=== PATIENT | male | born 1945 | race Caucasian/White ===

== ENCOUNTER 2017-02-06 07:44 | Outpatient (CLI) | payer MEDICARE | END 2017-02-06 07:45 | disposition home or self-care (01) | LOC: LABBT 07:44 | PROVIDERS: ATTEND Internal Medicine Cardiovascular Disease | DX: Z01.812 Encounter for preprocedural laboratory examination (principal); I35.0 Nonrheumatic aortic (valve) stenosis ==

== ENCOUNTER 2017-02-07 08:15 | Outpatient (CLI) | payer MEDICARE ==
[2017-02-07 10:16] LABS: Hematocrit 49.5 % (42.0-52.0); Mean Platelet Volume 9.1 fL (7.4-10.4); Red Blood Cell (RBC) Count 5.25 mill/uL (4.70-6.10); White Blood Cell (WBC) Count 9.5 thou/uL (4.8-10.8)
[2017-02-07 10:29] LABS: Prothrombin Time 18.7 SEC (12.0-14.7)
[2017-02-07 10:46] LABS: ALT (SGPT) 12 U/L (8-55); AST (SGOT) 19 U/L (5-34); Alkaline Phosphatase 99 U/L (40-150); Anion Gap 16 mmol/L (10-20); BUN (Urea Nitrogen) 18 mg/dL (8.4-25.7); Bilirubin, Total 1.2 mg/dL (0.2-1.2); Calc. Creatinine Clearance 0 mL/min (70-130); Calcium 9.7 mg/dL (7.8-10.44); Carbon Dioxide 22 mmol/L (23-31); Chloride 104 mmol/L (98-107); Estimated GFR-MDRD 54; Globulin 3.6 g/dL (2.4-3.5); Protein, Total 7.3 g/dL (5.8-8.1)
== END 2017-02-07 08:16 | disposition home or self-care (01) ==
LOC: LABBT 08:15
PROVIDERS: ATTEND Internal Medicine Cardiovascular Disease
DX: Z01.812 Encounter for preprocedural laboratory examination (principal); I35.0 Nonrheumatic aortic (valve) stenosis
CPT/HCPCS: 80053; 85027; 85610; 85730

== ENCOUNTER → 2017-02-08 | Day surgery (SDC) | payer MEDICARE ==
[2017-02-06 08:24] VITALS: BMI 28.0
[~2017-02-08] MED LIST: Diazepam 5 MG TAB ONE; Fentanyl 100 MCG/2 ML VIAL ONE; Iopamidol 370 76% 100 ML VIAL ONE; Midazolam HCl 2 mg/2 ml Vial ONE; Nitroglycerin 100MG/250ML BOT 250 ML ONE
[2017-02-08 06:53] LABS: Prothrombin Time 17.3 SEC (12.0-14.7)
--- NOTE | 2017-02-08 17:04 | CON ---
DATE OF CONSULTATION: 02/08/2017 HISTORY OF PRESENT ILLNESS: This is a 71-year-old gentleman with a history of atrial fibrillation c hronically. 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 He had been followed by Dr. Ann for the atrial fibrillation and remote catheterization demonstrated normal coronary arteries. He h ad a dilated left atrium. Recent echocardiogram suggested severe aortic stenosis with an ejection f raction of 40% to 45%, a peak gradient of 67, mean 35 and a valve area of 0.5. Cardiac catheterizat ion today demonstrated a heavily calcified disease proximal LAD, mid LAD with being intramyocardial and the distal LAD being bypassable with normal circumflex and right system. PAST MEDICAL HISTORY: Includes hypertension and diabetes mellitus. SOCIAL HISTORY: He is , nonsmoker. CURRENT MEDICATIONS: Include Coumadin, which has been on hold. He also takes Zebeta 15 mg daily, p rednisone 2 mg daily, warfarin 5 mg as directed, metformin 500 b.i.d., Lasix 20 q. day and vitamins. ALLERGIES: He reports allergies to LEVOFLOXACIN and CIPROFLOXACIN. FAMILY HISTORY: Noncontributory. SOCIAL HISTORY: As noted above. PHYSICAL EXAMINATION: VITAL SIGNS: Heart rate 70 and blood pressure 130/70. NECK: No carotid bruits. CARDIAC: Very distant systolic murmur and irregular rhythm. ABDOMEN: Obese and nontender. EXTREMITIES: He has palpable pedal pulse bilaterally with no peripheral edema today. ASSESSMENT AND PLAN: At this time is for aortic valve replacement and single vessel coronary bypass grafting to the LAD and informed consent has been obtained.
== END ==
LOC: CCL 05:53
PROVIDERS: ATTEND Internal Medicine Cardiovascular Disease
DX: I35.0 Nonrheumatic aortic (valve) stenosis (principal); I10 Essential (primary) hypertension; E11.9 Type 2 diabetes mellitus without complications; I48.91 Unspecified atrial fibrillation; Z79.01 Long term (current) use of anticoagulants; Z79.52 Long term (current) use of systemic steroids; Z79.84 Long term (current) use of oral hypoglycemic drugs; Z88.1 Allergy status to other antibiotic agents
CPT/HCPCS: 76942; 82962; 85610; 86850; 86900; 86901; 86920; 93454; C1769; 36415; 36416; 99152; J1644; J2250; J3010

== ENCOUNTER 2017-02-10 08:58 | Inpatient (IN) | payer MEDICARE ==
[2017-02-13] MEDS ORDERED: Fentanyl 100 MCG/2 ML VIAL ONE (06:29)
[2017-02-13] MEDS ORDERED: Dexmedetomidine 200 MCG/2 ML VIAL ONE (06:30)
[2017-02-13] MEDS ORDERED: Vecuronium 10 MG VIAL ONE ×2 (06:30→07:48)
[2017-02-13] MEDS ORDERED: Midazolam HCl 5 mg/5 ml Vial ONE (06:30)
[2017-02-13] MEDS ORDERED: Heparin 10,000 UNITS/1 ML VIAL 30,000 UNITS in Sodium Chloride 0.9% 1,000 ML FS SCH (06:45)
[2017-02-13] MEDS ORDERED: Vancomycin HCl 1.5 GM, Admixture Fee 1 EACH in Sodium Chloride 0.9% 250 ML 300 ML IVPB SCH (07:30)
[2017-02-13] MEDS ORDERED: Hydrocortisone Sod Succ/PF 100 mg/2 ml Vial ONE ×2 (07:48→09:53)
[2017-02-13] MEDS ORDERED: Lidocaine 2% PF 10 ML AMP (For Epidural Use) ONE (07:48)
[2017-02-13] MEDS ORDERED: PHENYLEPHRINE-NS 100 MCG/ML 10 ML SYRINGE ONE (07:48)
[2017-02-13] MEDS ORDERED: ePHEDrine/0.9% NaCl/PF SYRINGE 50 mg/10 ml ONE (07:48)
[2017-02-13] MEDS ORDERED: Milrinone 10 MG/10 ML VIAL ONE (08:26)
[2017-02-13] MEDS ORDERED: Albumin 5% 500 ML ONE (10:43)
[2017-02-13 12:47] LABS: Mechanical Tidal Volume 550 ml; Modified Allen's Test NOT DONE; Oxyhemoglobin 94.6 % (94.0-97.0); Pressure Support 10 cmH2O; Sodium 144 mmol/L (135-148); Vent YES
[2017-02-13 12:48] LABS: Mode PSIMV
--- NOTE | 2017-02-13 13:02 | RAD ---
SUPINE CHEST: Date: 02/13/17 HISTORY: Post CABG. COMPARISON: 03/31/08 exam. FINDINGS: Heart size is enlarged. Postop sternotomy change and bowel replacement are noted. Endotracheal and N G tubes are in satisfactory position. Right subclavian line is seen with catheter tip overlying the superior vena cava/right atrium junction. Midline left-sided chest tubes in place. Bibasilar atelect atic lung changes are noted. IMPRESSION: 1. Endotracheal tube in satisfactory position. 2. Cardiomegaly with bibasilar atelectasis. 3. Mild pulmonary vascular engorgement is also noted. POS: OFF
[2017-02-13] MEDS ORDERED: Bisacodyl 5 MG TAB PO PRN (14:31)
[2017-02-13] MEDS ORDERED: Morphine Sulfate 2 MG/ML SYRINGE SLOW IVP PRN (14:31)
[2017-02-13] MEDS ORDERED: DOPamine 400 MG/D5W 250 ML 250 ML IVPB PRN (14:31)
[2017-02-13] MEDS ORDERED: Norepinephrine 8 MG/0.9% NS 250 ML IVPB PRN (14:31)
[2017-02-13] MEDS ORDERED: Fentanyl 100 MCG/2 ML VIAL SLOW IVP PRN ×2 (14:31)
[2017-02-13] MEDS ORDERED: Phenylephrine 10 MG/NS 250 ML 250 ML IVPB PRN (14:31)
[2017-02-13] MEDS ORDERED: Mag-Al 1200 mg/1200 mg/30 ML UDCUP PO PRN (14:31)
[2017-02-13] MEDS ORDERED: Nitroglycerin 50 MG/250 ML BOT 250 ML IVPB PRN (14:31)
[2017-02-13] MEDS ORDERED: Guaifenesin DM 100-10/5 ML UDCUP PO PRN (14:31)
[2017-02-13] MEDS ORDERED: Bisacodyl 10 MG SUPP PR PRN (14:31)
[2017-02-13] MEDS ORDERED: Post-Op Insulin Drip Protocol IVPB ONE (14:31)
[2017-02-13] MEDS ORDERED: traMADol HCl 50 MG TAB PO PRN (14:31)
[2017-02-13] MEDS ORDERED: Hetastarch 6% 500 ML 500 ML IVPB PRN (14:31)
[2017-02-13] MEDS ORDERED: Ondansetron HCl/PF 4 MG/2 ML Vial IVP PRN (14:31)
[2017-02-13] MEDS ORDERED: Potassium Chloride 20 MEQ/100 ML PREMIX BAG IVPB PRN (14:31)
[2017-02-13] MEDS ORDERED: Promethazine HCl 25 MG/ML VIAL IM PRN (14:31)
[2017-02-13 14:35] LABS: Oxyhemoglobin 96.9 % (94.0-97.0); Sodium 142 mmol/L (135-148)
[2017-02-13 14:35] LABS: Base Excess -0.4 mEq/L (0 (+/- 2.5)); O2 Content (venous) 12.5 VOL% (12.5-17.5); pH (venous) 7.392 (7.35-7.45)
[2017-02-13 14:35] LABS: Oxyhemoglobin 97.3 % (94.0-97.0); Sodium 142 mmol/L (135-148)
[2017-02-13 14:36] LABS: Sodium 143 mmol/L (135-148)
[2017-02-13 14:36] LABS: Oxyhemoglobin 97.3 % (94.0-97.0); Sodium 141 mmol/L (135-148)
[2017-02-13 14:36] LABS: Oxyhemoglobin 96.2 % (94.0-97.0); Sodium 145 mmol/L (135-148)
[2017-02-13 14:42] LABS: Mode OR ABG; Vent YES
[2017-02-13 14:43] LABS: Mode OR ABG; Vent YES
[2017-02-13 14:43] LABS: Mode OR ABG; Vent YES
[2017-02-13 14:44] LABS: Mean Platelet Volume 8.8 fL (7.4-10.4); Red Blood Cell (RBC) Count 5.11 mill/uL (4.70-6.10); White Blood Cell (WBC) Count 28.6 thou/uL (4.8-10.8)
[2017-02-13 14:44] LABS: Mode OR ABG; Vent YES
[2017-02-13 14:44] LABS: Mode OR ABG; Vent YES
[2017-02-13] MEDS ORDERED: Dextrose 50% Abboject 50 ML SYRINGE SLOW IVP PRN (14:49)
[2017-02-13] MEDS ORDERED: Dextrose 5% in Water 1,000 ML IV PRN (14:49)
[2017-02-13 14:51] LABS: PTT 34.9 SEC (22.9-36.1); Prothrombin Time 19.4 SEC (12.0-14.7)
[2017-02-13 14:52] LABS: Anion Gap 14 mmol/L (10-20); BUN (Urea Nitrogen) 16 mg/dL (8.4-25.7); Calc. Creatinine Clearance 74 mL/min (70-130); Calcium 9.4 mg/dL (7.8-10.44); Carbon Dioxide 23 mmol/L (23-31); Chloride 110 mmol/L (98-107); Estimated GFR-MDRD 61
[2017-02-13] MEDS ORDERED: Insulin Regular 300 UNITS/3 ML VIAL ONE (14:58)
[2017-02-13 15:00] LABS: Band 29 % (5-11); Burr Cells SLIGHT = 2-5 cells (100X) (0-1/hpf); Metamyelocyte 1 % (0-0); Neutrophil 60 % (42-75); Polychromasia SLIGHT = 2-3 cells (100X) (0-2/hpf); Reactive Lymphocytes 2 % (0-10); Toxic Granulation SLIGHT
[2017-02-13] MEDS: Insulin Regular 300 UNITS/3 ML VIAL SC PRN ×3 (15:05→21:43)
[2017-02-13] MEDS: Sodium Chloride 0.9% 1,000 ML IV SCH (15:06)
--- NOTE | 2017-02-13 16:12 | OP ---
PREOPERATIVE DIAGNOSES: Aortic valve stenosis, congestive heart failure, left ventricular dysfuncti on, coronary artery disease, and chronic atrial fibrillation. POSTOPERATIVE DIAGNOSES: Aortic valve stenosis, congestive heart failure, left ventricular dysfunct ion, coronary artery disease, and chronic atrial fibrillation with thrombus left atrial appendage. SURGEON: Bonilla Shannon M.D. DROP WIRE ALINER: Dr. Sy and Dr. Moran. TRANSFUSION: None. DESCRIPTION OF PROCEDURE: After adequate anesthesia had been obtained, the patient was prepped and draped. Median sternotomy was performed following which the left internal mammary artery was harves marcelino entering the left pleura. The patient was heparinized, the mammary divided distally and passed posterior to the thymus gland. Aorta was cannulated just above the pericardial reflection as was th e right atrium. Cardiopulmonary bypass was instituted. Retrograde coronary sinus catheter was plac ed due to moderate aortic insufficiency on the transesophageal echo. This also showed what appeared to be thrombus within the left atrial appendage as well as an ejection fraction of 17%. Following aortic cross clamping, a liter of cardioplegic solution was given through the aortic root and then 3 00 mL retrograde. Following this, the heart was gently rotated to the left and the base of the appe ndage was oversewn with a double layer of horizontal mattress suture. Following this, the CALLES to L AD anastomosis was completed and then the right superior pulmonary vein sump was placed. Aortotomy was then performed and heavily calcified trileaflet valve was excised. Sizers placed. Sutures plac ed with pledgets deep to the annulus circumferentially and then a #25 Magna valve was seated. Cor-K nots were used to tie the sutures and then the aortotomy was closed with a double layer of 5-0 Prole ne suture. After deairing, which was accomplished with the vent sump and the aortotomy site, it isaac uld be noted that CO2 was insufflated into the pericardial well throughout, and the crossclamp was r emoved. At that time with volume in the heart, it was apparent thrombus within the left atrium and for this reason, the cross-clamp was reapplied, 500 mL of cardioplegic solution was given. Atriotom y was performed in the left atrium along the right interatrial groove and smooth thrombus was then r emoved at the base of the left atrial appendage. The appendage itself was completely oversewn and t his appeared to have an extruded perhaps during tying of the left atrial appendage suture line. Lef t atrium was then closed and after deairing, crossclamp was removed again. The patient was then ful ly rewarmed, pacing wires placed on the ventricle and the patient was then weaned from cardiopulmona ry bypass with low dose dopamine and Primacor load. No air was detected in the heart. There was no further thrombus identified. Decannulation was performed. Protamine was given systemically and ao rtic cannulation site was oversewn with 4-0 Prolene suture. Mediastinal and left pleural drain was placed following which the sternum was reapproximated with #7 interrupted wire using vancomycin past e on the sternal edges, platelet-enriched blood, and platelet-poor plasma. Subcutaneous tissue and skin were closed in layers and the patient is to be taken to the ICU in guarded condition.
[2017-02-13 20:10] LABS: Oxyhemoglobin 95.2 % (94.0-97.0); Sodium 143 mmol/L (135-148)
[2017-02-13 20:35] LABS: Pressure Support 10 cmH2O; Vent YES
[2017-02-13 20:36] LABS: Mode CPAP
[2017-02-13] MEDS ORDERED: FLU VACC TS2017-18 (>65YR) 0.5 ML SYRINGE IM ONE (21:00)
[2017-02-13] MEDS ORDERED: Enoxaparin Sodium 30 MG/0.3 ML SYRINGE SC SCH (21:00)
[2017-02-13] MEDS: Famotidine/PF 20 mg/2ml Vial SLOW IVP SCH (21:23)
[2017-02-13] MEDS: Vancomycin HCl 1 GM in Premix Bag 1 BAG IVPB SCH (21:23)
--- NOTE | 2017-02-13 21:36 | PRG ---
DATE OF SERVICE: 02/13/2017 SUBJECTIVE: Mr. Linares is doing well postoperatively. The patient had aortic valve replacement successfully done today. Dr. Shannon noted there is some int raatrial appendage thrombus, which he was able to retrieve. The patient is doing well now, still in tubated. OBJECTIVE: VITAL SIGNS: Blood pressure 120/60, pulse 80. LUNGS: Clear. CARDIAC: Normal S1, S2, he is actually in sinus rhythm. ASSESSMENT: 1. History of chronic atrial fibrillation, now in sinus rhythm. 2. Status post aortic valve replacement. 3. Bypass x1 to the LAD. PLAN: Continue current medical regimen. Plan on weaning dopamine.
[2017-02-14] MEDS: Insulin Regular 300 UNITS/3 ML VIAL SC PRN ×3 (00:11→12:58)
[2017-02-14 05:01] LABS: #Lymphocytes 0.9 thou/uL (1.20-3.40); #Monocytes 1.8 thou/uL (0.11-0.59); #Neutrophils 13.7 thou/uL (1.40-6.50); %Basophils 0.1 % (0.0-1.0); %Eosinophils 0.1 % (0.0-10.0); %Lymphocytes 5.4 % (21.0-51.0); %Monocytes 10.8 % (0.0-10.0); Hematocrit 36.9 % (42.0-52.0); Mean Platelet Volume 8.1 fL (7.4-10.4); Red Blood Cell (RBC) Count 3.95 mill/uL (4.70-6.10); White Blood Cell (WBC) Count 16.4 thou/uL (4.8-10.8)
[2017-02-14 05:32] LABS: Anion Gap 14 mmol/L (10-20); BUN (Urea Nitrogen) 22 mg/dL (8.4-25.7); Calc. Creatinine Clearance 68 mL/min (70-130); Calcium 8.5 mg/dL (7.8-10.44); Carbon Dioxide 18 mmol/L (23-31); Chloride 114 mmol/L (98-107); Estimated GFR-MDRD 54
[2017-02-14] MEDS: Sodium Chloride 0.9% 1,000 ML IV SCH (05:40)
[2017-02-14] MEDS: Famotidine/PF 20 mg/2ml Vial SLOW IVP SCH ×2 (08:09→20:56)
[2017-02-14] MEDS: Enoxaparin Sodium 30 MG/0.3 ML SYRINGE SC SCH ×2 (08:09→20:56)
[2017-02-14] MEDS: Aspirin 325 MG TAB PO SCH (08:10)
[2017-02-14] MEDS: Vancomycin HCl 1 GM in Premix Bag 1 BAG IVPB SCH (08:11)
[2017-02-14] MEDS: predniSONE 1 MG TAB PO SCH (08:11)
[2017-02-14] MEDS: Insulin Detemir 100 UNITS/ML 5 UNITS in Pre-Filled Syringe 1 EACH SC SCH ×2 (08:41→20:56)
--- NOTE | 2017-02-14 08:59 | RAD ---
CHEST ONE VIEW: Comparison: 02-13-17 History: Status post open heart surgery. FINDINGS: Interval removal of endotracheal tube, nasogastric tube, mediastinal drainage catheter. Left sided c hest tube and right sided central venous catheter redemonstrated. Sternotomy wires and prosthetic he art valve redemonstrated. No consolidation or pneumothorax. IMPRESSION: Interval removal of lines and tubes as above. POS: [facility]
--- NOTE | 2017-02-14 09:07 | PRG ---
DATE OF SERVICE: 02/14/2017 HISTORY: Mr. Linares is sitting up in the chair, doing well. He says he feels well, has very littl e discomfort in his chest. PHYSICAL EXAMINATION: VITAL SIGNS: Blood pressure is 120/44, pulse 64, it is regular. It is sinus rhythm. LUNGS: Clear. CARDIAC: Normal S1, normal S2. ABDOMEN: Soft, nontender. EXTREMITIES: There is no edema. ASSESSMENT: 1. Status post aortic valve replacement and coronary bypass grafting. 2. Diabetes. 3. Chronic atrial fibrillation, now surprisingly staying in sinus rhythm. PLAN: 1. He is on low dose enoxaparin. 2. Consider resuming Coumadin if okay with Dr. Shannon. 3. Continue other medicines unchanged presently. Will hold off on beta-blockers now as his heart r ate is relatively low.
[2017-02-14] MEDS: Warfarin Sodium 3 MG TAB PO SCH (17:53)
[2017-02-14] MEDS: Acetaminophen 325 MG TAB PO PRN (20:11)
[2017-02-15 04:26] LABS: Anion Gap 10 mmol/L (10-20); BUN (Urea Nitrogen) 29 mg/dL (8.4-25.7); Calc. Creatinine Clearance 68 mL/min (70-130); Calcium 8.4 mg/dL (7.8-10.44); Carbon Dioxide 23 mmol/L (23-31); Chloride 108 mmol/L (98-107); Estimated GFR-MDRD 54
[2017-02-15 04:46] LABS: #Monocytes 1.5 thou/uL (0.11-0.59); #Neutrophils 10.2 thou/uL (1.40-6.50); %Basophils 0.3 % (0.0-1.0); %Eosinophils 0.2 % (0.0-10.0); %Lymphocytes 7.5 % (21.0-51.0); Hematocrit 36.9 % (42.0-52.0); Mean Platelet Volume 8.7 fL (7.4-10.4); White Blood Cell (WBC) Count 12.7 thou/uL (4.8-10.8)
[2017-02-15] MEDS: Sodium Chloride 0.9% 1,000 ML IV SCH (06:15)
[2017-02-15 06:33] VITALS: BMI 29.6
[2017-02-15] MEDS: Aspirin 325 MG TAB PO SCH (09:18)
[2017-02-15] MEDS: predniSONE 1 MG TAB PO SCH (09:19)
[2017-02-15] MEDS: Enoxaparin Sodium 30 MG/0.3 ML SYRINGE SC SCH ×2 (09:19→20:30)
[2017-02-15] MEDS: Insulin Detemir 100 UNITS/ML 5 UNITS in Pre-Filled Syringe 1 EACH SC SCH ×2 (09:19→20:52)
--- NOTE | 2017-02-15 09:20 | RAD ---
AP CHEST: Indication: Status post open heart surgery. Comparison: 02-14-17 FINDINGS: Valvular prosthesis, sternotomy wires, and right subclavian central venous catheter is similar appea ring. Bibasilar atelectasis. There are tiny bilateral pleural effusions which persist. No pneumothor ax is evident. Osseous structures are unchanged. IMPRESSION: Stable exam. POS: [facility]
--- NOTE | 2017-02-15 09:25 | PRG ---
DATE OF SERVICE: 02/15/2017 SUBJECTIVE: Mr. Linares is sitting up at bedside, doing well. He has no chest pain or pressure. He is feeling well. PHYSICAL EXAMINATION: VITAL SIGNS: Blood pressure 127/56, pulse 80, it is back in atrial fibrillation. LUNGS: Clear. CARDIAC: Irregularly irregular. ABDOMEN: Soft, nontender. EXTREMITIES: No edema. ASSESSMENT: 1. Status post aortic valve replacement. 2. Atrial fibrillation, chronic. INR is back to 1.6. 3. Status post bypass surgery. PLAN: Continue current medical regimen. The patient is doing well, probably go out to the regular area later today or tomorrow.
[2017-02-15] MEDS: Insulin Regular 300 UNITS/3 ML VIAL SC PRN (12:44)
[2017-02-15] MEDS: Warfarin Sodium 3 MG TAB PO SCH (17:46)
[2017-02-15] MEDS ORDERED: Bisacodyl 10 MG SUPP PR PRN (18:36)
[2017-02-15] MEDS ORDERED: Artificial Tears 18 DROP/0.9 ML EA EYE PRN (18:36)
[2017-02-15] MEDS ORDERED: Mag-Al 1200 mg/1200 mg/30 ML UDCUP PO PRN (18:36)
[2017-02-15] MEDS ORDERED: Bisacodyl 5 MG TAB PO PRN (18:36)
[2017-02-15] MEDS ORDERED: Zolpidem Tartrate 5 MG TAB PO PRN (18:36)
[2017-02-15] MEDS ORDERED: Guaifenesin DM 100-10/5 ML UDCUP PO PRN (18:36)
[2017-02-15] MEDS ORDERED: Nitroglycerin 0.4 MG TAB 1 EACH SL PRN (18:36)
[2017-02-15] MEDS ORDERED: diphenhydrAMINE HCl 25 MG CAP PO PRN (18:36)
[2017-02-15] MEDS ORDERED: Mineral Oil ENEMA PR PRN (18:36)
[2017-02-16 05:08] LABS: Prothrombin Time 18.9 SEC (12.0-14.7)
[2017-02-16 05:37] LABS: Anion Gap 8 mmol/L (10-20); BUN (Urea Nitrogen) 20 mg/dL (8.4-25.7); Calc. Creatinine Clearance 101 mL/min (70-130); Calcium 8.4 mg/dL (7.8-10.44); Carbon Dioxide 25 mmol/L (23-31); Chloride 107 mmol/L (98-107); Estimated GFR-MDRD 83
[2017-02-16 05:40] LABS: Band 1 % (5-11); Hematocrit 36.6 % (42.0-52.0); Mean Platelet Volume 8.4 fL (7.4-10.4); Neutrophil 85 % (42-75); Red Blood Cell (RBC) Count 3.89 mill/uL (4.70-6.10); White Blood Cell (WBC) Count 10.9 thou/uL (4.8-10.8)
[2017-02-16] MEDS: Enoxaparin Sodium 30 MG/0.3 ML SYRINGE SC SCH ×2 (08:25→20:56)
[2017-02-16] MEDS: Acetaminophen 325 MG TAB PO PRN (08:26)
[2017-02-16] MEDS: Insulin Detemir 100 UNITS/ML 5 UNITS in Pre-Filled Syringe 1 EACH SC SCH ×2 (08:26→21:00)
[2017-02-16] MEDS: Metoprolol Tartrate 25 MG TAB PO SCH ×2 (08:26→20:55)
[2017-02-16] MEDS: predniSONE 1 MG TAB PO SCH (08:26)
[2017-02-16] MEDS: Furosemide 40 MG TAB PO SCH ×2 (08:26→14:07)
[2017-02-16] MEDS ORDERED: Furosemide 20 MG TAB PO SCH (09:00)
[2017-02-16] MEDS ORDERED: Aspirin 325 mg Enteric Coated Tablet PO SCH (09:00)
--- NOTE | 2017-02-16 10:29 | PRG ---
DATE OF SERVICE: 02/16/2017 Mr. Linares is wanting to go home. He said he had hard night, he could not sleep. He states he wan ts to be released. No chest pain or pressure. PHYSICAL EXAMINATION: VITAL SIGNS: Blood pressure 140/90, pulse in the 80s, atrial fibrillation. LUNGS: Clear. CARDIAC: Irregular, irregular. ABDOMEN: Soft, nontender. EXTREMITIES: There is no edema. ASSESSMENT: 1. Status post aortic valve replacement. The valve is a bioprosthetic valve). 2. Chronic atrial fibrillation. 3. Status post bypass surgery. PLAN: 1. Continue beta tree. 2. Continue Coumadin. 3. Attempting to find out how much Coumadin he is on at home. 4. Potentially the patient to be released home today if he is willing to take the Lovenox and come in to the [facility] tomorrow. It certainly would be simpler to keep him one more day. The renny hanna indicates he may leave anyway he tells me.
[2017-02-16] MEDS: Warfarin Sodium 3 MG TAB PO SCH (17:38)
[2017-02-17 05:35] LABS: #Eosinphils 0.2 thou/uL (0.0-0.7); #Lymphocytes 0.9 thou/uL (1.20-3.40); #Monocytes 1.2 thou/uL (0.11-0.59); %Basophils 0.3 % (0.0-1.0); %Eosinophils 2.4 % (0.0-10.0); %Lymphocytes 9.6 % (21.0-51.0); %Monocytes 13.2 % (0.0-10.0); Hematocrit 37.5 % (42.0-52.0); Mean Platelet Volume 8.2 fL (7.4-10.4); Red Blood Cell (RBC) Count 4.04 mill/uL (4.70-6.10); White Blood Cell (WBC) Count 9.4 thou/uL (4.8-10.8)
[2017-02-17 05:36] LABS: Prothrombin Time 18.6 SEC (12.0-14.7)
[2017-02-17 05:54] LABS: Anion Gap 11 mmol/L (10-20); BUN (Urea Nitrogen) 18 mg/dL (8.4-25.7); Calc. Creatinine Clearance 109 mL/min (70-130); Calcium 8.2 mg/dL (7.8-10.44); Carbon Dioxide 27 mmol/L (23-31); Chloride 104 mmol/L (98-107); Estimated GFR-MDRD 86
[2017-02-17 07:49] VITALS: BP 198/78; TEMP 99.3
[2017-02-17] MEDS: Insulin Detemir 100 UNITS/ML 5 UNITS in Pre-Filled Syringe 1 EACH SC SCH (08:34)
[2017-02-17] MEDS: Enoxaparin Sodium 30 MG/0.3 ML SYRINGE SC SCH (08:35)
[2017-02-17] MEDS: Metoprolol Tartrate 25 MG TAB PO SCH (08:35)
[2017-02-17] MEDS: predniSONE 1 MG TAB PO SCH (08:35)
[2017-02-17] MEDS: Furosemide 40 MG TAB PO SCH (08:35)
[2017-02-17] MEDS ORDERED: Warfarin Sodium 5 MG TAB PO SCH (08:45)
[2017-02-17] MEDS ORDERED: Aspirin 81 mg Enteric Coated Tablet PO SCH (09:00)
[2017-02-17] MEDS ORDERED: Aspirin 325 mg Enteric Coated Tablet PO SCH (09:00)
--- NOTE | 2017-02-17 09:28 | PRG ---
DATE OF SERVICE: 02/17/2017 Mr. Linares is doing well today, feeling well. No chest pain or tightness. PHYSICAL EXAMINATION: VITAL SIGNS: Blood pressure 136/73. There is another 198/78, will need to check on that, see if th at is accurate. Pulse is 80, it is irregular. LUNGS: Clear. CARDIAC: Irregular, irregular. ASSESSMENT: 1. Chronic atrial fibrillation. 2. Status post aortic valve replacement with bypass surgery. PLAN: 1. He is still on metoprolol 25 mg twice daily. 2. Coumadin. Resume home dose. 3. Aspirin 81 mg daily. 4. Lovenox 30 mg subcu q.12 h over the weekend. 5. INR check on Monday. 6. At some point, consider transesophageal echo to see if the left atrial appendage is completely o ccluded. If it is, he can go off of Coumadin. He had oversewing of the left atrial appendage, will probably wait a couple of months on that.
--- NOTE | 2017-02-28 00:54 | DIS ---
HOSPITAL COURSE: The patient was admitted on 02/13/2017 where he underwent aortic valve coronary ar jhon bypass graft x1 to the LAD with left atrial appendage ligation. He also had removal of left at rial thrombus. In the morning following surgery, he stated that he already felt better as far as hi s breathing. He was on low dose dopamine. He continued to make good progress. He was back in his chronic atrial fibrillation at the time of discharge, although he transiently was in sinus rhythm po stoperatively. His Coumadin was restarted on the day after surgery. He was discharged home on Lasi x 20 a day, vitamin B12, metformin 500 b.i.d., prednisone 2 mg daily, warfarin 4 mg daily alternatin g with 3 mg. He was also on NPH insulin 5 units twice a day, aspirin 81 a day, metoprolol 25 b.i.d. , Lovenox 30 q.12 h. and tramadol as needed for pain. Discharge and followup instructions were give n, and he will follow up with me in 2 weeks.
== END 2017-02-17 10:50 | disposition home or self-care (01) | DRG 220 ==
LOC: EDSTATUS 08:58 → SURG A 02-13 05:42 → CCU 02-13 11:25 → 2NO 02-15 17:53
PROVIDERS: ADMIT Thoracic Surgery (Cardiothoracic Vascular Surgery); ATTEND Thoracic Surgery (Cardiothoracic Vascular Surgery)
PROC: 02RF0KZ Replacement of Aortic Valve with Nonautologous Tissue Substitute, Open Approach (ICD-10-PCS; principal; 2017-02-13)
PROC: 02100Z9 Bypass Coronary Artery, One Artery from Left Internal Mammary, Open Approach (ICD-10-PCS; 2017-02-13)
PROC: 02C Heart and Great Vessels, Extirpation (ICD-10-PCS; 2017-02-13)
PROC: 5A1221Z Performance of Cardiac Output, Continuous (ICD-10-PCS; 2017-02-13)
PROC: 02L70ZK Occlusion of Left Atrial Appendage, Open Approach (ICD-10-PCS; 2017-02-13)
DX: I35.2 Nonrheumatic aortic (valve) stenosis with insufficiency (principal); I50.32 Chronic diastolic (congestive) heart failure; I48.2 Chronic atrial fibrillation; I11.0 Hypertensive heart disease with heart failure; I51.3 Intracardiac thrombosis, not elsewhere classified; I25.10 Atherosclerotic heart disease of native coronary artery without angina pectoris; E11.9 Type 2 diabetes mellitus without complications; E78.1 Pure hyperglyceridemia; Z79.01 Long term (current) use of anticoagulants
CPT/HCPCS: 36415; 36416; 71010; 80048; 82805; 85025; 85610; 85730; 86850; 86900; 86901; 88304; 93005; 93010; 93798; 94002; 94150; A4216; J0360; J1265; J1642; J1644; J1650; J1720; J1815; J2001; J2250; J2260; J2270; J2405; J3010; J3370; J7050; P9045; S0028

== ENCOUNTER 2017-08-09 08:30 | Inpatient (IN) | payer MEDICARE ==
[2017-08-09 09:11] LABS: #Basophils 0.1 thou/uL (0.0-0.2); #Eosinphils 0.2 thou/uL (0.0-0.7); #Lymphocytes 1.9 thou/uL (1.20-3.40); #Monocytes 1.2 thou/uL (0.11-0.59); #Neutrophils 12.4 thou/uL (1.40-6.50); %Basophils 0.5 % (0.0-1.0); %Eosinophils 1.4 % (0.0-10.0); %Monocytes 7.5 % (0.0-10.0); %Neutrophils 78.7 % (42.0-75.0); Hemoglobin 8.9 g/dL (14.0-18.0); Mean Corpuscular HGB CONC 31.2 g/dL (32.0-36.0); Mean Corpuscular Hemoglobin 28.6 pg (27.0-31.0); Mean Corpuscular Volume 91.5 fl (80.0-94.0); Mean Platelet Volume 8.1 fL (7.4-10.4); Platelet Count 255 thou/uL (130-400); RBC Distribution Width 13.7 % (11.5-14.5); Red Blood Cell (RBC) Count 3.11 mill/uL (4.70-6.10); White Blood Cell (WBC) Count 15.7 thou/uL (4.8-10.8)
[2017-08-09 09:30] LABS: ALT (SGPT) 14 U/L (8-55); AST (SGOT) 18 U/L (5-34); Albumin 3.7 g/dL (3.4-4.8); Alkaline Phosphatase 53 U/L (40-150); Anion Gap 14 mmol/L (10-20); BUN (Urea Nitrogen) 64 mg/dL (8.4-25.7); Bilirubin, Total 0.6 mg/dL (0.2-1.2); Calc. Creatinine Clearance 0 mL/min (70-130); Calcium 10.6 mg/dL (7.8-10.44); Carbon Dioxide 26 mmol/L (23-31); Chloride 105 mmol/L (98-107); Estimated GFR-MDRD 57; Globulin 2.7 g/dL (2.4-3.5); Glucose 165 mg/dL (80-115); Potassium 3.7 mmol/L (3.5-5.1); Protein, Total 6.4 g/dL (5.8-8.1); Sodium 141 mmol/L (136-145)
[2017-08-09 09:32] LABS: INR-International Normal Ratio 2.6; PTT 32.8 SEC (22.9-36.1); Prothrombin Time 28.7 SEC (12.0-14.7)
[2017-08-09 09:46] LABS: CKMB 1.6 ng/mL (0-6.6)
[2017-08-09] MEDS ORDERED: Pantoprazole 40 MG VIAL ONE (10:22)
--- NOTE | 2017-08-09 10:58 | PDOC.FPRHP ---
- History of Present Illness Chief Complaint: Black stool/weak History of Present Illness: 72 y/o M w/ PMHx of multiple colon resections (x3) for diverticulitis roughly 20 years ago presents for evaluation of 3 day hx large volume black tarry stools. Episodes started on Monday. Pt endorses decreased appetite as well. Endorses occasional epigastric pressure like "gas pain". Resolved w/ burping. Reports feeling dizzy and weak since these episodes started on Monday. Pt reportedly taking coumadin for a-fib. Aortic valve replacement in 02/2017. Denies any hematemesis or hematochezia. Pt does not see a GI physician on a regular basis. Pt does report hx of angiodysplasia w/ prior episodes of BRBPR prior to colectomy. Also w/ a "mass behind his colon" during his final resection which he states was causing his bleeding. INR has been very labile recently from 1.5 up to 7 over the past few weeks. Endorses easy bruising when it was supratherapeutic. CODE STATUS: OK to intubate and chemical code. No chest compressions. code status was discussed with patient and at time of admission who expressed understanding of code status. ED Course: Dr. Maravilla consulted who started pt on IV protonix. Pt was also given one gram of Rocephin. He is s/p 2L NS as well. - Allergies/Adverse Reactions Allergies Allergy/AdvReac Type Severity Reaction Status Date / Time ciprofloxacin [From Cipro] Allergy Hives Verified 02/09/17 09:14 ciprofloxacin HCl Allergy Hives Verified 02/09/17 09:14 [From Cipro] hydrocodone Allergy Verified 02/09/17 09:14 - Home Medications Medication Instructions Recorded Confirmed Type Calcium Citrate/Vitamin D3 1 tab PO BID 08/04/15 08/09/17 History [Calcitrate + Vitamin D Caplet] Insulin NPH Human Isophane 5 unit SC QPM 08/04/15 08/09/17 History [NovoLIN N] Insulin NPH Human Isophane 15 unit SC QAM 08/04/15 08/09/17 History [NovoLIN N] Warfarin Sodium 3 mg PO ASDIR 08/04/15 08/09/17 History diphenhydrAMINE [Benadryl] 2 tab PO HS PRN 08/04/15 08/09/17 History metFORMIN [Glucophage] 500 mg PO BID-WM 08/04/15 08/09/17 History predniSONE 2 mg PO QAM-WM 08/04/15 08/09/17 History Cyanocobalamin (Vitamin B-12) 1,000 mcg PO BID 02/06/17 08/09/17 History [Vitamin B12] Furosemide 20 mg PO QAM 02/06/17 08/09/17 History Aspirin [Adult Low Dose Aspirin EC] 81 mg PO DAILY #30 tablet. 02/17/17 Rx Metoprolol Tartrate [Lopressor] 25 mg PO BID #60 tab 02/17/17 08/09/17 Rx Acetaminophen [Tylenol Regular 325 mg PO HS 08/09/17 08/09/17 History Strength] Pantoprazole [Protonix] 40 mg PO BID #60 tab 08/12/17 Rx Comments: For updated medication list please refer to nurses records - History PMHx: IDDM, A-fib, HTN PSHx: Colon resections x3, right knee replacement, aortic valve replacement ( 2017) FHx: DM - maternal, Heart disease - father Social: Denies any tobacco, alcohol, or drug use - Review of Systems General: reports: weight/appetite/sleep changes (decreased appetite). denies: fever/chills Eyes: denies: eye pain, vision changes ENT: denies: rhinorrhea Respiratory: denies: cough, shortness of breath Cardiovascular: denies: chest pain Gastrointestinal: reports: GI bleeding. denies: vomiting, abdominal pain Genitourinary: denies: dysuria Skin: denies: rashes Musculoskeletal: denies: pain Neurological: denies: seizure Psychological: denies: anxiety, depression - Vital signs BP: 105/49 HR: 86 RR: 22 Tmax: 98.4 degF Pox: 97% on RA Wt: 97.38 - Physical Exam Constitutional: NAD, awake, alert and oriented, well developed HEENT: normocephalic and atraumatic, PERRLA, EOMI Neck: supple, trachea midline Chest: no-tender to palpation Heart: RRR, normal S1/S2, no murmurs/rubs/gallops Lungs: CTAB, no respiratory distress Abdomen: soft, non-tender, bowel sounds present, no masses/distention Neurological: no focal deficit, CN II-XII intact Skin: no rash/lesions, good turgor Heme/Lymphatic: no unusual bruising or bleeding Psychiatric: normal mood and affect, good judgment and insight, intact recent and remote memory FMR H&P: Results - Labs Result Diagrams: 08/12/17 04:30 08/12/17 04:30 Lab results: WBC 15.7 thou/uL (4.8-10.8) H 08/09/17 08:55 Hgb 8.9 g/dL (14.0-18.0) L 08/09/17 08:55 Hct 28.5 % (42.0-52.0) L 08/09/17 08:55 MCV 91.5 fl (80.0-94.0) 08/09/17 08:55 Plt Count 255 thou/uL (130-400) 08/09/17 08:55 Neutrophils % 78.7 % (42.0-75.0) H 08/09/17 08:55 Sodium 141 mmol/L (136-145) 08/09/17 08:55 Potassium 3.7 mmol/L (3.5-5.1) 08/09/17 08:55 Chloride 105 mmol/L (98-107) 08/09/17 08:55 Carbon Dioxide 26 mmol/L (23-31) 08/09/17 08:55 BUN 64 mg/dL (8.4-25.7) H 08/09/17 08:55 Creatinine 1.26 mg/dL (0.6-1.3) 08/09/17 08:55 Glucose 165 mg/dL (80-115) H 08/09/17 08:55 Lactic Acid 3.0 mmol/L (0.5-2.2) H 08/09/17 08:55 Calcium 10.6 mg/dL (7.8-10.44) H 08/09/17 08:55 Total Bilirubin 0.6 mg/dL (0.2-1.2) 08/09/17 08:55 AST 18 U/L (5-34) 08/09/17 08:55 ALT 14 U/L (8-55) 08/09/17 08:55 Alkaline Phosphatase 53 U/L (40-150) 08/09/17 08:55 CK-MB (CK-2) 1.6 ng/mL (0-6.6) 08/09/17 08:55 Serum Total Protein 6.4 g/dL (5.8-8.1) 08/09/17 08:55 Albumin 3.7 g/dL (3.4-4.8) 08/09/17 08:55 - EKG Interpretation EKG: NSR with rate of 93 bpm FMR H&P: A/P - Problem List (1) Symptomatic anemia Status: Acute Code(s): D64.9 - ANEMIA, UNSPECIFIED Assessment and Plan: Pt feeling weak and dizzy w/ hgb below baseline down to 8.9 from 12-13 FOBT positive for GI bleed in pt w/ hx of GI bleeds and on chronic anticoagulation w/ warfarin 2/2 a-fib INR at therapeutic range at check today Will hold warfarin in the setting of acute bleed Plan to transfuse 1U PRBC and repeat H/H in 4-6 hrs to monitor for repsonse Start protonix per GI recs 2/2 likely UGI bleed w/ melanotic stools Plan for endoscopy w/ GI once hemodynamically stable NPO pending GI recs and possible endoscopy (2) GI bleed Status: Acute Code(s): K92.2 - GASTROINTESTINAL HEMORRHAGE, UNSPECIFIED Qualifiers: GI bleed type/associated pathology: unspecified gastrointestinal hemorrhage type Qualified Code(s): K92.2 - Gastrointestinal hemorrhage, unspecified Assessment and Plan: Likely UGIB 2/2 melanotic stools and hx of complete resection of the colon w/o hematochezia Will hold warfarin in the setting of acute bleed Transfuse 1U PRBC w/ follow-up H/H in 4-6 hr to monitor response Transfuse as needed NPO pending GI recs and possible scope Cont. w/ IV protonix (3) Atrial fibrillation Status: Acute Code(s): I48.91 - UNSPECIFIED ATRIAL FIBRILLATION Qualifiers: Atrial fibrillation type: chronic Qualified Code(s): I48.2 - Chronic atrial fibrillation Assessment and Plan: Will monitor cardiac activity on telemetry Pt currently NSR Will hold anticoagulation in setting of acute bleed (4) Warfarin anticoagulation Status: Acute Code(s): Z79.01 - MCFP (CURRENT) USE OF ANTICOAGULANTS Assessment and Plan: INR in therapeutic range Labile ranges over the past few weeks Could possibly have contributed to current episode Will hold in the setting of acute bleed (5) Diabetes 1.5, managed as type 2 Status: Acute Code(s): E13.9 - OTHER SPECIFIED DIABETES MELLITUS WITHOUT COMPLICATIONS Assessment and Plan: Will cont. Pt's home insulin regimen once taking PO meds mild SSI w/ q6 hr accuchecks while NPO (6) Hypertension Status: Acute Code(s): I10 - ESSENTIAL (PRIMARY) HYPERTENSION Qualifiers: Hypertension type: essential hypertension Qualified Code(s): I10 - Essential (primary) hypertension Assessment and Plan: Pt w/ stable BP at this time Will have PRN's available while NPO in preparation for likely EGD/colonscopy by GI Will restart home Bp meds once taking PO FMR H&P: Upper Level - Plan Date/Time: 08/09/17 1054 Attending Addendum - Attending Addendum Date/Time: 08/15/17 0807 I personally evaluated the patient and discussed the management with Dr. Almaguer. I agree with the History, Examination, Assessment and Plan documented above with any addition or exceptions noted below. 72 y.o. WM w/ h/o Diverticulitis s/p colectomy, GI angiodysplasia, A-fib on Coumadin, DM2 on insulin admitted for severe symptomatic anemia. Will transfuse , consult GI for eval, hold anticoagulation for now until clearer picture as to source.
[2017-08-09] MEDS ORDERED: PHENYLEPHRINE-NS 100 MCG/ML 10 ML SYRINGE ONE ×2 (13:21→15:48)
[2017-08-09] MEDS ORDERED: PROPOFOL 200 MG/20 ML VIAL ONE (13:21)
[2017-08-09] MEDS ORDERED: Lidocaine 1% PF 5 ML VIAL ONE (13:21)
[2017-08-09 16:26] LABS: Lactic Acid 2.2 mmol/L (0.5-2.2)
[2017-08-09 16:34] LABS: Troponin I 0.051 ng/mL (< 0.028)
[2017-08-09] MEDS ORDERED: Ondansetron ODT 4 MG TAB SL PRN (16:54)
[2017-08-09] MEDS ORDERED: Ondansetron HCl/PF 4 MG/2 ML Vial IVP PRN (16:54)
[2017-08-09] MEDS ORDERED: Lactated Ringer's 1,000 ML IV SCH (17:00)
[2017-08-09 17:10] VITALS: BMI 25.8
[2017-08-09] MEDS ORDERED: diphenhydrAMINE 25 MG CAP PO PRN (18:29)
[2017-08-09] MEDS: Pantoprazole 80 MG, Admixture Fee 1 EACH in Sodium Chloride 0.9% 100 ML IVP SCH (19:24)
[2017-08-09 19:36] LABS: Troponin I 0.049 ng/mL (< 0.028)
[2017-08-09] MEDS ORDERED: Acetaminophen 325 MG TAB PO PRN (20:01)
[2017-08-09] MEDS ORDERED: Dextrose 5% in Water 1,000 ML IV PRN (20:01)
[2017-08-09] MEDS ORDERED: Ondansetron ODT 4 MG TAB PO PRN (20:01)
[2017-08-09] MEDS ORDERED: HumaLOG 300 UNITS/3 ML VIAL SC PRN (20:01)
[2017-08-09] MEDS ORDERED: Dextrose 50% Abboject 50 ML SYRINGE SLOW IVP PRN (20:01)
[2017-08-09] MEDS ORDERED: NPH, Human Insulin Isophane 300 UNIT/3 ML VIAL SC SCH (21:00)
[2017-08-09] MEDS ORDERED: ADMIXTURE FEE SC SCH (21:00)
[2017-08-09] MEDS ORDERED: INSULIN DETEMIR SC SCH (21:00)
[2017-08-09 22:22] LABS: Platelet Count 180 thou/uL (130-400)
[2017-08-09] MEDS: Sodium Chloride 0.9% 1,000 ML IV SCH (22:34)
[2017-08-10] MEDS: Pantoprazole 80 MG, Admixture Fee 1 EACH in Sodium Chloride 0.9% 100 ML IVP SCH ×2 (03:21→19:25)
[2017-08-10 05:16] LABS: #Eosinphils 0.2 thou/uL (0.0-0.7); #Lymphocytes 1.5 thou/uL (1.20-3.40); #Monocytes 0.9 thou/uL (0.11-0.59); #Neutrophils 7.3 thou/uL (1.40-6.50); %Basophils 0.2 % (0.0-1.0); %Eosinophils 2.2 % (0.0-10.0); %Lymphocytes 14.6 % (21.0-51.0); %Monocytes 9.2 % (0.0-10.0); %Neutrophils 73.7 % (42.0-75.0); Hemoglobin 7.4 g/dL (14.0-18.0); Mean Corpuscular HGB CONC 32.7 g/dL (32.0-36.0); Mean Corpuscular Hemoglobin 29.3 pg (27.0-31.0); Mean Corpuscular Volume 89.5 fl (80.0-94.0); Mean Platelet Volume 7.6 fL (7.4-10.4); Platelet Count 172 thou/uL (130-400); RBC Distribution Width 13.6 % (11.5-14.5); Red Blood Cell (RBC) Count 2.53 mill/uL (4.70-6.10); White Blood Cell (WBC) Count 9.9 thou/uL (4.8-10.8)
[2017-08-10 05:35] LABS: Anion Gap 9 mmol/L (10-20); BUN (Urea Nitrogen) 45 mg/dL (8.4-25.7); Calc. Creatinine Clearance 65 mL/min (70-130); Calcium 8.6 mg/dL (7.8-10.44); Carbon Dioxide 26 mmol/L (23-31); Chloride 110 mmol/L (98-107); Estimated GFR-MDRD 60; Glucose 135 mg/dL (80-115); Sodium 141 mmol/L (136-145)
[2017-08-10] MEDS: Sodium Chloride 0.9% 1,000 ML IV SCH ×4 (06:14→19:00)
--- NOTE | 2017-08-10 06:53 | PDOC.FM ---
- Subjective Subjective: MATTIE overnight, pt states he is feeling a bit better this AM. Denies any pre- syncopal type sxs with getting up and using the restroom. No further episodes of black tarry stools. VSS, no new complaints. - Objective MAR Reviewed: Yes Vital Signs & Weight: Vital Signs (12 hours) Temp Pulse Resp BP Pulse Ox 08/10/17 04:00 97.3 F L 79 18 104/55 L 98 08/10/17 00:00 97.9 F 81 16 101/55 L 95 08/09/17 21:59 94 L 08/09/17 19:45 98.9 F 83 16 119/62 100 I&O: 08/08/17 08/09/17 08/10/17 06:59 06:59 06:59 Intake Total 1190 Output Total 500 Balance 690 Result Diagrams: 08/10/17 05:04 08/10/17 05:04 <Brandon Almaguer - Last Filed: 08/10/17 06:51> - Objective Vital Signs & Weight: Vital Signs (12 hours) Temp Pulse Resp BP Pulse Ox 08/10/17 08:00 98.8 F 85 18 113/79 98 08/10/17 04:00 97.3 F L 79 18 104/55 L 98 08/10/17 00:00 97.9 F 81 16 101/55 L 95 I&O: 08/09/17 08/10/17 08/11/17 06:59 06:59 06:59 Intake Total 1190 0 Output Total 500 Balance 690 0 Result Diagrams: 08/10/17 05:04 08/10/17 05:04 <Deonte Lee - Last Filed: 08/10/17 11:07> Phys Exam - Physical Examination Constitutional: NAD HEENT: PERRLA, moist MMs Respiratory: no wheezing, clear to auscultation bilateral Cardiovascular: no significant murmur irregularly irregular Gastrointestinal: soft, non-tender Musculoskeletal: no edema, pulses present Neurological: moves all 4 limbs Psychiatric: normal affect, A&O x 3 Skin: cap refill <2 seconds <Brandon Almaguer - Last Filed: 08/10/17 06:51> Dx/Plan (1) Symptomatic anemia Code(s): D64.9 - ANEMIA, UNSPECIFIED Status: Acute Plan: Cont. to hold anticoagulants and anti-platelets this AM Hgb down to 7.4 s/p transfusion of 1U PRBC yesterday NPO pending likely scope with GI today Will continue to monitor hgb and transfuse if <7.0 or symptomatic (2) GI bleed Code(s): K92.2 - GASTROINTESTINAL HEMORRHAGE, UNSPECIFIED Status: Acute Plan: Awaiting GI recs Cont. w/ protonix Likely scope today Will repeat set of coags this AM (3) Atrial fibrillation Code(s): I48.91 - UNSPECIFIED ATRIAL FIBRILLATION Status: Acute Plan: Cont. monitoring on telemetry Stable hold warfarin in the setting of acute UGIB (4) Warfarin anticoagulation Code(s): Z79.01 - MCFP (CURRENT) USE OF ANTICOAGULANTS Status: Acute Plan: Repeat set of coags this AM (5) Diabetes 1.5, managed as type 2 Code(s): E13.9 - OTHER SPECIFIED DIABETES MELLITUS WITHOUT COMPLICATIONS Status: Acute Plan: Hold home insulin until taking PO correct w/ SSI PRN (6) Hypertension Code(s): I10 - ESSENTIAL (PRIMARY) HYPERTENSION Status: Acute Plan: Stable restart home meds when taking PO (7) RITIKA (acute kidney injury) Code(s): N17.9 - ACUTE KIDNEY FAILURE, UNSPECIFIED Status: Acute Plan: Pre-renal 2/2 ratio >20 BUN/Cr Cont. w/ IVF Will cont. to monitor for resolution <Brandon Almaguer - Last Filed: 08/10/17 06:51> Attending Addendum - Attending Addendum Date/Time: 08/10/17 1102 I personally evaluated the patient and discussed the management with Dr. Almaguer. I agree with the History, Examination, Assessment and Plan documented above with any addition or exceptions noted below. Pt. did well overnight symptomatically. HgB dropped some more; continue monitoring and transfuse if <7.0 or symptomatic. For EGD this a.m. <Deonte Lee - Last Filed: 08/10/17 11:07>
[2017-08-10] MEDS: metFORMIN 500 MG TAB PO SCH ×2 (07:31→18:35)
[2017-08-10] MEDS ORDERED: predniSONE 1 MG TAB PO SCH (08:00)
--- NOTE | 2017-08-10 08:45 | CON ---
DATE OF CONSULTATION: 08/09/2017 REFERRING DOCTOR: Dr. Clint Jean - Dr. Yassine Christian. REASON FOR CONSULTATION: History of black tarry stool over the last 3 days and anemia and generalize d weakness. HISTORY OF PRESENT ILLNESS: Mr. Ricky Linares is a very pleasant 72-year-old male, who is a patient of Dr. Yassine Christian. The patient has had aortic valve replacement done by Dr. Irwin pinto 02/2017. He has also noted to have atrial fibrillation and he has been placed on Coumadin. The pa jacques developed black tarry stool approximately 3 days ago. He also had 1-2 stools per day and stool s are dark and tarry. He also started feeling dizziness over the last couple of days. He has no abd ominal pain, no nausea, no vomiting. No similar episodes in the past. The patient has had bleeding from diverticular disease, AVMs over the years. The patient had undergone a colectomy in 1992. Appa rently, he has had multiple surgeries. Overall, he has had 3 colon resections and the final surgery was the entire colon was taken out. The patient has no history of peptic ulcer. No dyspepsia. No i ndigestion or heartburn. No dysphagia or odynophagia. The patient had an episode in the past of hem atochezia more than 25 years ago when he was bleeding from diverticular disease. The patient came to the ER this morning because of the dark stools and generalized weakness. He had a CBC done. The CB C showed WBC of 15,700, hemoglobin is 8.9, hematocrit 28.5, MCV 91.5, platelet count 255,000. His PT /INR is at the border line. PT 28.7, INR is 2.6, PTT 32.8. The patient has been given 1 unit of pac ked RBCs. At that time, the patient appeared very comfortable. He denies any chest pain, any palpit ation, dyspnea. He has no other known history. ALLERGIES: CIPRO. 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 He does not smoke or drink alcohol. MEDICAL ILLNESSES: 1. Hypertension. 2. Diabetes mellitus. 3. Atrial fibrillation. 4. Status post aortic valve replacement. 5. Status post right knee replacement. 6. History of a benign tumor Dr. Shrestha. 7. Multiple colon resections for bleeding and the third surgery was the whole colon was removed. FAMILY HISTORY: Mother with diabetes. Father of heart disease. No family history of any cance r. MEDICATIONS: List reviewed. REVIEW OF SYSTEMS: A 10-point system review: Constitutional: No history of fever, no weight loss. Has a good appetite. 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 No TIA, no syn cope, no chronic headache, no seizure disorder. Respiratory System: No history of chronic coughing, hemoptysis, dyspnea. Cardiovascular: No chest pain, no palpitation, no dyspnea, orthopnea, or PND. Gastrointestinal: As in history of present illness. Genitourinary: No dysuria, hematuria, or alberto quency of urination. Musculoskeletal: Unremarkable. Endocrine/Hematological: . PSYCHIATRY: Unremarkable. PHYSICAL EXAMINATION: GENERAL: This is a very pleasant male, appears very comfortable. He is awake, alert, orie nted to time, place, and person. VITAL SIGNS: Actually very stable. He is afebrile. Pulse is 88, blood pressure 110/60. NECK: Supple. No adenitis or thyromegaly noted. CARDIOVASCULAR: First and second heart sounds normal. LUNGS: Clear to auscultation. ABDOMEN: Shows a linear scar from the epigastric area and all the way down to the hypogastric area. Abdomen is nondistended. Abdomen is nontender. There is no organomegaly or masses. Bowel sounds n ormal. EXTREMITIES: Reveal no edema. LABORATORY AND X-RAY FINDINGS: WBC 15,700, hemoglobin 8.9, hematocrit 28.5, platelet count 255,000. Sodium 141, potassium 3.7, chloride 105, bicarbonate 26, BUN is 64 most likely from gastrointestinal bleeding, creatinine 1.26. CLINICAL IMPRESSION: A 72-year-old male with, 1. Black tarry stool over the last 3 days. He is anemic on admission. His BUN elevated mostly like ly from GI bleeding. The patient has had a previous total colectomy. 2. Atrial fibrillation. 3. Hypertension. 4. Diabetes mellitus. OVERALL IMPRESSION: 1. Based on the above history and physical, I believe, mostly bleeding from GI tract. His PT/INR is actually within therapeutic range and not markedly pronounced. Recommended IV PPI. 2. EGD later on today. I will make further recommendations after EGD.
[2017-08-10] MEDS ORDERED: NPH, Human Insulin Isophane 300 UNIT/3 ML VIAL SC SCH (09:00)
[2017-08-10] MEDS ORDERED: ADMIXTURE FEE SC SCH (09:00)
[2017-08-10] MEDS ORDERED: INSULIN DETEMIR SC SCH (09:00)
[2017-08-10] MEDS ORDERED: Fentanyl 100 MCG/2 ML VIAL ONE ×2 (09:57→12:46)
--- NOTE | 2017-08-10 11:17 | OP ---
DATE OF PROCEDURE: 08/09/2017 OPERATIVE PROCEDURE: Esophagogastroduodenoscopy. PREOPERATIVE DIAGNOSES: 1. A 72-year-old male with black tarry stool over the last 3 days. 2. Anemia, acute blood loss. The patient underwent esophagogastroduodenoscopy. POSTOPERATIVE DIAGNOSES: 1. Normal esophageal mucosa. There is isolated large vein over the mid esophagus. 2. Retained food material and also some blood clot over the proximal stomach. 3. Normal gastric antrum and normal duodenum. At the time of endoscopy, no active bleeding was seen . PROCEDURE IN DETAIL: The patient was placed on his left lateral position and was given sedation by A nesthesia Department. Then, Pentax video gastroscope under direct vision passed into the oropharynx, past the GE junction, into the stomach and subsequently into the descending duodenum. The esophagea l mucosa appeared normal. No esophagitis seen. Over the mid esophagus, the patient was found to hav e isolated vein. Upon entering the stomach, the patient was found to have some retained food materia l and coffee-ground material coating the mucosa. There are also some blood clots and some blood over the proximal stomach. Water was used to irrigate and wash out. I could not complete stomach out. However, after the blood clot was removed, the area was suctioned out. I do not see any underlying p athology or any active bleeding seen. In the gastric antrum, no pathology seen. The duodenal bulb, descending duodenum, no pathology seen. The stomach was decompressed and scope withdrawn. OVERALL IMPRESSION: Although, the patient has some blood clot and also some blood-stained fluid in t he proximal stomach, after it was suctioned out, no underlying pathology seen. He has some mucosal h yperemia seen. 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 Because of the retained food material, the exam was incomplete. RECOMMENDATIONS: 1. Discontinue n.p.o. 2. Clear liquid diet for today. 3. Follow up H and H. 4. Repeat EGD tomorrow.
[2017-08-10] MEDS ORDERED: PROPOFOL 200 MG/20 ML VIAL ONE (15:50)
[2017-08-10] MEDS ORDERED: Lidocaine 1% PF 5 ML VIAL ONE (15:50)
[2017-08-10] MEDS ORDERED: Succinylcholine Chloride 20 MG/ML 10 ml SYRINGE FS ONE (15:50)
[2017-08-10] MEDS ORDERED: PHENYLEPHRINE-NS 100 MCG/ML 10 ML SYRINGE ONE (15:50)
[2017-08-11] MEDS: Sodium Chloride 0.9% 1,000 ML IV SCH ×2 (02:12→05:23)
[2017-08-11] MEDS: Pantoprazole 80 MG, Admixture Fee 1 EACH in Sodium Chloride 0.9% 100 ML IVP SCH ×2 (03:21→16:00)
[2017-08-11 05:13] LABS: #Eosinphils 0.2 thou/uL (0.0-0.7); #Monocytes 0.8 thou/uL (0.11-0.59); #Neutrophils 6.4 thou/uL (1.40-6.50); %Basophils 0.3 % (0.0-1.0); %Eosinophils 2.4 % (0.0-10.0); %Neutrophils 76.3 % (42.0-75.0); Hemoglobin 6.6 g/dL (14.0-18.0); Mean Corpuscular HGB CONC 32.1 g/dL (32.0-36.0); Mean Corpuscular Hemoglobin 29.5 pg (27.0-31.0); Mean Corpuscular Volume 91.9 fl (80.0-94.0); Mean Platelet Volume 8.3 fL (7.4-10.4); Platelet Count 153 thou/uL (130-400); RBC Distribution Width 13.7 % (11.5-14.5); Red Blood Cell (RBC) Count 2.23 mill/uL (4.70-6.10); White Blood Cell (WBC) Count 8.4 thou/uL (4.8-10.8)
[2017-08-11 05:31] LABS: Anion Gap 9 mmol/L (10-20); BUN (Urea Nitrogen) 23 mg/dL (8.4-25.7); Calc. Creatinine Clearance 86 mL/min (70-130); Calcium 7.8 mg/dL (7.8-10.44); Carbon Dioxide 22 mmol/L (23-31); Chloride 114 mmol/L (98-107); Estimated GFR-MDRD 83; Glucose 120 mg/dL (80-115); Potassium 3.8 mmol/L (3.5-5.1); Sodium 141 mmol/L (136-145)
[2017-08-11 07:30] LABS: INR-International Normal Ratio 3.3; PTT 43.1 SEC (22.9-36.1); Prothrombin Time 35.3 SEC (12.0-14.7)
[2017-08-11] MEDS: metFORMIN 500 MG TAB PO SCH ×2 (08:38→17:45)
[2017-08-11] MEDS ORDERED: Furosemide 20 MG TAB PO SCH (09:00)
--- NOTE | 2017-08-11 09:12 | PDOC.FM ---
- Subjective Subjective: MATTIE overnight, VSS. A-fib rate controlled per tele. No new complaints this AM. - Objective MAR Reviewed: Yes Vital Signs & Weight: Vital Signs (12 hours) Temp Pulse Pulse Resp BP BP Pulse Ox 08/11/17 07:35 98.7 F 80 18 131/81 96 08/11/17 07:08 98.3 F 87 18 157/70 H 96 08/11/17 04:00 98.6 F 89 20 142/62 H 97 08/11/17 00:00 98.4 F 83 18 96/58 L 94 L Weight Weight 82.327 kg I&O: 08/10/17 08/11/17 08/12/17 06:59 06:59 06:59 Intake Total 1190 2250 0 Output Total 500 950 Balance 690 1300 0 Result Diagrams: 08/11/17 04:47 08/11/17 04:47 <Brandon Almaguer - Last Filed: 08/11/17 09:10> - Objective Vital Signs & Weight: Vital Signs (12 hours) Temp Pulse Pulse Resp BP BP Pulse Ox 08/11/17 07:35 98.7 F 80 18 131/81 96 08/11/17 07:08 98.3 F 87 18 157/70 H 96 08/11/17 04:00 98.6 F 89 20 142/62 H 97 08/11/17 00:00 98.4 F 83 18 96/58 L 94 L Weight Weight 82.327 kg I&O: 08/10/17 08/11/17 08/12/17 06:59 06:59 06:59 Intake Total 1190 2250 0 Output Total 500 950 Balance 690 1300 0 Result Diagrams: 08/11/17 04:47 08/11/17 04:47 <Deonte Lee - Last Filed: 08/11/17 10:46> Phys Exam - Physical Examination Constitutional: NAD HEENT: PERRLA, moist MMs Respiratory: no wheezing, clear to auscultation bilateral irregularly irregular Gastrointestinal: soft, non-tender, no distention, positive bowel sounds Musculoskeletal: pulses present Neurological: moves all 4 limbs Lymphatic: no nodes Psychiatric: normal affect, A&O x 3 <Brandon Almaguer - Last Filed: 08/11/17 09:10> Dx/Plan (1) Symptomatic anemia Code(s): D64.9 - ANEMIA, UNSPECIFIED Status: Acute Plan: Cont. to hold anticoagulants and anti-platelets this AM Hgb down to 6.6 this AM, will transfuse the second unit of PRBC this AM w/ repeat H/H in 6 hrs s/p transfusion Mutliple oozing AVMs seen in the stomach per listening to OP note from EGD yesterday s/p cauterization Advance diet per GI recs (2) GI bleed Code(s): K92.2 - GASTROINTESTINAL HEMORRHAGE, UNSPECIFIED Status: Acute Plan: Awaiting GI recs Cont. w/ protonix EGD showing multiple AVMs that were bleeding s/p cauterization which is likely source Repeat set of coags this AM HAS-BLED - 4 CHADsVASC - 3 1 year stroke risk on warfarin - 1.4% 1 year bleed risk on warfarin - 9.4% 1 year stroke risk on ASA alone - 3.4% 1 year bleed risk on ASA alone - 1.1% 1 year stroke risk on eliquis - 1.1% 1 year bleed risk on eliquis - 6.5% Will need to touch base with CV surg this AM to ensure patient can safely be taken off of warfarin 6 months post-op bioprosthetic valve replacement Discussed risks and benefits associated w/ continued anticoagulation use in the setting of multiple GI bleeds and labile INR and risk of stroke w/ discontinuation Will re-visit pt's decision later today Cont. to hold for now in setting of acute bleed (3) Atrial fibrillation Code(s): I48.91 - UNSPECIFIED ATRIAL FIBRILLATION Status: Acute Plan: Cont. monitoring on telemetry Stable hold warfarin in the setting of acute UGIB See GI bleed for discussion of continuing anticoagulant (4) Warfarin anticoagulation Code(s): Z79.01 - PENITENTIARY (CURRENT) USE OF ANTICOAGULANTS Status: Acute Plan: Repeat set of coags this AM Cont. to hold (5) Diabetes 1.5, managed as type 2 Code(s): E13.9 - OTHER SPECIFIED DIABETES MELLITUS WITHOUT COMPLICATIONS Status: Acute Plan: restart home insulin this AM now taking PO correct w/ SSI PRN (6) Hypertension Code(s): I10 - ESSENTIAL (PRIMARY) HYPERTENSION Status: Acute Plan: Stable restart home meds when taking PO (7) RITIKA (acute kidney injury) Code(s): N17.9 - ACUTE KIDNEY FAILURE, UNSPECIFIED Status: Acute Plan: resolved, cont. to monitor <Brandon Almaguer - Last Filed: 08/11/17 09:10> Attending Addendum - Attending Addendum Date/Time: 08/11/17 1038 I personally evaluated the patient and discussed the management with Dr. Almaguer. I agree with the History, Examination, Assessment and Plan documented above with any addition or exceptions noted below. 72M admitted for suspected UGIB causing symptomatic anemia complicated by chronic anticoagulation therapy s/p aortic valve replacement. Endoscopy reveals multiple AVMs, likely the source of blood loss. He will be transfused another unit of PRBC today since his hemoglobin continues to drop. Extensive discussion was had regarding risks and benefits of anticoagulation in light of his GI bleed. We recommends transition to ASA only, pending approval with Dr. Shannon who performed aortic valve replacement. Recheck of H/H coming back 6 hours post transfusion. Patient's A-fib has been rate controlled since admission. We will await further GI recommendations. <Deonte Lee - Last Filed: 08/11/17 10:46>
--- NOTE | 2017-08-11 11:35 | OP ---
DATE OF PROCEDURE: 08/10/2017 PROCEDURES PERFORMED: 1. Esophagogastroduodenoscopy. 2. A 10 Faroese heater probe therapy of bleeding AVMs over the proximal stomach. PREOPERATIVE DIAGNOSES: Gastrointestinal bleeding, anemia due to blood loss. POSTOPERATIVE DIAGNOSES: 1. Normal esophagus and normal duodenum. 2. Over the proximal stomach, the patient had persistent oozing of blood from AVMs x3. PROCEDURE IN DETAIL: The patient was intubated and was given sedation by Anesthesia Department. The patient was turned on the left lateral position. A Pentax video gastroscope under direct vision was passed down the oropharynx, past the GE junction, into the stomach and subsequently into the descend ing duodenum. The esophageal mucosa appeared normal. In the GE junction, no pathology seen. Upon e ntering the stomach, the patient was found to have some mild blood stained fluid and mild oozing of b lood over the proximal stomach. There were multiple areas of bleeding, oozing blood from the p roximal stomach, most likely gastric AVM. After irrigated and washed out; I could still see the same oozing of blood. The patient is on Coumadin because of atrial fibrillation. His PT/INR is still pr olonged. Because of bleeding, I elected to cauterize the area with 10 Faroese probe. was caute rized. Even after cauterized, there was still mild oozing of blood. Finally, the oozing stopped com pletely. In the gastric body, gastric antrum, and duodenum, no pathology seen. The stomach was deco mpressed and the scope was removed. RECOMMENDATIONS: 1. Protonix. 2. I will keep the patient on clear liquid diet for 1 more day and advance diet to diabetic diet callum orrow morning.
--- NOTE | 2017-08-11 15:31 | PRG ---
DATE OF SERVICE: 08/11/2017 HISTORY OF PRESENT ILLNESS: This is a 72-year-old hospitalized 2 days ago with upper GI bl eeding. He had an endoscopy done 2 days ago, which revealed some bleeding from the proximal stomach. After irrigation, bleeding has resolved. He also has . He had a repeat EGD done yesterday an d was found to have 3 gastric AVMs and bleeding. This was cauterized. He has done well over t he last 24 hours. He is passing mostly flatus and normal stools. He has no abdominal pain, no nause a or vomiting. This morning, his blood count did drop down from 7.4 to 6.6; it is mostly due to hemo dilution. On admission, his chemistry panel showed a BUN of 45 and today it has dropped to 23. OBJECTIVE: GENERAL: Appears very comfortable. VITAL SIGNS: Stable. Pulse is 80, blood pressure 130/81. CARDIOVASCULAR SYSTEM AND LUNGS: Within normal limits. ABDOMEN: Soft to palpate. No organomegaly. No tenderness. No masses. LABORATORY DATA: From this morning, sodium 141, potassium 3.8, chloride 114, bicarbonate 22, BUN is 23, creatinine 0.90. CBC: Hemoglobin 6.6 and hematocrit 20.5. RECOMMENDATION: 1. Transfuse one more unit of blood cells. 2. Continue Protonix. 3. If still has recurrent bleeding, patient needs to anticoagulated.
[2017-08-11] MEDS: hydrALAZINE 20 MG/ML VIAL SLOW IVP PRN (15:56)
[2017-08-11 16:56] LABS: Hemoglobin 8.5 g/dL (14.0-18.0)
[2017-08-11] MEDS ORDERED: NPH, Human Insulin Isophane 300 UNIT/3 ML VIAL SC SCH (21:00)
[2017-08-11] MEDS: Metoprolol Tartrate 25 MG TAB PO SCH (21:34)
[2017-08-12] MEDS: Pantoprazole 80 MG, Admixture Fee 1 EACH in Sodium Chloride 0.9% 100 ML IVP SCH (02:45)
[2017-08-12 05:30] LABS: #Eosinphils 0.2 thou/uL (0.0-0.7); #Lymphocytes 1.1 thou/uL (1.20-3.40); #Monocytes 1.2 thou/uL (0.11-0.59); #Neutrophils 7.9 thou/uL (1.40-6.50); %Basophils 0.2 % (0.0-1.0); %Lymphocytes 10.3 % (21.0-51.0); %Monocytes 11.4 % (0.0-10.0); %Neutrophils 76.2 % (42.0-75.0); Hemoglobin 7.8 g/dL (14.0-18.0); Mean Corpuscular HGB CONC 33.1 g/dL (32.0-36.0); Mean Corpuscular Hemoglobin 29.5 pg (27.0-31.0); Mean Platelet Volume 7.7 fL (7.4-10.4); Platelet Count 175 thou/uL (130-400); RBC Distribution Width 13.8 % (11.5-14.5); Red Blood Cell (RBC) Count 2.64 mill/uL (4.70-6.10); White Blood Cell (WBC) Count 10.4 thou/uL (4.8-10.8)
[2017-08-12 05:33] LABS: INR-International Normal Ratio 2.5; PTT 44.2 SEC (22.9-36.1); Prothrombin Time 28.1 SEC (12.0-14.7)
[2017-08-12 05:40] LABS: Anion Gap 9 mmol/L (10-20); BUN (Urea Nitrogen) 14 mg/dL (8.4-25.7); Calc. Creatinine Clearance 79 mL/min (70-130); Calcium 8.2 mg/dL (7.8-10.44); Carbon Dioxide 25 mmol/L (23-31); Chloride 111 mmol/L (98-107); Estimated GFR-MDRD 73; Glucose 124 mg/dL (80-115); Potassium 3.6 mmol/L (3.5-5.1); Sodium 141 mmol/L (136-145)
--- NOTE | 2017-08-12 07:22 | PDOC.FM ---
- Subjective Subjective: Patient doing well this AM. He denies dizziness or SOB. 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 He is tolerating PO without difficulty. He denies abdominal pain. Patient reports his preference is to restart anticoagulation for a-fib. - Objective MAR Reviewed: Yes Vital Signs & Weight: Vital Signs (12 hours) Temp Pulse Resp BP Pulse Ox 08/12/17 04:00 98.9 F 66 20 134/62 98 08/12/17 00:00 99.4 F 102 H 20 135/92 H 96 Weight Weight 82.327 kg I&O: 08/11/17 08/12/17 08/13/17 06:59 06:59 06:59 Intake Total 2250 1623 Output Total 950 1850 Balance 1300 -227 Result Diagrams: 08/12/17 04:30 08/12/17 04:30 <Tala Bazan - Last Filed: 08/12/17 07:19> - Objective Vital Signs & Weight: Weight Weight 181 lb 8 oz I&O: 08/12/17 08/13/17 08/14/17 06:59 06:59 06:59 Intake Total 1623 Output Total 1850 Balance -227 Result Diagrams: 08/12/17 04:30 08/12/17 04:30 <John Worley - Last Filed: 08/13/17 11:23> Phys Exam - Physical Examination Constitutional: NAD HEENT: moist MMs Respiratory: no wheezing, no rales, no rhonchi, clear to auscultation bilateral irregularly irregular, no murmurs, gallops or rubs Gastrointestinal: soft, non-tender, no distention, positive bowel sounds Musculoskeletal: no edema, pulses present Neurological: non-focal, moves all 4 limbs Psychiatric: normal affect, A&O x 3 Skin: normal turgor, cap refill <2 seconds <Tala Bazan - Last Filed: 08/12/17 07:19> Dx/Plan (1) Symptomatic anemia Code(s): D64.9 - ANEMIA, UNSPECIFIED Status: Acute (2) GI bleed Code(s): K92.2 - GASTROINTESTINAL HEMORRHAGE, UNSPECIFIED Status: Acute QualifierTitle: GI bleed type/associated pathology: unspecified gastrointestinal hemorrhage type Qualified Code(s): K92.2 - Gastrointestinal hemorrhage, unspecified (3) RITIKA (acute kidney injury) Code(s): N17.9 - ACUTE KIDNEY FAILURE, UNSPECIFIED Status: Resolved (4) Atrial fibrillation Code(s): I48.91 - UNSPECIFIED ATRIAL FIBRILLATION Status: Acute QualifierTitle: Atrial fibrillation type: chronic Qualified Code(s): I48.2 - Chronic atrial fibrillation (5) Warfarin anticoagulation Code(s): Z79.01 - RACING CAR 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 to hold anticoagulants and anti-platelets this AM Hgb down to 7.8 this AM, had come up to 8.5 yesterday s/p 1 U PRBC's -GI on board, appreciate recs -Consistent Carb diet -Protonix gtt GI Bleed 2/2 3 oozing AVMs s/p cauterization PT 28.1, INR 2.5 this AM -Cont protonix gtt HAS-BLED - 4 CHADsVASC - 3 1 year stroke risk on warfarin - 1.4% 1 year bleed risk on warfarin - 9.4% 1 year stroke risk on ASA alone - 3.4% 1 year bleed risk on ASA alone - 1.1% 1 year stroke risk on eliquis - 1.1% 1 year bleed risk on eliquis - 6.5% Per CV surg the patient can safely be taken off of warfarin 6 months post-op bioprosthetic valve replacement and continued just on aspirin Discussed risks and benefits associated w/ continued anticoagulation use in the setting of multiple GI bleeds and labile INR and risk of stroke w/ discontinuation Cont. to hold for now in setting of acute bleed Will have further discussion with the patient when his is there later today Atrial Fibrillation -Cont. monitoring on telemetry -hold warfarin in the setting of acute UGIB -See GI bleed for discussion of continuing anticoagulant Warfarin Anticoagulation PT 28.1, INR 2.5 this AM -Cont. to hold Diabetes 1.5, managed as type 2 -Home insulin, metformin -SSI -CC diet -Accuchecks HTN Stable -Home meds RITIKA resolved -cont. to monitor <Tala Bazan - Last Filed: 08/12/17 07:19> Attending Addendum - Attending Addendum Date/Time: 08/13/17 1122 I personally evaluated the patient and discussed the management with Dr. Bazan I agree with the History, Examination, Assessment and Plan documented above with any addition or exceptions noted below. Patient was treated for Upper GI bleed 2/2 AVM's. Patient wishes to be continued on anticoagulation for a-fib. Risks and benefits of this were discussed extensively with the patient. Will continue on Warfarin to be restarted at a lower dose in 2 days and have the patient f/u with PCP to discuss alternative anticoagulation options with the patients insurance. Patient 's hemaglobin is stable. <John Worley - Last Filed: 08/13/17 11:23>
[2017-08-12] MEDS ORDERED: NPH, Human Insulin Isophane 300 UNIT/3 ML VIAL SC SCH (09:00)
[2017-08-12] MEDS: Metoprolol Tartrate 25 MG TAB PO SCH (09:29)
[2017-08-12] MEDS: metFORMIN 500 MG TAB PO SCH (09:30)
[2017-08-12 12:26] VITALS: TEMP 98.3
[2017-08-12] MEDS: hydrALAZINE 20 MG/ML VIAL SLOW IVP PRN (12:34)
[2017-08-12 13:29] VITALS: BP 154/69
--- NOTE | 2017-08-14 16:13 | EKG ---
Test Reason : BLOOD IN STOOLS Blood Pressure : / mmHG Vent. Rate : 093 BPM Atrial Rate : 202 BPM P-R Int : 000 ms QRS Dur : 084 ms QT Int : 382 ms P-R-T Axes : 000 -29 066 degrees QTc Int : 474 ms Undetermined rhythm Inferior infarct , age undetermined Anterior infarct , age undetermined No STEMI Abnormal ECG Confirmed by JOLLY Carter, ANGELIC ([id number]), editor news ANTOLIN FLEMING ([id number]) on 08/14/2017 4:12:56 PM Referred By: Confirmed By:ANGELIC AZEVEDO M.D.
--- NOTE | 2017-08-14 19:56 | DIS-2 ---
DATE OF ADMISSION: 08/09/2017 DATE OF DISCHARGE: 08/12/2017 ADMITTING RESIDENT: Brandon Almaguer M.D. DISCHARGE RESIDENT: Tala Bazan M.D. ADMITTING ATTENDING: Clint Jean M.D. DISCHARGE ATTENDING: John Worley M.D. CONSULTS: Dr. Maravilla with GI. PROCEDURES: An EGD with cauterization through the AVMs in the stomach on 2017. PRIMARY DIAGNOSES: 1. Acute symptomatic blood loss anemia. 2. Bleeding gastric arteriovenous malformations. 3. Elevated troponin likely secondary to demand ischemia. 4. Elevated lactic acid. 5. Supratherapeutic INR. SECONDARY DIAGNOSES: 1. Atrial fibrillation. 2. Hypertension. 3. Insulin-dependent diabetes mellitus. 4. History of aortic valve replacement. DISCHARGE MEDICATIONS: 1. Tylenol 325 mg p.o. at bedtime. 2. Calcium citrate, vitamin D3 one tab p.o. b.i.d. 3. Aspirin 81 mg p.o. daily. 4. Vitamin B12 of 1000 mcg p.o. b.i.d. 5. Furosemide 20 mg p.o. q.a.m. 6. Insulin NPH 15 units subcu q.a.m. 7. Insulin NPH 5 units subcutaneous q.p.m. 8. Warfarin 3 mg p.o. daily. 9. Metoprolol tartrate 25 mg p.o. b.i.d. 10. Benadryl 2 tabs p.o. at bedtime p.r.n. 11. Metformin 500 mg p.o. b.i.d. with meals. 12. Prednisone 2 mg p.o. q.a.m. with meals. 13. Pantoprazole 40 mg p.o. b.i.d. DISCONTINUED MEDICATIONS: None. HISTORY OF PRESENT ILLNESS AND HOSPITAL COURSE: This is a 72-year-old male with a past medical history of multiple colon resections for diverticulitis, who presented with several episodes of melanotic stools concerning for upper GI bleed. The patient was also feeling dizzy and weak at the time and is on Coumadin for atrial fibrillation. The patient was found on admission to have hemoglobin of 8.9. However, due to his symptoms and the concern for continued blood loss, the patient was transfused 1 unit packed red blood cells. The patient's hemoglobin continued to trend down and then on 08/10/2017, the patient 's hemoglobin was 7.4 and he was transfused another unit of packed red blood cells. At this point, the patient was scoped by Dr. Maravilla who was found to have 3 bleeding AVMs in his stomach that were cauterized at that time. The hemoglobin lowest was 6.6 and then trended up to 8.5 and stabilized around 8. The patient also had elevated troponins that were in the indeterminate range, initially 0.050 and then 0.051 and then down to 0.049. This was likely due to demand. The patient had no signs of ongoing acute coronary syndrome. Of note, the patient's initial INR was 2.6, then this was rechecked on 08/11 and it was found to be 3.3. Even though, the Coumadin had been held since admission, but then on 08/12, the INR had down trended to 2.5. The patient on telemetry throughout his admission was in atrial fibrillation with multiple PVCs with a rate in the 60s-80s. Overall, after getting transfused, the AVMs cauterized. The patient remained asymptomatic, was able to walk without any issues. No more dizziness or lightheadedness. The patient reported on his last day of hospitalization that his stool was less dark in color. Several discussions were had with the patient and his family regarding decision of whether or not to anticoagulate for his atrial fibrillation. Dr. Shannon had been notified of this due to his aortic valve replacement and he said that it would be okay for the patient just to be on aspirin and there is no need for warfarin from his standpoint. However, from the atrial fibrillation standpoint, the patient's CHADS-VASc score was 3 and his HAS-BLED score was 4. The patient was notified of the risks of anticoagulation versus the risks of not be on anticoagulation and understood both those risks. It was discussed that there might be a better anticoagulation option if they were to choose anticoagulation than warfarin depending at the patient's insurance would cover it, especially considering the fact that in the recent past, the patient's INR had been very labile, ranging from 1 to 7. The patient after several discussions, decided that he did want to continue with anticoagulation and so we discussed this with Dr. Maravilla and he recommended that the patient restart his Coumadin in 2 days and we recommended for him to restart it just taking the 3 mg dose and not alternating between the 3 and 4 mg and then to follow up with his PCP early next week to discuss options of switching potentially to a different form of anticoagulation. The patient was agreeable to this idea and understood all the risks of this. Of note, the patient had been on a Protonix drip throughout his entire hospitalization and on discharge, he was discharged with Protonix 40 mg b.i.d. DISPOSITION: Stable. DISCHARGE INSTRUCTIONS: 1. Location: Home. 2. Diet: Heart healthy and diabetic. 3. Activity: As tolerated. 4. Follow up with Dr. Christian within [address] Maravilla within 2-3 weeks. CHRISTOPHE
== END 2017-08-12 14:15 | disposition home or self-care (01) | DRG 378 ==
LOC: ERS 08:30 → ERHOLD 10:14 → 2NO 14:55
PROVIDERS: ADMIT Student in an Organized Health Care Education/Training Program; ATTEND Student in an Organized Health Care Education/Training Program
PROC: 30233N1 Transfusion of Nonautologous Red Blood Cells into Peripheral Vein, Percutaneous Approach (ICD-10-PCS; 2017-08-09)
PROC: 0DJ08ZZ Inspection of Upper Intestinal Tract, Via Natural or Artificial Opening Endoscopic (ICD-10-PCS; 2017-08-09)
PROC: 0D568ZZ Destruction of Stomach, Via Natural or Artificial Opening Endoscopic (ICD-10-PCS; principal; 2017-08-10)
PROC: 30233N1 Transfusion of Nonautologous Red Blood Cells into Peripheral Vein, Percutaneous Approach (ICD-10-PCS; 2017-08-11)
DX: K55.21 Angiodysplasia of colon with hemorrhage (principal); D62 Acute posthemorrhagic anemia; N17.9 Acute kidney failure, unspecified; E87.2 Acidosis; I48.91 Unspecified atrial fibrillation; I24.8 Other forms of acute ischemic heart disease; E11.9 Type 2 diabetes mellitus without complications; I10 Essential (primary) hypertension; Z95.2 Presence of prosthetic heart valve; Z79.4 Long term (current) use of insulin; Z79.84 Long term (current) use of oral hypoglycemic drugs; Z79.01 Long term (current) use of anticoagulants; Z90.49 Acquired absence of other specified parts of digestive tract
CPT/HCPCS: 36415; 36416; 36430; 80048; 80053; 82274; 82553; 83605; 84484; 85025; 85610; 85730; 86850; 86900; 86901; 87040; 93005; 96361; 96365; 96366; 96375; 96376; A4216; C9113; J0360; J0696; J1815; J2001; J2704; J3010; J7050; P9016

== ENCOUNTER 2017-11-06 05:45 | Day surgery (SDC) | payer MEDICARE ==
[2017-11-03 08:38] VITALS: BMI 25.8
[2017-11-06 06:42] LABS: #Basophils 0.1 thou/uL (0.0-0.2); #Eosinphils 0.2 thou/uL (0.0-0.7); #Lymphocytes 1.7 thou/uL (1.20-3.40); #Neutrophils 5.7 thou/uL (1.40-6.50); %Basophils 0.9 % (0.0-1.0); %Eosinophils 2.1 % (0.0-10.0); %Lymphocytes 19.5 % (21.0-51.0); %Monocytes 11.4 % (0.0-10.0); %Neutrophils 66.2 % (42.0-75.0); Hemoglobin 12.1 g/dL (14.0-18.0); Mean Corpuscular HGB CONC 30.4 g/dL (32.0-36.0); Mean Corpuscular Hemoglobin 26.2 pg (27.0-31.0); Mean Platelet Volume 8.9 fL (7.4-10.4); Platelet Count 221 thou/uL (130-400); Red Blood Cell (RBC) Count 4.62 mill/uL (4.70-6.10); White Blood Cell (WBC) Count 8.6 thou/uL (4.8-10.8)
[2017-11-06 06:48] LABS: INR-International Normal Ratio 2.4; PTT 43.4 SEC (22.9-36.1)
[2017-11-06 06:53] LABS: Anion Gap 14 mmol/L (10-20); BUN (Urea Nitrogen) 13 mg/dL (8.4-25.7); Calc. Creatinine Clearance 62 mL/min (70-130); Calcium 10.1 mg/dL (7.8-10.44); Carbon Dioxide 28 mmol/L (23-31); Chloride 102 mmol/L (98-107); Estimated GFR-MDRD 57; Glucose 100 mg/dL (80-115); Potassium 3.9 mmol/L (3.5-5.1); Sodium 140 mmol/L (136-145)
[2017-11-06] MEDS ORDERED: PROPOFOL 20 ML ONE (07:51)
[2017-11-06] MEDS ORDERED: PROPOFOL 200 MG/20 ML VIAL ONE (14:54)
--- NOTE | 2017-11-06 16:08 | ECHO ---
TRANSESOPHAGEAL ECHOCARDIOGRAM: DATE OF PROCEDURE: 11/06/17 INDICATION: This is a 72-year-old gentleman with permanent atrial fibrillation and a Lariat device. DESCRIPTION OF PROCEDURE: The patient was taken to the PACU. The patient was sedated by anesthesiology. A transesophageal probe was placed in the distal esophagus and stomach. Echocardiographic images were obtained. The transesophageal probe was removed. FINDINGS: 1. The left ventricle is mildly dilated. 2. Left atrial enlargement. 3. Mild mitral regurgitation. 4. Wall functioning prosthetic aortic valve. 5. The Lariat procedure shows a tiny leak that is not measurable. 6. Spontaneous contrast noted in the left atrium. 8. Atherosclerotic debris in the descending aorta. IMPRESSION: The Lariat device is very well closed with the miniscule leak noted.
== END 2017-11-06 09:14 | disposition home or self-care (01) ==
LOC: CCL 05:45
PROVIDERS: ATTEND Internal Medicine Cardiovascular Disease
DX: I48.2 Chronic atrial fibrillation (principal); I25.10 Atherosclerotic heart disease of native coronary artery without angina pectoris; I11.0 Hypertensive heart disease with heart failure; I50.32 Chronic diastolic (congestive) heart failure; E11.9 Type 2 diabetes mellitus without complications; Z95.2 Presence of prosthetic heart valve; E78.1 Pure hyperglyceridemia; Z88.1 Allergy status to other antibiotic agents; Z79.84 Long term (current) use of oral hypoglycemic drugs; Z79.899 Other long term (current) drug therapy; Z79.82 Long term (current) use of aspirin
CPT/HCPCS: 36415; 80048; 85025; 85610; 85730; 93312; J2704

== ENCOUNTER 2018-12-17 13:53 | Inpatient (IN) | payer MEDICARE ==
[~2018-12-17 13:53] MED LIST changes: -Diazepam 5 MG TAB ONE; -Fentanyl 100 MCG/2 ML VIAL ONE; +Heparin 1,000 UNITS/ML VIAL ONE; -Iopamidol 370 76% 100 ML VIAL ONE; -Midazolam HCl 2 mg/2 ml Vial ONE; -Nitroglycerin 100MG/250ML BOT 250 ML ONE
[2018-12-17 14:35] LABS: #Eosinphils 0.1 thou/uL (0.0-0.7); #Lymphocytes 1.4 thou/uL (1.20-3.40); #Neutrophils 14.8 thou/uL (1.40-6.50); %Basophils 0.1 % (0.0-1.0); %Eosinophils 0.5 % (0.0-10.0); %Lymphocytes 8.3 % (21.0-51.0); %Monocytes 5.9 % (0.0-10.0); %Neutrophils 85.2 % (42.0-75.0); Mean Corpuscular Hemoglobin 28.6 pg (27.0-31.0); Mean Corpuscular Volume 89.6 fL (78.0-98.0); Mean Platelet Volume 8.5 fL (7.4-10.4); Platelet Count 225 thou/uL (130-400); RBC Distribution Width 12.6 % (11.5-14.5); Red Blood Cell (RBC) Count 5.24 mill/uL (4.70-6.10); White Blood Cell (WBC) Count 17.4 thou/uL (4.8-10.8)
[2018-12-17 14:56] LABS: ALT (SGPT) 14 U/L (8-55); AST (SGOT) 14 U/L (5-34); Albumin 4.4 g/dL (3.4-4.8); Alkaline Phosphatase 70 U/L (40-150); Anion Gap 14 mmol/L (10-20); BUN (Urea Nitrogen) 14 mg/dL (8.4-25.7); Bilirubin, Total 0.8 mg/dL (0.2-1.2); Calc. Creatinine Clearance 0 mL/min (70-130); Calcium 10.5 mg/dL (7.8-10.44); Carbon Dioxide 29 mmol/L (23-31); Chloride 101 mmol/L (98-107); Estimated GFR-MDRD 60; Globulin 3.5 g/dL (2.4-3.5); Glucose 110 mg/dL (83-110); Lipase 10 U/L (8-78); Potassium 3.6 mmol/L (3.5-5.1); Protein, Total 7.9 g/dL (5.8-8.1); Sodium 140 mmol/L (136-145)
[2018-12-17] MEDS ORDERED: Ketorolac Tromethamine 30 MG/ML VIAL ONE ×2 (15:03→18:24)
[2018-12-17] MEDS ORDERED: Ondansetron PF 4 MG/2 ML Vial ONE ×2 (15:09→17:03)
[2018-12-17] MEDS ORDERED: ISOVUE-370 76%-LOCM 1 ML ONE (16:28)
[2018-12-17] MEDS ORDERED: Iopamidol 370 76% 50 ML VIAL FS ONE (16:28)
--- NOTE | 2018-12-17 16:41 | CT ---
CT ABDOMEN AND PELVIS WITH ORAL AND IV CONTRAST: HISTORY: Abdominal pain. COMPARISON: None. FINDINGS: The lung bases are clear. There are calcified granulomas in the spleen and cysts in the kidneys. Th e patient is post cholecystectomy. There is an indeterminate 12 mm hypodense lesion in the right lob e of the liver. The pancreas and adrenal glands are unremarkable. No free air, free fluid, or lymph adenopathy is seen in the abdomen or pelvis. A retroaortic left renal vein is present. There are va scular calcifications without evidence of aneurysmal dilatation of the abdominal aorta. There are de generative changes in the spine. The prostate is enlarged. There are postop changes in the bowel. There are dilated loops of bowel in the left hemiabdomen. IMPRESSION: 1. Findings suspicious for small bowel obstruction. 2. Indeterminate liver lesion. This should be evaluated with ultrasound. POS: [facility]
[2018-12-17 17:41] LABS: INR-International Normal Ratio 1.1; PTT 29.3 SEC (22.9-36.1); Prothrombin Time 13.7 SEC (12.0-14.7)
[2018-12-17 18:37] LABS: Bilirubin Negative (Negative); Blood, Urine Negative (Negative); Clarity Clear (Clear); Glucose, Urine (Dipstick) 50 mg/dL (Negative); Leukocyte Negative Leu/uL (Negative); Nitrite Negative (Negative); Protein, Urine (Dipstick) Negative (Neg-Trace); Urobilinogen Normal mg/dL (Less than 2)
[2018-12-17] MEDS: Lactated Ringer's 1,000 ML IV SCH (21:00)
[2018-12-17 22:15] VITALS: BMI 26.4
--- NOTE | 2018-12-17 22:38 | PDOC.FM ---
- Objective Vital Signs & Weight: Vital Signs (12 hours) Temp Pulse Resp BP Pulse Ox 12/17/18 19:59 97.8 F 95 18 173/82 H 93 L Weight Weight 78.744 kg Result Diagrams: 12/17/18 14:23 12/17/18 14:23 Addendum - Attending - Attending Attestation Date/Time: 12/17/18 0005 I personally evaluated the patient and discussed the management with Dr. Valenzuela and Dr. Hanley. Written H&P is pending. I agree with the History, Examination, Assessment and Plan documented as discussed with any addition or exceptions noted below.
--- NOTE | 2018-12-17 22:50 | PDOC.FPRHP ---
- History of Present Illness Chief Complaint: abdominal pain History of Present Illness: Patient is a 73M with PMHx significant for HTN, DMII, afib, gout, and multiple abdominal sx for GI bleed/diverticulitis, and previous SBO 20 years ago presenting today with SBO. Patient reports onset of abdominal pain at 9am this morning, describing it as sharp and colicky. He states that he has vomited multiple times today, emesis was dark in color per patient report. Last BM was 12/16. Has not eaten anything since breakfast this morning. ED Course: Received 2 doses zofran, keorolac, 1L NS, and fentanyl. Consulted Dr. Garvin from general surgery, he is aware of the patient and asked medicine to admit patient and put in consult. - Allergies/Adverse Reactions Allergies Allergy/AdvReac Type Severity Reaction Status Date / Time ciprofloxacin [From Cipro] Allergy Hives Verified 11/03/17 08:38 hydrocodone AdvReac Verified 12/17/18 22:38 - Home Medications Medication Instructions Recorded Confirmed Type Calcium Citrate/Vitamin D3 1 tab PO BID 08/04/15 12/17/18 History [Calcitrate + Vitamin D Caplet] Insulin NPH Human Isophane 5 unit SC QPM 08/04/15 12/17/18 History [NovoLIN N] Insulin NPH Human Isophane 15 unit SC QAM 08/04/15 12/17/18 History [NovoLIN N] Warfarin Sodium 3 mg PO QPM 08/04/15 12/17/18 History diphenhydrAMINE [Benadryl] 2 tab PO HS 08/04/15 12/17/18 History predniSONE 2 mg PO QAM-WM 08/04/15 12/17/18 History Cyanocobalamin (Vitamin B-12) 1,000 mcg PO BID 02/06/17 12/17/18 History [Vitamin B12] Furosemide 20 mg PO Q2D 02/06/17 12/17/18 History Acetaminophen [Tylenol Regular 325 mg PO HS PRN 08/09/17 12/17/18 History Strength] Aspirin [Adult Low Dose Aspirin EC] 81 mg PO QAM 11/03/17 12/17/18 History Ferrous Sulfate [Iron] 65 mg PO QAM 11/03/17 12/17/18 History Lisinopril 10 mg PO QAM 11/03/17 12/17/18 History Metoprolol Tartrate [Lopressor] 12.5 mg PO BID 11/03/17 12/17/18 History Ranitidine HCl 150 mg PO HS 11/03/17 12/17/18 History metFORMIN [Glucophage] 500 mg PO BID-WM 11/03/17 12/17/18 History - History PMHx: see hpi PSHx: colon surgeries in 1992, 1994, 1996 for diverticulitis/GI bleed; colon sx 1994 for SBO; R knee; aortic valve replacement in 2016 FHx: no hx of colon cancer Social: No ETOH, smoking, drugs - Review of Systems General: denies: fever/chills, weight/appetite/sleep changes Eyes: denies: eye pain, vision changes ENT: denies: nasal congestion, rhinorrhea Respiratory: denies: cough, shortness of breath Cardiovascular: denies: chest pain, edema Gastrointestinal: reports: nausea, vomiting (dark in color), abdominal pain, other (hiccups) Genitourinary: denies: incontinence, dysuria Skin: denies: rashes, jaundice Musculoskeletal: denies: pain, tenderness Neurological: denies: numbness, weakness Psychological: denies: anxiety, depression - Vital signs BP: [156/83] HR: [86] RR: [20] Tmax: [98.5] Pox: [99]% on [RA] Wt: [78.7kg] - Physical Exam Constitutional: NAD, other (appears to be having some mild abdominal pain) HEENT: normocephalic and atraumatic, EOMI, other (nostrils packed from earlier cauterization) Neck: supple, trachea midline Chest: no-tender to palpation, no lesions Heart: pulses present, no edema, other (afib) Lungs: CTAB, no respiratory distress Abdomen: bowel sounds present (no high-pitched bowel sounds), other (tender to palpation in mid-epigastric region) Musculoskeletal: normal structure, normal tone Neurological: no focal deficit, normal sensation Skin: capillary refill <2 seconds, no jaundice Heme/Lymphatic: no unusual bruising or bleeding Psychiatric: normal mood and affect, good judgment and insight FMR H&P: Results - Labs Result Diagrams: 12/17/18 14:23 12/17/18 14:23 Lab results: WBC 17.4 thou/uL (4.8-10.8) H 12/17/18 14:23 Hgb 15.0 g/dL (14.0-18.0) 12/17/18 14:23 Hct 46.9 % (42.0-52.0) 12/17/18 14:23 MCV 89.6 fL (78.0-98.0) 12/17/18 14:23 Plt Count 225 thou/uL (130-400) 12/17/18 14:23 Neutrophils % 85.2 % (42.0-75.0) H 12/17/18 14:23 Sodium 140 mmol/L (136-145) 12/17/18 14:23 Potassium 3.6 mmol/L (3.5-5.1) 12/17/18 14:23 Chloride 101 mmol/L (98-107) 12/17/18 14:23 Carbon Dioxide 29 mmol/L (23-31) 12/17/18 14:23 BUN 14 mg/dL (8.4-25.7) 12/17/18 14:23 Creatinine 1.19 mg/dL (0.7-1.3) 12/17/18 14:23 Glucose 110 mg/dL (83-110) 12/17/18 14:23 Calcium 10.5 mg/dL (7.8-10.44) H 12/17/18 14:23 Total Bilirubin 0.8 mg/dL (0.2-1.2) 12/17/18 14:23 AST 14 U/L (5-34) 12/17/18 14:23 ALT 14 U/L (8-55) 12/17/18 14:23 Alkaline Phosphatase 70 U/L (40-150) 12/17/18 14:23 Serum Total Protein 7.9 g/dL (5.8-8.1) 12/17/18 14:23 Albumin 4.4 g/dL (3.4-4.8) 12/17/18 14:23 Lipase 10 U/L (8-78) 12/17/18 14:23 Urine Ketones Trace mg/dL (Negative) A 12/17/18 18:23 Urine Blood Negative (Negative) 12/17/18 18:23 Urine Nitrite Negative (Negative) 12/17/18 18:23 Ur Leukocyte Esterase Negative Mariaelena/uL (Negative) 12/17/18 18:23 - EKG Interpretation EKG: Afib, PVCs throughout, RBBB, left axis deviation - Radiology Interpretation CT scan - abdomen Status: report reviewed by me (dilated loops of bowel in left jayla-abdomen, suspicious for sbo; 12mm hyperdense lesion in right lobe of the liver) FMR H&P: A/P - Problem List (1) SBO (small bowel obstruction) Current Visit: Yes Status: Acute Code(s): K56.609 - UNSP INTESTNL OBST, UNSP TO PARTIAL VERSUS COMPLETE OBST (2) Liver mass, right lobe Current Visit: Yes Status: Acute Code(s): R16.0 - HEPATOMEGALY, NOT ELSEWHERE CLASSIFIED (3) Atrial fibrillation Current Visit: No Status: Chronic Code(s): I48.91 - UNSPECIFIED ATRIAL FIBRILLATION Qualifiers: Atrial fibrillation type: chronic Qualified Code(s): I48.2 - Chronic atrial fibrillation (4) Diabetes 1.5, managed as type 2 Current Visit: No Status: Acute Code(s): E13.9 - OTHER SPECIFIED DIABETES MELLITUS WITHOUT COMPLICATIONS (5) Hypertension Current Visit: No Status: Chronic Code(s): I10 - ESSENTIAL (PRIMARY) HYPERTENSION Qualifiers: Hypertension type: essential hypertension Qualified Code(s): I10 - Essential (primary) hypertension - Plan Patient is 73M with PMHx of HTN , DM2, afib, and multiple colonic surgeries for diverticulitis/GI bleed and SBO admitted for SBO management #SBO -abd CT shows dilated loops of bowel in left jayla-abdomen suspicious for SBO -Dr. Garvin consulted in ER and aware of patient -appreciate recs -no ng tube as patient had recent cauterization of nostrils morning 12/17 -NPO -IVF #liver mass -seen as incidental finding on abd CT -AST/ALT, coags wnl -will have day team encourage patient to seek outpatient evaluation #HTN -149/89 in ED -holding home meds for sx recs -iv labetalol prn for sbp>180 #DMII -NPO for SBO -stop home meds until patient begins eating again -hyperglycemia protocol -SSI -accuchecks #Afib -was told that he does not take warfarin -holding home meds for sx recs DVT proph: lovenox Diet: NPO Dispo: inpatient for SBO management and possible sx, following surgery recs Code Status: Full FMR H&P: Upper Level - Plan Date/Time: 12/17/18 3715 I, Joshua Hanley MD, have evaluated this patient and agree with findings/plan as outlined by internal communications manager resident. Pertinent changes/additions are listed here. Ricky Linares is a 73 year old M with a PMH of HTN, DM2, A fib, Gout who presented to the ED with a 2 day history of abdominal pain, nausea and vomiting. He has a history of several abdominal surgeries in the 90s and hx of SBO about 20 years ago as well. Last BM was on morning of 12/16/18 and patient has had decreased appetite and has not tolerated any po intake for the last 36 hours without vomiting. His vomitus has been dark, denies bright red blood. States abdominal pain has been located in the upper quadrants, described as dull and achy, rated as 5/10 and intermittent. On admission, CT abd showed evidence of SBO, as well as 12 mm lesion on the right lobe of liver. In the ED , he was given toradol and zofran. NG was not placed as patient had not vomited since morning [employer] and day of arrival, he had cauterization of b/l nasal mucosa for epistaxis and packing on the right. Dr. Garvin was consulted from the ED and recommended that patient be admitted by primary medical team, with instructions to consult him. Patient admitted to inpatient surgical unit for SBO. Will continue IVFs and follow gen surg's recommendations. Will order NG tube placement if vomiting resumes/worsens, currently risk of bleeding with placement outweighs aspiration risk of vomiting since patient has not vomiting in > 12 hours. Please see internal communications manager note above for full H&P, of which I have reviewed and agree with. Addendum - Attending - Attending Attestation Date/Time: 12/18/18 5827 I personally evaluated the patient and discussed the management with Dr. Nicolas Hanley. I agree with the History, Examination, Assessment and Plan documented above with any addition or exceptions noted below. AN NG rolan be therapeutic for the SBO, but risk of nasal bleeding with NG tube placement gives us pause. Will treat with IV fluids and bowel rest. We appreciate Dr Garvin's expertise and recommendations.
[2018-12-18] MEDS ORDERED: Labetalol HCl 100 MG/20 ML VIAL SLOW IVP PRN (01:07)
[2018-12-18] MEDS: Ondansetron PF 4 MG/2 ML Vial IVP PRN (01:30)
[2018-12-18] MEDS ORDERED: Dextrose 50% Abboject 50 ML SYRINGE SLOW IVP PRN (02:09)
[2018-12-18] MEDS ORDERED: Dextrose 5% in Water 1,000 ML IV PRN (02:09)
[2018-12-18] MEDS ORDERED: Benzocaine 20% Spray 60 ML CAN FS SCH (03:15)
[2018-12-18] MEDS ORDERED: Lidocaine 2% 11 ML SYR FS SCH (03:30)
[2018-12-18] MEDS: Lactated Ringer's 1,000 ML IV SCH ×3 (04:08→20:41)
--- NOTE | 2018-12-18 06:44 | PDOC.FM ---
- Subjective Subjective: Patient denies abdominal pain, states his hiccups and nausea are improved. Reports he has been off of warfarin for the past year. - Objective Vital Signs & Weight: Vital Signs (12 hours) Temp Pulse Resp BP Pulse Ox 12/18/18 04:36 98.5 F 67 16 107/63 95 12/17/18 23:05 98.7 F 98 18 160/85 H 95 12/17/18 19:59 97.8 F 95 18 173/82 H 93 L 12/17/18 19:13 93 L Weight Weight 78.744 kg Result Diagrams: 12/18/18 06:25 12/18/18 06:25 Phys Exam - Physical Examination Constitutional: NAD Respiratory: no wheezing, clear to auscultation bilateral Cardiovascular: RRR, no significant murmur Gastrointestinal: non-tender, no distention, positive bowel sounds Musculoskeletal: no edema, pulses present Neurological: non-focal, moves all 4 limbs Psychiatric: normal affect Skin: no rash, normal turgor Dx/Plan (1) DM2 (diabetes mellitus, type 2) Status: Chronic (2) Hx of gout Code(s): Z87.39 - PERSONAL HISTORY OF DISEASES OF THE MS SYS AND CONN TISS Status: Chronic (3) Hx of aortic valve replacement Code(s): Z95.2 - PRESENCE OF PROSTHETIC HEART VALVE Status: Chronic (4) Liver mass, right lobe Code(s): R16.0 - HEPATOMEGALY, NOT ELSEWHERE CLASSIFIED Status: Acute (5) SBO (small bowel obstruction) Code(s): K56.609 - UNSP INTESTNL OBST, UNSP TO PARTIAL VERSUS COMPLETE OBST Status: Acute (6) Atrial fibrillation Code(s): I48.91 - UNSPECIFIED ATRIAL FIBRILLATION Status: Chronic Qualifiers: Atrial fibrillation type: chronic Qualified Code(s): I48.2 - Chronic atrial fibrillation (7) Hypertension Code(s): I10 - ESSENTIAL (PRIMARY) HYPERTENSION Status: Chronic Qualifiers: Hypertension type: essential hypertension Qualified Code(s): I10 - Essential (primary) hypertension - Plan Plan: #SBO -abd CT shows dilated loops of bowel in suspicious for SBO -Dr. Garvin consulted, appreciate recs -NPO, NG tube in place -MIVF LR @ 120 #liver mass -12 mm lesion in right lobe -AST/ALT, coags wnl #HTN -149/89 in ED -holding home meds -IV labetalol prn for sbp>180 #DMII -NPO for SBO -hyperglycemia protocol -SSI w/ accuchecks #Afib - not on anticoagulation, rate controlled at home -held home metoprolol succ 12.5 mg BID DVT proph: lovenox Diet: NPO Dispo: LOS >2 midnights Code Status: Full Addendum - Attending - Attending Attestation Date/Time: 12/18/18 1033 I personally evaluated the patient and discussed the management with Dr. Patino. I agree with the History, Examination, Assessment and Plan documented above with any addition or exceptions noted below. The patient has a small bowel obstruction. NG tube in place and is draining. No flatus or bowel movement this morning. Continue current mgmt. Appreciate surgery recs. RUQ u/s to evaluate liver mass.
[2018-12-18] MEDS: HumaLOG 300 UNITS/3 ML VIAL SC PRN ×4 (06:48→21:27)
[2018-12-18 07:22] LABS: #Lymphocytes 0.4 thou/uL (1.20-3.40); #Monocytes 1.3 thou/uL (0.11-0.59); #Neutrophils 7.8 thou/uL (1.40-6.50); %Basophils 0.2 % (0.0-1.0); %Eosinophils 0.2 % (0.0-10.0); %Lymphocytes 3.9 % (21.0-51.0); %Monocytes 13.5 % (0.0-10.0); %Neutrophils 82.1 % (42.0-75.0); Hemoglobin 14.9 g/dL (14.0-18.0); Mean Corpuscular HGB CONC 31.9 g/dL (32.0-36.0); Mean Corpuscular Volume 90.9 fL (78.0-98.0); Platelet Count 219 thou/uL (130-400); RBC Distribution Width 12.6 % (11.5-14.5); Red Blood Cell (RBC) Count 5.12 mill/uL (4.70-6.10); White Blood Cell (WBC) Count 9.5 thou/uL (4.8-10.8)
[2018-12-18 07:41] LABS: Anion Gap 20 mmol/L (10-20); BUN (Urea Nitrogen) 29 mg/dL (8.4-25.7); Calc. Creatinine Clearance 53 mL/min (70-130); Calcium 10.1 mg/dL (7.8-10.44); Carbon Dioxide 26 mmol/L (23-31); Chloride 98 mmol/L (98-107); Estimated GFR-MDRD 49; Glucose 239 mg/dL (83-110); Potassium 4.1 mmol/L (3.5-5.1); Sodium 140 mmol/L (136-145)
[2018-12-18] MEDS: Enoxaparin Sodium 40 MG/0.4 ML SYRINGE SC SCH (08:38)
--- NOTE | 2018-12-18 09:03 | PDOC.EVN ---
Event Note - Event Note Event Note: Full dictated note to follow. SBO feels better with NG. Plan NG to LIWS today. SBFT tomorrow. Will allow gum, hard candy
--- NOTE | 2018-12-18 10:30 | CON ---
DATE OF CONSULTATION: Consult from the Family Practice Service, [facility]. CHIEF COMPLAINT: Small-bowel obstruction. HISTORY OF PRESENT ILLNESS: This is a 73-year-old male who presents with a history of total abdominal colectomy in the past for combination of diverticulitis and mass. This required several operations. He had one small bowel obstruction 27 years ago that required operative lysis of adhesions. Yesterday, on his way to and having an ENT procedure in the office, he developed bloating, crampy abdominal pain that became more nausea, vomiting. Pain was described as 8/10 sharp in the mid abdomen. He had not had a bowel movement yesterday. He frequently has multiple loose stools today given his lack of colon. No history of blood in the vomit. No melena, hematochezia. His pain has mostly improved with NG tube placement and admission to the hospital. PAST MEDICAL HISTORY: Includes diabetes mellitus, atrial fibrillation, hypertension. MEDICATIONS: Medicines taken daily at home includes, 1. Insulin. 2. Aspirin. 3. Prednisone. 4. B12. 5. Furosemide. ALLERGIES TO MEDICINE: Include Cipro and hydrocodone REVIEW OF SYSTEMS: Ten system review of systems otherwise negative unless described above. SOCIAL: He is . No smoking, alcohol, or other drugs. PAST SURGICAL HISTORY: Includes multiple surgeries on his colon and intestinal surgery for small bowel obstruction, right knee, aortic valve replacement. FAMILY HISTORY: Noncontributory to GI malignancy or anesthesia related complication. PHYSICAL EXAMINATION: VITAL SIGNS: His pulse is 91, respirations 18, blood pressure 150/83. GENERAL: Alert, oriented, in no acute distress. HEENT: Sclerae anicteric. Oropharynx clear. NECK: No lymphadenopathy. CHEST: Clear. HEART: Regular rate. ABDOMEN: Soft, minimally tender in the right abdomen without guarding or rebound. Well-healed midline incision without hernia. IMAGING DATA: CT scan shows small bowel obstruction. Small lesion in the right lobe of the liver. LABORATORY DATA: White blood cell count is 9, hemoglobin 14, platelet count is 219. Creatinine is 1.42, glucose is 215. ASSESSMENT: 1. Small bowel obstruction with history of multiple colon surgeries and previous operative repair of small bowel obstruction. 2. Atrial fibrillation. 3. Diabetes mellitus, insulin dependent. PLAN: We discussed nonoperative treatment of this to start. He is stable clinically without significant left shift or tachycardia. His NG output is 1500 thus far. My plan would be NG suction for a good 24 hours, and reassess tomorrow, likely small bowel follow-through tomorrow. I do suspect he will get over this without surgery, but we will follow with you. Job ID: [id number]
--- NOTE | 2018-12-18 13:24 | ULT ---
US Gallbladder RUQ: 12/18/2018 12:07 PM CLINICAL HISTORY: Liver lesion seen on CT. STUDY: Limited right upper quadrant ultrasound of abdomen. COMPARISON: None. FINDINGS: Liver: Size: Normal. Echogenicity: Normal. Contour: Smooth. Mass: No masses identified Bile ducts: No intrahepatic or extrahepatic biliary dilatation. Common bile duct measures 4 mm. Gallbladder: Absent Pancreas: Nonvisualized secondary to bowel gas Right kidney: No pelvicalyceal dilatation. Right kidney measuring 13.8 cm in length. IMPRESSION: Unremarkable exam.
[2018-12-18] MEDS ORDERED: Cepastat Lozenges 1 LOZ PO PRN (18:30)
[2018-12-18] MEDS: Acetaminophen 1,000 MG in Premix Bag 1 BAG IVPB PRN (20:50)
[2018-12-18] MEDS ORDERED: Prevnar 13-Val Conj/PF 0.5 ML SYRINGE IM ONE (21:00)
[2018-12-19] MEDS: Lactated Ringer's 1,000 ML IV SCH ×3 (05:11→13:30)
[2018-12-19] MEDS: Acetaminophen 1,000 MG in Premix Bag 1 BAG IVPB PRN (05:24)
[2018-12-19] MEDS: HumaLOG 300 UNITS/3 ML VIAL SC PRN ×2 (05:52→12:21)
[2018-12-19] MEDS: Enoxaparin Sodium 40 MG/0.4 ML SYRINGE SC SCH (08:47)
--- NOTE | 2018-12-19 08:49 | PDOC.FM ---
- Subjective Subjective: Patient reports he had some nausea overnight. Had occasional small amount of abdominal pain. Reports he had a very small stool yesterday when he tried to use the restroom. Otherwise reports mouth is dry. Nursing reports they have changed his canister from NG suction 5 times overnight. - Objective Vital Signs & Weight: Vital Signs (12 hours) Temp Pulse Resp BP Pulse Ox 12/19/18 07:15 98.4 F 83 12 150/92 H 92 L 12/19/18 03:05 98.3 F 88 16 147/77 H 95 12/19/18 00:00 99.1 F 91 16 145/72 H 93 L Weight Weight 78.744 kg I&O: 12/18/18 12/19/18 12/20/18 06:59 06:59 06:59 Intake Total 1590 2090 Output Total 2250 3750 Balance -660 -1660 Result Diagrams: 12/19/18 08:26 12/19/18 08:26 Phys Exam - Physical Examination Constitutional: NAD Respiratory: no wheezing, clear to auscultation bilateral Cardiovascular: RRR, no significant murmur Gastrointestinal: soft, no distention epigastrium minimally tender to palpation Musculoskeletal: no edema, pulses present Neurological: non-focal, moves all 4 limbs Psychiatric: normal affect Skin: normal turgor, cap refill <2 seconds Dx/Plan (1) DM2 (diabetes mellitus, type 2) Status: Chronic (2) Hx of gout Code(s): Z87.39 - PERSONAL HISTORY OF DISEASES OF THE MS SYS AND CONN TISS Status: Chronic (3) Hx of aortic valve replacement Code(s): Z95.2 - PRESENCE OF PROSTHETIC HEART VALVE Status: Chronic (4) Liver mass, right lobe Code(s): R16.0 - HEPATOMEGALY, NOT ELSEWHERE CLASSIFIED Status: Acute (5) SBO (small bowel obstruction) Code(s): K56.609 - UNSP INTESTNL OBST, UNSP TO PARTIAL VERSUS COMPLETE OBST Status: Acute (6) Atrial fibrillation Code(s): I48.91 - UNSPECIFIED ATRIAL FIBRILLATION Status: Chronic Qualifiers: Atrial fibrillation type: chronic Qualified Code(s): I48.2 - Chronic atrial fibrillation (7) Hypertension Code(s): I10 - ESSENTIAL (PRIMARY) HYPERTENSION Status: Chronic Qualifiers: Hypertension type: essential hypertension Qualified Code(s): I10 - Essential (primary) hypertension (8) RITIKA (acute kidney injury) Code(s): N17.9 - ACUTE KIDNEY FAILURE, UNSPECIFIED Status: Acute - Plan Plan: #SBO -abd CT shows dilated loops of bowel in suspicious for SBO -Dr. Garvin consulted, appreciate recs -NPO, NG tube in place. Patient still having large amount of residuals. Nurse reports she changed the collecting container 5 times overnight -MIVF increased to LR @ 180 ml/hr #RITIKA -Increased IV fluids to LR @ 180 ml/hr. AM BMP pending. #liver mass -12 mm lesion in right lobe -AST/ALT, coags wnl - RUQ ultrasound for characterization- no lesion seen #HTN -149/89 in ED -holding home meds -IV labetalol prn for sbp>180 #DMII -NPO for SBO -hyperglycemia protocol -SSI w/ accuchecks #Afib - not on anticoagulation, rate controlled at home - held home metoprolol succ 12.5 mg BID DVT proph: lovenox Diet: NPO Dispo: LOS >2 midnights Code Status: Full Addendum - Attending - Attending Attestation Date/Time: 12/19/18 103 I personally evaluated the patient and discussed the management with Dr. Patino. I agree with the History, Examination, Assessment and Plan documented above with any addition or exceptions noted below. The patient has not had any flatus or bowel movements. NG tube is still in place. Plan for small bowel follow-thru.
[2018-12-19 09:10] LABS: BUN (Urea Nitrogen) 40 mg/dL (8.4-25.7); Calc. Creatinine Clearance 51 mL/min (70-130); Calcium 10.2 mg/dL (7.8-10.44); Estimated GFR-MDRD 47; Glucose 161 mg/dL (83-110)
[2018-12-19 09:16] LABS: Band 50 % (5-11); Hemoglobin 14.3 g/dL (14.0-18.0); Lymphocytes 17 % (21-51); MDiff Complete? YES; Mean Corpuscular HGB CONC 32.1 g/dL (32.0-36.0); Mean Corpuscular Hemoglobin 29.2 pg (27.0-31.0); Mean Corpuscular Volume 90.9 fL (78.0-98.0); Metamyelocyte 1 % (0-0); Monocytes 9 % (0-10); Neutrophil 20 % (42-75); Platelet Count 185 thou/uL (130-400); Platelet Morphology Comment Appears Adequate; RBC Distribution Width 12.7 % (11.5-14.5); RBC Morphology Normal; Reactive Lymphocytes 3 % (0-10); Reflex for Review?? YES; Vacuoles SLIGHT; White Blood Cell (WBC) Count 8.4 thou/uL (4.8-10.8)
[2018-12-19 09:20] LABS: Anion Gap 19 mmol/L (10-20); Carbon Dioxide 36 mmol/L (23-31); Chloride 94 mmol/L (98-107); Potassium 3.7 mmol/L (3.5-5.1); Sodium 145 mmol/L (136-145)
--- NOTE | 2018-12-19 13:45 | RAD ---
ONE VIEW ABDOMEN: 12/19/18 HISTORY: Small bowel obstruction. FINDINGS: Single view abdomen demonstrates a nasogastric tube in the left upper quadrant. Multiple air filled l oops of small bowel. Small amount of fecal material probably in the right hemicolon. A small bowel ob struction is suspected. There is no pneumoperitoneum on the supine projection. IMPRESSION: Findings compatible with small bowel obstruction. POS: OFF
[2018-12-19] MEDS ORDERED: ceFAZolin Sodium (SDC) 2 GM/100 ML BAG ONE (14:11)
--- NOTE | 2018-12-19 14:22 | PDOC.GSPN ---
Surgery Progress Note: Subj - Subjective Narrative: Had BM this am, no nausea, has hiccups Surgery Progress Note: Obj - Vital signs Vital signs: Vital Signs - Most Recent Temp Pulse Resp BP Pulse Ox 98.2 F 94 16 123/72 93 L 12/19/18 11:20 12/19/18 11:20 12/19/18 11:20 12/19/18 11:20 12/19/18 11:20 - Physical Exam General: no distress Cardiovascular: regular rate and rhythm Respiratory: clear to auscultation Abdomen: soft, distended, guarding (Guarding in the upper abdomen with palpable mass), other Surgery Progress Note: Results - Labs Result Diagrams: 12/19/18 08:26 12/19/18 08:26 Lab results: Laboratory Results - last 24 hr 12/19/18 12/19/18 12/19/18 05:25 08:26 08:26 WBC 8.4 RBC 4.90 Hgb 14.3 Hct 44.5 MCV 90.9 MCH 29.2 MCHC 32.1 RDW 12.7 Plt Count 185 MPV 9.0 Neutrophils % (Manual) 20 L Band Neuts % (Manual) 50 H Lymphocytes % (Manual) 17 L Reactive Lymphs % 3 Monocytes % (Manual) 9 Metamyelocytes % (Man) 1 H WBC Morphology SLIGHT Plt Morphology Comment Appears Adequate RBC Morph Comment Normal Sodium 145 Potassium 3.7 Chloride 94 L Carbon Dioxide 36 H Anion Gap 19 BUN 40 H Creatinine 1.48 H Estimated GFR (MDRD) 47 Glucose 161 H POC Glucose 167 H Calcium 10.2 12/19/18 11:20 WBC RBC Hgb Hct MCV MCH MCHC RDW Plt Count MPV Neutrophils % (Manual) Band Neuts % (Manual) Lymphocytes % (Manual) Reactive Lymphs % Monocytes % (Manual) Metamyelocytes % (Man) WBC Morphology Plt Morphology Comment RBC Morph Comment Sodium Potassium Chloride Carbon Dioxide Anion Gap BUN Creatinine Estimated GFR (MDRD) Glucose POC Glucose 167 H Calcium - Radiology Interpretation CT scan - abdomen Status: report reviewed by me (dilated loops of bowel in left jayla-abdomen, suspicious for sbo; 12mm hyperdense lesion in right lobe of the liver) Surgery Progress Note: A/P - Problem (1) SBO (small bowel obstruction) Current Visit: Yes Code(s): K56.609 - UNSP INTESTNL OBST, UNSP TO PARTIAL VERSUS COMPLETE OBST Status: Acute - Plan Plan: Severe bandemia today -KUB shows persistent large dilated loop in area of guarding -Safest option is surgery
[2018-12-19] MEDS ORDERED: Fentanyl 100 MCG/2 ML VIAL ONE ×2 (14:24→17:09)
[2018-12-19] MEDS ORDERED: Succinylcholine Chloride 20 MG/ML 10 ml SYRINGE FS ONE (14:45)
[2018-12-19] MEDS ORDERED: Ondansetron PF 4 MG/2 ML Vial ONE (14:45)
[2018-12-19] MEDS ORDERED: Rocuronium Bromide 10 MG/ML (10ML VIAL) ONE (14:45)
[2018-12-19] MEDS ORDERED: Esmolol 100 MG/10 ML VIAL ONE (14:45)
[2018-12-19] MEDS ORDERED: Lidocaine 1% PF 5 ML VIAL ONE (14:45)
[2018-12-19] MEDS ORDERED: Metoclopramide HCl 10 MG/2 ML VIAL ONE (14:45)
[2018-12-19] MEDS ORDERED: PROPOFOL 200 MG/20 ML VIAL ONE (14:45)
[2018-12-19] MEDS ORDERED: Ondansetron HCl/PF 4 MG/2 ML Vial IVP PRN ×2 (14:55→17:12)
[2018-12-19] MEDS ORDERED: Norepinephrine 4 MG/4 ML VIAL ONE ×2 (15:04→15:07)
[2018-12-19] MEDS ORDERED: SUGAMMADEX SODIUM 200 MG/2 ML VIAL ONE (15:42)
[2018-12-19] MEDS ORDERED: Promethazine HCl 25 MG/ML VIAL SLOW IVP PRN (17:12)
[2018-12-19] MEDS ORDERED: Promethazine HCl 25 MG/ML VIAL ONE (17:12)
[2018-12-19] MEDS ORDERED: Promethazine HCl 25 MG/ML VIAL IM PRN (17:12)
[2018-12-19] MEDS ORDERED: Meperidine HCl/PF 25 MG/ML VIAL SLOW IVP PRN (17:12)
--- NOTE | 2018-12-19 17:52 | OP ---
DATE OF PROCEDURE: 12/19/2018 PREOPERATIVE DIAGNOSIS: Small bowel obstruction. POSTOPERATIVE DIAGNOSIS: Small bowel obstruction. PROCEDURE PERFORMED: 1. Exploratory laparotomy, extensive lysis of adhesions, small bowel resection and anastomosis. 2. Central line. ANESTHESIA: General. ESTIMATED BLOOD LOSS: 200 mL. COMPLICATIONS: None. FINDINGS: Diffuse significant peritoneal and interloop small bowel adhesions. There was a segment of small bowel that was twisted and adhesed to previous mesh in the upper abdomen. DESCRIPTION OF PROCEDURE: The patient was taken to the operating room and laid supine on the operating room table. After general anesthetic was obtained, the Varner was placed, and the abdomen was shaved, prepped, and draped in a sterile fashion. Midline incision was made. The abdomen was entered very carefully. All posterior abdominal wall adhesions were taken down. The multiple interloop adhesions were taken down for approximately 1 hour. There was an area in the upper abdomen with some ischemic small intestine. This was dissected free from the other small intestine. The small bowel was traced all the way up to the ligament of Treitz all the way down to the anastomosis to the rectosigmoid junction. There was an area of ischemia in the upper abdomen, a small segment of small intestine. QUINTIN 75 was fired across the small intestine in the proximal and distal extent of this area of end ischemia and the mesentery was taken using the Impact LigaSure. A [id number] anastomosis was performed using QUINTIN 75. The common enterotomy was closed using a TA60. A crotch stitch was placed with a 3-0 silk as well as the corners were oversewn. All instrument counts, needle counts, lap counts were correct, and the abdomen was irrigated and closed using PDS from the top and the bottom and tied in the middle. Subcutaneous tissues were irrigated and closed using skin reagan. Sterile dressings were placed. The right neck was prepped and draped in a sterile fashion. Local anesthetic was infiltrated over the right internal jugular vein, and the internal jugular vein was then cannulated using a 22-gauge finder needle followed by a Seldinger needle. Wire was passed into the superior vena cava. Small lex was made at the wire entrance site. The wire was used as a guide to dilate the internal jugular vein. The triple-lumen catheter was threaded at 16 cm sewn to neck using close silk and connector. Once all ports were flushed and cyndee blood without difficulty, each was flushed with a saline solution. Sterile dressings were applied. The patient was sent to Recovery in stable condition. All instrument counts, needle counts, and lap counts were correct. Job ID: [id number]
--- NOTE | 2018-12-19 17:53 | RAD ---
PORTABLE CHEST: 12/19/18 HISTORY: Postop line placement. COMPARISON: A 02/15/17 exam. Heart size is within normal limits. There are postop sternotomy changes. NG tube is below the hemidia phragm. A right jugular line is present. Catheter tip overlies the superior vena cava. No signs of pn eumothorax. Free air is seen under both hemidiaphragms consistent with the history of surgery. IMPRESSION: 1. Right sided jugular line. Catheter tip overlying the superior vena cava without signs of pneu mothorax. 2. Free air under both hemidiaphragms compatible with a history of abdominal surgery. POS: [facility]
[2018-12-19] MEDS ORDERED: Naloxone HCl 0.4 mg/ml Vial IV PRN (17:55)
[2018-12-19] MEDS ORDERED: Acetaminophen 1,000 MG in Premix Bag 1 BAG IVPB PRN (18:40)
[2018-12-19] MEDS: Sodium Chloride 0.9% 1,000 ML IV SCH (20:14)
[2018-12-20 04:29] LABS: Band 35 % (5-11); Eosinophils 6 % (0-10); Hemoglobin 12.7 g/dL (14.0-18.0); Hypochromia SLIGHT = 6-15 cells (100X) (0-5/hpf); Lymphocytes 6 % (21-51); MDiff Complete? YES; Mean Corpuscular HGB CONC 32.1 g/dL (32.0-36.0); Mean Corpuscular Hemoglobin 29.8 pg (27.0-31.0); Mean Corpuscular Volume 92.8 fL (78.0-98.0); Mean Platelet Volume 8.6 fL (7.4-10.4); Monocytes 37 % (0-10); Neutrophil 14 % (42-75); Platelet Count 181 thou/uL (130-400); Platelet Morphology Comment Appears Adequate; RBC Distribution Width 12.7 % (11.5-14.5); Reactive Lymphocytes 2 % (0-10); Red Blood Cell (RBC) Count 4.27 mill/uL (4.70-6.10); Toxic Granulation SLIGHT; White Blood Cell (WBC) Count 9.4 thou/uL (4.8-10.8)
[2018-12-20] MEDS: Sodium Chloride 0.9% 1,000 ML IV SCH (04:31)
[2018-12-20 05:03] LABS: ALT (SGPT) 11 U/L (8-55); AST (SGOT) 20 U/L (5-34); Albumin 3.1 g/dL (3.4-4.8); Alkaline Phosphatase 37 U/L (40-150); Anion Gap 13 mmol/L (10-20); BUN (Urea Nitrogen) 39 mg/dL (8.4-25.7); Bilirubin, Total 1.8 mg/dL (0.2-1.2); Calc. Creatinine Clearance 51 mL/min (70-130); Calcium 8.5 mg/dL (7.8-10.44); Carbon Dioxide 37 mmol/L (23-31); Chloride 97 mmol/L (98-107); Estimated GFR-MDRD 47; Globulin 2.7 g/dL (2.4-3.5); Glucose 179 mg/dL (83-110); Potassium 2.9 mmol/L (3.5-5.1); Protein, Total 5.8 g/dL (5.8-8.1); Sodium 144 mmol/L (136-145)
[2018-12-20] MEDS ORDERED: Potassium Chloride 40 MEQ in Sodium Chloride 0.9% 250 ML 250 ML IVPB SCH ×3 (05:30→16:15)
[2018-12-20] MEDS: HumaLOG 300 UNITS/3 ML VIAL SC PRN ×3 (05:50→21:24)
--- NOTE | 2018-12-20 06:48 | PDOC.GSPN ---
Surgery Progress Note: Subj - Subjective Patient reports: feels better Narrative: Mr. Linares is a 73 year old male with a history of multiple GI surgeries ( including colon resection for diverticulosis and a previous SBO) who presents today post-op day 1 for SBO. Mr. Linares is doing well this morning. He reports decreased abdominal pain, although he is a little sore. He rates his pain a 4/10 that is well controlled with his patient-controlled fentanyl delivery, which he reports only having to use once an hour. The patient has not had any liquids besides ice chips since surgery, no trials of ambulation/walking, and currently has a ann catheter in. Patient denies passing flatus or having a bowel movement yet since surgery. He denies chest pain, shortness of breath, dizziness, nausea, or vomiting. Surgery Progress Note: Obj - Vital signs Vital signs: Vital Signs - Most Recent Temp Pulse Resp BP Pulse Ox 98.2 F 94 16 123/72 98 12/20/18 03:00 12/19/18 11:20 12/19/18 11:20 12/19/18 11:20 12/19/18 19:42 - Physical Exam General: no distress ENT: normal mucosa, other (NGT with bilious gastric output.) Neck: no lymphadectomy, no masses, trachea midline Cardiovascular: irregular rate (Rate is slightly irregular and rapid (100-103) at bedside.), no murmur Respiratory: clear to auscultation, normal expansion (No hiccups during exam.) Abdomen: soft, nondistended (No signs of guarding.), positive bowel sounds, appropriately tender, other (Patient denies passing flatus or having a bowel movement since surgery.) Integumentary: no rash Psychiatric: oriented to time, oriented to person, oriented to place Wound: dressing clean,dry,intact (Dressing has some mild bleeding near inferior end of central incision. No signs of erythema in overlying skin or major purulent drainage.) Surgery Progress Note: Results - Labs Result Diagrams: 12/20/18 03:54 12/20/18 03:30 Lab results: Laboratory Results - last 24 hr 12/19/18 12/20/18 12/20/18 20:57 03:30 03:30 WBC RBC Hgb Hct MCV MCH MCHC RDW Plt Count MPV Neutrophils % (Manual) Band Neuts % (Manual) Lymphocytes % (Manual) Reactive Lymphs % Monocytes % (Manual) Eosinophils % (Manual) Hypochromia Toxic Granulation Plt Morphology Comment Sodium 144 Potassium 2.9 L* Chloride 97 L Carbon Dioxide 37 H Anion Gap 13 BUN 39 H Creatinine 1.47 H Estimated GFR (MDRD) 47 Glucose 179 H POC Glucose 146 H Calcium 8.5 Magnesium 1.7 Total Bilirubin 1.8 H AST 20 ALT 11 Alkaline Phosphatase 37 L Serum Total Protein 5.8 Albumin 3.1 L Globulin 2.7 Albumin/Globulin Ratio 1.1 L 12/20/18 03:54 WBC 9.4 RBC 4.27 L Hgb 12.7 L Hct 39.6 L MCV 92.8 MCH 29.8 MCHC 32.1 RDW 12.7 Plt Count 181 MPV 8.6 Neutrophils % (Manual) 14 L Band Neuts % (Manual) 35 H Lymphocytes % (Manual) 6 L Reactive Lymphs % 2 Monocytes % (Manual) 37 H Eosinophils % (Manual) 6 Hypochromia SLIGHT = 6-15 cells Toxic Granulation SLIGHT Plt Morphology Comment Appears Adequate Sodium Potassium Chloride Carbon Dioxide Anion Gap BUN Creatinine Estimated GFR (MDRD) Glucose POC Glucose Calcium Magnesium Total Bilirubin AST ALT Alkaline Phosphatase Serum Total Protein Albumin Globulin Albumin/Globulin Ratio - Radiology Interpretation CT scan - abdomen Status: report reviewed by me (dilated loops of bowel in left jayla-abdomen, suspicious for sbo; 12mm hyperdense lesion in right lobe of the liver) Surgery Progress Note: A/P - Plan Plan: Mr. Linares is a 73 year old male with a history of multiple GI surgeries ( including colon resection for diverticulosis and a previous SBO) who presents today post-op day 1 for SBO. SBO post-op day 1 -- Patient is doing well and pain is controlled, Bandemia has improved. -May need to switch diet from NPO to liquids -Promote use of spirometer -Allow time to rest, and begin ambulating with bathroom privileges. Will monitor from there. -Wound care Hypokalemia --Potassium was 2.9 last night. -Currently being given IV Potassium supplement with normal saline. HTN -- Controlled with Labetalol currently T2DM -- Controlled with sliding scale insulin currently Addendum - Physician - Physician Attestation Date/Time: 12/20/18 0930 I personally performed or re-performed the physical examination and medical decision making. I have verified all student documentation or findings, including history, physical exam and/or medical decision making. Doing well. Tachy but asymptomatic. No chest pain. Abd pain well controlled. ICU one more day. I expect ileus for 4 to 5 days
[2018-12-20] MEDS: Enoxaparin Sodium 40 MG/0.4 ML SYRINGE SC SCH (08:28)
--- NOTE | 2018-12-20 08:37 | PDOC.FM ---
- Subjective Subjective: Patient states he feels well this morning, pain is about a 4/10. No BM since operation. He is ready to start walking. - Objective Vital Signs & Weight: Vital Signs (12 hours) Temp 12/20/18 03:00 98.2 F 12/20/18 00:00 98.5 F Weight Weight 78.744 kg Most Recent Monitor Data Heart Rate from ECG 104 NIBP 117/64 NIBP BP-Mean 81 Respiration from ECG 29 SpO2 96 I&O: 12/19/18 12/20/18 12/21/18 06:59 06:59 06:59 Intake Total 2090 1566 Output Total 3750 2083 Balance -1660 -517 Result Diagrams: 12/20/18 03:54 12/20/18 03:30 Phys Exam - Physical Examination Constitutional: NAD Alert and interactive HEENT: moist MMs Neck: supple central line in place in right IJ Respiratory: no wheezing, clear to auscultation bilateral Cardiovascular: RRR, no significant murmur Gastrointestinal: soft, positive bowel sounds Midline abdominal incision, bleeding at inferior portion of bandage marked Musculoskeletal: no edema, pulses present Neurological: non-focal, moves all 4 limbs Psychiatric: normal affect Skin: normal turgor, cap refill <2 seconds Dx/Plan (1) DM2 (diabetes mellitus, type 2) Status: Chronic (2) Hx of gout Code(s): Z87.39 - PERSONAL HISTORY OF DISEASES OF THE MS SYS AND CONN TISS Status: Chronic (3) Hx of aortic valve replacement Code(s): Z95.2 - PRESENCE OF PROSTHETIC HEART VALVE Status: Chronic (4) Liver mass, right lobe Code(s): R16.0 - HEPATOMEGALY, NOT ELSEWHERE CLASSIFIED Status: Acute (5) SBO (small bowel obstruction) Code(s): K56.609 - UNSP INTESTNL OBST, UNSP TO PARTIAL VERSUS COMPLETE OBST Status: Acute (6) Atrial fibrillation Code(s): I48.91 - UNSPECIFIED ATRIAL FIBRILLATION Status: Chronic Qualifiers: Atrial fibrillation type: chronic Qualified Code(s): I48.2 - Chronic atrial fibrillation (7) Hypertension Code(s): I10 - ESSENTIAL (PRIMARY) HYPERTENSION Status: Chronic Qualifiers: Hypertension type: essential hypertension Qualified Code(s): I10 - Essential (primary) hypertension (8) RITIKA (acute kidney injury) Code(s): N17.9 - ACUTE KIDNEY FAILURE, UNSPECIFIED Status: Acute (9) Hypokalemia Code(s): E87.6 - HYPOKALEMIA Status: Acute - Plan Plan: #SBO s/p resection and anastomosis POD#1 -abd CT shows dilated loops of bowel in suspicious for SBO -Dr. Garvin consulted, appreciate recs -X-lap with small bowel resection and anastomosis 12/19/18 -transferred to ICU post-op -Bandemia improving post-op to 35% from 50% -NPO advance diet per GI recs, NG tube in place -MIVF NS @ 120 #RITIKA -Stable, GFR 47 again today. Continue to monitor for improvement -NS @ 120 #liver mass -12 mm lesion in right lobe -AST/ALT, coags wnl - RUQ ultrasound for characterization- no lesion seen #HTN -149/89 in ED -holding home meds for NPO -IV labetalol prn for sbp>180 #DMII -hyperglycemia protocol -SSI w/ accuchecks #Afib - not on anticoagulation, rate controlled at home - held home metoprolol succ 12.5 mg BID - HR has been low 100s, continue to monitor DVT proph: lovenox Diet: NPO Dispo: LOS >2 midnights Code Status: Full Addendum - Attending - Attending Attestation Date/Time: 12/20/18 1043 I personally evaluated the patient and discussed the management with Dr. Patino. I agree with the History, Examination, Assessment and Plan documented above with any addition or exceptions noted below. The patient is pod 1 s/p small bowel resection. He notes his pain is stable. Pt is hypokalemic, will replace potassium.
[2018-12-20] MEDS ORDERED: Magnesium Sulfate 2 GM in Sodium Chloride 0.9% 100 ML IVPB SCH (09:30)
[2018-12-20] MEDS ORDERED: Lactated Ringer's 1,000 ML IV SCH (09:45)
[2018-12-20] MEDS ORDERED: Magnesium 2 GM/50 ML 2 GM in Premix Bag 1 BAG IVPB SCH (09:45)
[2018-12-20 14:28] LABS: BUN (Urea Nitrogen) 37 mg/dL (8.4-25.7); Calc. Creatinine Clearance 57 mL/min (70-130); Calcium 8.8 mg/dL (7.8-10.44); Estimated GFR-MDRD 53; Glucose 145 mg/dL (83-110)
[2018-12-20 14:37] LABS: Anion Gap 18 mmol/L (10-20); Carbon Dioxide 36 mmol/L (23-31); Chloride 101 mmol/L (98-107); Potassium 3.1 mmol/L (3.5-5.1); Sodium 152 mmol/L (136-145)
--- NOTE | 2018-12-20 15:14 | PDOC.EVN ---
Event Note - Event Note Event Note: Patient's hypokalemia improved to 3.1. Will give 40 meq K. Patient developed hypernatremia. Free water deficit of 3.4 L. Switched IVF to D5 1/2 NS @ 125 ml/hr. Repeat BMP at 2200 hrs.
[2018-12-20] MEDS ORDERED: Dextrose 5 %-0.45 % NaCl 1,000 ML IV SCH (15:15)
[2018-12-20] MEDS: Metoprolol Tartrate 5 MG/5 ML VIAL IVP SCH ×2 (17:54→23:59)
[2018-12-20 20:07] LABS: Anion Gap 16 mmol/L (10-20); Carbon Dioxide 37 mmol/L (23-31); Chloride 100 mmol/L (98-107); Potassium 3.3 mmol/L (3.5-5.1); Sodium 150 mmol/L (136-145)
[2018-12-20 20:16] LABS: BUN (Urea Nitrogen) 37 mg/dL (8.4-25.7); Calc. Creatinine Clearance 57 mL/min (70-130); Calcium 8.5 mg/dL (7.8-10.44); Estimated GFR-MDRD 53; Glucose 205 mg/dL (83-110)
[2018-12-20] MEDS ORDERED: Dextrose 5% in Water 1,000 ML IV SCH (20:30)
--- NOTE | 2018-12-20 22:11 | CON ---
DATE OF CONSULTATION: 12/20/2018 HISTORY OF PRESENT ILLNESS: Mr. Linares is a pleasant gentleman, who has undergone an exploratory laparotomy with extensive lysis of adhesions, small bowel resection and anastomosis yesterday. He was placed in the ICU for critical care observation. He says he is feeling 100% better than he felt yesterday. He is in no distress, lying flat in bed. PAST MEDICAL HISTORY: Remarkable for; 1. Resection of the majority of his colon many years ago with reanastomosis with his rectum. 2. History of diabetes. 3. History of atrial fibrillation. 4. History of diverticulitis. 5. History of hypertension. 6. History of right knee surgery. 7. History of an aortic valve replacement in [address] Shannon with a bovine aortic valve. SOCIAL HISTORY: He is a nonsmoker and nondrinker. FAMILY HISTORY: Negative for lung disease in early age. MEDICATIONS: Prior to admission, he was on: 1. Aspirin. 2. Iron. 3. Lisinopril. 4. Metoprolol. 5. Ranitidine. 6. Metformin. REVIEW OF SYSTEMS: 10-point review of systems completed otherwise negative. PHYSICAL EXAMINATION: GENERAL: He was placed in the ICU for critical care observation. VITAL SIGNS: Heart rate is 115. He is off his beta tree, so I have restarted him on Lopressor IV. Blood pressure 123/61, respiratory rate 17, and oximetry is 96% on room air. HEENT: Pupils are equal. Sclerae are anicteric. NECK: Supple. LUNGS: Clear. HEART: Regular rhythm. S1, S2 are normal. ABDOMEN: Soft. Diffuse mild tenderness is noted as expected after his operation. EXTREMITIES: Without clubbing, cyanosis, or edema. LABORATORY DATA: White count is 9.4, hemoglobin 12.7, and platelets 181. Sodium 152, potassium 3.1, chloride 101, bicarb 36, BUN 37, and creatinine 1.32 down from 1.47 yesterday. IMPRESSION: 1. Status post lysis of adhesions via laparotomy, clinically stable. 2. Acute on chronic kidney disease. 3. Diabetes. 4. History of having the majority of his colon resected in the past for diverticulitis. Overall, he appears to be clinically stable at this time. We will follow the other physicians who are caring for him while he is in the critical care unit. This is a 70 minute consult, with greater than 50% of time spent on unit coordinating care. Job ID: [id number] [email or web address]
[2018-12-20 23:11] LABS: BUN (Urea Nitrogen) 36 mg/dL (8.4-25.7); Calc. Creatinine Clearance 58 mL/min (70-130); Calcium 8.5 mg/dL (7.8-10.44); Estimated GFR-MDRD 55; Glucose 161 mg/dL (83-110)
[2018-12-20 23:19] LABS: Anion Gap 17 mmol/L (10-20); Carbon Dioxide 37 mmol/L (23-31); Chloride 100 mmol/L (98-107); Sodium 151 mmol/L (136-145)
[2018-12-21 04:59] LABS: ALT (SGPT) 11 U/L (8-55); AST (SGOT) 18 U/L (5-34); Albumin 3.1 g/dL (3.4-4.8); Alkaline Phosphatase 48 U/L (40-150); BUN (Urea Nitrogen) 38 mg/dL (8.4-25.7); Bilirubin, Total 1.4 mg/dL (0.2-1.2); Calc. Creatinine Clearance 57 mL/min (70-130); Calcium 8.8 mg/dL (7.8-10.44); Estimated GFR-MDRD 53; Globulin 2.9 g/dL (2.4-3.5); Glucose 204 mg/dL (83-110)
[2018-12-21 05:06] LABS: Band 36 % (5-11); Hemoglobin 12.4 g/dL (14.0-18.0); Lymphocytes 11 % (21-51); MDiff Complete? YES; Mean Corpuscular HGB CONC 31.9 g/dL (32.0-36.0); Mean Corpuscular Hemoglobin 29.9 pg (27.0-31.0); Mean Corpuscular Volume 93.9 fL (78.0-98.0); Mean Platelet Volume 8.8 fL (7.4-10.4); Monocytes 12 % (0-10); Neutrophil 40 % (42-75); Platelet Count 195 thou/uL (130-400); RBC Distribution Width 12.5 % (11.5-14.5); Reactive Lymphocytes 1 % (0-10); Red Blood Cell (RBC) Count 4.14 mill/uL (4.70-6.10); Toxic Granulation SLIGHT; White Blood Cell (WBC) Count 10.9 thou/uL (4.8-10.8)
[2018-12-21 05:07] LABS: Chloride 98 mmol/L (98-107); Potassium 3.4 mmol/L (3.5-5.1); Sodium 149 mmol/L (136-145)
[2018-12-21 05:09] LABS: Carbon Dioxide 39 mmol/L (23-31)
[2018-12-21 05:10] LABS: Anion Gap 15 mmol/L (10-20)
[2018-12-21] MEDS: Metoprolol Tartrate 5 MG/5 ML VIAL IVP SCH ×4 (05:52→20:38)
[2018-12-21] MEDS: HumaLOG 300 UNITS/3 ML VIAL SC PRN ×3 (05:52→18:07)
[2018-12-21] MEDS: Dextrose 5% in Water 1,000 ML IV SCH ×3 (06:36→21:39)
--- NOTE | 2018-12-21 06:49 | PDOC.FM ---
- Subjective Subjective: Patient had some episodes of confusion overnight per the patient and nursing staff. Otherwise, he states he is feeling well this morning, and his pain is well controlled. Denies SOB or chest pain. Nursing staff also reports he has been having frequent PVCs. - Objective Vital Signs & Weight: Vital Signs (12 hours) Temp Pulse Ox 12/21/18 03:00 97.7 F 12/21/18 00:00 97.7 F 12/20/18 20:00 98 12/20/18 19:00 98.5 F Weight Weight 78.744 kg Most Recent Monitor Data Heart Rate from ECG 97 NIBP 106/72 NIBP BP-Mean 83 Respiration from ECG 20 SpO2 98 I&O: 12/19/18 12/20/18 12/21/18 06:59 06:59 06:59 Intake Total 2090 1567 6251 Output Total 6898 2421 [id number] [facility] -[phone] Result Diagrams: 12/21/18 04:13 12/21/18 08:07 Phys Exam - Physical Examination Constitutional: NAD Respiratory: no wheezing, clear to auscultation bilateral Cardiovascular: no significant murmur Irregularly irregular rhythm Gastrointestinal: soft midline incision, diffuse but appropriate tenderness to palpation Musculoskeletal: no edema, pulses present Neurological: non-focal, moves all 4 limbs Psychiatric: normal affect Skin: normal turgor, cap refill <2 seconds Dx/Plan (1) DM2 (diabetes mellitus, type 2) Status: Chronic (2) Hx of gout Code(s): Z87.39 - PERSONAL HISTORY OF DISEASES OF THE MS SYS AND CONN TISS Status: Chronic (3) Hx of aortic valve replacement Code(s): Z95.2 - PRESENCE OF PROSTHETIC HEART VALVE Status: Chronic (4) Liver mass, right lobe Code(s): R16.0 - HEPATOMEGALY, NOT ELSEWHERE CLASSIFIED Status: Acute (5) SBO (small bowel obstruction) Code(s): K56.609 - UNSP INTESTNL OBST, UNSP TO PARTIAL VERSUS COMPLETE OBST Status: Acute (6) Atrial fibrillation Code(s): I48.91 - UNSPECIFIED ATRIAL FIBRILLATION Status: Chronic Qualifiers: Atrial fibrillation type: chronic Qualified Code(s): I48.2 - Chronic atrial fibrillation (7) Hypertension Code(s): I10 - ESSENTIAL (PRIMARY) HYPERTENSION Status: Chronic Qualifiers: Hypertension type: essential hypertension Qualified Code(s): I10 - Essential (primary) hypertension (8) RITIKA (acute kidney injury) Code(s): N17.9 - ACUTE KIDNEY FAILURE, UNSPECIFIED Status: Acute (9) Hypokalemia Code(s): E87.6 - HYPOKALEMIA Status: Acute (10) Hypernatremia Code(s): E87.0 - HYPEROSMOLALITY AND HYPERNATREMIA Status: Acute - Plan Plan: #SBO s/p resection and anastomosis POD#2 -Dr. Garvin consulted, appreciate recs -X-lap with small bowel resection and anastomosis 12/19/18 -transferred to ICU post-op -Transfer to the floor today -NPO advance diet per GI recs, NG tube with suction in place -WBC increased today to 10.9, continue to monitor #Acute delirium -Possibly ing, resolved this AM -Continue reorienting PRN #Hypernatremia -Na increased to 152 -D5 1/2 NS changed to D5 this AM. -Na slowly improving, now 149 this AM. Continue to monitor closely until WNL #Hypokalemia -Monitor and replace as needed #Acute hypoxic resp failure -Placed on 2L BNC for O2 90% -RR wnl, Suspect 2/2 atelectasis -Lungs clear on auscultation -ISS ordered -Wean O2 as tolerated #RITIKA on CKD3A, improved -GFR of 53 today -D5 @ 120 #liver mass - 12 mm lesion in right lobe - AST/ALT, coags wnl - RUQ ultrasound for characterization- no lesion seen #HTN -holding home meds for NPO -IV labetalol prn for sbp>180 #DMII -hyperglycemia protocol -SSI w/ accuchecks #Afib - not on anticoagulation, rate controlled at home on metoprolol which is held while NPO - lopressor started #Frequent PVCs -Continue on lopressor -Consider cards consult #Elevated bicarb -CO2 elevated on BMP -ABG pending DVT proph: lovenox Diet: NPO Dispo: LOS >2 midnights Code Status: Full Addendum - Attending - Attending Attestation Date/Time: 12/21/18 1045 I personally evaluated the patient and discussed the management with Dr. Patino. I agree with the History, Examination, Assessment and Plan documented above with any addition or exceptions noted below. The patient had some delirium overnight. He is currently sitting up in a chair. Still has post-op ileus. Continue NG tube and mgmt per gen surg. Pt has hypernatremia and we are treating with D5W. Trend sodium.
--- NOTE | 2018-12-21 07:58 | PDOC.GSPN ---
Surgery Progress Note: Subj - Subjective Patient reports: no new complaints (Confusion overnight has resolved) Surgery Progress Note: Obj - Vital signs Vital signs: Vital Signs - Most Recent Temp Pulse Resp BP Pulse Ox 97.7 F 94 16 123/72 99 12/21/18 03:00 12/19/18 11:20 12/19/18 11:20 12/19/18 11:20 12/21/18 07:41 - Physical Exam General: no distress Respiratory: clear to auscultation Abdomen: soft, decreased bowel sounds, appropriately tender, distended Wound: dressing clean,dry,intact (dressing replaced) Surgery Progress Note: Results - Labs Result Diagrams: 12/21/18 04:13 12/21/18 04:13 Lab results: Laboratory Results - last 24 hr 12/20/18 12/20/18 12/21/18 19:24 22:40 04:13 WBC 10.9 H RBC 4.14 L Hgb 12.4 L Hct 38.8 L MCV 93.9 MCH 29.9 MCHC 31.9 L RDW 12.5 Plt Count 195 MPV 8.8 Neutrophils % (Manual) 40 L Band Neuts % (Manual) 36 H Lymphocytes % (Manual) 11 L Reactive Lymphs % 1 Monocytes % (Manual) 12 H Toxic Granulation SLIGHT Sodium 150 H 151 H Potassium 3.3 L 3.0 L Chloride 100 100 Carbon Dioxide 37 H 37 H Anion Gap 16 17 BUN 37 H 36 H Creatinine 1.32 H 1.29 Estimated GFR (MDRD) 53 55 Glucose 205 H 161 H Calcium 8.5 8.5 Total Bilirubin AST ALT Alkaline Phosphatase Serum Total Protein Albumin Globulin Albumin/Globulin Ratio 12/21/18 04:13 WBC RBC Hgb Hct MCV MCH MCHC RDW Plt Count MPV Neutrophils % (Manual) Band Neuts % (Manual) Lymphocytes % (Manual) Reactive Lymphs % Monocytes % (Manual) Toxic Granulation Sodium 149 H Potassium 3.4 L Chloride 98 Carbon Dioxide 39 H Anion Gap 15 BUN 38 H Creatinine 1.32 H Estimated GFR (MDRD) 53 Glucose 204 H Calcium 8.8 Total Bilirubin 1.4 H AST 18 ALT 11 Alkaline Phosphatase 48 Serum Total Protein 6.0 Albumin 3.1 L Globulin 2.9 Albumin/Globulin Ratio 1.1 L - Radiology Interpretation CT scan - abdomen Status: report reviewed by me (dilated loops of bowel in left jayla-abdomen, suspicious for sbo; 12mm hyperdense lesion in right lobe of the liver) Surgery Progress Note: A/P - Problem (1) SBO (small bowel obstruction) Current Visit: Yes Code(s): K56.609 - UNSP INTESTNL OBST, UNSP TO PARTIAL VERSUS COMPLETE OBST Status: Acute - Plan Plan: POD 2 ex lap, small bowel resection -transfer to floor today -walking program -continue NG until decrease output and bowel sounds present
[2018-12-21] MEDS ORDERED: Potassium Chloride 40 MEQ in Premix Bag 1 BAG IVPB SCH ×4 (08:15→21:15)
[2018-12-21 08:33] LABS: BUN (Urea Nitrogen) 38 mg/dL (8.4-25.7); Calc. Creatinine Clearance 60 mL/min (70-130); Estimated GFR-MDRD 57; Glucose 182 mg/dL (83-110)
[2018-12-21 08:42] LABS: Anion Gap 14 mmol/L (10-20); Carbon Dioxide 40 mmol/L (23-31); Chloride 97 mmol/L (98-107); Potassium 3.2 mmol/L (3.5-5.1); Sodium 148 mmol/L (136-145)
[2018-12-21] MEDS: Enoxaparin Sodium 40 MG/0.4 ML SYRINGE SC SCH (08:46)
--- NOTE | 2018-12-21 09:52 | PRG ---
DATE OF SERVICE: 12/21/2018 SUBJECTIVE: Mr. Linares has no complaints. He is not passing gas yet. OBJECTIVE: VITAL SIGNS: His blood pressure is 125/70, heart rate is 101, respiratory rates in the 20s. His gastric output was 30 to 50 for the last 24 hours. LUNGS: Clear. HEART: Regular rhythm. ABDOMEN: Soft, minimally tender as expected. EXTREMITIES: Without asymmetry or edema. LABORATORY DATA: White count 10.9, hemoglobin 12.4, platelets 195. potassium 3.2, chloride 97, bicarb 40, BUN 38, and creatinine 1.25, down from 1.32 yesterday. IMPRESSION: 1. Status post laparotomy, lysis of adhesion, partial small bowel resection. 2. History of almost a pancolectomy in the distant past secondary to diverticular disease. 3. Postoperative ileus. 4. Deconditioning. PLAN: It is anticipated he will begin walking and transferred out to the floor today, and we will continue an NG tube per General Surgery. Job ID: [id number] MTDD
[2018-12-21 15:22] LABS: BUN (Urea Nitrogen) 39 mg/dL (8.4-25.7); Calc. Creatinine Clearance 59 mL/min (70-130); Calcium 8.6 mg/dL (7.8-10.44); Estimated GFR-MDRD 55; Glucose 163 mg/dL (83-110)
[2018-12-21 15:31] LABS: Anion Gap 15 mmol/L (10-20); Chloride 95 mmol/L (98-107); Potassium 3.2 mmol/L (3.5-5.1); Sodium 149 mmol/L (136-145)
[2018-12-21 15:40] LABS: Carbon Dioxide 42 mmol/L (23-31)
[2018-12-21] MEDS ORDERED: Dextrose 5% in Water 1,000 ML IV SCH (16:14)
[2018-12-21 16:39] LABS: Actual Bicarbonate (HCO3a) 38.5 mEq/L (22-28); Base Excess (BEa) 14.6 mEq/L (-2.0 to +3.0); CO2 Tension 44.3 mmHg (35.0-45.0); Calcium, Ionized 1.03 mmol/L (1.12-1.30); Carboxyhemoglobin (COHb) 2.3 gm% (0.0-3.0); Hemoglobin (Hb) 12.8 g/dL (14.0-18.0); O2 Tension (PaO2) 62.6 mmHg (> 70.0); Potassium - ABG Lab 3.02 mmol/L (3.70-5.30)
[2018-12-21] MEDS ORDERED: acetaZOLAMIDE Sodium 500 mg Vial IVP SCH (16:45)
[2018-12-21 16:52] LABS: ALV-art Gradient 31.755 (0-20); pH, Arterial 7.56 (7.35-7.45)
[2018-12-21 16:54] LABS: Puncture Site RRA
[2018-12-21] MEDS ORDERED: Potassium Chloride 40 MEQ in Sodium Chloride 0.9% 500 ML IVPB SCH (17:00)
[2018-12-21] MEDS: fentaNYL Citrate/PF 2,000 MCG in Sodium Chloride 0.9% 60 ML IV PRN (17:53)
[2018-12-21] MEDS: Potassium Chloride 40 MEQ in Sodium Chloride 0.9% 500 ML IVPB SCH ×2 (18:03→21:55)
[2018-12-21 20:23] LABS: BUN (Urea Nitrogen) 38 mg/dL (8.4-25.7); Calc. Creatinine Clearance 59 mL/min (70-130); Calcium 8.6 mg/dL (7.8-10.44); Estimated GFR-MDRD 55; Glucose 128 mg/dL (83-110)
[2018-12-21 20:32] LABS: Anion Gap 14 mmol/L (10-20); Chloride 96 mmol/L (98-107); Potassium 3.2 mmol/L (3.5-5.1); Sodium 149 mmol/L (136-145)
[2018-12-21] MEDS: Pantoprazole 40 MG VIAL IVP SCH (20:39)
[2018-12-21 20:42] LABS: Carbon Dioxide 42 mmol/L (23-31)
[2018-12-22] MEDS: Metoprolol Tartrate 5 MG/5 ML VIAL IVP SCH ×4 (02:59→21:51)
[2018-12-22] MEDS: Dextrose 5% in Water 1,000 ML IV SCH ×5 (03:05→20:31)
[2018-12-22 04:40] LABS: ALT (SGPT) Less than 7 U/L (8-55); AST (SGOT) 14 U/L (5-34); Alkaline Phosphatase 48 U/L (40-150); Anion Gap 13 mmol/L (10-20); BUN (Urea Nitrogen) 37 mg/dL (8.4-25.7); Bilirubin, Total 1.2 mg/dL (0.2-1.2); Calc. Creatinine Clearance 62 mL/min (70-130); Calcium 8.4 mg/dL (7.8-10.44); Carbon Dioxide 33 mmol/L (23-31); Chloride 105 mmol/L (98-107); Estimated GFR-MDRD 59; Globulin 2.9 g/dL (2.4-3.5); Glucose 158 mg/dL (83-110); Protein, Total 5.9 g/dL (5.8-8.1); Sodium 147 mmol/L (136-145)
[2018-12-22 05:27] LABS: Band 17 % (5-11); Eosinophils 1 % (0-10); Hemoglobin 11.4 g/dL (14.0-18.0); Lymphocytes 11 % (21-51); MDiff Complete? YES; Mean Corpuscular HGB CONC 31.6 g/dL (32.0-36.0); Mean Corpuscular Hemoglobin 29.8 pg (27.0-31.0); Mean Corpuscular Volume 94.3 fL (78.0-98.0); Mean Platelet Volume 9.2 fL (7.4-10.4); Monocytes 8 % (0-10); Neutrophil 63 % (42-75); Platelet Count 173 thou/uL (130-400); Platelet Morphology Comment Appears Adequate; RBC Distribution Width 12.6 % (11.5-14.5); Red Blood Cell (RBC) Count 3.82 mill/uL (4.70-6.10); Toxic Granulation SLIGHT; White Blood Cell (WBC) Count 13.2 thou/uL (4.8-10.8)
--- NOTE | 2018-12-22 06:26 | PDOC.FM ---
- Subjective Subjective: Pt is doing well today. He states he is recovering well, he had a bowel resection 20-25 years ago. He had multiple BM's through the morning. Denies SOB at this time. Remains with NG tube. - Objective Vital Signs & Weight: Vital Signs (12 hours) Temp Pulse Resp BP Pulse Ox 12/22/18 03:29 97.8 F 89 16 119/58 L 100 12/22/18 00:05 98.2 F 75 16 121/63 100 12/21/18 21:00 97.8 F 54 L 16 142/70 H 100 12/21/18 20:05 100 Weight Admit Weight 78.744 kg Weight 78.744 kg Most Recent Monitor Data Heart Rate from ECG 104 NIBP 119/48 NIBP BP-Mean 71 Respiration from ECG 19 SpO2 92 I&O: 12/20/18 12/21/18 12/22/18 06:59 06:59 06:59 Intake Total 1566 2521 1485 Output Total 0022 4068 2510 Balance -517 -2064 -973 Result Diagrams: 12/22/18 03:48 12/22/18 03:48 Phys Exam - Physical Examination Constitutional: NAD HEENT: PERRLA, moist MMs Respiratory: no wheezing, no rales, no rhonchi, clear to auscultation bilateral Cardiovascular: no significant murmur irregulary, regular rhythm, rate controlled Gastrointestinal: soft, no distention, positive bowel sounds non-tender to light palpation Musculoskeletal: no edema, pulses present Psychiatric: normal affect, A&O x 3 Dx/Plan (1) RITIKA (acute kidney injury) Code(s): N17.9 - ACUTE KIDNEY FAILURE, UNSPECIFIED Status: Acute (2) Hypernatremia Code(s): E87.0 - HYPEROSMOLALITY AND HYPERNATREMIA Status: Acute (3) Hypokalemia Code(s): E87.6 - HYPOKALEMIA Status: Acute (4) Liver mass, right lobe Code(s): R16.0 - HEPATOMEGALY, NOT ELSEWHERE CLASSIFIED Status: Acute (5) SBO (small bowel obstruction) Code(s): K56.609 - UNSP INTESTNL OBST, UNSP TO PARTIAL VERSUS COMPLETE OBST Status: Acute (6) DM2 (diabetes mellitus, type 2) Status: Chronic - Plan Plan: #SBO s/p resection and anastomosis POD#3 -Dr. Garvin consulted, appreciate recs -X-lap with small bowel resection and anastomosis 12/19/18 -transferred to surgical floor -NPO advance diet per GI recs, NG tube with suction in place, Multiple BM's this am so suspect NG tube removal and diet advancement -WBC increased today to 13.2 but decreased in bands, continue to monitor #Acute delirium - resolved -Possibly sund -Continue reorienting PRN #Hypernatremia -Na decreased to 147; goal is 145, Na slowly improving, Continue to monitor closely - Repeat BMP at 1000 -D5 1/2 NS changed to D5W 12/21/18 am, Increased rate to 175mls/hr #Hypokalemia -Monitor and replace as needed; repletion of K will help with metabolic alkalosis #Elevated bicarb - metabolic alkalosis -CO2 elevated on BMP, Bicarb elevated on ABG 12/21/18 subsequently pt started on protonix, K replete, and acetazolamide initiated - improvement of CO2 on 12/22 with initiation of above therapy; continue protonix , K replete, d/c acetazolamide at this time with improvement #Acute hypoxic resp failure -D/C oxygen and pt tolerated well, sats remained at 100% during conversation -RR wnl, Suspect 2/2 atelectasis -Lungs clear on auscultation -ISS ordered #RITIKA on CKD3A, improved -GFR of 59 today -D5W @ 175 #liver mass - 12 mm lesion in right lobe - AST/ALT, coags wnl - RUQ ultrasound for characterization- no lesion seen #HTN -holding home meds for NPO, BP WNL -IV labetalol prn for sbp>180 #DMII -hyperglycemia protocol -SSI w/ accuchecks #Afib - not on anticoagulation, rate controlled at home on metoprolol which is held while NPO - lopressor started #Frequent PVCs -Continue on lopressor -Consider cards consult DVT proph: lovenox Diet: NPO Dispo: LOS >2 midnights Code Status: Full Addendum - Attending - Attending Attestation Date/Time: 12/22/18 8092 I personally evaluated the patient and discussed the management with Dr. Florian. I agree with the History, Examination, Assessment and Plan documented above with any addition or exceptions noted below. Patient reports feeling well this morning. Reports less abdominal distention and has had multiple small BMs overnight. Anticipate this is resolution of his post-op ileus. Await recs on NG tube from [facility]. His bicarb level is improved after Diamox therapy overnight, we suspect this is elevated due to NG tube placement and removal of stomach acid. Renal function stable. Sodium level improved and expect that will continue once he can tolerate PO. Continue PT.
[2018-12-22] MEDS: HumaLOG 300 UNITS/3 ML VIAL SC PRN ×2 (06:44→18:12)
[2018-12-22] MEDS: Pantoprazole 40 MG VIAL IVP SCH ×2 (09:07→21:51)
[2018-12-22] MEDS: Enoxaparin Sodium 40 MG/0.4 ML SYRINGE SC SCH (09:07)
--- NOTE | 2018-12-22 10:58 | PRG ---
DATE OF SERVICE: 12/22/2018 SUBJECTIVE: Mr. Linares feels better today. He has had multiple liquid bowel movements. His bilirubin is less distended. He still has hiccups. Denies nausea. He has been out of bed a few times. OBJECTIVE: VITAL SIGNS: Blood pressure is 122/68, pulse 104. He is afebrile. NG output down to 400 overnight with 3 liquid bowel movements. Urine output is adequate. ABDOMEN: Soft. His wound is healing well. He has active bowel sounds, appropriately tender. LABORATORY DATA: White blood cell count is 13, hemoglobin 11, platelet count is 173. Creatinine is 1.22, potassium is 4.0. ASSESSMENT: Postop day 3 exploratory laparotomy, lysis of obstruction, small bowel resection. PLAN: Discontinue NG. Discontinue Varner. Allow for a little bit of coffee only, otherwise just ice chips. We will start a regular clear liquid diet tomorrow if tolerates. Job ID: [id number]
--- NOTE | 2018-12-22 13:16 | EKG ---
Test Reason : Blood Pressure : / mmHG Vent. Rate : 083 BPM Atrial Rate : 083 BPM P-R Int : 000 ms QRS Dur : 140 ms QT Int : 434 ms P-R-T Axes : 000 -62 009 degrees QTc Int : 509 ms Atrial fibrillation with frequent Premature ventricular complexes Left axis deviation Right bundle branch block Inferior infarct , age undetermined Anterolateral infarct , age undetermined Abnormal ECG Confirmed by CAROL QUESADA, NATHALIA ([id number]), graphics editor ANTOLIN FLEMING ([id number]) on 12/22/2018 1:16:03 PM Referred By: Confirmed By:NATHALIA MEDINA MD
[2018-12-22] MEDS ORDERED: Melatonin 3 MG TAB PO PRN (17:17)
[2018-12-22] MEDS ORDERED: chlorproMAZINE HCl 50 MG/2 ML AMP IM SCH (17:45)
--- NOTE | 2018-12-22 18:05 | PRG ---
DATE OF SERVICE: 12/22/2018 SERVICE: Pulmonary Medicine. INTERVAL HISTORY: The patient's biggest complaint right now is that he has hiccups. They have been intractable for the last 5 days. He denies any current shortness of breath, chest discomfort, nausea, or vomiting. He is passing gas. He has a huge appetite, but he has not been able to eat yet. PHYSICAL EXAMINATION: VITAL SIGNS: Afebrile, pulse 78, blood pressure 112/60, respirations 16, and saturation 98% on room air. GENERAL: The patient is awake and alert, in no apparent distress. LUNGS: Very good air entry. I do not hear any wheezing, rhonchi, or crackles. There is no prolonged expiratory phase. HEART: Normal rate and regular. ABDOMEN: Soft. It is tender to palpation, but appropriate. No rebound or guarding. Bowel sounds are present. MUSCULOSKELETAL: No cyanosis or clubbing. No pitting in the bilateral lower extremities. NEUROLOGIC: Grossly nonfocal. LABORATORY DATA: WBC 13.2, hemoglobin 11.4, platelets 173,000 and stable. INR 1.1. Creatinine 1.22 and stable. Sodium is uptrending gently to 147. Basic metabolic profile and liver function studies are otherwise unremarkable. Urinalysis is negative. ASSESSMENT: 1. Small-bowel obstruction, status post laparotomy with lysis of adhesions, postop day #3. 2. Postop ileus, resolving. 3. Hiccups. DISCUSSION AND PLAN: We will try some Thorazine to see if this helps with the patient's hiccups. I will discontinue the liver function studies, and continue getting a CBC, basic metabolic panel, Mag, and phos on a daily basis. At this point, he has no further requirements for Inpatient Pulmonary or Critical Care opinion, and I will sign off. Please call with additional questions or concerns through time. Job ID: [id number]
[2018-12-23] MEDS: Metoprolol Tartrate 5 MG/5 ML VIAL IVP SCH ×4 (01:51→21:00)
[2018-12-23] MEDS: Dextrose 5% in Water 1,000 ML IV SCH (01:52)
[2018-12-23] MEDS: fentaNYL Citrate/PF 2,000 MCG in Sodium Chloride 0.9% 60 ML IV PRN (02:08)
[2018-12-23] MEDS: Ondansetron PF 4 MG/2 ML Vial IVP PRN (02:54)
[2018-12-23 04:46] LABS: Anion Gap 13 mmol/L (10-20); BUN (Urea Nitrogen) 24 mg/dL (8.4-25.7); Calc. Creatinine Clearance 76 mL/min (70-130); Calcium 7.9 mg/dL (7.8-10.44); Carbon Dioxide 24 mmol/L (23-31); Chloride 102 mmol/L (98-107); Estimated GFR-MDRD 75; Glucose 196 mg/dL (83-110); Magnesium 1.8 mg/dL (1.6-2.6); Sodium 136 mmol/L (136-145)
[2018-12-23 04:50] LABS: Phosphorus 1.2 mg/dL (2.3-4.7); Potassium 2.9 mmol/L (3.5-5.1)
[2018-12-23] MEDS ORDERED: PHOS-NAK 1 PKT PACK PO SCH (05:15)
[2018-12-23] MEDS ORDERED: Potassium Chloride 20 MEQ TAB PO SCH (05:15)
[2018-12-23] MEDS ORDERED: Magnesium Oxide 400 MG TAB PO SCH (05:15)
[2018-12-23 05:17] LABS: Band 14 % (5-11); Eosinophils 4 % (0-10); Hemoglobin 10.5 g/dL (14.0-18.0); Lymphocytes 11 % (21-51); MDiff Complete? YES; Mean Corpuscular Hemoglobin 30.3 pg (27.0-31.0); Mean Corpuscular Volume 91.9 fL (78.0-98.0); Mean Platelet Volume 8.7 fL (7.4-10.4); Monocytes 8 % (0-10); Neutrophil 63 % (42-75); Platelet Count 164 thou/uL (130-400); Platelet Morphology Comment Appears Adequate; RBC Distribution Width 12.3 % (11.5-14.5); Red Blood Cell (RBC) Count 3.44 mill/uL (4.70-6.10); Toxic Granulation SLIGHT; White Blood Cell (WBC) Count 9.1 thou/uL (4.8-10.8)
[2018-12-23] MEDS ORDERED: Potassium Chloride 10 MEQ in Premix Bag 1 BAG IVPB SCH (05:30)
--- NOTE | 2018-12-23 05:51 | PDOC.FM ---
- Subjective Subjective: Pt is doing well this morning. He is looking foward to advancing diet. He had a sharp pain at his incision site briefly and is now longer present. - Objective Vital Signs & Weight: Vital Signs (12 hours) Temp Pulse Resp BP Pulse Ox 12/23/18 04:00 98.6 F 83 20 108/68 99 12/23/18 00:00 98.4 F 90 18 112/51 L 95 12/22/18 20:00 98.9 F 102 H 18 123/51 L 95 Weight Admit Weight 78.744 kg Weight 78.744 kg Most Recent Monitor Data Heart Rate from ECG 104 NIBP 119/48 NIBP BP-Mean 71 Respiration from ECG 19 SpO2 92 I&O: 12/21/18 12/22/18 12/23/18 06:59 06:59 06:59 Intake Total 2521 1585 1220 Output Total 4585 4008 265 Balance -5052 -1980 953 Result Diagrams: 12/23/18 03:29 12/23/18 03:29 Phys Exam - Physical Examination Constitutional: NAD HEENT: PERRLA, moist MMs Respiratory: no wheezing, no rales, clear to auscultation bilateral Cardiovascular: no significant murmur irregular rate and rhythm Gastrointestinal: soft, no distention, positive bowel sounds tender, properly bandaged and dry Musculoskeletal: no edema, pulses present Psychiatric: normal affect, A&O x 3 Dx/Plan (1) RITIKA (acute kidney injury) Code(s): N17.9 - ACUTE KIDNEY FAILURE, UNSPECIFIED Status: Acute (2) Hypernatremia Code(s): E87.0 - HYPEROSMOLALITY AND HYPERNATREMIA Status: Acute (3) Hypokalemia Code(s): E87.6 - HYPOKALEMIA Status: Acute (4) Liver mass, right lobe Code(s): R16.0 - HEPATOMEGALY, NOT ELSEWHERE CLASSIFIED Status: Acute (5) SBO (small bowel obstruction) Code(s): K56.609 - UNSP INTESTNL OBST, UNSP TO PARTIAL VERSUS COMPLETE OBST Status: Acute (6) DM2 (diabetes mellitus, type 2) Status: Chronic - Plan Plan: #SBO s/p resection and anastomosis POD#4 -Dr. Garvin consulted, appreciate recs -X-lap with small bowel resection and anastomosis 12/19/18 -transferred to surgical floor -NPO, advancing diet today per surg, NG tube removed 12/22/18 -WBC decreased today to 9.1 with decrease in bands, continue to monitor #Acute delirium - resolved -Possibly -Continue reorienting PRN #Hypernatremia - resolved - corrected with d/c of NG tube 149 --> 136 #Hypokalemia -Monitor and replace as needed; 2.9 12/23, continue to replete through morning/ afternoon; repeat bmp at 1200 #Elevated bicarb - metabolic alkalosis resolved - 12/23 resolved with d/c NG tube - improvement of CO2 on 12/22 with initiation of above therapy; continue protonix , K replete, d/c acetazolamide at this time with improvement #Acute hypoxic resp failure - resolved -D/C oxygen and pt tolerated well, sats remained at 100% during conversation -RR wnl, Suspect 2/2 atelectasis -Lungs clear on auscultation -ISS ordered #RITIKA on CKD3A, improved -GFR of 59 today -D5W @ 175 stopped #liver mass Follow up outpt - 12 mm lesion in right lobe - AST/ALT, coags wnl - RUQ ultrasound for characterization- no lesion seen #HTN -holding home meds for NPO, BP WNL -IV labetalol prn for sbp>180 #DMII -hyperglycemia protocol -SSI w/ accuchecks #Afib - not on anticoagulation at home but DVT proph initiated inpt, rate controlled at home on metoprolol which is held while NPO - lopressor started #Frequent PVCs -Continue on lopressor -Consider cards consult DVT proph: lovenox Diet: NPO Dispo: LOS >2 midnights Code Status: Full Addendum - Attending - Attending Attestation Date/Time: 12/23/18 3708 I personally evaluated the patient and discussed the management with Dr. Florian. I agree with the History, Examination, Assessment and Plan documented above with any addition or exceptions noted below. Patient doing well this morning. No issues after NGT removal yesterday and tolerated coffee well. Anticipate advancing diet today per GenSurg. He continues to have BMs. Will need potassium repletion. Vitals stable. Hypernatremia resolved.
[2018-12-23] MEDS: HumaLOG 300 UNITS/3 ML VIAL SC PRN ×2 (06:42→11:31)
[2018-12-23] MEDS ORDERED: Potassium Chloride 40 MEQ in Sodium Chloride 0.9% 250 ML 250 ML IVPB SCH (08:00)
[2018-12-23] MEDS ORDERED: Potassium Phosphate 30 MMOL in Sodium Chloride 0.9% 500 ML IVPB SCH (08:00)
[2018-12-23] MEDS ORDERED: Potassium Phosphate 15 MMOL in Sodium Chloride 0.9% 250 ML 250 ML IVPB SCH (08:00)
[2018-12-23] MEDS: Sodium Chloride 0.45% 1,000 ML IV SCH (08:37)
[2018-12-23] MEDS: Pantoprazole 40 MG VIAL IVP SCH ×2 (08:37→21:02)
[2018-12-23] MEDS: Enoxaparin Sodium 40 MG/0.4 ML SYRINGE SC SCH (08:38)
--- NOTE | 2018-12-23 09:12 | PRG ---
DATE OF SERVICE: 12/23/2018 SUBJECTIVE: Mr. Linares has more distention today, more nausea. He has NG tube removed yesterday, not much p.o. He is only doing ice chips and had half a cup of coffee. says that he was more confused overnight. OBJECTIVE: VITAL SIGNS: He is afebrile. Blood pressure 110/56, pulse 60, respirations 18. ABDOMEN: More distended with decreased bowel sounds. The wounds are healing well. No evidence of infection. The dressings are replaced. GENITOURINARY: He is urinating without difficulty. He still has had a couple of bowel movements, they are liquid. LABORATORY DATA: White cell count is 9, hemoglobin 10. Sodium 136, potassium 2.9, glucose is 196. ASSESSMENT: Persistent postoperative ileus, status post exploratory laparotomy, lysis of adhesions, and small bowel resections. PLAN: Replete potassium, that has already been ordered. Continue only sips for now given his increased distention today. Encouraged ambulation. Job ID: [id number]
[2018-12-23] MEDS ORDERED: Dextrose 5% in Water 1,000 ML IV SCH (09:45)
[2018-12-23 12:15] LABS: Anion Gap 12 mmol/L (10-20); BUN (Urea Nitrogen) 22 mg/dL (8.4-25.7); Calc. Creatinine Clearance 67 mL/min (70-130); Carbon Dioxide 25 mmol/L (23-31); Chloride 104 mmol/L (98-107); Estimated GFR-MDRD 65; Glucose 161 mg/dL (83-110); Potassium 3.4 mmol/L (3.5-5.1); Sodium 138 mmol/L (136-145)
[2018-12-23 19:45] LABS: Anion Gap 15 mmol/L (10-20); BUN (Urea Nitrogen) 22 mg/dL (8.4-25.7); Calc. Creatinine Clearance 67 mL/min (70-130); Calcium 7.9 mg/dL (7.8-10.44); Carbon Dioxide 22 mmol/L (23-31); Chloride 106 mmol/L (98-107); Estimated GFR-MDRD 64; Glucose 151 mg/dL (83-110); Potassium 3.6 mmol/L (3.5-5.1); Sodium 139 mmol/L (136-145)
[2018-12-24] MEDS: Sodium Chloride 0.45% 1,000 ML IV SCH ×3 (02:45→21:18)
[2018-12-24] MEDS: Metoprolol Tartrate 5 MG/5 ML VIAL IVP SCH ×4 (02:46→23:41)
[2018-12-24] MEDS: fentaNYL Citrate/PF 2,000 MCG in Sodium Chloride 0.9% 60 ML IV PRN (05:09)
[2018-12-24 05:38] LABS: #Eosinphils 0.3 thou/uL (0.0-0.7); #Lymphocytes 0.7 thou/uL (1.20-3.40); #Monocytes 1.1 thou/uL (0.11-0.59); #Neutrophils 9.6 thou/uL (1.40-6.50); %Basophils 0.1 % (0.0-1.0); %Eosinophils 2.5 % (0.0-10.0); %Lymphocytes 6.3 % (21.0-51.0); %Monocytes 9.4 % (0.0-10.0); %Neutrophils 81.7 % (42.0-75.0); Hemoglobin 10.9 g/dL (14.0-18.0); Mean Corpuscular HGB CONC 32.9 g/dL (32.0-36.0); Mean Corpuscular Volume 91.2 fL (78.0-98.0); Mean Platelet Volume 7.8 fL (7.4-10.4); Platelet Count 184 thou/uL (130-400); RBC Distribution Width 12.4 % (11.5-14.5); Red Blood Cell (RBC) Count 3.64 mill/uL (4.70-6.10); White Blood Cell (WBC) Count 11.7 thou/uL (4.8-10.8)
[2018-12-24 05:57] LABS: Anion Gap 13 mmol/L (10-20); BUN (Urea Nitrogen) 23 mg/dL (8.4-25.7); Calc. Creatinine Clearance 66 mL/min (70-130); Calcium 7.9 mg/dL (7.8-10.44); Carbon Dioxide 23 mmol/L (23-31); Chloride 106 mmol/L (98-107); Estimated GFR-MDRD 63; Glucose 157 mg/dL (83-110); Potassium 3.9 mmol/L (3.5-5.1); Sodium 138 mmol/L (136-145)
--- NOTE | 2018-12-24 08:35 | PDOC.FM ---
- Subjective Subjective: Patient feeling well this AM, states he has had dark bowel movements over the past day. Reports passing flatus. Tolerating ice chips PO. States he thinks he might be hungry; hard candy resolves his craving. Reports he has been confused especially overnight. Reports the fentanyl makes him confused, so he is trying to take it only as necessary. Requests tylenol. He has been ambulating. - Objective Vital Signs & Weight: Vital Signs (12 hours) Temp Pulse Resp BP Pulse Ox 12/24/18 07:48 99.4 F 105 H 20 137/71 92 L 12/24/18 04:01 98 F 70 16 105/55 L 96 12/24/18 02:52 140/58 L 12/24/18 02:50 145/58 H 12/24/18 02:47 132/58 L 12/23/18 23:42 97.7 F 99 16 132/57 L 97 Weight Admit Weight 78.744 kg Weight 78.744 kg Most Recent Monitor Data Heart Rate from ECG 104 NIBP 119/48 NIBP BP-Mean 71 Respiration from ECG 19 SpO2 92 I&O: 12/23/18 12/24/18 12/25/18 06:59 06:59 06:59 Intake Total 2740 1750 Output Total 265 Balance 2475 1750 Result Diagrams: 12/24/18 05:21 12/24/18 05:21 Phys Exam - Physical Examination Constitutional: NAD HEENT: moist MMs Respiratory: no wheezing, clear to auscultation bilateral irregularly irregular rhythm Gastrointestinal: soft, positive bowel sounds midline abdominal incision covered by clean bandage Musculoskeletal: no edema, pulses present Neurological: non-focal, moves all 4 limbs Psychiatric: normal affect, A&O x 3 Skin: no rash, normal turgor Dx/Plan (1) DM2 (diabetes mellitus, type 2) Status: Chronic (2) Hx of gout Code(s): Z87.39 - PERSONAL HISTORY OF DISEASES OF THE MS SYS AND CONN TISS Status: Chronic (3) Hx of aortic valve replacement Code(s): Z95.2 - PRESENCE OF PROSTHETIC HEART VALVE Status: Chronic (4) Liver mass, right lobe Code(s): R16.0 - HEPATOMEGALY, NOT ELSEWHERE CLASSIFIED Status: Acute (5) SBO (small bowel obstruction) Code(s): K56.609 - UNSP INTESTNL OBST, UNSP TO PARTIAL VERSUS COMPLETE OBST Status: Acute (6) Atrial fibrillation Code(s): I48.91 - UNSPECIFIED ATRIAL FIBRILLATION Status: Chronic Qualifiers: Atrial fibrillation type: chronic Qualified Code(s): I48.2 - Chronic atrial fibrillation (7) Hypertension Code(s): I10 - ESSENTIAL (PRIMARY) HYPERTENSION Status: Chronic Qualifiers: Hypertension type: essential hypertension Qualified Code(s): I10 - Essential (primary) hypertension (8) RITIKA (acute kidney injury) Code(s): N17.9 - ACUTE KIDNEY FAILURE, UNSPECIFIED Status: Acute (9) Hypokalemia Code(s): E87.6 - HYPOKALEMIA Status: Acute (10) Hypernatremia Code(s): E87.0 - HYPEROSMOLALITY AND HYPERNATREMIA Status: Acute - Plan Plan: #SBO s/p resection and anastomosis POD#7 -Dr. Garvin consulted, appreciate recs -X-lap with small bowel resection and anastomosis 12/19/18 -transferred to surgical floor -Advancing diet today per surgery recs, NG tube removed 12/22/18 -WBC 11.7, continue to monitor -Pain: fentanyl, IV tylenol for pain #Intermittent Acute delirium -Gets confused at night time, -Continue reorienting PRN #Hypernatremia - resolved - corrected with d/c of NG tube #Hypokalemia, resolved -Monitor and replace as needed #Elevated bicarb - metabolic alkalosis resolved - 12/23 resolved with d/c NG tube #Acute hypoxic resp failure - resolved -RR wnl, Suspect 2/2 atelectasis -ISS ordered #RITIKA on CKD2, improved -GFR of 63 today -NS @ 75 ml/hr #Liver mass Follow up outpt - 12 mm lesion in right lobe - AST/ALT, coags wnl - RUQ ultrasound for characterization- no lesion seen #HTN -holding home meds for NPO, BP WNL -IV labetalol prn for sbp>180 -IV metoprolol in place #DMII -hyperglycemia protocol -SSI w/ accuchecks #Afib - not on anticoagulation at home but DVT proph initiated inpt, rate controlled at home on metoprolol which is held while NPO - lopressor started #Frequent PVCs -Continue on lopressor Dispo: LOS >2 midnights Code Status: Full Addendum - Attending - Attending Attestation Date/Time: 12/24/18 1242 I personally evaluated the patient and discussed the management with Dr. Patino I agree with the History, Examination, Assessment and Plan documented above with any addition or exceptions noted below. Patient progressing well advance per Surgery he is ambulating passing gas relates small BM and tolerating liquid diet thus far.
[2018-12-24] MEDS ORDERED: Acetaminophen 1,000 MG in Premix Bag 1 BAG IVPB PRN (08:38)
--- NOTE | 2018-12-24 08:42 | PDOC.GSPN ---
Surgery Progress Note: Subj - Subjective Patient reports: had a bowel movement, feels better, pain well controlled, voiding w/o difficulty Surgery Progress Note: Obj - Vital signs Vital signs: Vital Signs - Most Recent Temp Pulse Resp BP Pulse Ox 99.4 F 105 H 20 137/71 92 L 12/24/18 07:48 12/24/18 07:48 12/24/18 07:48 12/24/18 07:48 12/24/18 07:48 - Physical Exam General: no distress Abdomen: soft, non tender, nondistended, positive bowel sounds Wound: dressing clean,dry,intact Surgery Progress Note: Results - Labs Result Diagrams: 12/24/18 05:21 12/24/18 05:21 Lab results: Laboratory Results - last 24 hr 12/23/18 12/24/18 12/24/18 20:33 05:21 05:21 WBC 11.7 H RBC 3.64 L Hgb 10.9 L Hct 33.2 L MCV 91.2 MCH 30.0 MCHC 32.9 RDW 12.4 Plt Count 184 MPV 7.8 Neutrophils % 81.7 H Lymphocytes % 6.3 L Monocytes % 9.4 Eosinophils % 2.5 Basophils % 0.1 Neutrophils # 9.6 H Lymphocytes # 0.7 L Monocytes # 1.1 H Eosinophils # 0.3 Basophils # 0.0 Sodium 138 Potassium 3.9 Chloride 106 Carbon Dioxide 23 Anion Gap 13 BUN 23 Creatinine 1.14 Estimated GFR (MDRD) 63 Glucose 157 H POC Glucose 123 H Calcium 7.9 12/24/18 05:26 WBC RBC Hgb Hct MCV MCH MCHC RDW Plt Count MPV Neutrophils % Lymphocytes % Monocytes % Eosinophils % Basophils % Neutrophils # Lymphocytes # Monocytes # Eosinophils # Basophils # Sodium Potassium Chloride Carbon Dioxide Anion Gap BUN Creatinine Estimated GFR (MDRD) Glucose POC Glucose 144 H Calcium - Radiology Interpretation CT scan - abdomen Status: report reviewed by me (dilated loops of bowel in left jayla-abdomen, suspicious for sbo; 12mm hyperdense lesion in right lobe of the liver) Surgery Progress Note: A/P - Plan Plan: SBO, post op day 3 1. Advance to liquid diet 2. d/c [employer] 3. Encourage ambulation Addendum - Physician - Physician Attestation Date/Time: 12/24/1858 I personally performed or re-performed the physical examination and medical decision making. I have verified all student documentation or findings, including history, physical exam and/or medical decision making.
[2018-12-24] MEDS: Enoxaparin Sodium 40 MG/0.4 ML SYRINGE SC SCH (09:07)
[2018-12-24] MEDS: Pantoprazole 40 MG VIAL IVP SCH ×2 (09:07→20:35)
[2018-12-24] MEDS: HumaLOG 300 UNITS/3 ML VIAL SC PRN ×2 (12:37→22:16)
[2018-12-24] MEDS: Ondansetron PF 4 MG/2 ML Vial IVP PRN (15:44)
[2018-12-24] MEDS ORDERED: chlorproMAZINE HCl 50 MG/2 ML AMP IM SCH (18:15)
[2018-12-24] MEDS ORDERED: Lidocaine 2% 11 ML SYR FS SCH (21:00)
[2018-12-24] MEDS ORDERED: Benzocaine 20% Spray 60 ML CAN FS SCH (21:00)
[2018-12-25 05:23] LABS: Anion Gap 18 mmol/L (10-20); BUN (Urea Nitrogen) 21 mg/dL (8.4-25.7); Calc. Creatinine Clearance 71 mL/min (70-130); Calcium 7.9 mg/dL (7.8-10.44); Carbon Dioxide 18 mmol/L (23-31); Chloride 105 mmol/L (98-107); Estimated GFR-MDRD 69; Glucose 133 mg/dL (83-110); Potassium 3.5 mmol/L (3.5-5.1); Sodium 137 mmol/L (136-145)
[2018-12-25 05:35] LABS: Band 12 % (5-11); Eosinophils 2 % (0-10); Hemoglobin 10.8 g/dL (14.0-18.0); Lymphocytes 4 % (21-51); MDiff Complete? YES; Mean Corpuscular HGB CONC 33.5 g/dL (32.0-36.0); Mean Corpuscular Hemoglobin 30.2 pg (27.0-31.0); Mean Corpuscular Volume 90.1 fL (78.0-98.0); Mean Platelet Volume 7.9 fL (7.4-10.4); Monocytes 6 % (0-10); Myelocyte 2 % (0-0); Neutrophil 74 % (42-75); Platelet Count 188 thou/uL (130-400); RBC Distribution Width 12.2 % (11.5-14.5); Red Blood Cell (RBC) Count 3.56 mill/uL (4.70-6.10); Toxic Granulation SLIGHT; White Blood Cell (WBC) Count 18.5 thou/uL (4.8-10.8)
[2018-12-25] MEDS: Metoprolol Tartrate 5 MG/5 ML VIAL IVP SCH ×4 (05:36→23:07)
--- NOTE | 2018-12-25 08:43 | PDOC.FM ---
- Subjective Subjective: Patient had nausea and vomiting last night, NG was replaced. About 1L suctioned out. Patient reports nausea has resolved this AM. Had a small bowel movement last night. Denies abdominal pain. - Objective Vital Signs & Weight: Vital Signs (12 hours) Temp Pulse Resp BP Pulse Ox 12/25/18 07:37 97.7 F 91 18 121/64 98 12/25/18 05:43 90 136/73 12/25/18 05:39 86 138/71 12/25/18 05:35 80 139/64 12/25/18 03:56 97.7 F 84 16 119/54 L 99 12/24/18 23:54 98.0 F 81 16 110/55 L 92 L 12/24/18 23:49 87 110/55 L 12/24/18 23:45 86 108/49 L 12/24/18 23:40 105 H 114/59 L Weight Admit Weight 78.744 kg Weight 78.744 kg Most Recent Monitor Data Heart Rate from ECG 104 NIBP 119/48 NIBP BP-Mean 71 Respiration from ECG 19 SpO2 92 I&O: 12/24/18 12/25/18 12/26/18 06:59 06:59 06:59 Intake Total 1750 2750 Output Total 1700 Balance 1750 1050 Result Diagrams: 12/26/18 06:45 12/26/18 06:45 Phys Exam - Physical Examination Constitutional: NAD Respiratory: no wheezing, no rhonchi mild crackles at bases Cardiovascular: no significant murmur irregularly irregular rhythm Gastrointestinal: soft, positive bowel sounds mildly tender to palpation Musculoskeletal: no edema, pulses present Neurological: moves all 4 limbs Psychiatric: normal affect, A&O x 3 Skin: normal turgor, cap refill <2 seconds Dx/Plan (1) DM2 (diabetes mellitus, type 2) Status: Chronic (2) Hx of gout Code(s): Z87.39 - PERSONAL HISTORY OF DISEASES OF THE MS SYS AND CONN TISS Status: Chronic (3) Hx of aortic valve replacement Code(s): Z95.2 - PRESENCE OF PROSTHETIC HEART VALVE Status: Chronic (4) Liver mass, right lobe Code(s): R16.0 - HEPATOMEGALY, NOT ELSEWHERE CLASSIFIED Status: Acute (5) SBO (small bowel obstruction) Code(s): K56.609 - UNSP INTESTNL OBST, UNSP TO PARTIAL VERSUS COMPLETE OBST Status: Acute (6) Atrial fibrillation Code(s): I48.91 - UNSPECIFIED ATRIAL FIBRILLATION Status: Chronic Qualifiers: Atrial fibrillation type: chronic Qualified Code(s): I48.2 - Chronic atrial fibrillation (7) Hypertension Code(s): I10 - ESSENTIAL (PRIMARY) HYPERTENSION Status: Chronic Qualifiers: Hypertension type: essential hypertension Qualified Code(s): I10 - Essential (primary) hypertension (8) RITIKA (acute kidney injury) Code(s): N17.9 - ACUTE KIDNEY FAILURE, UNSPECIFIED Status: Acute (9) Hypokalemia Code(s): E87.6 - HYPOKALEMIA Status: Acute (10) Hypernatremia Code(s): E87.0 - HYPEROSMOLALITY AND HYPERNATREMIA Status: Acute - Plan Plan: #SBO s/p resection and anastomosis POD#8 -Surgery Dr. Garvin consulted, appreciate recs -S/P small bowel resection and anastomosis 12/19/18 - NG tube replaced 12/24 - WBC increased to 18.5, bands improving, however left shift present - Pain controlled at this time #Intermittent Acute delirium -Confused at night time, -Continue reorienting PRN #Hypernatremia, resolved -continue to monitor, as NG tube replaced #Hypokalemia, resolved -Monitor and replace as needed #Elevated bicarb - metabolic alkalosis resolved - 12/23 resolved #Acute hypoxic resp failure - resolved -RR wnl, Suspect 2/2 atelectasis -ISS at bedside #RITIKA on CKD2, resolved -GFR 63 today #Liver mass Follow up outpt - 12 mm lesion in right lobe - AST/ALT, coags wnl - RUQ ultrasound for characterization- no lesion seen #HTN -holding home meds for NPO, BP WNL -IV labetalol prn for sbp>180 -IV metoprolol in place #DMII -hyperglycemia protocol -SSI w/ accuchecks #Afib - not on anticoagulation at home but DVT proph initiated inpt, rate controlled at home on metoprolol which is held while NPO - lopressor started #Frequent PVCs -Continue on lopressor Dispo: LOS >2 midnights Code Status: Full Addendum - Attending - Attending Attestation Date/Time: 12/26/18 1322 I personally evaluated the patient and discussed the management with Dr. Patino on 12/25/18/ I agree with the History, Examination, Assessment and Plan documented above with any addition or exceptions noted below. Pt. had episode of N/V last night so resumed NPO and NGTube with 1L evacuated. Due to get PICC and TPN support until gut awakens. Afeb. VSS. Will monitor glycemic changes with TPN and adjust accordingly.
[2018-12-25] MEDS: Enoxaparin Sodium 40 MG/0.4 ML SYRINGE SC SCH (09:43)
[2018-12-25] MEDS: Pantoprazole 40 MG VIAL IVP SCH ×2 (09:43→20:24)
--- NOTE | 2018-12-25 12:51 | PDOC.GSPN ---
Surgery Progress Note: Subj - Subjective Patient reports: feels better, positive flatus Surgery Progress Note: Obj - Vital signs Vital signs: Vital Signs - Most Recent Temp Pulse Resp BP Pulse Ox 97.4 F L 91 18 136/62 98 12/25/18 11:12 12/25/18 11:12 12/25/18 11:12 12/25/18 11:12 12/25/18 11:12 - Physical Exam General: no distress Abdomen: soft, nondistended, appropriately tender Wound: healing well Surgery Progress Note: Results - Labs Result Diagrams: 12/25/18 04:11 12/25/18 04:11 Lab results: Laboratory Results - last 24 hr 12/25/18 12/25/18 12/25/18 04:11 04:11 05:55 WBC 18.5 H RBC 3.56 L Hgb 10.8 L Hct 32.1 L MCV 90.1 MCH 30.2 MCHC 33.5 RDW 12.2 Plt Count 188 MPV 7.9 Neutrophils % (Manual) 74 Band Neuts % (Manual) 12 H Lymphocytes % (Manual) 4 L Monocytes % (Manual) 6 Eosinophils % (Manual) 2 Myelocytes % 2 H Toxic Granulation SLIGHT Sodium 137 Potassium 3.5 Chloride 105 Carbon Dioxide 18 L Anion Gap 18 BUN 21 Creatinine 1.06 Estimated GFR (MDRD) 69 Glucose 133 H POC Glucose 120 H Calcium 7.9 12/25/18 11:23 WBC RBC Hgb Hct MCV MCH MCHC RDW Plt Count MPV Neutrophils % (Manual) Band Neuts % (Manual) Lymphocytes % (Manual) Monocytes % (Manual) Eosinophils % (Manual) Myelocytes % Toxic Granulation Sodium Potassium Chloride Carbon Dioxide Anion Gap BUN Creatinine Estimated GFR (MDRD) Glucose POC Glucose 108 Calcium - Radiology Interpretation CT scan - abdomen Status: report reviewed by me (dilated loops of bowel in left jalya-abdomen, suspicious for sbo; 12mm hyperdense lesion in right lobe of the liver) Surgery Progress Note: A/P - Problem (1) SBO (small bowel obstruction) Current Visit: Yes Code(s): K56.609 - UNSP INTESTNL OBST, UNSP TO PARTIAL VERSUS COMPLETE OBST Status: Acute - Plan Plan: Slow resolution of ileus -tpn to start today -cont NG -I suspect he needs another day or two for the ileus to resolve
--- NOTE | 2018-12-25 14:32 | SPC ---
PICC LINE PLACEMENT ULTRASOUND AND FLUOROSCOPIC GUIDED: HISTORY: Need for long-term IV access. COMPARISON: None. FINDINGS: The patient is brought to the specials suite. All questions were answered. Informed consent was obt ained. Timeout was performed. The patient's left arm was prepped and draped in a normal sterile fashion. Using ultrasound guidance , the left basilic vein was accessed. Over a wire and through a peelaway sheath using fluoroscopic g uidance, the dual-lumen PICC was placed at the tip of the inferior SVC. The patient tolerated the p rocedure well without complication. IMPRESSION: Technically successful ultrasound and fluoroscopic-guided PICC line placement. FLUOROSCOPY TIME: 0.4 minutes. POS: [facility]
[2018-12-25] MEDS: Sodium Chloride 0.45% 1,000 ML IV SCH (18:03)
[2018-12-25] MEDS: SODIUM ACETATE IV SCH (22:24)
[2018-12-25] MEDS: [UNRECOGNIZED DRUG - OTHER] IV SCH (22:24)
[2018-12-25] MEDS: POTASSIUM CHLORIDE IV SCH (22:24)
[2018-12-25] MEDS: Acetaminophen 1,000 MG in Premix Bag 1 BAG IVPB PRN (23:06)
[2018-12-26] MEDS: Sodium Chloride 0.45% 1,000 ML IV SCH ×2 (02:16→15:36)
[2018-12-26] MEDS: HumaLOG 300 UNITS/3 ML VIAL SC PRN ×3 (05:51→18:15)
[2018-12-26] MEDS: Metoprolol Tartrate 5 MG/5 ML VIAL IVP SCH ×3 (05:53→18:16)
[2018-12-26 07:00] LABS: #Eosinphils 0.4 thou/uL (0.0-0.7); %Basophils 0.3 % (0.0-1.0); %Eosinophils 3.2 % (0.0-10.0); %Lymphocytes 7.8 % (21.0-51.0); %Monocytes 8.1 % (0.0-10.0); %Neutrophils 80.6 % (42.0-75.0); Hemoglobin 9.8 g/dL (14.0-18.0); Mean Corpuscular HGB CONC 33.4 g/dL (32.0-36.0); Mean Corpuscular Hemoglobin 29.8 pg (27.0-31.0); Mean Corpuscular Volume 89.4 fL (78.0-98.0); Mean Platelet Volume 7.7 fL (7.4-10.4); Platelet Count 179 thou/uL (130-400); RBC Distribution Width 12.6 % (11.5-14.5); Red Blood Cell (RBC) Count 3.27 mill/uL (4.70-6.10); White Blood Cell (WBC) Count 12.4 thou/uL (4.8-10.8)
[2018-12-26 07:28] LABS: Anion Gap 13 mmol/L (10-20); BUN (Urea Nitrogen) 17 mg/dL (8.4-25.7); Calc. Creatinine Clearance 87 mL/min (70-130); Calcium 8.2 mg/dL (7.8-10.44); Carbon Dioxide 22 mmol/L (23-31); Chloride 108 mmol/L (98-107); Estimated GFR-MDRD 87; Glucose 169 mg/dL (83-110); Magnesium 2.1 mg/dL (1.6-2.6); Phosphorus 1.8 mg/dL (2.3-4.7); Sodium 140 mmol/L (136-145)
[2018-12-26 07:31] LABS: Potassium 2.9 mmol/L (3.5-5.1)
[2018-12-26] MEDS ORDERED: Potassium Phosphate 40 MMOL in Sodium Chloride 0.9% 500 ML IVPB SCH (08:00)
[2018-12-26] MEDS: Pantoprazole 40 MG VIAL IVP SCH ×2 (08:44→21:51)
[2018-12-26] MEDS: Enoxaparin Sodium 40 MG/0.4 ML SYRINGE SC SCH (08:45)
--- NOTE | 2018-12-26 08:48 | PDOC.FM ---
- Subjective Subjective: Patient feels well, states he has had fullness in his stomach and "gas", however on further asking he has had only small amount of flatus yesterday morning with his small BM. On TPN. No acute events overnight. No pain this AM. - Objective Vital Signs & Weight: Vital Signs (12 hours) Temp Pulse Resp BP Pulse Ox 12/26/18 07:32 98.0 F 89 18 150/66 H 96 12/26/18 04:27 98.1 F 87 16 146/70 H 96 12/26/18 00:00 98.3 F 97 16 145/59 H 96 Weight Admit Weight 78.744 kg Weight 78.744 kg Most Recent Monitor Data Heart Rate from ECG 104 NIBP 119/48 NIBP BP-Mean 71 Respiration from ECG 19 SpO2 92 I&O: 12/25/18 12/26/18 12/27/18 06:59 06:59 06:59 Intake Total 2750 1200 Output Total 1700 1350 Balance 1050 -150 Result Diagrams: 12/26/18 06:45 12/26/18 06:45 Phys Exam - Physical Examination Constitutional: NAD Respiratory: no wheezing, clear to auscultation bilateral Cardiovascular: irregular 2/6 systolic murmur Gastrointestinal: soft, no distention, positive bowel sounds Musculoskeletal: no edema, pulses present Neurological: non-focal, moves all 4 limbs Psychiatric: normal affect Skin: normal turgor, cap refill <2 seconds Dx/Plan (1) DM2 (diabetes mellitus, type 2) Status: Chronic (2) Hx of gout Code(s): Z87.39 - PERSONAL HISTORY OF DISEASES OF THE MS SYS AND CONN TISS Status: Chronic (3) Hx of aortic valve replacement Code(s): Z95.2 - PRESENCE OF PROSTHETIC HEART VALVE Status: Chronic (4) Liver mass, right lobe Code(s): R16.0 - HEPATOMEGALY, NOT ELSEWHERE CLASSIFIED Status: Acute (5) SBO (small bowel obstruction) Code(s): K56.609 - UNSP INTESTNL OBST, UNSP TO PARTIAL VERSUS COMPLETE OBST Status: Acute (6) Atrial fibrillation Code(s): I48.91 - UNSPECIFIED ATRIAL FIBRILLATION Status: Chronic Qualifiers: Atrial fibrillation type: chronic Qualified Code(s): I48.2 - Chronic atrial fibrillation (7) Hypertension Code(s): I10 - ESSENTIAL (PRIMARY) HYPERTENSION Status: Chronic Qualifiers: Hypertension type: essential hypertension Qualified Code(s): I10 - Essential (primary) hypertension (8) RITIKA (acute kidney injury) Code(s): N17.9 - ACUTE KIDNEY FAILURE, UNSPECIFIED Status: Acute (9) Hypokalemia Code(s): E87.6 - HYPOKALEMIA Status: Acute (10) Hypernatremia Code(s): E87.0 - HYPEROSMOLALITY AND HYPERNATREMIA Status: Acute - Plan Plan: #SBO s/p resection and anastomosis POD#9, with ileus -Ileus, bowels slow to start moving. TPN started 12/25 -Surgery Dr. Garvin consulted, appreciate recs - WBC improving, 12 this AM - Pain controlled at this time #Hypokalemia, recurrent -Replace potassium this AM -Monitor and replace as needed #Hypophosphatemia -Replace this AM -Monitor and replaced as needed #Intermittent Acute delirium -Confused at night time, -Continue reorienting PRN #Hypernatremia, resolved -continue to monitor, as NG tube replaced #Elevated bicarb - metabolic alkalosis resolved - 12/23 resolved #Acute hypoxic resp failure - resolved -RR wnl, Suspect 2/2 atelectasis -ISS at bedside #RITIKA on CKD2, resolved -GFR 63 today #Liver mass Follow up outpt - 12 mm lesion in right lobe - AST/ALT, coags wnl - RUQ ultrasound for characterization- no lesion seen #HTN -holding home meds for NPO, BP WNL -IV labetalol prn for sbp>180 -IV metoprolol in place #DMII -hyperglycemia protocol -SSI w/ accuchecks #Afib - DVT ppx, rate controlled at home - lopressor in hospital Dispo: LOS >2 midnights Code Status: Full Addendum - Attending - Attending Attestation Date/Time: 12/26/18 1010 I personally evaluated the patient and discussed the management with Dr. Patino. I agree with the History, Examination, Assessment and Plan documented above with any addition or exceptions noted below. BS remain quiet. Continue TPN/PICC/NGT Tube. DM controlled currently with SS insulin.
--- NOTE | 2018-12-26 11:10 | PDOC.GSPN ---
Surgery Progress Note: Subj - Subjective Patient reports: no new complaints (He has no nausea. Not passing much flatus but continues to have small bm's) Surgery Progress Note: Obj - Vital signs Vital signs: Vital Signs - Most Recent Temp Pulse Resp BP Pulse Ox 98.0 F 89 18 150/66 H 96 12/26/18 07:32 12/26/18 07:32 12/26/18 07:32 12/26/18 07:32 12/26/18 07:45 - Physical Exam General: no distress Abdomen: soft, non tender, distended Wound: healing well Surgery Progress Note: Results - Labs Result Diagrams: 12/26/18 06:45 12/26/18 06:45 Lab results: Laboratory Results - last 24 hr 12/26/18 12/26/18 12/26/18 00:20 05:28 06:45 WBC 12.4 H RBC 3.27 L Hgb 9.8 L Hct 29.3 L MCV 89.4 MCH 29.8 MCHC 33.4 RDW 12.6 Plt Count 179 MPV 7.7 Neutrophils % 80.6 H Lymphocytes % 7.8 L Monocytes % 8.1 Eosinophils % 3.2 Basophils % 0.3 Neutrophils # 10.0 H Lymphocytes # 1.0 L Monocytes # 1.0 H Eosinophils # 0.4 Basophils # 0.0 Sodium Potassium Chloride Carbon Dioxide Anion Gap BUN Creatinine Estimated GFR (MDRD) Glucose POC Glucose 152 H 215 H Calcium Phosphorus Magnesium 12/26/18 12/26/18 06:45 06:45 WBC RBC Hgb Hct MCV MCH MCHC RDW Plt Count MPV Neutrophils % Lymphocytes % Monocytes % Eosinophils % Basophils % Neutrophils # Lymphocytes # Monocytes # Eosinophils # Basophils # Sodium 140 Potassium 2.9 L* Chloride 108 H Carbon Dioxide 22 L Anion Gap 13 BUN 17 Creatinine 0.87 Estimated GFR (MDRD) 87 Glucose 169 H POC Glucose Calcium 8.2 Phosphorus 1.8 L Magnesium 2.1 - Radiology Interpretation CT scan - abdomen Status: report reviewed by me (dilated loops of bowel in left jayla-abdomen, suspicious for sbo; 12mm hyperdense lesion in right lobe of the liver) Surgery Progress Note: A/P - Problem (1) SBO (small bowel obstruction) Current Visit: Yes Code(s): K56.609 - UNSP INTESTNL OBST, UNSP TO PARTIAL VERSUS COMPLETE OBST Status: Acute - Plan Plan: Ileus resolving slowly -He already failed NG removal once. -My plan would be continue NG suction until he has good bowel sounds on exam. -cont TPN -replete sourav Vera
[2018-12-26] MEDS: Potassium Chloride 40 MEQ in Premix Bag 1 BAG IVPB SCH (14:18)
[2018-12-26 17:24] LABS: Chloride 123 mmol/L (98-107); Sodium 131 mmol/L (136-145)
[2018-12-26 17:25] LABS: Calcium 7.6 mg/dL (7.8-10.44); Glucose 202 mg/dL (83-110)
[2018-12-26 17:27] LABS: Carbon Dioxide 21 mmol/L (23-31)
[2018-12-26 17:29] LABS: BUN (Urea Nitrogen) 17 mg/dL (8.4-25.7); Calc. Creatinine Clearance 98 mL/min (70-130); Estimated GFR-MDRD Greater than 90
[2018-12-26 17:33] LABS: Phosphorus 5.3 mg/dL (2.3-4.7); Potassium Greater than 9.5 mmol/L (3.5-5.1)
[2018-12-26 19:23] LABS: Potassium 3.4 mmol/L (3.5-5.1)
[2018-12-26] MEDS: Acetaminophen 1,000 MG in Premix Bag 1 BAG IVPB PRN (21:50)
[2018-12-26] MEDS: [UNRECOGNIZED DRUG - OTHER] IV SCH (22:27)
[2018-12-26] MEDS: POTASSIUM CHLORIDE IV SCH (22:27)
[2018-12-26] MEDS: SODIUM ACETATE IV SCH (22:27)
[2018-12-27] MEDS: HumaLOG 300 UNITS/3 ML VIAL SC PRN ×5 (00:10→22:18)
[2018-12-27] MEDS: Metoprolol Tartrate 5 MG/5 ML VIAL IVP SCH ×4 (00:11→18:34)
[2018-12-27] MEDS: Potassium Chloride 40 MEQ in Premix Bag 1 BAG IVPB SCH (04:22)
[2018-12-27 06:09] LABS: #Eosinphils 0.3 thou/uL (0.0-0.7); #Lymphocytes 1.1 thou/uL (1.20-3.40); #Monocytes 0.9 thou/uL (0.11-0.59); #Neutrophils 8.6 thou/uL (1.40-6.50); %Basophils 0.4 % (0.0-1.0); %Eosinophils 2.8 % (0.0-10.0); %Lymphocytes 9.7 % (21.0-51.0); %Monocytes 8.5 % (0.0-10.0); %Neutrophils 78.6 % (42.0-75.0); Hemoglobin 10.3 g/dL (14.0-18.0); Mean Corpuscular HGB CONC 32.2 g/dL (32.0-36.0); Mean Corpuscular Hemoglobin 28.9 pg (27.0-31.0); Mean Corpuscular Volume 89.7 fL (78.0-98.0); Mean Platelet Volume 7.6 fL (7.4-10.4); Platelet Count 241 thou/uL (130-400); RBC Distribution Width 12.7 % (11.5-14.5); Red Blood Cell (RBC) Count 3.58 mill/uL (4.70-6.10); White Blood Cell (WBC) Count 10.9 thou/uL (4.8-10.8)
[2018-12-27 06:29] LABS: Anion Gap 12 mmol/L (10-20); BUN (Urea Nitrogen) 19 mg/dL (8.4-25.7); Calc. Creatinine Clearance 89 mL/min (70-130); Calcium 8.4 mg/dL (7.8-10.44); Carbon Dioxide 23 mmol/L (23-31); Chloride 108 mmol/L (98-107); Estimated GFR-MDRD 89; Glucose 224 mg/dL (83-110); Potassium 3.6 mmol/L (3.5-5.1); Sodium 139 mmol/L (136-145)
[2018-12-27 06:31] LABS: Phosphorus 2.9 mg/dL (2.3-4.7)
--- NOTE | 2018-12-27 07:19 | PDOC.FM ---
- Subjective Subjective: Patient feels well this AM, pain well controlled. Had a large bowel movement last night. Patient reports he feels hungry this AM. - Objective Vital Signs & Weight: Vital Signs (12 hours) Temp Pulse Resp BP Pulse Ox 12/27/18 04:00 97.8 F 80 16 132/63 97 12/27/18 00:25 80 135/64 12/27/18 00:21 80 138/71 12/27/18 00:00 97.9 F 80 16 143/63 H 97 12/26/18 19:24 98.0 F 90 16 137/61 96 Weight Admit Weight 78.744 kg Weight 78.744 kg Most Recent Monitor Data Heart Rate from ECG 104 NIBP 119/48 NIBP BP-Mean 71 Respiration from ECG 19 SpO2 92 I&O: 12/26/18 12/27/18 12/28/18 06:59 06:59 06:59 Intake Total 1200 1590 Output Total 1350 850 Balance -150 740 Result Diagrams: 12/27/18 05:57 12/27/18 05:57 Phys Exam - Physical Examination Constitutional: NAD HEENT: PERRLA, oral pharynx no lesions Respiratory: no wheezing, clear to auscultation bilateral Cardiovascular: irregular Gastrointestinal: soft, non-tender, no distention, positive bowel sounds Musculoskeletal: no edema, pulses present Neurological: non-focal, moves all 4 limbs Psychiatric: normal affect, A&O x 3 Skin: normal turgor, cap refill <2 seconds Dx/Plan (1) DM2 (diabetes mellitus, type 2) Status: Chronic (2) Hx of gout Code(s): Z87.39 - PERSONAL HISTORY OF DISEASES OF THE MS SYS AND CONN TISS Status: Chronic (3) Hx of aortic valve replacement Code(s): Z95.2 - PRESENCE OF PROSTHETIC HEART VALVE Status: Chronic (4) Liver mass, right lobe Code(s): R16.0 - HEPATOMEGALY, NOT ELSEWHERE CLASSIFIED Status: Acute (5) SBO (small bowel obstruction) Code(s): K56.609 - UNSP INTESTNL OBST, UNSP TO PARTIAL VERSUS COMPLETE OBST Status: Acute (6) Atrial fibrillation Code(s): I48.91 - UNSPECIFIED ATRIAL FIBRILLATION Status: Chronic Qualifiers: Atrial fibrillation type: chronic Qualified Code(s): I48.2 - Chronic atrial fibrillation (7) Hypertension Code(s): I10 - ESSENTIAL (PRIMARY) HYPERTENSION Status: Chronic Qualifiers: Hypertension type: essential hypertension Qualified Code(s): I10 - Essential (primary) hypertension (8) RITIKA (acute kidney injury) Code(s): N17.9 - ACUTE KIDNEY FAILURE, UNSPECIFIED Status: Acute (9) Hypokalemia Code(s): E87.6 - HYPOKALEMIA Status: Acute (10) Hypernatremia Code(s): E87.0 - HYPEROSMOLALITY AND HYPERNATREMIA Status: Acute - Plan Plan: #SBO s/p resection and anastomosis, with ileus now resolving -Likely advance diet today -Surgery Dr. Garvin consulted, appreciate recs - WBC improved - Pain controlled at this time - 12/25 TPN for nutrition, machinery cleaner consulted. Likely TPN will be discontinued after pt tolerating diet #DMII -hyperglycemia protocol -increased to moderate SSI w/ accuchecks #Hypokalemia, resolved -Monitor and replace as needed #Hypophosphatemia -Monitor and replaced as needed #Intermittent Acute delirium -Confused at night time, -Continue reorienting PRN #Hypernatremia, resolved -continue to monitor, NG tube in place #Elevated bicarb - metabolic alkalosis resolved - 12/23 resolved #Acute hypoxic resp failure - resolved -RR wnl, Suspect 2/2 atelectasis -ISS at bedside #RITIKA on CKD2, resolved -GFR 63 today #Liver mass Follow up outpt - 12 mm lesion in right lobe - AST/ALT, coags wnl - RUQ ultrasound for characterization- no lesion seen #HTN -holding home meds for NPO, BP WNL -IV labetalol prn for sbp>180 -IV metoprolol in place #Afib - DVT ppx, rate controlled at home - lopressor in hospital Dispo: LOS >2 midnights Code Status: Full Addendum - Attending - Attending Attestation Date/Time: 12/27/18 1048 I personally evaluated the patient and discussed the management with Dr. Patino. I agree with the History, Examination, Assessment and Plan documented above with any addition or exceptions noted below. +BM. Hungry. Glycemic controlled better. Anticipate advance diet when ok with GS.
[2018-12-27] MEDS: Sodium Chloride 0.45% 1,000 ML IV SCH ×2 (07:28→18:39)
[2018-12-27] MEDS: Enoxaparin Sodium 40 MG/0.4 ML SYRINGE SC SCH (08:32)
[2018-12-27] MEDS: Pantoprazole 40 MG VIAL IVP SCH ×2 (08:33→20:17)
--- NOTE | 2018-12-27 11:44 | PDOC.GSPN ---
Surgery Progress Note: Subj - Subjective Patient reports: no new complaints, had a bowel movement (Reports having a large semi-formed BM last night/early this am. States he has been passing gas since the BM. Was able to pass urine at same time as BM. No pain currently.), feels better, positive flatus, pain well controlled Surgery Progress Note: Obj - Vital signs Vital signs: Vital Signs - Most Recent Temp Pulse Resp BP Pulse Ox 97.8 F 80 16 138/56 L 97 12/27/18 07:21 12/27/18 07:21 12/27/18 07:21 12/27/18 07:21 12/27/18 07:21 - Physical Exam General: no distress, well developed, well nourished, no pain Cardiovascular: other (+ murmur. Rhythm irregular.) Respiratory: clear to auscultation, normal expansion, breath sounds present Abdomen: soft, nondistended, positive bowel sounds, appropriately tender Wound: healing well (Small amount serosanguinous drainage noted to inferior aspect of dressing. Yellowish ecchymosis noted to skin surrounding inferior aspect of incision. Incision well-approximated & healing well.) Surgery Progress Note: Results - Labs Result Diagrams: 12/27/18 05:57 12/27/18 05:57 Lab results: Laboratory Results - last 24 hr 12/26/18 12/27/18 12/27/18 23:59 05:37 05:57 WBC 10.9 H RBC 3.58 L Hgb 10.3 L Hct 32.1 L MCV 89.7 MCH 28.9 MCHC 32.2 RDW 12.7 Plt Count 241 MPV 7.6 Neutrophils % 78.6 H Lymphocytes % 9.7 L Monocytes % 8.5 Eosinophils % 2.8 Basophils % 0.4 Neutrophils # 8.6 H Lymphocytes # 1.1 L Monocytes # 0.9 H Eosinophils # 0.3 Basophils # 0.0 Sodium Potassium Chloride Carbon Dioxide Anion Gap BUN Creatinine Estimated GFR (MDRD) Glucose POC Glucose 251 H 220 H Calcium Phosphorus 12/27/18 12/27/18 05:57 05:57 WBC RBC Hgb Hct MCV MCH MCHC RDW Plt Count MPV Neutrophils % Lymphocytes % Monocytes % Eosinophils % Basophils % Neutrophils # Lymphocytes # Monocytes # Eosinophils # Basophils # Sodium 139 Potassium 3.6 Chloride 108 H Carbon Dioxide 23 Anion Gap 12 BUN 19 Creatinine 0.85 Estimated GFR (MDRD) 89 Glucose 224 H POC Glucose Calcium 8.4 Phosphorus 2.9 - Radiology Interpretation CT scan - abdomen Status: report reviewed by me (dilated loops of bowel in left jayla-abdomen, suspicious for sbo; 12mm hyperdense lesion in right lobe of the liver) Surgery Progress Note: A/P - Problem (1) SBO (small bowel obstruction) Current Visit: Yes Code(s): K56.609 - UNSP INTESTNL OBST, UNSP TO PARTIAL VERSUS COMPLETE OBST Status: Acute - Plan Plan: SBO s/p lysis of adhesions. Doing well, feeling better, with report of large BM this am & passing flatus. Consider removing NG tube & if doing well, PO trial.
--- NOTE | 2018-12-27 14:04 | PDOC.GSPN ---
Surgery Progress Note: Subj - Subjective Patient reports: no new complaints Surgery Progress Note: Obj - Vital signs Vital signs: Vital Signs - Most Recent Temp Pulse Resp BP Pulse Ox 98.2 F 78 16 140/68 94 L 12/27/18 12:23 12/27/18 12:23 12/27/18 12:23 12/27/18 12:23 12/27/18 12:23 Surgery Progress Note: Results - Labs Result Diagrams: 12/27/18 05:57 12/27/18 05:57 Lab results: Laboratory Results - last 24 hr 12/27/18 12/27/18 12/27/18 05:37 05:57 05:57 WBC 10.9 H RBC 3.58 L Hgb 10.3 L Hct 32.1 L MCV 89.7 MCH 28.9 MCHC 32.2 RDW 12.7 Plt Count 241 MPV 7.6 Neutrophils % 78.6 H Lymphocytes % 9.7 L Monocytes % 8.5 Eosinophils % 2.8 Basophils % 0.4 Neutrophils # 8.6 H Lymphocytes # 1.1 L Monocytes # 0.9 H Eosinophils # 0.3 Basophils # 0.0 Sodium 139 Potassium 3.6 Chloride 108 H Carbon Dioxide 23 Anion Gap 12 BUN 19 Creatinine 0.85 Estimated GFR (MDRD) 89 Glucose 224 H POC Glucose 220 H Calcium 8.4 Phosphorus 12/27/18 12/27/18 05:57 11:53 WBC RBC Hgb Hct MCV MCH MCHC RDW Plt Count MPV Neutrophils % Lymphocytes % Monocytes % Eosinophils % Basophils % Neutrophils # Lymphocytes # Monocytes # Eosinophils # Basophils # Sodium Potassium Chloride Carbon Dioxide Anion Gap BUN Creatinine Estimated GFR (MDRD) Glucose POC Glucose 238 H Calcium Phosphorus 2.9 - Radiology Interpretation CT scan - abdomen Status: report reviewed by me (dilated loops of bowel in left jayla-abdomen, suspicious for sbo; 12mm hyperdense lesion in right lobe of the liver) Surgery Progress Note: A/P - Problem (1) SBO (small bowel obstruction) Current Visit: Yes Code(s): K56.609 - UNSP INTESTNL OBST, UNSP TO PARTIAL VERSUS COMPLETE OBST Status: Acute - Plan Plan: s/p Ex Lap -doing well. Tolerated NG clamped -DC NG, clears
[2018-12-27] MEDS: Ondansetron PF 4 MG/2 ML Vial IVP PRN (20:11)
[2018-12-27] MEDS: Promethazine HCl 25 MG/ML VIAL IM PRN (22:10)
[2018-12-27] MEDS: [UNRECOGNIZED DRUG - OTHER] IV SCH (22:18)
[2018-12-27] MEDS: SODIUM ACETATE IV SCH (22:18)
[2018-12-27] MEDS: POTASSIUM CHLORIDE IV SCH (22:18)
[2018-12-28] MEDS: Metoprolol Tartrate 5 MG/5 ML VIAL IVP SCH ×5 (01:01→17:33)
[2018-12-28] MEDS: Promethazine HCl 25 MG/ML VIAL IM PRN (02:10)
[2018-12-28 04:31] LABS: Anion Gap 12 mmol/L (10-20); BUN (Urea Nitrogen) 22 mg/dL (8.4-25.7); Calc. Creatinine Clearance 84 mL/min (70-130); Calcium 8.8 mg/dL (7.8-10.44); Carbon Dioxide 22 mmol/L (23-31); Chloride 109 mmol/L (98-107); Estimated GFR-MDRD 83; Glucose 316 mg/dL (83-110); Potassium 4.1 mmol/L (3.5-5.1); Sodium 139 mmol/L (136-145)
[2018-12-28] MEDS: HumaLOG 300 UNITS/3 ML VIAL SC PRN ×3 (06:37→18:09)
[2018-12-28 06:48] LABS: Band 37 % (5-11); Hemoglobin 10.8 g/dL (14.0-18.0); Lymphocytes 1 % (21-51); MDiff Complete? YES; Mean Corpuscular HGB CONC 32.2 g/dL (32.0-36.0); Mean Corpuscular Hemoglobin 29.1 pg (27.0-31.0); Mean Corpuscular Volume 90.4 fL (78.0-98.0); Mean Platelet Volume 7.9 fL (7.4-10.4); Metamyelocyte 1 % (0-0); Monocytes 2 % (0-10); Neutrophil 59 % (42-75); Platelet Count 266 thou/uL (130-400); Platelet Morphology Comment Appears Adequate; RBC Distribution Width 13.1 % (11.5-14.5); Red Blood Cell (RBC) Count 3.72 mill/uL (4.70-6.10); White Blood Cell (WBC) Count 32.7 thou/uL (4.8-10.8)
--- NOTE | 2018-12-28 07:52 | RAD ---
SINGLE VIEW CHEST: HISTORY: Increased white blood cell count. COMPARISON: 12/19/2018 FINDINGS: A single view of the chest shows a normal sized cardiomediastinal silhouette. The patient is status post sternotomy. A left-sided PICC line is seen with its tip in the superior vena cava. An NG tube is seen in the stomach. The previously seen free air beneath the diaphragms has resolved. IMPRESSION: No evidence of acute cardiopulmonary disease. POS: [facility]
--- NOTE | 2018-12-28 07:54 | RAD ---
SINGLE VIEW OF THE ABDOMEN: COMPARISON: 12/19/2018. HISTORY: NG tube placement. FINDINGS: A single view of the abdomen shows a nonspecific, nonobstructed bowel gas pattern. An NG tube is see n in the stomach. The patient is status post sternotomy. Degenerative changes are seen in the spine . Vascular calcifications are seen. IMPRESSION: Nasogastric tube located in the stomach. POS: [facility]
[2018-12-28] MEDS: Sodium Chloride 0.45% 1,000 ML IV SCH (08:52)
[2018-12-28] MEDS: Enoxaparin Sodium 40 MG/0.4 ML SYRINGE SC SCH (08:53)
[2018-12-28] MEDS: Pantoprazole 40 MG VIAL IVP SCH ×2 (08:53→21:54)
--- NOTE | 2018-12-28 08:57 | PDOC.FM ---
- Subjective Subjective: Pt regressed again overnight, NG tube had to be replaced. Patient was vomiting. Was transitioned to clears yesterday, however tolerated only 25% of dinner last night. Denies abdominal pain this morning. Gen Surgery saw and repeated Ct abdomen and CXR. - Objective Vital Signs & Weight: Vital Signs (12 hours) Temp Pulse Resp BP Pulse Ox 12/28/18 07:30 98.1 F 58 L 18 145/55 H 99 12/28/18 05:28 51 L 137/58 L 12/28/18 03:14 99.5 F 98 18 142/66 H 96 12/27/18 23:07 98.2 F 59 L 18 151/61 H 96 Weight Admit Weight 78.744 kg Weight 78.744 kg Most Recent Monitor Data Heart Rate from ECG 104 NIBP 119/48 NIBP BP-Mean 71 Respiration from ECG 19 SpO2 92 I&O: 12/27/18 12/28/18 12/29/18 06:59 06:59 06:59 Intake Total 1590 2959.4 Output Total 850 1840 Balance 740 1119.4 Result Diagrams: 12/28/18 06:17 12/28/18 04:01 Phys Exam - Physical Examination Constitutional: NAD flat affect HEENT: PERRLA, moist MMs Respiratory: no wheezing, clear to auscultation bilateral Cardiovascular: irregular 2/6 systolic murmur Gastrointestinal: soft, positive bowel sounds non distended. Some mild tenderness RUQ. No rebound tenderness. reagan in place, incision granulation tissue forming. Mild erythema edges Neurological: non-focal, moves all 4 limbs Psychiatric: A&O x 3 Deviation from normal: flat affect, appears distressed over lack of improvement in his condition Skin: normal turgor, cap refill <2 seconds Dx/Plan (1) DM2 (diabetes mellitus, type 2) Status: Chronic (2) Hx of gout Code(s): Z87.39 - PERSONAL HISTORY OF DISEASES OF THE MS SYS AND CONN TISS Status: Chronic (3) Hx of aortic valve replacement Code(s): Z95.2 - PRESENCE OF PROSTHETIC HEART VALVE Status: Chronic (4) Liver mass, right lobe Code(s): R16.0 - HEPATOMEGALY, NOT ELSEWHERE CLASSIFIED Status: Acute (5) SBO (small bowel obstruction) Code(s): K56.609 - UNSP INTESTNL OBST, UNSP TO PARTIAL VERSUS COMPLETE OBST Status: Acute (6) Atrial fibrillation Code(s): I48.91 - UNSPECIFIED ATRIAL FIBRILLATION Status: Chronic Qualifiers: Atrial fibrillation type: chronic Qualified Code(s): I48.2 - Chronic atrial fibrillation (7) Hypertension Code(s): I10 - ESSENTIAL (PRIMARY) HYPERTENSION Status: Chronic Qualifiers: Hypertension type: essential hypertension Qualified Code(s): I10 - Essential (primary) hypertension (8) RITIKA (acute kidney injury) Code(s): N17.9 - ACUTE KIDNEY FAILURE, UNSPECIFIED Status: Acute (9) Hypokalemia Code(s): E87.6 - HYPOKALEMIA Status: Acute (10) Hypernatremia Code(s): E87.0 - HYPEROSMOLALITY AND HYPERNATREMIA Status: Acute - Plan Plan: #SBO s/p resection and anastomosis, with ileus now resolving -Surgery Dr. Garvin consulted, appreciate recs - NG tube replaced - WBC worsened to 32, zosyn started this AM - CXR and CT abdomen pending - Pain controlled at this time - zofran for nausea - TPN for nutrition continued #DMII -hyperglycemia protocol -increased to aggressive SSI w/ accuchecks #Hypokalemia, resolved -Monitor and replace as needed #Hypophosphatemia -Monitor and replaced as needed #Intermittent Acute delirium -Confused at night time, -Continue reorienting PRN #Hypernatremia, resolved -continue to monitor, NG tube in place #Elevated bicarb - metabolic alkalosis resolved - 12/23 resolved #Acute hypoxic resp failure - resolved -RR wnl, Suspect 2/2 atelectasis -ISS at bedside #RITIKA on CKD2, resolved -GFR 83 today #Liver mass Follow up outpt - 12 mm lesion in right lobe - AST/ALT, coags wnl - RUQ ultrasound for characterization- no lesion seen #HTN -holding home meds for NPO, BP WNL -IV labetalol prn for sbp>180 -IV metoprolol in place #Afib - DVT ppx, rate controlled at home - lopressor in hospital Dispo: LOS >2 midnights Code Status: Full Addendum - Attending - Attending Attestation Date/Time: 12/28/18 1039 I personally evaluated the patient and discussed the management with Dr. Patino. I agree with the History, Examination, Assessment and Plan documented above with any addition or exceptions noted below. Failed P.o. trial. CT drainage of fluid collection planned for today. Will schedule thorazine for hiccups.
--- NOTE | 2018-12-28 09:07 | CT ---
CT OF THE ABDOMEN AND PELVIS WITH IV CONTRAST INDICATION: Status post small bowel resection 5 days ago with persistent abdominal pain and elevated white count COMPARISON: CT the abdomen and pelvis dated December 17, 2018 FINDINGS: ABDOMEN: Lung bases: New left basilar subsegmental atelectasis Liver: Stable indeterminate hypodense lesion within segment 5 Gallbladder: Surgically absent Pancreas: Normal. Adrenal glands: Normal. Spleen: Stable calcified granuloma Kidneys: Bilateral cystic abnormalities are stable. There is a septated lesion in the superior left r enal pole measuring 3.5 cm. No hydronephrosis is evident. There is bilateral nephrolithiasis. There is a retroaortic left renal vein. Retroperitoneum of the upper abdomen: No lymphadenopathy or free fluid is identified. Pelvis: Small and large bowel: There is postsurgical change of a near total colectomy and an enteric colonic anastomosis lower mid abdomen. There are 3 separate small bowel anastomosis sites within the upper mid abdomen. There are mildly dilated loops of small bowel without a definite transition zone. There is scattered areas of free air within the upper abdomen. There is a tiny fluid and gas accumulation is seen in the intra-abdominal cavity, subjacent to the abdominal wall incision site, measuring 1.6 c m on image 36 of series 2. There is an additional fluid collection seen within the anterior abdomen measuring 4.6 x 8.6 cm in size Bladder: Normal. Rectal and perirectal soft tissues:Normal. Reproductive structures: Prostate enlargement measuring 5.7 cm Free fluid in pelvis: Mild Lymphadenopathy pelvis: No lymphadenopathy is evident. Osseous structures: There is stable remote L3 and T12 compression abnormality. There is diffuse osteo penia. There is scattered degenerative and osteoarthritic changes. IMPRESSION: 1. Residual scattered free air and fluid within the anterior abdomen is likely postoperative in natur e. There are 2 separate focal fluid collection seen within the anterior abdomen suspicious for a postoperative fluid collections. Continued clinical and imaging follow-up is recommended. 2. Mild suspected postoperative small bowel ileus 3. New left basilar subsegmental atelectasis 4. Stable hepatic and renal hypodensities. CT follow-up of the right hepatic lobe and left renal hypo density is recommended. 5. Stable compression abnormality of L3 and T12
[2018-12-28] MEDS ORDERED: Fentanyl 100 MCG/2 ML VIAL ONE ×2 (09:51→11:05)
[2018-12-28] MEDS ORDERED: Midazolam HCl 2 mg/2 ml Vial ONE ×2 (09:51→11:05)
[2018-12-28] MEDS ORDERED: Sodium Bicarbonate 2.5 MEQ/5 ML VIAL ONE (09:51)
[2018-12-28] MEDS ORDERED: ISOVUE-370 76%-LOCM 1 ML ONE (10:55)
[2018-12-28] MEDS: Piperacillin/Tazobactam 3.375 GM in Sodium Chloride 0.9% 100 ML IVPB SCH ×2 (11:28→17:33)
[2018-12-28 13:21] LABS: RBC Count-Automated (BF) 28042 /cumm; WBC/Nucleated-Auto (BF) 5457 /cumm
[2018-12-28 13:43] LABS: BF Color Red; Clarity Cloudy/Turbid (Clear); Tube # EDTA
[2018-12-28 13:51] LABS: BF Segmented Neutrophils 92 %; Cell Count Non Hematic 7 %; Lymphocytes 1 %
--- NOTE | 2018-12-28 13:52 | CT ---
CT-guided anterior abdominal cavity fluid collection aspiration INDICATION: Postoperative abdomen with the anterior abdominal cavity fluid collection TECHNIQUE: Informed consent was obtained. Preprocedure CT images were performed for guidance purposes only. The site overlying the largest port ion of the collection, overlying the right abdomen, was marked. Site was prepped and draped in usual sterile fashion. Site was anesthetized utilizing buffered 1% lidocaine. A 7 cm [address] Jerry's [employer] ca theter was guided down into the collection by CT. There was aspiration 22 cc of serous sanguinous fluid from this collection. There was subtotal collapse of the collection. 2 additional attempts for aspiration was performed in this large collection. Following this additional attempt was made at a small residual fluid collection within the lower right aspect of the abdomen that yielded aspiration of only 2 cc of serosanguineous fluid. The patient tolerated the aspiration without difficulty. IMPRESSION: Successful CT-guided anterior abdominal cavity fluid collection aspiration with removal o f 24 cc of serosanguineous fluid. Findings were discussed with Dr. Garvin at 12:00 PM on December 28, 2018.
[2018-12-28] MEDS: chlorproMAZINE HCl 25 MG in Sodium Chloride 0.9% 50 ML IVPB SCH ×2 (14:17→14:25)
--- NOTE | 2018-12-28 15:43 | PDOC.GSPN ---
Surgery Progress Note: Subj - Subjective Narrative: Again did not tolerate removing NG and clears. He was up all night vomitting. NG replaced this am. He has no complaint of pain. Nausea improved with NG placement but now he has the hiccups. Surgery Progress Note: Obj - Vital signs Vital signs: Vital Signs - Most Recent Temp Pulse Resp BP Pulse Ox 98.2 F 48 L 16 143/68 H 97 12/28/18 14:45 12/28/18 14:45 12/28/18 14:45 12/28/18 14:45 12/28/18 14:45 - Physical Exam General: no distress Cardiovascular: regular rate and rhythm Respiratory: clear to auscultation Abdomen: soft, non tender, nondistended Wound: healing well (There was a small amount of purulent drainage from the bottom of the wound which was open and explored revealing no significant purulent material.) Surgery Progress Note: Results - Labs Result Diagrams: 12/28/18 06:17 12/28/18 04:01 Lab results: Laboratory Results - last 24 hr 12/28/18 12/28/18 12/28/18 04:01 06:06 06:17 WBC 32.7 H RBC 3.72 L Hgb 10.8 L Hct 33.6 L MCV 90.4 MCH 29.1 MCHC 32.2 RDW 13.1 Plt Count 266 MPV 7.9 Neutrophils % (Manual) 59 Band Neuts % (Manual) 37 H Lymphocytes % (Manual) 1 L Monocytes % (Manual) 2 Metamyelocytes % (Man) 1 H Plt Morphology Comment Appears Adequate Sodium 139 Potassium 4.1 Chloride 109 H Carbon Dioxide 22 L Anion Gap 12 BUN 22 Creatinine 0.90 Estimated GFR (MDRD) 83 Glucose 316 H POC Glucose 339 H Calcium 8.8 Fluid Source Fluid Tube Number Fluid Color Fluid Clarity Fluid WBC Fluid RBC Fluid Seg Neutrophil % Fluid Lymphocytes % Non-Hematological % Fluid Comment 12/28/18 12/28/18 12:00 13:08 WBC RBC Hgb Hct MCV MCH MCHC RDW Plt Count MPV Neutrophils % (Manual) Band Neuts % (Manual) Lymphocytes % (Manual) Monocytes % (Manual) Metamyelocytes % (Man) Plt Morphology Comment Sodium Potassium Chloride Carbon Dioxide Anion Gap BUN Creatinine Estimated GFR (MDRD) Glucose POC Glucose 289 H Calcium Fluid Source Fluid Tube Number EDTA Fluid Color Red Fluid Clarity Cloudy/Turbid H Fluid WBC 5457 Fluid RBC 98891 Fluid Seg Neutrophil % 92 Fluid Lymphocytes % 1 Non-Hematological % 7 Fluid Comment Note: - Radiology Interpretation CT scan - abdomen Status: report reviewed by me (dilated loops of bowel in left jayla-abdomen, suspicious for sbo; 12mm hyperdense lesion in right lobe of the liver) Additional comments: Showed fluid collection without air in the mid abdomen. There is air in dilated sigmoid colon below. No small bowel dilation Surgery Progress Note: A/P - Problem (1) SBO (small bowel obstruction) Current Visit: Yes Code(s): K56.609 - UNSP INTESTNL OBST, UNSP TO PARTIAL VERSUS COMPLETE OBST Status: Acute - Plan Plan: Post op 1 week Ex Lap with extensive lysis of adhesions -Small bowel resection due to ischemic segment at time of surgery -WBC up today. Persistent ileus -CT drainge today fluid only serosanguenous but sent to culture. -Plan is TPN, NG, NPO for this prolonged ileus which is not unexpected given the extent of lysis of adhesions -Dr. Sevilla covering this weekend
[2018-12-28 16:33] LABS: Bacteria/HPF None Seen HPF (None Seen); Bilirubin Negative (Negative); Blood, Urine Trace (Negative); Clarity Clear (Clear); Glucose, Urine (Dipstick) Greater than 1000 mg/dL (Negative); Leukocyte Negative Leu/uL (Negative); Nitrite Negative (Negative); Protein, Urine (Dipstick) 10 mg/dL (Neg-Trace); RBC/HPF 0-3 HPF (0-3); Squamous Epithelial None Seen HPF (0-3); Urobilinogen Normal mg/dL (Less than 2); WBC/HPF 0-3 HPF (0-3)
[2018-12-28 16:35] LABS: Urine Culture Reflex No No
[2018-12-28] MEDS: [UNRECOGNIZED DRUG - OTHER] IV SCH (22:04)
[2018-12-28] MEDS: POTASSIUM ACETATE IV SCH (22:04)
[2018-12-28] MEDS: SODIUM ACETATE IV SCH (22:04)
[2018-12-29] MEDS: Piperacillin/Tazobactam 3.375 GM in Sodium Chloride 0.9% 100 ML IVPB SCH ×4 (00:35→18:11)
[2018-12-29] MEDS: HumaLOG 300 UNITS/3 ML VIAL SC PRN ×3 (00:35→19:08)
[2018-12-29] MEDS: Metoprolol Tartrate 5 MG/5 ML VIAL IVP SCH ×4 (00:40→18:10)
[2018-12-29 04:26] LABS: #Eosinphils 0.3 thou/uL (0.0-0.7); #Lymphocytes 1.4 thou/uL (1.20-3.40); #Monocytes 1.2 thou/uL (0.11-0.59); #Neutrophils 11.4 thou/uL (1.40-6.50); %Basophils 0.2 % (0.0-1.0); %Eosinophils 1.9 % (0.0-10.0); %Lymphocytes 9.5 % (21.0-51.0); %Monocytes 8.1 % (0.0-10.0); %Neutrophils 80.3 % (42.0-75.0); Hemoglobin 10.5 g/dL (14.0-18.0); Mean Corpuscular HGB CONC 32.8 g/dL (32.0-36.0); Mean Corpuscular Hemoglobin 30.2 pg (27.0-31.0); Mean Corpuscular Volume 92.2 fL (78.0-98.0); Mean Platelet Volume 8.1 fL (7.4-10.4); Platelet Count 238 thou/uL (130-400); RBC Distribution Width 13.2 % (11.5-14.5); Red Blood Cell (RBC) Count 3.49 mill/uL (4.70-6.10); White Blood Cell (WBC) Count 14.2 thou/uL (4.8-10.8)
[2018-12-29 04:36] LABS: Anion Gap 14 mmol/L (10-20); BUN (Urea Nitrogen) 27 mg/dL (8.4-25.7); Calc. Creatinine Clearance 79 mL/min (70-130); Calcium 8.6 mg/dL (7.8-10.44); Carbon Dioxide 24 mmol/L (23-31); Chloride 110 mmol/L (98-107); Estimated GFR-MDRD 78; Glucose 186 mg/dL (83-110); Potassium 4.1 mmol/L (3.5-5.1); Sodium 144 mmol/L (136-145)
--- NOTE | 2018-12-29 06:36 | PDOC.FM ---
- Subjective Subjective: Patient feels well this morning. He had a BM today and yesterday. Denies abdominal pain. Nurse reports NG only put out about 150 overnight; during dayshift yesterday he put out about 1L from NG. - Objective Vital Signs & Weight: Vital Signs (12 hours) Temp Pulse Resp BP BP Pulse Ox 12/29/18 04:00 98 F 77 16 117/72 97 12/29/18 00:45 51 L 120/66 12/29/18 00:40 67 133/68 12/29/18 00:00 98.1 F 72 16 155/93 H 96 12/28/18 19:20 97.7 F 61 16 135/80 100 Weight Admit Weight 78.744 kg Weight 78.744 kg Most Recent Monitor Data Heart Rate from ECG 104 NIBP 119/48 NIBP BP-Mean 71 Respiration from ECG 19 SpO2 92 I&O: 12/27/18 12/28/18 12/29/18 06:59 06:59 06:59 Intake Total 1590 2959.4 3258.4 Output Total 850 1840 2000 Balance 740 1119.4 1258.4 Result Diagrams: 12/29/18 03:50 12/29/18 03:50 Phys Exam - Physical Examination Constitutional: NAD sitting at bedside Respiratory: no wheezing, clear to auscultation bilateral Cardiovascular: irregular 1/6 systolic murmur Gastrointestinal: soft, non-tender, no distention, positive bowel sounds diminished bowel sounds. Incision intact, reagan in place. Musculoskeletal: no edema, pulses present Neurological: non-focal, moves all 4 limbs Psychiatric: normal affect Skin: normal turgor, cap refill <2 seconds Dx/Plan (1) DM2 (diabetes mellitus, type 2) Status: Chronic (2) Hx of gout Code(s): Z87.39 - PERSONAL HISTORY OF DISEASES OF THE MS SYS AND CONN TISS Status: Chronic (3) Hx of aortic valve replacement Code(s): Z95.2 - PRESENCE OF PROSTHETIC HEART VALVE Status: Chronic (4) Liver mass, right lobe Code(s): R16.0 - HEPATOMEGALY, NOT ELSEWHERE CLASSIFIED Status: Acute (5) SBO (small bowel obstruction) Code(s): K56.609 - UNSP INTESTNL OBST, UNSP TO PARTIAL VERSUS COMPLETE OBST Status: Acute (6) Atrial fibrillation Code(s): I48.91 - UNSPECIFIED ATRIAL FIBRILLATION Status: Chronic Qualifiers: Atrial fibrillation type: chronic Qualified Code(s): I48.2 - Chronic atrial fibrillation (7) Hypertension Code(s): I10 - ESSENTIAL (PRIMARY) HYPERTENSION Status: Chronic Qualifiers: Hypertension type: essential hypertension Qualified Code(s): I10 - Essential (primary) hypertension (8) RITIKA (acute kidney injury) Code(s): N17.9 - ACUTE KIDNEY FAILURE, UNSPECIFIED Status: Acute (9) Hypokalemia Code(s): E87.6 - HYPOKALEMIA Status: Acute (10) Hypernatremia Code(s): E87.0 - HYPEROSMOLALITY AND HYPERNATREMIA Status: Acute - Plan Plan: #SBO s/p resection and anastomosis, with post-operative ileus -Surgery Dr. Garvin consulted, appreciate recs - WBC down trended this AM; continued on zosyn - Pain controlled at this time - zofran for nausea - TPN for nutrition continued - NG in place, out put 150 ml overnight per nursing. BM today and yesterday #Anterior Abdominal Cyst - CT guided aspiration removed 24 cc serosanguinous fluid 12/28, sent for culture #DMII - aggressive SSI w/ accucheck - start lantus 10 units daily, accuchecks q6h - hyperglycemia protocol #Hypokalemia, resolved -Monitor and replace as needed #Hypophosphatemia -Monitor and replaced as needed #Intermittent Acute delirium -Confused at night time, -Continue reorienting PRN #Hypernatremia, resolved -continue to monitor, NG tube in place #Elevated bicarb - metabolic alkalosis resolved - 12/23 resolved #Acute hypoxic resp failure - resolved -RR wnl, Suspect 2/2 atelectasis -ISS at bedside #RITIKA on CKD2, resolved #Liver mass Follow up outpt - 12 mm lesion in right lobe - AST/ALT, coags wnl - RUQ ultrasound for characterization- no lesion seen #Cystic Kidney lesion -Left renal hypodensity, septated lesion 3.5 cm -Recommend outpatient follow up with repeat imaging #HTN -holding home meds for NPO, BP well controlled -IV labetalol prn for sbp>180 -IV metoprolol in place #Afib - DVT ppx, rate controlled at home - lopressor in hospital l Addendum - Attending - Attending Attestation Date/Time: 12/29/18 8074 I personally evaluated the patient and discussed the management with Dr. Patino. I agree with the History, Examination, Assessment and Plan documented above with any addition or exceptions noted below.
[2018-12-29] MEDS: Sodium Chloride 0.45% 1,000 ML IV SCH ×2 (07:17→11:05)
[2018-12-29] MEDS: Pantoprazole 40 MG VIAL IVP SCH ×2 (08:59→20:21)
[2018-12-29] MEDS: Enoxaparin Sodium 40 MG/0.4 ML SYRINGE SC SCH (08:59)
[2018-12-29] MEDS ORDERED: Insulin Glargine 15 UNITS in Pre-Filled Syringe 1 EACH SC SCH (09:00)
[2018-12-29] MEDS ORDERED: Insulin Glargine 10 UNITS in Pre-Filled Syringe 1 EACH SC SCH (09:00)
--- NOTE | 2018-12-29 17:15 | PDOC.GSPN ---
Surgery Progress Note: Subj - Subjective Narrative: Patient is feeling somewhat better. He is not feeling as bloated or uncomfortable. He has passed gas. NG output is still bilious but shell plater in color. NG output is still quite high but he is taking ice chips. Abdomen is soft and minimally distended. Dressings are in place. Assessment/plan: Patient with prolonged ileus status post lysis of adhesions and small bowel resection. He required replacement of his NG tube and drainage of an intra-abdominal fluid collection. He is starting to feel better but is hesitant to clamp or remove his NG tube. He'd prefer to keep this for today since he doesn't want to have to have it replaced. Per his request I decided to leave the NG tube today, but if he continues to pass gas I think we should try clamping the NG tube to see if it can be removed. Surgery Progress Note: Obj - Vital signs Vital signs: Vital Signs - Most Recent Temp Pulse Resp BP Pulse Ox 98.0 F 75 18 158/80 H 98 12/29/18 15:04 12/29/18 15:04 12/29/18 15:04 12/29/18 15:04 12/29/18 15:04 Surgery Progress Note: Results - Labs Result Diagrams: 12/29/18 03:50 12/29/18 03:50 Lab results: Laboratory Results - last 24 hr 12/28/18 12/29/18 12/29/18 12:00 05:48 11:50 POC Glucose 223 H 213 H Fluid Source Fluid Tube Number EDTA Fluid Color Red Fluid Clarity Cloudy/Turbid H Fluid WBC 5457 Fluid RBC 10979 Fluid Seg Neutrophil % 92 Fluid Lymphocytes % 1 Non-Hematological % 7 Fluid Comment Note: - Radiology Interpretation CT scan - abdomen Status: report reviewed by me (dilated loops of bowel in left jayla-abdomen, suspicious for sbo; 12mm hyperdense lesion in right lobe of the liver)
[2018-12-29] MEDS: chlorproMAZINE HCl 25 MG in Sodium Chloride 0.9% 50 ML IVPB PRN (18:12)
[2018-12-29] MEDS ORDERED: Dextrose 5% in Water 1,000 ML IV PRN (18:49)
[2018-12-29] MEDS ORDERED: Dextrose 50% Abboject 50 ML SYRINGE IVP PRN (18:49)
[2018-12-29] MEDS: SODIUM ACETATE IV SCH (22:07)
[2018-12-29] MEDS: POTASSIUM ACETATE IV SCH (22:07)
[2018-12-29] MEDS: [UNRECOGNIZED DRUG - OTHER] IV SCH (22:07)
[2018-12-30] MEDS: HumaLOG 300 UNITS/3 ML VIAL SC PRN ×4 (00:43→23:53)
[2018-12-30] MEDS: Metoprolol Tartrate 5 MG/5 ML VIAL IVP SCH ×5 (00:44→23:07)
[2018-12-30] MEDS: Piperacillin/Tazobactam 3.375 GM in Sodium Chloride 0.9% 100 ML IVPB SCH ×5 (00:45→23:08)
[2018-12-30] MEDS: Sodium Chloride 0.45% 1,000 ML IV SCH ×2 (00:56→16:02)
[2018-12-30 06:13] LABS: #Eosinphils 0.3 thou/uL (0.0-0.7); #Lymphocytes 1.1 thou/uL (1.20-3.40); #Monocytes 1.1 thou/uL (0.11-0.59); #Neutrophils 8.4 thou/uL (1.40-6.50); %Basophils 0.3 % (0.0-1.0); %Eosinophils 2.8 % (0.0-10.0); %Lymphocytes 9.8 % (21.0-51.0); %Monocytes 9.7 % (0.0-10.0); %Neutrophils 77.4 % (42.0-75.0); Hemoglobin 9.1 g/dL (14.0-18.0); Mean Corpuscular HGB CONC 32.5 g/dL (32.0-36.0); Mean Corpuscular Hemoglobin 29.7 pg (27.0-31.0); Mean Corpuscular Volume 91.5 fL (78.0-98.0); Mean Platelet Volume 8.3 fL (7.4-10.4); Platelet Count 239 thou/uL (130-400); Red Blood Cell (RBC) Count 3.06 mill/uL (4.70-6.10); White Blood Cell (WBC) Count 10.9 thou/uL (4.8-10.8)
--- NOTE | 2018-12-30 06:14 | PDOC.FM ---
- Subjective Subjective: Patient did well overnight, has no complaints this morning. Is anxious about clamping the NG tube/discontinuing the NG tube. Denies nausea/vomiting. Is passing more gas and small bowel movements. - Objective MAR Reviewed: Yes Vital Signs & Weight: Vital Signs (12 hours) Temp Pulse Resp BP Pulse Ox 12/30/18 04:00 97.9 F 81 18 147/66 H 100 12/30/18 00:00 97.9 F 71 18 150/87 H 97 12/29/18 20:00 98.7 F 76 18 136/71 96 Weight Admit Weight 78.744 kg Weight 78.744 kg Most Recent Monitor Data Heart Rate from ECG 104 NIBP 119/48 NIBP BP-Mean 71 Respiration from ECG 19 SpO2 92 I&O: 12/28/18 12/29/18 12/30/18 06:59 06:59 06:59 Intake Total 2959.4 3258.4 1154 Output Total 1840 2000 200 Balance 1119.4 1258.4 954 Result Diagrams: 12/30/18 05:50 12/30/18 05:50 Phys Exam - Physical Examination Constitutional: NAD HEENT: moist MMs, sclera anicteric Neck: no nodes, supple, full ROM Respiratory: no wheezing, no rales, no rhonchi, clear to auscultation bilateral Cardiovascular: RRR, no significant murmur, no rub Gastrointestinal: soft, non-tender, no distention, positive bowel sounds Midline incision, clean dry and intact with reagan. Musculoskeletal: no edema, pulses present Neurological: non-focal, moves all 4 limbs Psychiatric: normal affect, A&O x 3 Skin: no rash, normal turgor, cap refill <2 seconds Dx/Plan - Plan Plan: 73 yoM s/p KEEGAN and small bowel resection and central line placement (12/19), complicated by intra-abdominal fluid collection that was drained on (12/28). SBO s/p resection and anastomosis, with post-operative ileus - Surgery Dr. Garvin consulted, general surgery following along, appreciate recs - WBC down trended this AM; continue zosyn (12/28) - zofran and phenergan for nausea - TPN continued - NG in place, out put 1350 ml yesterday. - Will attempt clamping NG today and see how patient tolerates, per Gen Surg recs. Anterior Abdominal Cyst - CT guided aspiration removed 24 cc serosanguinous fluid 12/28 - E. Coli cultured. Sensitive to Cefepime, Rocephin, Cipro, Gent, Levo. - Will consider deescalating antibiotic therapy today. DMII - mild SSI w/ accucheck q6hr - was started on lantus 10 units daily - sugars have been consistently elevated above 200, at times even above 300. - Will resume home NPH regimen and discontinue lantus. HTN -holding home meds for NPO, BP well controlled -IV labetalol prn for sbp>180 -IV metoprolol 2.5 q6hr Intermittent Acute delirium -Confused at night time, -Continue reorienting PRN Liver mass Follow up outpt - 12 mm lesion in right lobe - AST/ALT, coags wnl - RUQ ultrasound for characterization- no lesion seen Cystic Kidney lesion -Left renal hypodensity, septated lesion 3.5 cm -Recommend outpatient follow up with repeat imaging Afib - DVT ppx, rate controlled at home - lopressor in hospital Elevated bicarb - metabolic alkalosis resolved - 12/23 resolved RITIKA on CKD2, resolved Hypokalemia, Hypophosphatemia, Hypernatremia resolved -Monitor and replace as needed -On TPN w/ electrolyte replacement. Acute hypoxic resp failure - resolved -RR wnl, Suspect 2/2 atelectasis -ISS at bedside Dispo: Stable, inpatient VTE: Lovenox Code: Full Diet: NPO Addendum - Attending - Attending Attestation Date/Time: 12/30/18 1028 I personally evaluated the patient and discussed the management with Dr. Howard. I agree with the History, Examination, Assessment and Plan documented above with any addition or exceptions noted below.
[2018-12-30 06:35] LABS: Anion Gap 13 mmol/L (10-20); BUN (Urea Nitrogen) 25 mg/dL (8.4-25.7); Calc. Creatinine Clearance 88 mL/min (70-130); Calcium 8.3 mg/dL (7.8-10.44); Carbon Dioxide 23 mmol/L (23-31); Chloride 111 mmol/L (98-107); Estimated GFR-MDRD 88; Glucose 230 mg/dL (83-110); Potassium 4.4 mmol/L (3.5-5.1); Sodium 143 mmol/L (136-145)
[2018-12-30] MEDS: Enoxaparin Sodium 40 MG/0.4 ML SYRINGE SC SCH (08:15)
[2018-12-30] MEDS: Pantoprazole 40 MG VIAL IVP SCH ×2 (08:16→20:50)
[2018-12-30] MEDS: NPH, Human Insulin Isophane 300 UNIT/3 ML VIAL SC SCH ×2 (08:16→21:06)
--- NOTE | 2018-12-30 19:08 | PDOC.GSPN ---
Surgery Progress Note: Subj - Subjective Narrative: Patient is feeling better. He is passing lots of gas and has had some liquid bowel movements. NG has been clamped for several hours without nausea or pain. Vitals look good. NG output today has been minimal. Abdomen is soft and nondistended although bowel sounds are still hypoactive. Assessment/plan: Prolonged ileus status post lysis of adhesions and small bowel resection. He did have a fluid collection on recent CT which was aspirated and is growing Escherichia coli on culture which is pansensitive. No evidence of ongoing infection clinically. His ileus appears to be resolving, but the patient is very hesitant about removing his NG. I'm going to have the nurses clamp it and check the residual every 4 hours. I expect that his NG will be removed tomorrow and his diet will be advanced. Surgery Progress Note: Obj - Vital signs Vital signs: Vital Signs - Most Recent Temp Pulse Resp BP Pulse Ox 98.2 F 85 16 158/67 H 97 12/30/18 15:16 12/30/18 15:16 12/30/18 15:16 12/30/18 15:16 12/30/18 15:16 Surgery Progress Note: Results - Labs Result Diagrams: 12/30/18 05:50 12/30/18 05:50 Lab results: Laboratory Results - last 24 hr 12/30/18 12/30/18 11:29 15:15 POC Glucose 210 H 221 H - Radiology Interpretation CT scan - abdomen Status: report reviewed by me (dilated loops of bowel in left jayla-abdomen, suspicious for sbo; 12mm hyperdense lesion in right lobe of the liver)
[2018-12-30] MEDS: chlorproMAZINE HCl 25 MG in Sodium Chloride 0.9% 50 ML IVPB PRN (21:04)
[2018-12-30] MEDS: [UNRECOGNIZED DRUG - OTHER] IV SCH (22:10)
[2018-12-30] MEDS: POTASSIUM ACETATE IV SCH (22:10)
[2018-12-30] MEDS: SODIUM ACETATE IV SCH (22:10)
[2018-12-31] MEDS: Sodium Chloride 0.45% 1,000 ML IV SCH ×2 (00:56→15:59)
[2018-12-31 04:22] LABS: #Eosinphils 0.3 thou/uL (0.0-0.7); #Lymphocytes 1.1 thou/uL (1.20-3.40); #Neutrophils 7.8 thou/uL (1.40-6.50); %Basophils 0.4 % (0.0-1.0); %Eosinophils 2.8 % (0.0-10.0); %Lymphocytes 10.7 % (21.0-51.0); %Monocytes 9.6 % (0.0-10.0); %Neutrophils 76.5 % (42.0-75.0); Hemoglobin 9.6 g/dL (14.0-18.0); Mean Corpuscular HGB CONC 32.6 g/dL (32.0-36.0); Mean Corpuscular Hemoglobin 29.9 pg (27.0-31.0); Mean Corpuscular Volume 91.6 fL (78.0-98.0); Mean Platelet Volume 8.2 fL (7.4-10.4); Platelet Count 258 thou/uL (130-400); RBC Distribution Width 12.9 % (11.5-14.5); Red Blood Cell (RBC) Count 3.21 mill/uL (4.70-6.10); White Blood Cell (WBC) Count 10.3 thou/uL (4.8-10.8)
[2018-12-31 04:42] LABS: Anion Gap 12 mmol/L (10-20); BUN (Urea Nitrogen) 23 mg/dL (8.4-25.7); Calc. Creatinine Clearance 90 mL/min (70-130); Calcium 8.3 mg/dL (7.8-10.44); Carbon Dioxide 23 mmol/L (23-31); Chloride 109 mmol/L (98-107); Estimated GFR-MDRD 90; Glucose 198 mg/dL (83-110); Potassium 4.3 mmol/L (3.5-5.1); Sodium 140 mmol/L (136-145)
[2018-12-31] MEDS: Piperacillin/Tazobactam 3.375 GM in Sodium Chloride 0.9% 100 ML IVPB SCH ×4 (05:52→23:53)
[2018-12-31] MEDS: Metoprolol Tartrate 5 MG/5 ML VIAL IVP SCH ×4 (05:56→23:52)
--- NOTE | 2018-12-31 05:56 | PDOC.FM ---
- Subjective Subjective: Mr. Linares did well overnight. Reports no nausea or vomiting. Has passed gas and had a few loose, small bowel movements yesterday. - Objective MAR Reviewed: Yes Vital Signs & Weight: Vital Signs (12 hours) Temp Pulse Resp BP BP Pulse Ox 12/31/18 03:53 98.2 F 88 16 137/83 97 12/30/18 23:40 97.7 F 79 18 156/73 H 99 12/30/18 19:15 98.5 F 85 16 134/70 97 Weight Admit Weight 78.744 kg Weight 78.744 kg Most Recent Monitor Data Heart Rate from ECG 104 NIBP 119/48 NIBP BP-Mean 71 Respiration from ECG 19 SpO2 92 I&O: 12/29/18 12/30/18 12/31/18 06:59 06:59 06:59 Intake Total 3258.4 1154 Output Total 2000 200 300 Balance 1258.4 954 -300 Result Diagrams: 12/31/18 03:58 12/31/18 03:58 Phys Exam - Physical Examination Constitutional: NAD HEENT: PERRLA, moist MMs, sclera anicteric Neck: no nodes, supple, full ROM Respiratory: no wheezing, no rales, no rhonchi, clear to auscultation bilateral Cardiovascular: RRR, no significant murmur, no rub Gastrointestinal: soft, non-tender, no distention, positive bowel sounds Musculoskeletal: no edema, pulses present Neurological: non-focal, moves all 4 limbs Psychiatric: normal affect, A&O x 3 Skin: no rash, normal turgor Dx/Plan - Plan Plan: 73 yoM s/p KEEGAN and small bowel resection and central line placement (12/19) after SBO on (12/17) complicated by intra-abdominal fluid collection that was drained on (12/28). SBO s/p resection and anastomosis, with post-operative ileus - Surgery Dr. Garvin consulted, general surgery following along, appreciate recs - WBC down trended this AM; continue zosyn (12/28) - zofran and phenergan for nausea - TPN continued - NG in place, was clamped yesterday and tolerated well. - Likely d/c NG today per General Surgery recommendations, will wait for Virgie to decide. Anterior Abdominal Cyst - CT guided aspiration removed 24 cc serosanguinous fluid 12/28 - E. Coli cultured. Pansensitive. - Currently on Zosyn. WBC improving. - Will consider deescalating antibiotic therapy once timeline for antibiotic therapy is established. DMII - mild SSI w/ accucheck q6hr - home NPH regimen has somewhat improved sugars. - will titrate HTN -holding home meds for NPO, BP well controlled -IV labetalol prn for sbp>180 -IV metoprolol 2.5 q6hr Intermittent Acute delirium -Confused at night time, -Continue reorienting PRN Liver mass Follow up outpt - 12 mm lesion in right lobe - AST/ALT, coags wnl - RUQ ultrasound for characterization- no lesion seen Cystic Kidney lesion -Left renal hypodensity, septated lesion 3.5 cm -Recommend outpatient follow up with repeat imaging Afib - DVT ppx, rate controlled at home - metoprolol in hospital Elevated bicarb - metabolic alkalosis resolved - 12/23 resolved RITIKA on CKD2, resolved Hypokalemia, Hypophosphatemia, Hypernatremia resolved -Monitor and replace as needed -On TPN w/ electrolyte replacement. Acute hypoxic resp failure - resolved -RR wnl, Suspect 2/2 atelectasis -ISS at bedside Dispo: Stable, inpatient VTE: Lovenox Code: Full Diet: NPO
--- NOTE | 2018-12-31 07:38 | PDOC.GSPN ---
Surgery Progress Note: Subj - Subjective Patient reports: positive flatus, pain well controlled, having loose stools Narrative: Mr. Linares is a 73 year old male status post lysis of adhesions and small bowel resection with recent aspiration and culture of a fluid collection, growing E. coli. He is doing well this AM. His NG tube was clamped and he has been tolerating it well. He describes positive flatus and passing of very small , loose stools. He denies nausea, vomiting, abdominal pain, fever, chills. Surgery Progress Note: Obj - Vital signs Vital signs: Vital Signs - Most Recent Temp Pulse Resp BP Pulse Ox 98.2 F 88 16 137/83 97 12/31/18 03:53 12/31/18 03:53 12/31/18 03:53 12/31/18 03:53 12/31/18 03:53 - Physical Exam General: no distress Cardiovascular: regular rate and rhythm Respiratory: clear to auscultation Abdomen: soft, non tender, nondistended, positive bowel sounds Wound: other (midline wound opened with purulence found, packed) Surgery Progress Note: Results - Labs Result Diagrams: 12/31/18 03:58 12/31/18 03:58 Lab results: Laboratory Results - last 24 hr 12/30/18 12/30/18 12/31/18 21:08 23:41 03:58 WBC 10.3 RBC 3.21 L Hgb 9.6 L Hct 29.4 L MCV 91.6 MCH 29.9 MCHC 32.6 RDW 12.9 Plt Count 258 MPV 8.2 Neutrophils % 76.5 H Lymphocytes % 10.7 L Monocytes % 9.6 Eosinophils % 2.8 Basophils % 0.4 Neutrophils # 7.8 H Lymphocytes # 1.1 L Monocytes # 1.0 H Eosinophils # 0.3 Basophils # 0.0 Sodium Potassium Chloride Carbon Dioxide Anion Gap BUN Creatinine Estimated GFR (MDRD) Glucose POC Glucose 167 H 218 H Calcium 12/31/18 12/31/18 03:58 05:36 WBC RBC Hgb Hct MCV MCH MCHC RDW Plt Count MPV Neutrophils % Lymphocytes % Monocytes % Eosinophils % Basophils % Neutrophils # Lymphocytes # Monocytes # Eosinophils # Basophils # Sodium 140 Potassium 4.3 Chloride 109 H Carbon Dioxide 23 Anion Gap 12 BUN 23 Creatinine 0.84 Estimated GFR (MDRD) 90 Glucose 198 H POC Glucose 184 H Calcium 8.3 - Radiology Interpretation CT scan - abdomen Status: report reviewed by me (dilated loops of bowel in left jayla-abdomen, suspicious for sbo; 12mm hyperdense lesion in right lobe of the liver) Surgery Progress Note: A/P - Problem (1) SBO (small bowel obstruction) Current Visit: Yes Code(s): K56.609 - UNSP INTESTNL OBST, UNSP TO PARTIAL VERSUS COMPLETE OBST Status: Acute - Plan Plan: Mr. Linares is a 73 year old male with prolonged ileus status post lysis of adhesions and small bowel resection. 1. NG tube was clamped yesterday. Patient tolerated well-Consider removing NG tube today 2. Advance diet as tolerated 3. Encourage ambulation Addendum - Physician - Physician Attestation Date/Time: 12/31/18 6513 I personally performed or re-performed the physical examination and medical decision making. I have verified all student documentation or findings, including history, physical exam and/or medical decision making. Midline wound slightly erythematous, opened to reveal purulence. packed. DC NG and try sips of clears
[2018-12-31] MEDS: Enoxaparin Sodium 40 MG/0.4 ML SYRINGE SC SCH (08:16)
[2018-12-31] MEDS: Pantoprazole 40 MG VIAL IVP SCH ×2 (08:16→20:41)
[2018-12-31] MEDS: NPH, Human Insulin Isophane 300 UNIT/3 ML VIAL SC SCH ×2 (08:16→20:40)
--- NOTE | 2018-12-31 09:19 | PQF ---
PRIYA HICKEY BENTON *Erin [id number] SURG A- 3301 [id number] CLINICAL DOCUMENTATION IMPROVEMENT CLARIFICATION FORM: ICD-10 Updated PLEASE DO AN ADDENDUM TO THE PROGRESS NOTE WITH ANY DOCUMENTATION UPDATES OR ADDITIONS AND CARRY THROUGH TO DC SUMMARY. THANK YOU. DATE: 12/31 ATTN: DR. BENTON TOMAS / DR. JYOTHI FIORE Please exercise your independent, professional judgment in responding to the clarification form. Clinical indicators are provided on the bottom of this form for your review. Please check appropriate box(es): [ x ] Sepsis due to: ABDOMINAL ABSCESS [ ] SIRS due to non-infectious process (please specify etiology) [ ] with organ dysfunction [ ] without organ dysfunction [ ] Severe sepsis with acute organ dysfunction of RITIKA & ACUTE HYPOXIC RESPIRATORY FAILURE [ ] Localized infection without sepsis [ ] Other diagnosis [ ] Unable to determine In addition, please specify: Present on Admission (POA): [ ] Yes [ x ] No [ ] Unable to determine For continuity of documentation, please document condition throughout progress notes and discharge summary. Thank You. CLINICAL INDICATORS - SIGNS / SYMPTOMS / LABS WBC: 17.4 (ADMIT, 12/17) 10.9 - 32.7 (12/21 - 12/29) T: 100.8 (12/20) BANDS : 50% - 37% (12/19 - 12/28) RISKS: SBO (12/17, H&P & PN 12/17 - PRESENT) ISCHEMIC SMALL INTESTINE (12/19, OP REPORT) RITIKA (PN 12/19 - PRESENT) ACUTE HYPOXIC RESPIRATORY FAILURE (12/21 - PRESENT) TREATMENT: EXPLORATORY LAPAROTOMY W/ EXTENSIVE LYSIS OF ADHESIONS; SMALL BOWEL RESECTION (, OP REPORT) IV ANTIBIOTICS (ZOSYN 12/28 - PRESENT, MAR) IV FLUIDS (12/17 - PRESENT; MAR) THANK YOU! Dionne (This form is maintained as a part of the permanent medical record) 2014 [employer]. All Rights Reserved Dionne Diaz RN, [email or web address] [email or web address] Office: [phone] [facility]
--- NOTE | 2018-12-31 12:06 | PRG ---
DATE OF SERVICE: 12/31/2018 Mr. Linares is a pleasant 73-year-old man, who is status post exploratory laparotomy with lysis of adhesions for small bowel obstruction. He is looking and feeling much better although he still has an NG tube in place. He had an abscess drained percutaneously several days ago and is doing well from this standpoint. We will continue to follow with Surgery. Job ID: [id number]
[2018-12-31] MEDS: HumaLOG 300 UNITS/3 ML VIAL SC PRN (12:30)
[2018-12-31] MEDS: SODIUM ACETATE IV SCH (22:38)
[2018-12-31] MEDS: chlorproMAZINE HCl 25 MG in Sodium Chloride 0.9% 50 ML IVPB PRN (22:38)
[2018-12-31] MEDS: [UNRECOGNIZED DRUG - OTHER] IV SCH (22:38)
[2018-12-31] MEDS: POTASSIUM ACETATE IV SCH (22:38)
[2019-01-01] MEDS: HumaLOG 300 UNITS/3 ML VIAL SC PRN ×4 (00:35→23:40)
--- NOTE | 2019-01-01 05:40 | PDOC.FM ---
- Subjective Subjective: Patient did well overnight. States that he is passing gas and tolerating clear liquids. Had one tiny, semi-solid BM. Denies abdominal pain. - Objective MAR Reviewed: Yes Vital Signs & Weight: Vital Signs (12 hours) Temp Pulse Resp BP Pulse Ox 01/01/19 03:06 98.5 F 68 16 137/70 98 12/31/18 23:08 98.9 F 81 16 131/76 96 12/31/18 20:40 97 12/31/18 19:11 98.4 F 60 16 154/75 H 97 Weight Admit Weight 78.744 kg Weight 78.744 kg Most Recent Monitor Data Heart Rate from ECG 104 NIBP 119/48 NIBP BP-Mean 71 Respiration from ECG 19 SpO2 92 I&O: 12/30/18 12/31/18 01/01/19 06:59 06:59 06:59 Intake Total 1154 2314.4 Output Total 200 300 Balance 954 -300 2314.4 Result Diagrams: 01/01/19 04:20 01/01/19 04:20 Phys Exam - Physical Examination Constitutional: NAD HEENT: PERRLA, moist MMs, sclera anicteric Neck: no nodes, supple, full ROM Respiratory: no wheezing, no rales, no rhonchi, clear to auscultation bilateral Cardiovascular: RRR, no significant murmur, no rub Gastrointestinal: soft, non-tender, no distention, positive bowel sounds Midline incision clean, dry and intact with reagan. Small area draining at the inferior end. Was opened and packed yesterday. Musculoskeletal: no edema, pulses present Neurological: non-focal, normal sensation, moves all 4 limbs Psychiatric: normal affect, A&O x 3 Skin: no rash, normal turgor, cap refill <2 seconds Dx/Plan - Plan Plan: 73 yoM s/p KEEGAN and small bowel resection and central line placement (12/19) after SBO on (12/17) complicated by intra-abdominal fluid collection that was drained on (12/28). SBO s/p resection and anastomosis, with post-operative ileus - Surgery Dr. Garvin consulted, general surgery following along, appreciate recs - S/p drainage of fluid collection. Midline incisional purulence, inferiorly. Continue zosyn (12/28) - zofran and phenergan for nausea - TPN continued - NG removed (12/31) - Advance diet as tolerated. Clear liquids today. Anterior Abdominal Cyst - CT guided aspiration removed 24 cc serosanguinous fluid 12/28 - E. Coli cultured. Pansensitive. - Currently on Zosyn. WBC improving. - Until patient is tolerating PO, we will continue zosyn. DMII - mild SSI w/ accucheck q6hr - home NPH regimen has somewhat improved sugars. - will titrate HTN -holding home meds for NPO, BP well controlled -IV labetalol prn for sbp>180 -IV metoprolol 2.5 q6hr Liver mass Follow up outpt - 12 mm lesion in right lobe - AST/ALT, coags wnl - RUQ ultrasound for characterization- no lesion seen Cystic Kidney lesion -Left renal hypodensity, septated lesion 3.5 cm -Recommend outpatient follow up with repeat imaging Afib - DVT ppx, rate controlled at home on metoprolol - metoprolol IV in hospital Elevated bicarb - metabolic alkalosis resolved - 12/23 resolved Hypokalemia, Hypophosphatemia, Hypernatremia resolved -Monitor and replace as needed -On TPN w/ electrolyte replacement. Acute hypoxic resp failure - resolved Intermittent Acute delirium, resolved RITIKA on CKD2, resolved Dispo: Stable, inpatient VTE: Lovenox Code: Full Diet: NPO
[2019-01-01 05:52] LABS: #Basophils 0.1 thou/uL (0.0-0.2); #Eosinphils 0.3 thou/uL (0.0-0.7); #Lymphocytes 1.2 thou/uL (1.20-3.40); #Monocytes 1.2 thou/uL (0.11-0.59); #Neutrophils 6.9 thou/uL (1.40-6.50); %Basophils 0.7 % (0.0-1.0); %Eosinophils 2.8 % (0.0-10.0); %Lymphocytes 12.7 % (21.0-51.0); %Monocytes 12.3 % (0.0-10.0); %Neutrophils 71.5 % (42.0-75.0); Hemoglobin 9.4 g/dL (14.0-18.0); Mean Corpuscular HGB CONC 31.9 g/dL (32.0-36.0); Mean Corpuscular Hemoglobin 29.4 pg (27.0-31.0); Mean Corpuscular Volume 92.4 fL (78.0-98.0); Mean Platelet Volume 8.4 fL (7.4-10.4); Platelet Count 307 thou/uL (130-400); Red Blood Cell (RBC) Count 3.19 mill/uL (4.70-6.10); White Blood Cell (WBC) Count 9.7 thou/uL (4.8-10.8)
[2019-01-01 06:17] LABS: Anion Gap 12 mmol/L (10-20); BUN (Urea Nitrogen) 25 mg/dL (8.4-25.7); Calc. Creatinine Clearance 83 mL/min (70-130); Calcium 8.3 mg/dL (7.8-10.44); Carbon Dioxide 20 mmol/L (23-31); Chloride 108 mmol/L (98-107); Estimated GFR-MDRD 82; Glucose 162 mg/dL (83-110); Potassium 4.4 mmol/L (3.5-5.1); Sodium 136 mmol/L (136-145)
[2019-01-01] MEDS: Metoprolol Tartrate 5 MG/5 ML VIAL IVP SCH ×4 (06:22→23:41)
[2019-01-01] MEDS: Piperacillin/Tazobactam 3.375 GM in Sodium Chloride 0.9% 100 ML IVPB SCH ×4 (06:22→23:40)
[2019-01-01] MEDS: Sodium Chloride 0.45% 1,000 ML IV SCH (06:23)
--- NOTE | 2019-01-01 07:47 | PDOC.GSPN ---
Surgery Progress Note: Subj - Subjective Narrative: Mr. Linares is a 73 year old male status post lysis of adhesions and small bowel resection with recent aspiration and culture of a fluid collection, growing E. coli. He is doing well this morning. His NG tube was removed and he has been tolerating it well. He had a bowel movement today and has been ambulating. He denies nausea, vomiting, abdominal pain. Surgery Progress Note: Obj - Vital signs Vital signs: Vital Signs - Most Recent Temp Pulse Resp BP Pulse Ox 98.0 F 64 18 127/80 97 01/01/19 07:23 01/01/19 07:23 01/01/19 07:23 01/01/19 07:23 01/01/19 07:23 - Physical Exam General: no distress Cardiovascular: regular rate and rhythm Respiratory: clear to auscultation Abdomen: soft, non tender, nondistended, positive bowel sounds Wound: dressing clean,dry,intact Surgery Progress Note: Results - Labs Result Diagrams: 01/01/19 04:20 01/01/19 04:20 Lab results: Laboratory Results - last 24 hr 12/31/18 12/31/18 01/01/19 17:43 20:42 00:34 WBC RBC Hgb Hct MCV MCH MCHC RDW Plt Count MPV Neutrophils % Lymphocytes % Monocytes % Eosinophils % Basophils % Neutrophils # Lymphocytes # Monocytes # Eosinophils # Basophils # Sodium Potassium Chloride Carbon Dioxide Anion Gap BUN Creatinine Estimated GFR (MDRD) Glucose POC Glucose 150 H 200 H 192 H Calcium 01/01/19 01/01/19 01/01/19 04:20 04:20 05:56 WBC 9.7 RBC 3.19 L Hgb 9.4 L Hct 29.5 L MCV 92.4 MCH 29.4 MCHC 31.9 L RDW 13.0 Plt Count 307 MPV 8.4 Neutrophils % 71.5 Lymphocytes % 12.7 L Monocytes % 12.3 H Eosinophils % 2.8 Basophils % 0.7 Neutrophils # 6.9 H Lymphocytes # 1.2 Monocytes # 1.2 H Eosinophils # 0.3 Basophils # 0.1 Sodium 136 Potassium 4.4 Chloride 108 H Carbon Dioxide 20 L Anion Gap 12 BUN 25 Creatinine 0.91 Estimated GFR (MDRD) 82 Glucose 162 H POC Glucose 216 H Calcium 8.3 - Radiology Interpretation CT scan - abdomen Status: report reviewed by me (dilated loops of bowel in left jayla-abdomen, suspicious for sbo; 12mm hyperdense lesion in right lobe of the liver) Surgery Progress Note: A/P - Problem (1) SBO (small bowel obstruction) Current Visit: Yes Code(s): K56.609 - UNSP INTESTNL OBST, UNSP TO PARTIAL VERSUS COMPLETE OBST Status: Acute - Plan Plan: Mr. Linares is a 73 year old male status post lysis of adhesions and small bowel resection. 1. Advance diet as tolerated 2. Encourage ambulation Addendum - Physician - Physician Attestation Date/Time: 01/01/19 7474 I personally performed or re-performed the physical examination and medical decision making. I have verified all student documentation or findings, including history, physical exam and/or medical decision making. Tolerated sips. Still belching at times Will attempt clear liquid diet. If he tolerates that then wean tpn. Change to oral Bactrim once tolerating po. continue wound care
[2019-01-01] MEDS: Enoxaparin Sodium 40 MG/0.4 ML SYRINGE SC SCH (07:58)
[2019-01-01] MEDS: NPH, Human Insulin Isophane 300 UNIT/3 ML VIAL SC SCH ×2 (07:58→20:27)
[2019-01-01] MEDS: Pantoprazole 40 MG VIAL IVP SCH ×2 (07:59→20:26)
--- NOTE | 2019-01-01 08:56 | PDOC.FM ---
- Objective Vital Signs & Weight: Vital Signs (12 hours) Temp Pulse Resp BP Pulse Ox 01/01/19 07:23 98.0 F 64 18 127/80 97 01/01/19 03:06 98.5 F 68 16 137/70 98 12/31/18 23:08 98.9 F 81 16 131/76 96 Weight Admit Weight 78.744 kg Weight 78.744 kg Most Recent Monitor Data Heart Rate from ECG 104 NIBP 119/48 NIBP BP-Mean 71 Respiration from ECG 19 SpO2 92 I&O: 12/31/18 01/01/19 01/02/19 06:59 06:59 06:59 Intake Total 3850.4 Output Total 300 Balance -300 3850.4 Result Diagrams: 01/01/19 04:20 01/01/19 04:20
--- NOTE | 2019-01-01 12:08 | PRG ---
DATE OF SERVICE: 01/01/2019 Mr. Linares is sitting quietly in a chair, in no distress. He is tolerating his clear liquid diet and is asking that it would be advanced. He is having minimal abdominal pain. Had a normal rather large bowel movement earlier, overall much improved, very tearful, and we will advance diet as per recommendations of the surgeon. Job ID: [id number]
[2019-01-01] MEDS: [UNRECOGNIZED DRUG - OTHER] IV SCH (22:27)
[2019-01-01] MEDS: SODIUM ACETATE IV SCH (22:27)
[2019-01-01] MEDS: POTASSIUM ACETATE IV SCH (22:27)
[2019-01-01] MEDS: chlorproMAZINE HCl 25 MG in Sodium Chloride 0.9% 50 ML IVPB PRN (22:54)
--- NOTE | 2019-01-02 05:28 | PDOC.FM ---
- Subjective Subjective: Patient did well overnight. Completely tolerated PO clear liquids. Will likely progress to full liquids today. Reports several small bowel movements and flatulence. Walking laps often. - Objective MAR Reviewed: Yes Vital Signs & Weight: Vital Signs (12 hours) Temp Pulse Resp BP Pulse Ox 01/02/19 03:00 97.7 F 68 16 120/65 95 01/01/19 23:28 97.4 F L 77 16 125/61 98 01/01/19 20:05 100 01/01/19 19:11 98.2 F 85 16 169/62 H 100 Weight Admit Weight 78.744 kg Weight 78.744 kg Most Recent Monitor Data Heart Rate from ECG 104 NIBP 119/48 NIBP BP-Mean 71 Respiration from ECG 19 SpO2 92 I&O: 12/31/18 01/01/19 01/02/19 06:59 06:59 06:59 Intake Total 3850.4 Output Total 300 Balance -300 3850.4 Result Diagrams: 01/01/19 04:20 01/01/19 04:20 Additional Labs: Laboratory Tests 01/01/19 01/01/19 01/01/19 05:56 11:47 17:46 POC Glucose 216 H 184 H 156 H 01/01/19 01/02/19 23:35 05:15 POC Glucose 235 H 185 H Phys Exam - Physical Examination Constitutional: NAD HEENT: moist MMs, sclera anicteric Neck: supple, full ROM Respiratory: no wheezing, no rales, no rhonchi, clear to auscultation bilateral Cardiovascular: RRR, no significant murmur, no rub Gastrointestinal: soft, non-tender, no distention, positive bowel sounds midline incision clean, dry and intact with reagan. Dressed with gauze. Musculoskeletal: no edema, pulses present Neurological: non-focal, moves all 4 limbs Psychiatric: normal affect, A&O x 3 Skin: no rash, normal turgor Dx/Plan - Plan Plan: 73 yoM s/p KEEGAN and small bowel resection and central line placement (12/19) after SBO on (12/17) complicated by intra-abdominal fluid collection that was drained on (12/28). SBO s/p resection and anastomosis, with post-operative ileus - Surgery Dr. Garvin consulted, general surgery following along, appreciate recs - S/p drainage of fluid collection. Midline incisional purulence, inferiorly. Continue zosyn (12/28) - TPN continued - NG removed (12/31) - Advance diet as tolerated. Clear liquids tolerated well. Begin weaning TPN per GenSurg. Anterior Abdominal Cyst - CT guided aspiration removed 24 cc serosanguinous fluid 12/28 - E. Coli cultured. Pansensitive. - Currently on Zosyn. WBC improving. - Until patient is tolerating PO, we will continue zosyn. DMII - mild SSI w/ accucheck q6hr - home NPH regimen has somewhat improved sugars, while the patient is on TPN his sugar will not likely be well controlled. - will titrate if needed once TPN is discontinued. HTN -holding home meds until diet is tolerated BP well controlled -IV labetalol prn for sbp>180 -IV metoprolol 2.5 q6hr Liver mass Follow up outpt - 12 mm lesion in right lobe - RUQ ultrasound for characterization- no lesion seen Cystic Kidney lesion -Left renal hypodensity, septated lesion 3.5 cm -Recommend outpatient follow up with repeat imaging Afib - DVT ppx, rate controlled at home on metoprolol - metoprolol IV in hospital Elevated bicarb - metabolic alkalosis resolved - 12/23 resolved Hypokalemia, Hypophosphatemia, Hypernatremia resolved -Monitor and replace as needed -On TPN w/ electrolyte replacement. Acute hypoxic resp failure - resolved Intermittent Acute delirium, resolved RITIKA on CKD2, resolved Dispo: Stable, inpatient VTE: Lovenox Code: Full Diet: Clear liquids, advance as tolerated.
[2019-01-02] MEDS: Piperacillin/Tazobactam 3.375 GM in Sodium Chloride 0.9% 100 ML IVPB SCH ×4 (06:32→23:10)
[2019-01-02] MEDS: Metoprolol Tartrate 5 MG/5 ML VIAL IVP SCH ×4 (06:32→23:07)
[2019-01-02] MEDS: HumaLOG 300 UNITS/3 ML VIAL SC PRN ×3 (06:33→18:32)
--- NOTE | 2019-01-02 07:06 | PDOC.GSPN ---
Surgery Progress Note: Subj - Subjective Patient reports: no new complaints, had a bowel movement, feels better Narrative: Mr. Linares is a 73 year old male, 2 weeks post-op with prolonged ileus (Surgery : 12/19/18 - Lysis of adhesions and small bowel resection due to SBO). Patient feels well today with 0/10 pain and has already ambulated by walking a few laps on the floor this morning. He reports having a couple of well-formed bowel movements this AM and passing gas consistently. He reports eating/sipping his clear liquids slowly, but nonetheless tolerating chicken broth and juice very well and without nausea or reflux. He denies nausea, vomiting, fever, chills, abdominal pain, and changes in urination. Surgery Progress Note: Obj - Vital signs Vital signs: Vital Signs - Most Recent Temp Pulse Resp BP Pulse Ox 97.7 F 68 16 120/65 95 01/02/19 03:00 01/02/19 03:00 01/02/19 03:00 01/02/19 03:00 01/02/19 03:00 - Physical Exam General: no distress, no pain ENT: normal mucosa, normal nares Neck: no lymphadectomy, no masses Cardiovascular: regular rate and rhythm, no murmur Respiratory: clear to auscultation, normal expansion, normal respiratory effort Abdomen: soft, positive bowel sounds Wound: healing well, packing in place Surgery Progress Note: Results - Labs Result Diagrams: 01/02/19 10:09 01/01/19 04:20 Lab results: Laboratory Results - last 24 hr 01/01/19 01/02/19 23:35 05:15 POC Glucose 235 H 185 H - Radiology Interpretation CT scan - abdomen Status: report reviewed by me (dilated loops of bowel in left jayla-abdomen, suspicious for sbo; 12mm hyperdense lesion in right lobe of the liver) Surgery Progress Note: A/P - Plan Plan: Mr. Linares is 2 weeks post-op with prolonged ileus (Surgery: 12/19/18 - Lysis of adhesions and small bowel resection due to SBO). Prolonged Post-Op Ileus from SBO surgery -Tolerating clear liquids (broth and juice) very well. Eating in small sips. Plan to wean TPN. -Continue ambulation and walk as tolerated. Abdominal Fluid collection (+) E. coli -Still on IV Zosyn. Plan to change to PO medication as tolerance for PO improves. Hypokalemia -Resolved via TPN replacement. Last lab K+ was 4.4 Addendum - Physician - Physician Attestation Date/Time: 01/02/19 3985 I personally performed or re-performed the physical examination and medical decision making. I have verified all student documentation or findings, including history, physical exam and/or medical decision making. Full liquids, stop tpn. Home later tomorrow or monday
[2019-01-02] MEDS: NPH, Human Insulin Isophane 300 UNIT/3 ML VIAL SC SCH ×2 (09:55→20:46)
[2019-01-02] MEDS: Enoxaparin Sodium 40 MG/0.4 ML SYRINGE SC SCH (09:56)
[2019-01-02] MEDS: Pantoprazole 40 MG VIAL IVP SCH ×2 (09:56→20:46)
[2019-01-02 10:23] LABS: #Basophils 0.1 thou/uL (0.0-0.2); #Eosinphils 0.6 thou/uL (0.0-0.7); #Lymphocytes 1.1 thou/uL (1.20-3.40); #Monocytes 1.3 thou/uL (0.11-0.59); #Neutrophils 7.1 thou/uL (1.40-6.50); %Basophils 0.7 % (0.0-1.0); %Eosinophils 5.4 % (0.0-10.0); %Lymphocytes 10.8 % (21.0-51.0); %Monocytes 13.2 % (0.0-10.0); %Neutrophils 69.8 % (42.0-75.0); Hemoglobin 9.6 g/dL (14.0-18.0); Mean Corpuscular HGB CONC 32.7 g/dL (32.0-36.0); Mean Corpuscular Hemoglobin 29.5 pg (27.0-31.0); Mean Corpuscular Volume 90.2 fL (78.0-98.0); Mean Platelet Volume 8.2 fL (7.4-10.4); Platelet Count 357 thou/uL (130-400); RBC Distribution Width 12.9 % (11.5-14.5); Red Blood Cell (RBC) Count 3.26 mill/uL (4.70-6.10); White Blood Cell (WBC) Count 10.2 thou/uL (4.8-10.8)
--- NOTE | 2019-01-02 12:08 | PRG ---
DATE OF SERVICE: 01/02/2019 Mr. Linares is tolerating his full liquid diet. We are advancing this as per recommendations of Surgery. He is having no abdominal pain. He appears quite cheerful, awake, and alert. Job ID: [id number]
[2019-01-02] MEDS: POTASSIUM ACETATE IV SCH (22:48)
[2019-01-02] MEDS: [UNRECOGNIZED DRUG - OTHER] IV SCH (22:48)
[2019-01-02] MEDS: SODIUM ACETATE IV SCH (22:48)
[2019-01-02] MEDS: chlorproMAZINE HCl 25 MG in Sodium Chloride 0.9% 50 ML IVPB PRN (23:10)
[2019-01-03] MEDS: HumaLOG 300 UNITS/3 ML VIAL SC PRN (00:25)
[2019-01-03] MEDS: Piperacillin/Tazobactam 3.375 GM in Sodium Chloride 0.9% 100 ML IVPB SCH (05:04)
[2019-01-03] MEDS: Metoprolol Tartrate 5 MG/5 ML VIAL IVP SCH ×2 (05:06→12:04)
[2019-01-03 05:09] LABS: #Basophils 0.1 thou/uL (0.0-0.2); #Eosinphils 0.5 thou/uL (0.0-0.7); #Lymphocytes 1.4 thou/uL (1.20-3.40); #Monocytes 1.4 thou/uL (0.11-0.59); #Neutrophils 6.2 thou/uL (1.40-6.50); %Eosinophils 5.3 % (0.0-10.0); %Lymphocytes 14.1 % (21.0-51.0); %Monocytes 14.7 % (0.0-10.0); %Neutrophils 64.9 % (42.0-75.0); Hemoglobin 8.3 g/dL (14.0-18.0); Mean Corpuscular HGB CONC 31.6 g/dL (32.0-36.0); Mean Corpuscular Hemoglobin 28.9 pg (27.0-31.0); Mean Corpuscular Volume 91.3 fL (78.0-98.0); Mean Platelet Volume 8.3 fL (7.4-10.4); Platelet Count 350 thou/uL (130-400); RBC Distribution Width 13.3 % (11.5-14.5); Red Blood Cell (RBC) Count 2.86 mill/uL (4.70-6.10); White Blood Cell (WBC) Count 9.6 thou/uL (4.8-10.8)
--- NOTE | 2019-01-03 05:59 | PDOC.FM ---
- Subjective Subjective: Patient is tolerating full liquids this morning well. States that he continues to feel better. - Objective MAR Reviewed: Yes Vital Signs & Weight: Vital Signs (12 hours) Temp Pulse Resp BP Pulse Ox 01/03/19 03:07 98.1 F 83 16 122/64 99 01/02/19 23:12 98.5 F 78 16 138/61 98 01/02/19 19:17 98.4 F 77 16 135/65 99 Weight Admit Weight 78.744 kg Weight 78.744 kg Most Recent Monitor Data Heart Rate from ECG 104 NIBP 119/48 NIBP BP-Mean 71 Respiration from ECG 19 SpO2 92 I&O: 01/01/19 01/02/19 01/03/19 06:59 06:59 06:59 Intake Total 3850.4 2230 Balance 3850.4 2230 Result Diagrams: 01/03/19 04:07 01/01/19 04:20 Phys Exam - Physical Examination Constitutional: NAD HEENT: PERRLA, moist MMs Neck: supple, full ROM Respiratory: no wheezing, no rales, no rhonchi, clear to auscultation bilateral Cardiovascular: RRR, no significant murmur, no rub Gastrointestinal: soft, non-tender, no distention, positive bowel sounds incision clean dry and intact Musculoskeletal: no edema, pulses present Neurological: non-focal, moves all 4 limbs Psychiatric: normal affect, A&O x 3 Skin: no rash, normal turgor Dx/Plan - Plan Plan: 73 yoM s/p KEEGAN and small bowel resection and central line placement (12/19) after SBO on (12/17) complicated by intra-abdominal fluid collection that was drained on (12/28). SBO s/p resection and anastomosis, with post-operative ileus - Surgery Dr. Garvin consulted, general surgery following along, appreciate recs - S/p drainage of fluid collection. Midline incisional purulence, inferiorly. Continue zosyn (12/28) - TPN discontinued (01/02) - Advance diet as tolerated. Anterior Abdominal Cyst - CT guided aspiration removed 24 cc serosanguinous fluid 12/28 - E. Coli cultured. Pansensitive. - Until patient is tolerating PO, we will continue zosyn. Per gensurg note, may deescalate to Bactrim today or tomorrow. DMII - mild SSI w/ accucheck ACHS - will titrate depending accuchecks once TPN is off. HTN -holding home meds until diet is tolerated BP well controlled -IV labetalol prn for sbp>180 -IV metoprolol 2.5 q6hr -Once tolerating po foods will restart home oral medications. Liver mass Follow up outpt - 12 mm lesion in right lobe - RUQ ultrasound for characterization- no lesion seen Cystic Kidney lesion -Left renal hypodensity, septated lesion 3.5 cm -Recommend outpatient follow up with repeat imaging Afib - DVT ppx, rate controlled at home on metoprolol - metoprolol IV in hospital Elevated bicarb - metabolic alkalosis resolved - 12/23 resolved Hypokalemia, Hypophosphatemia, Hypernatremia resolved -Monitor and replace as needed -On TPN w/ electrolyte replacement. Acute hypoxic resp failure - resolved Intermittent Acute delirium, resolved RITIKA on CKD2, resolved Dispo: Stable, inpatient VTE: Lovenox Code: Full Diet: Clear liquids, advance as tolerated.
--- NOTE | 2019-01-03 07:00 | PDOC.GSPN ---
Surgery Progress Note: Subj - Subjective Patient reports: no new complaints, feels better Narrative: Mr. Linares is a 73 year old male with prolonged course of post-op ileus after SBO surgery and bowel resection (12/19/18). Patient is doing very well this morning and is in good spirits. He even reports feeling a bit of "hunger". He is still having bowel movements, passing flatus, and ambulating/walking easily around the room. Full liquid diet has been tolerated very well, with which he finished a full bowl of potato soup and some ice cream without issues or nausea. Patient denies nausea, vomiting, dizziness, fever, chills, or changes in urination. Surgery Progress Note: Obj - Vital signs Vital signs: Vital Signs - Most Recent Temp Pulse Resp BP Pulse Ox 98.1 F 83 16 122/64 99 01/03/19 03:07 01/03/19 03:07 01/03/19 03:07 01/03/19 03:07 01/03/19 03:07 - Physical Exam General: no distress ENT: normal mucosa Neck: no lymphadectomy, no masses Cardiovascular: regular rate and rhythm, no murmur Respiratory: clear to auscultation, normal expansion, normal respiratory effort Abdomen: soft, non tender, nondistended, positive bowel sounds Psychiatric: oriented to time, oriented to person, oriented to place, speech is normal Wound: healing well (Wound care showed the patient and his how to change dressings for incision yesterday. This went well and they feel prepared to do at home.) Surgery Progress Note: Results - Labs Result Diagrams: 01/03/19 04:07 01/01/19 04:20 Lab results: Laboratory Results - last 24 hr 01/02/19 01/03/19 01/03/19 20:48 00:18 04:07 WBC 9.6 RBC 2.86 L Hgb 8.3 L Hct 26.1 L MCV 91.3 MCH 28.9 MCHC 31.6 L RDW 13.3 Plt Count 350 MPV 8.3 Neutrophils % 64.9 Lymphocytes % 14.1 L Monocytes % 14.7 H Eosinophils % 5.3 Basophils % 1.0 Neutrophils # 6.2 Lymphocytes # 1.4 Monocytes # 1.4 H Eosinophils # 0.5 Basophils # 0.1 POC Glucose 156 H 183 H 01/03/19 05:09 WBC RBC Hgb Hct MCV MCH MCHC RDW Plt Count MPV Neutrophils % Lymphocytes % Monocytes % Eosinophils % Basophils % Neutrophils # Lymphocytes # Monocytes # Eosinophils # Basophils # POC Glucose 143 H - Radiology Interpretation CT scan - abdomen Status: report reviewed by me (dilated loops of bowel in left jayla-abdomen, suspicious for sbo; 12mm hyperdense lesion in right lobe of the liver) Surgery Progress Note: A/P - Plan Plan: Mr. Linares is a 73 year old male with prolonged course of post-op ileus after SBO surgery and bowel resection (12/19/18). Surgery for SBO, bowel resection, and lysis of adhesions -> Prolonged ileus -Plan to discharge later today or early tomorrow as long as he remains on his current improving course. -TPN has been stopped. On Full liquid diet and tolerating well. May consider advancing to soft foods later today. -Ambulating well. Continue walking and being active. Fluid collection with (+) E. Coli -Has been seen my wound care and is prepared to change wound dressings at home with . -Was given IV Zosyn. Plan to transition to PO Bactrim since his PO tolerance has improved. Addendum - Physician - Physician Attestation Date/Time: 01/03/19 0901 Doing well. -DC home later today or in am tomorrow -Bactrim DS after DC -F/u me 1 week for wound check I personally performed or re-performed the physical examination and medical decision making. I have verified all student documentation or findings, including history, physical exam and/or medical decision making.
[2019-01-03] MEDS: Enoxaparin Sodium 40 MG/0.4 ML SYRINGE SC SCH (09:37)
[2019-01-03] MEDS: Sulfameth/Trimethoprim DS 800-160mg TAB PO SCH ×2 (09:37→20:23)
[2019-01-03] MEDS: NPH, Human Insulin Isophane 300 UNIT/3 ML VIAL SC SCH ×2 (09:37→20:23)
[2019-01-03] MEDS: Pantoprazole 40 MG VIAL IVP SCH (09:37)
--- NOTE | 2019-01-03 11:44 | PRG ---
DATE OF SERVICE: 01/03/2019 Mr. Linares is tolerating his diet well without any nausea or abdominal pain. He is cheerful, alert, and will likely be discharged later today. Job ID: [id number]
[2019-01-03] MEDS ORDERED: Metoprolol Tartrate 5 MG/5 ML VIAL IVP SCH (17:45)
[2019-01-03] MEDS: metFORMIN 500 MG TAB PO SCH (17:55)
[2019-01-03] MEDS: Metoprolol Tartrate 25 MG TAB PO SCH (20:24)
[2019-01-04 03:03] VITALS: TEMP 98.4
--- NOTE | 2019-01-04 06:05 | PDOC.FM ---
- Subjective Subjective: Mr. Linares is feeling much better this morning. He had an episode yesterday evening of tachycardia and lightheadedness as he was ambulating to the bathroom. He states that it lasted about 30 seconds and resolved on its own. He states that this happens at home on occasion if he waits too long to eat, which he suspects is what happened yesterday. [Repeat EKG was similar to EKG on 12/19. His pulse settled down back into the 70-80 range when he got back in bed.] - Objective MAR Reviewed: Yes Vital Signs & Weight: Vital Signs (12 hours) Temp Pulse Resp BP Pulse Ox 01/04/19 03:00 98.4 F 98 16 134/54 L 99 01/03/19 23:12 98.5 F 93 16 116/51 L 100 01/03/19 19:12 98.5 F 89 16 115/62 99 Weight Admit Weight 78.744 kg Weight 78.744 kg Most Recent Monitor Data Heart Rate from ECG 104 NIBP 119/48 NIBP BP-Mean 71 Respiration from ECG 19 SpO2 92 I&O: 01/02/19 01/03/19 01/04/19 06:59 06:59 06:59 Intake Total 2230 1440 Balance 2230 1440 Result Diagrams: 01/03/19 04:07 01/01/19 04:20 Phys Exam - Physical Examination Constitutional: NAD HEENT: moist MMs, sclera anicteric Neck: supple, full ROM Respiratory: no wheezing, no rales, no rhonchi, clear to auscultation bilateral Cardiovascular: RRR, no significant murmur, no rub Gastrointestinal: soft, non-tender, no distention, positive bowel sounds Musculoskeletal: no edema, pulses present Neurological: non-focal, moves all 4 limbs Psychiatric: normal affect, A&O x 3 Skin: no rash, cap refill <2 seconds Dx/Plan - Plan Plan: 73 yoM s/p KEEGAN and small bowel resection and central line placement (12/19) after SBO on (12/17) complicated by intra-abdominal fluid collection that was drained on (12/28). SBO s/p resection and anastomosis, with post-operative ileus - Surgery Dr. Garvin consulted, general surgery following along, appreciate recs - S/p drainage of fluid collection. Midline incisional purulence, inferiorly. Continue zosyn (12/28) - TPN discontinued (01/02) - Advance diet as tolerated. Tolerating soft foods and po medications well. Likely D/C home today, w/ follow up with [facility] next week. Anterior Abdominal Cyst - CT guided aspiration removed 24 cc serosanguinous fluid 12/28 - E. Coli cultured. Pansensitive. - Treated with zosyn (12/28 - 01/03) - Bactrim (01/03) on d/c per [facility] recommendations. DMII - mild SSI w/ accucheck ACHS - will titrate depending accuchecks once TPN is off. HTN -restarted oral home medications yesterday. Liver mass Follow up outpt - 12 mm lesion in right lobe - RUQ ultrasound for characterization- no lesion seen Cystic Kidney lesion -Left renal hypodensity, septated lesion 3.5 cm -Recommend outpatient follow up with repeat imaging Afib - DVT ppx, rate controlled at home on metoprolol Elevated bicarb - metabolic alkalosis resolved - 12/23 resolved Hypokalemia, Hypophosphatemia, Hypernatremia resolved Acute hypoxic resp failure - resolved Intermittent Acute delirium, resolved RITIKA on CKD2, resolved Dispo: Stable, inpatient VTE: Lovenox Code: Full Diet: Soft foods, fiber restricted.
--- NOTE | 2019-01-04 07:39 | PDOC.GSPN ---
Surgery Progress Note: Subj - Subjective Patient reports: no new complaints Narrative: Mr. Linares is a 73 year old male with a prolonged course of post-op ileus after SBO surgery, including lysis of adhesions and bowel resection (12/19/18). Patient is doing very well today with no new complaints. He has tolerated soft foods without nausea, which included chicken salad, crackers, and Ensure. He did not have any issues taking his PO bactrim either. He is still passing gas, having bowel movements multiple times per day, and ambulating independently. He denies changes in urination, nausea, vomiting, reflux, and dizziness. Surgery Progress Note: Obj - Vital signs Vital signs: Vital Signs - Most Recent Temp Pulse Resp BP Pulse Ox 98.4 F 98 16 134/54 L 99 01/04/19 03:00 01/04/19 03:00 01/04/19 03:00 01/04/19 03:00 01/04/19 03:00 - Physical Exam General: no distress, no pain ENT: normal mucosa Neck: no lymphadectomy, no masses Cardiovascular: regular rate and rhythm Respiratory: clear to auscultation, normal expansion Abdomen: soft, nondistended, positive bowel sounds, appropriately tender Psychiatric: oriented to time, oriented to person, oriented to place Wound: dressing clean,dry,intact, healing well (Patient and prepared to dress wounds at home.) Surgery Progress Note: Results - Labs Result Diagrams: 01/03/19 04:07 01/01/19 04:20 Lab results: Laboratory Results - last 24 hr 01/03/19 01/04/19 01/04/19 20:23 00:46 05:04 POC Glucose 167 H 145 H 163 H - Radiology Interpretation CT scan - abdomen Status: report reviewed by me (dilated loops of bowel in left jayla-abdomen, suspicious for sbo; 12mm hyperdense lesion in right lobe of the liver) Surgery Progress Note: A/P - Plan Plan: Mr. Linares is a 73 year old male with a prolonged course of post-op ileus after SBO surgery, including lysis of adhesions and bowel resection (12/19/18). SBO Surgery with prolonged Ileus -Plan to discharge today. -May advance diet slowly from soft foods as tolerated. Stay hydrated. -Continue good ambulation and advance physical activity as tolerated. Fluid Collection with (+) E. Coli -Continue current course of PO Bactrim as prescribed. -Dress and change wound at home with . Addendum - Physician - Physician Attestation Date/Time: 01/04/19821 I personally performed or re-performed the physical examination and medical decision making. I have verified all student documentation or findings, including history, physical exam and/or medical decision making.
--- NOTE | 2019-01-04 08:22 | PDOC.GSPN ---
Surgery Progress Note: Subj - Subjective Narrative: No complaints Surgery Progress Note: Obj - Vital signs Vital signs: Vital Signs - Most Recent Temp Pulse Resp BP Pulse Ox 98.4 F 98 16 134/54 L 99 01/04/19 03:00 01/04/19 03:00 01/04/19 03:00 01/04/19 03:00 01/04/19 03:00 - Physical Exam General: no distress Cardiovascular: regular rate and rhythm Respiratory: clear to auscultation Abdomen: soft, non tender Wound: dressing clean,dry,intact Surgery Progress Note: Results - Labs Result Diagrams: 01/03/19 04:07 01/01/19 04:20 Lab results: Laboratory Results - last 24 hr 01/03/19 01/04/19 01/04/19 20:23 00:46 05:04 POC Glucose 167 H 145 H 163 H - Radiology Interpretation CT scan - abdomen Status: report reviewed by me (dilated loops of bowel in left jayla-abdomen, suspicious for sbo; 12mm hyperdense lesion in right lobe of the liver) Additional comments: Showed fluid collection without air in the mid abdomen. There is air in dilated sigmoid colon below. No small bowel dilation Surgery Progress Note: A/P - Problem (1) SBO (small bowel obstruction) Current Visit: Yes Code(s): K56.609 - UNSP INTESTNL OBST, UNSP TO PARTIAL VERSUS COMPLETE OBST Status: Acute - Plan Plan: Home today. -Bactrim for 7 days - to do dressing changes -f/u me 1 week
[2019-01-04] MEDS ORDERED: Lisinopril 10 MG TAB PO SCH (09:00)
[2019-01-04] MEDS ORDERED: Aspirin 81 mg Enteric Coated Tablet PO SCH (09:00)
[2019-01-04] MEDS: Sulfameth/Trimethoprim DS 800-160mg TAB PO SCH (09:39)
[2019-01-04] MEDS: metFORMIN 500 MG TAB PO SCH (09:39)
[2019-01-04] MEDS: NPH, Human Insulin Isophane 300 UNIT/3 ML VIAL SC SCH (09:40)
[2019-01-04] MEDS: Enoxaparin Sodium 40 MG/0.4 ML SYRINGE SC SCH (09:40)
[2019-01-04] MEDS: Metoprolol Tartrate 25 MG TAB PO SCH (09:40)
[2019-01-04 09:50] VITALS: BP 132/64
--- NOTE | 2019-01-04 10:16 | PRG ---
DATE OF SERVICE: 01/04/2019 Mr. Linares is tolerating a normal diet. He is awake, alert, cheerful, and will be discharged today. Job ID: [id number]
== END 2019-01-04 12:44 | disposition home or self-care (01) | DRG 329 ==
LOC: ERS 13:53 → SURG B 20:03 → CCU 12-19 18:42 → SURG A 12-21 16:06
PROVIDERS: ADMIT Internal Medicine; ATTEND Internal Medicine
PROC: 0DB80ZZ Excision of Small Intestine, Open Approach (ICD-10-PCS; principal; 2018-12-19)
PROC: 0DN80ZZ Release Small Intestine, Open Approach (ICD-10-PCS; 2018-12-19)
PROC: 02HV33Z Insertion of Infusion Device into Superior Vena Cava, Percutaneous Approach (ICD-10-PCS; 2018-12-25)
PROC: B548ZZA Ultrasonography of Superior Vena Cava, Guidance (ICD-10-PCS; 2018-12-25)
PROC: B518YZA Fluoroscopy of Superior Vena Cava using Other Contrast, Guidance (ICD-10-PCS; 2018-12-25)
PROC: 0W9G3ZZ Drainage of Peritoneal Cavity, Percutaneous Approach (ICD-10-PCS; 2018-12-28)
DX: K56.50 Intestinal adhesions [bands], unspecified as to partial versus complete obstruction (principal); K55.011 Focal (segmental) acute (reversible) ischemia of small intestine; J96.01 Acute respiratory failure with hypoxia; R65.20 Severe sepsis without septic shock; A41.9 Sepsis, unspecified organism; N17.9 Acute kidney failure, unspecified; E87.0 Hyperosmolality and hypernatremia; F05 Delirium due to known physiological condition; T81.41XA Infection following a procedure, superficial incisional surgical site, initial encounter; L02.211 Cutaneous abscess of abdominal wall; E87.3 Alkalosis; K56.7 Ileus, unspecified; M10.9 Gout, unspecified; I48.2 Chronic atrial fibrillation; R16.0 Hepatomegaly, not elsewhere classified; I12.9 Hypertensive chronic kidney disease with stage 1 through stage 4 chronic kidney disease, or unspecified chronic kidney disease; E11.22 Type 2 diabetes mellitus with diabetic chronic kidney disease; N18.3 Chronic kidney disease, stage 3 (moderate); N28.1 Cyst of kidney, acquired; E83.39 Other disorders of phosphorus metabolism; E87.6 Hypokalemia; I49.3 Ventricular premature depolarization; B96.20 Unspecified Escherichia coli [E. coli] as the cause of diseases classified elsewhere; Y83.8 Other surgical procedures as the cause of abnormal reaction of the patient, or of later complication, without mention of misadventure at the time of the procedure; Z95.4 Presence of other heart-valve replacement; Z79.4 Long term (current) use of insulin; Z79.52 Long term (current) use of systemic steroids; Z79.82 Long term (current) use of aspirin; Z79.899 Other long term (current) drug therapy
CPT/HCPCS: 36415; 36416; 36569; 71045; 74018; 74177; 76705; 77002; 77012; 80048; 80053; 81001; 81003; 82271; 82533; 82805; 83690; 83735; 84100; 85025; 85060; 85610; 85730; 87070; 87077; 87186; 87205; 88307; 89051; 90471; 90670; 93005; 93010; 96361; 96374; 96375; 96376; C1751; C9113; G0009; J0131; J0690; J1120; J1642; J1644; J1650; J1815; J1885; J2001; J2250; J2405; J2543; J2550; J2704; J2765; J3010; J3230; J3475; J3480; J3490; J7050; Q9966; Q9967

== ENCOUNTER 2019-01-09 11:57 | Observation (INO) | payer MEDICARE ==
--- NOTE | 2019-01-09 12:29 | RAD ---
EXAM: Single view of the chest HISTORY: Shortness of breath COMPARISON: 12/28/2018 FINDINGS: Single view of the chest shows a normal sized cardiomediastinal silhouette. The patient is status post sternotomy. There is no evidence of consolidation, mass, or pleural effusion. The bones are unremarkable. IMPRESSION: No evidence of acute cardiopulmonary disease
[2019-01-09 12:30] LABS: #Basophils 0.1 thou/uL (0.0-0.2); #Eosinphils 0.1 thou/uL (0.0-0.7); #Lymphocytes 1.4 thou/uL (1.20-3.40); #Monocytes 0.7 thou/uL (0.11-0.59); #Neutrophils 5.9 thou/uL (1.40-6.50); %Basophils 0.8 % (0.0-1.0); %Eosinophils 1.1 % (0.0-10.0); %Lymphocytes 17.5 % (21.0-51.0); %Monocytes 8.6 % (0.0-10.0); %Neutrophils 72.1 % (42.0-75.0); Hemoglobin 7.8 g/dL (14.0-18.0); Mean Corpuscular HGB CONC 33.6 g/dL (32.0-36.0); Mean Corpuscular Hemoglobin 30.8 pg (27.0-31.0); Mean Corpuscular Volume 91.6 fL (78.0-98.0); Mean Platelet Volume 8.2 fL (7.4-10.4); Platelet Count 167 thou/uL (130-400); RBC Distribution Width 14.6 % (11.5-14.5); Red Blood Cell (RBC) Count 2.52 mill/uL (4.70-6.10); White Blood Cell (WBC) Count 8.3 thou/uL (4.8-10.8)
[2019-01-09 12:51] LABS: ALT (SGPT) 35 U/L (8-55); AST (SGOT) 34 U/L (5-34); Alkaline Phosphatase 133 U/L (40-150); Anion Gap 17 mmol/L (10-20); BUN (Urea Nitrogen) 24 mg/dL (8.4-25.7); Bilirubin, Total 0.4 mg/dL (0.2-1.2); CK (CPK) 51 U/L (30-200); Calc. Creatinine Clearance 0 mL/min (70-130); Calcium 11.2 mg/dL (7.8-10.44); Carbon Dioxide 19 mmol/L (23-31); Chloride 103 mmol/L (98-107); Estimated GFR-MDRD 28; Globulin 3.9 g/dL (2.4-3.5); Glucose 110 mg/dL (83-110); Potassium 5.7 mmol/L (3.5-5.1); Protein, Total 7.9 g/dL (5.8-8.1); Sodium 133 mmol/L (136-145)
--- NOTE | 2019-01-09 13:48 | PDOC.FPRHP ---
- History of Present Illness Chief Complaint: SOB History of Present Illness: Mr. Linares presents with his after being sent from Dr. Garvin's office today for being ill appearing/SOB He reports that he occasionally has episodes when he gets up to walk and becomes short of breath. this does not happen every time and has been going on for a while, worsening recently. He denies chest pain, palpitation, focal weakness, dizziness, or syncope during these episodes. He was recently discharged from our service after a long hospital stay involving SBO and subsequent resection, he was discharged home tolerating po well, but has since not felt like eating much, reports drinking his normal amount of water. ED Course: CBC, CMP, CXR, BNP 1L NS - Allergies/Adverse Reactions Allergies Allergy/AdvReac Type Severity Reaction Status Date / Time ciprofloxacin [From Cipro] Allergy Hives Verified 11/03/17 08:38 hydrocodone AdvReac Verified 12/17/18 22:38 - Home Medications Medication Instructions Recorded Confirmed Type Calcium Citrate/Vitamin D3 1 tab PO BID 08/04/15 12/17/18 History [Calcitrate + Vitamin D Caplet] Insulin NPH Human Isophane 5 unit SC QPM 08/04/15 12/17/18 History [NovoLIN N] Insulin NPH Human Isophane 15 unit SC QAM 08/04/15 12/17/18 History [NovoLIN N] diphenhydrAMINE [Benadryl] 2 tab PO HS 08/04/15 12/17/18 History predniSONE 2 mg PO QAM-WM 08/04/15 12/17/18 History Cyanocobalamin (Vitamin B-12) 1,000 mcg PO BID 02/06/17 12/17/18 History [Vitamin B12] Furosemide 20 mg PO Q2D 02/06/17 12/17/18 History Acetaminophen [Tylenol Regular 325 mg PO HS PRN 08/09/17 12/17/18 History Strength] Aspirin [Adult Low Dose Aspirin EC] 81 mg PO QAM 11/03/17 12/17/18 History Ferrous Sulfate [Iron] 65 mg PO QAM 11/03/17 12/17/18 History Lisinopril 10 mg PO QAM 11/03/17 12/17/18 History Metoprolol Tartrate [Lopressor] 12.5 mg PO BID 11/03/17 12/17/18 History Ranitidine HCl 150 mg PO HS 11/03/17 12/17/18 History metFORMIN [Glucophage] 500 mg PO BID-WM 11/03/17 12/17/18 History Melatonin 3 mg PO HS PRN tab 01/04/19 Rx Sulfamethoxazole/Trimethoprim 1 tab PO BID #14 tab 01/04/19 Rx [Bactrim DS] - History PMHx: HTN, DMII, afib, gout, CHF PSHx: hx of SBO with sg intervention, Aortic valve replacement FHx:NC Social: no TAD - Review of Systems General: denies: fever/chills Eyes: denies: vision changes ENT: denies: nasal congestion Respiratory: reports: shortness of breath. denies: cough Cardiovascular: denies: chest pain, palpitation, edema, orthopnea Gastrointestinal: denies: vomiting, diarrhea, abdominal pain, GI bleeding Genitourinary: denies: incontinence, dysuria Skin: denies: rashes, lesions Musculoskeletal: denies: pain Neurological: denies: numbness, syncope, weakness - Vital signs 108/49, Pulse: 64, Resp: 20, Temp: 98.3 (Oral), Pain: 0, O2 sat: 98% on Room Air - Physical Exam Constitutional: NAD HEENT: normocephalic and atraumatic, grossly normal vision, grossly normal hearing -HEENT: dry mm Neck: supple, trachea midline, no JVD Chest: no-tender to palpation, no lesions Heart: normal S1/S2, no murmurs/rubs/gallops, pulses present, no edema, other ( irregularly irregular rhythm) Lungs: CTAB, no respiratory distress, good air movement, no rales/rhonchi, no wheezing Abdomen: soft, non-tender, bowel sounds present, no masses/distention Musculoskeletal: normal structure, normal tone Neurological: no focal deficit, CN II-XII intact Skin: no rash/lesions, good turgor Heme/Lymphatic: no unusual bruising or bleeding Psychiatric: normal mood and affect FMR H&P: Results - Labs Result Diagrams: 01/09/19 12:22 01/09/19 12:22 Lab results: WBC 8.3 thou/uL (4.8-10.8) 01/09/19 12:22 Hgb 7.8 g/dL (14.0-18.0) L 01/09/19 12:22 Hct 23.1 % (42.0-52.0) L 01/09/19 12:22 MCV 91.6 fL (78.0-98.0) 01/09/19 12:22 Plt Count 167 thou/uL (130-400) 01/09/19 12:22 Neutrophils % 72.1 % (42.0-75.0) 01/09/19 12:22 Sodium 133 mmol/L (136-145) L 01/09/19 12:22 Potassium 5.7 mmol/L (3.5-5.1) H 01/09/19 12:22 Chloride 103 mmol/L (98-107) 01/09/19 12:22 Carbon Dioxide 19 mmol/L (23-31) L 01/09/19 12:22 BUN 24 mg/dL (8.4-25.7) 01/09/19 12:22 Creatinine 2.29 mg/dL (0.7-1.3) H 01/09/19 12:22 Glucose 110 mg/dL (83-110) 01/09/19 12:22 Calcium 11.2 mg/dL (7.8-10.44) H 01/09/19 12:22 Total Bilirubin 0.4 mg/dL (0.2-1.2) 01/09/19 12:22 AST 34 U/L (5-34) 01/09/19 12:22 ALT 35 U/L (8-55) 01/09/19 12:22 Alkaline Phosphatase 133 U/L (40-150) 01/09/19 12:22 Creatine Kinase 51 U/L (30-200) 01/09/19 12:22 B-Natriuretic Peptide 175.5 pg/mL (0-100) H 01/09/19 12:22 Serum Total Protein 7.9 g/dL (5.8-8.1) 01/09/19 12:22 Albumin 4.0 g/dL (3.4-4.8) 01/09/19 12:22 FMR H&P: A/P - Problem List (1) Hyperkalemia Current Visit: Yes Status: Acute Code(s): E87.5 - HYPERKALEMIA (2) RITIKA (acute kidney injury) Current Visit: No Status: Acute Code(s): N17.9 - ACUTE KIDNEY FAILURE, UNSPECIFIED (3) Symptomatic anemia Current Visit: No Status: Acute Code(s): D64.9 - ANEMIA, UNSPECIFIED (4) Atrial fibrillation Current Visit: No Status: Chronic Code(s): I48.91 - UNSPECIFIED ATRIAL FIBRILLATION Qualifiers: Atrial fibrillation type: chronic Qualified Code(s): I48.2 - Chronic atrial fibrillation (5) DM2 (diabetes mellitus, type 2) Current Visit: No Status: Chronic (6) Hx of aortic valve replacement Current Visit: No Status: Chronic Code(s): Z95.2 - PRESENCE OF PROSTHETIC HEART VALVE - Plan RITIKA - cr elevated above baseline on admission, poor PO intake recently - s/p 1L NS in ED, continue @ 150 for 2 bags LR - monitor CMP hyperkalemia - unsure of etiology, will eval further for infectious/ischemic cause - EKG reveals afib and peaked T waves - repeat BMP @ 2000 elevated BNP - likely 2/2 impaired kidney fxn, cxr wnl, PE not consistent with exac - hx of CHF - consider echo normocytic anemia - likely 2/2 blood loss w/ recent sg, near DC level - repeat at 2000 hx of SBO - no s/s at this point, continue to monitor HTN - hypotense on admission - hold home meds GERD - w/ hx of PUD, continue home meds Afib - rate controlled, not reported to be on AC, clarify PCP: nahun code: full ppx: lovenox dispo: admit to tele for further monitoring/eval FMR H&P: Upper Level - Plan Date/Time: 01/09/19 1348 I, [], have evaluated this patient and agree with findings/plan as outlined by photo intern resident. Pertinent changes/additions are listed here. Addendum - Attending - Attending Attestation Date/Time: 01/09/19 [id number] I personally evaluated the patient and discussed the management with Dr. Urena I agree with the History, Examination, Assessment and Plan documented above with any addition or exceptions noted below - 73 yo male with h/o HTN, DMII, afib, gout and recent prolonged hospitalization for SBO with bowel resection presents with weakness, feeling poorly. States that he has had a poor appetite at home since discharge. Denies any fever/chills. Denies any cough, URI symptoms , abdominal pain. States that the only thing that sounds good to eat has been yogurt and ensure. PMH/PSH/Meds/SH reviewed and agree with resident's documentation. Afebrile BP 114/52 P80 R23 97%RA Exam repeated by me and agree with resident's findings. Labs: WBC=8.3, H/H= 7.8/23.1, Api=884, Iu=210, K =5.7, Sb=778, CO2=19, BUN/Cr= 24/2.29, Wwjd=881, Ca=11.2, KEC=988, procal=0.06, TSH=1.4637, CXR- negative. A/P: 1) RITIKA most likely secondary to dehydration - Place in obs and continue IVF. Repeat labs in basmet in AM. 2) Mild hyperkalemia - continue IVF. Repeat in AM. 3) Deconditioning - PT/OT eval.
[2019-01-09] MEDS ORDERED: Dextrose 50% Abboject 50 ML SYRINGE SLOW IVP PRN (14:56)
[2019-01-09] MEDS ORDERED: Acetaminophen 325 MG TAB PO PRN ×2 (14:56)
[2019-01-09] MEDS ORDERED: Melatonin 3 MG TAB PO PRN (14:56)
[2019-01-09] MEDS ORDERED: Ondansetron PF 4 MG/2 ML Vial IVP PRN (14:56)
[2019-01-09] MEDS ORDERED: HumaLOG 300 UNITS/3 ML VIAL SC PRN ×2 (14:56)
[2019-01-09] MEDS ORDERED: Ondansetron ODT 4 MG TAB PO PRN (14:56)
[2019-01-09] MEDS ORDERED: Dextrose 5% in Water 1,000 ML IV PRN (14:56)
[2019-01-09 15:02] LABS: Lactic Acid 1.9 mmol/L (0.5-2.2)
[2019-01-09] MEDS: Lactated Ringer's 1,000 ML IV SCH (20:21)
[2019-01-09] MEDS: metFORMIN 500 MG TAB PO SCH (20:22)
[2019-01-09] MEDS: Calcium Carbonate + Vit D 1 TAB PO SCH (20:22)
[2019-01-09] MEDS: Cyanocobalamin (Vitamin B-12) 1,000 MCG TAB PO SCH (20:22)
[2019-01-09] MEDS ORDERED: NPH, Human Insulin Isophane 300 UNIT/3 ML VIAL SC SCH (21:00)
[2019-01-09] MEDS ORDERED: diphenhydrAMINE 25 MG CAP PO SCH (21:00)
[2019-01-10 00:32] LABS: Hemoglobin 7.6 g/dL (14.0-18.0)
[2019-01-10 00:52] LABS: Anion Gap 15 mmol/L (10-20); BUN (Urea Nitrogen) 23 mg/dL (8.4-25.7); Calc. Creatinine Clearance 36 mL/min (70-130); Calcium 10.4 mg/dL (7.8-10.44); Carbon Dioxide 21 mmol/L (23-31); Chloride 107 mmol/L (98-107); Estimated GFR-MDRD 34; Glucose 97 mg/dL (83-110); Potassium 4.8 mmol/L (3.5-5.1); Sodium 138 mmol/L (136-145)
[2019-01-10] MEDS: Lactated Ringer's 1,000 ML IV SCH (02:18)
--- NOTE | 2019-01-10 05:40 | PDOC.FM ---
- Subjective Subjective: Mr. Linares was resting comfortably this morning. Markedly more fatigued appearing than when he was discharged last week. He states that Dr. Garvin sent him over to do some labs and evaluate him, he has been feeling weak, tired and dizzy since discharge. Denies chest pain, shortness of breath, abdominal pain. Endorses decreased appetite. - Objective MAR Reviewed: Yes Vital Signs & Weight: Vital Signs (12 hours) Temp Pulse Resp BP Pulse Ox 01/10/19 03:18 98.5 F 75 18 138/65 96 01/09/19 23:44 98.5 F 78 20 128/60 98 01/09/19 20:30 97.6 F 84 19 127/59 L 96 01/09/19 18:33 97.9 F 80 16 132/59 L 100 Weight Weight 72.303 kg Result Diagrams: 01/10/19 10:50 01/10/19 10:50 Phys Exam - Physical Examination Constitutional: NAD Fatigued, pale HEENT: moist MMs, sclera anicteric Neck: supple, full ROM Respiratory: no wheezing, no rales, no rhonchi, clear to auscultation bilateral Cardiovascular: no significant murmur, no rub Regular rate, irregular rhythm. In Afib with frequent PVCs on telemetry. Gastrointestinal: soft, non-tender, no distention, positive bowel sounds Musculoskeletal: no edema, pulses present Neurological: non-focal, moves all 4 limbs Psychiatric: normal affect, A&O x 3 Skin: no rash, normal turgor Dx/Plan - Plan Plan: RITIKA, improving Cr elevated above baseline on admission, poor PO intake recently Total 3L IV fluids. Repeat CMP this AM. Cr: 2.29 > 1.91 Hyperkalemia, resolved unsure of etiology, will eval further for infectious/ischemic cause EKG in ED revealed afib and peaked T waves K+ 5.7 > 4.8 Will continue to monitor. Mildly Elevated BNP H/o CHF. However, clinically he does not appear to be in exacerbation. Will monitor closely. Normocytic anemia Hb on prior admission 12/17 was 15. Currently it is 7.9. Will order iron, B12 and folate studies to evaluate for deficiencies. Recent hx of SBO no s/s at this point, continue to monitor HTN hypotense on admission hold home meds GERD w/ hx of PUD, continue home meds Afib rate controlled with metoprolol States that Dr. Shannon sewed up his atrial appendage when he had his aortic valve replaced and because of that he does not require anticoagulation. PCP: nahun code: full ppx: lovenox dispo: admit to tele for further monitoring/eval Addendum - Attending - Attending Attestation Date/Time: 01/10/19 6595 I personally evaluated the patient and discussed the management with Dr. Howard. I agree with the History, Examination, Assessment and Plan documented above with any addition or exceptions noted below. The patient's ritika and hyperkalemia is improved. Pt has symptomatic anemia, will transfuse. Getting VQ scan to evaluate for PE. Trend h/h. Giving lasix after transfusion.
[2019-01-10 06:58] LABS: Iron 21 ug/dL (65-175); Iron Binding Capacity, Total 256 mcg/dL (261-462)
[2019-01-10 07:47] LABS: Vitamin B12 Greater than 2000 pg/mL (211-911)
[2019-01-10] MEDS ORDERED: predniSONE 1 MG TAB PO SCH (08:00)
[2019-01-10] MEDS: Calcium Carbonate + Vit D 1 TAB PO SCH (08:32)
[2019-01-10] MEDS: metFORMIN 500 MG TAB PO SCH ×2 (08:32→16:27)
[2019-01-10] MEDS: Cyanocobalamin (Vitamin B-12) 1,000 MCG TAB PO SCH (08:33)
[2019-01-10] MEDS ORDERED: Enoxaparin Sodium 30 MG/0.3 ML SYRINGE SC SCH (09:00)
[2019-01-10] MEDS ORDERED: Aspirin 81 mg Enteric Coated Tablet PO SCH (09:00)
[2019-01-10] MEDS ORDERED: NPH, Human Insulin Isophane 300 UNIT/3 ML VIAL SC SCH (09:00)
[2019-01-10] MEDS ORDERED: Famotidine 20 MG TAB PO SCH (09:00)
[2019-01-10] MEDS ORDERED: Ferrous Sulfate 325 MG TAB PO SCH (09:00)
--- NOTE | 2019-01-10 10:25 | PDOC.GSPN ---
Surgery Progress Note: Subj - Subjective Patient reports: feels better (has not walked in peters yet) Surgery Progress Note: Obj - Vital signs Vital signs: Vital Signs - Most Recent Temp Pulse Resp BP Pulse Ox 98.3 F 74 16 123/56 L 99 01/10/19 07:37 01/10/19 07:37 01/10/19 07:37 01/10/19 07:37 01/10/19 07:37 - Physical Exam General: no distress Cardiovascular: regular rate and rhythm Respiratory: clear to auscultation Abdomen: soft, nondistended Wound: healing well Surgery Progress Note: Results - Labs Result Diagrams: 01/10/19 00:24 01/10/19 00:23 Lab results: Laboratory Results - last 24 hr 01/09/19 01/10/19 01/10/19 13:01 00:23 00:24 Hgb 7.6 L Hct 23.1 L Sodium 138 Potassium 4.8 Chloride 107 Carbon Dioxide 21 L Anion Gap 15 BUN 23 Creatinine 1.94 H Estimated GFR (MDRD) 34 Glucose 97 POC Glucose Calcium 10.4 Iron TIBC Ferritin Vitamin B12 Folate Blood Type O POSITIVE Antibody Screen NEGATIVE Crossmatch See Detail 01/10/19 01/10/19 01/10/19 06:07 06:08 06:08 Hgb Hct Sodium Potassium Chloride Carbon Dioxide Anion Gap BUN Creatinine Estimated GFR (MDRD) Glucose POC Glucose Calcium Iron 21 L TIBC 256 L Ferritin 80.85 Vitamin B12 Greater than 2000 H Folate 16.30 Blood Type Antibody Screen Crossmatch 01/10/19 06:08 Hgb Hct Sodium Potassium Chloride Carbon Dioxide Anion Gap BUN Creatinine Estimated GFR (MDRD) Glucose POC Glucose 93 Calcium Iron TIBC Ferritin Vitamin B12 Folate Blood Type Antibody Screen Crossmatch Surgery Progress Note: A/P - Problem (1) Dehydration Current Visit: Yes Code(s): E86.0 - DEHYDRATION Status: Acute - Plan Plan: Feels better after IVF -Agree with plans for PRBCS, will help with weakness -I will be out of town starting tomorrow.
[2019-01-10 11:03] LABS: #Basophils 0.1 thou/uL (0.0-0.2); #Eosinphils 0.2 thou/uL (0.0-0.7); #Lymphocytes 1.6 thou/uL (1.20-3.40); #Monocytes 0.8 thou/uL (0.11-0.59); #Neutrophils 7.6 thou/uL (1.40-6.50); %Basophils 0.6 % (0.0-1.0); %Eosinophils 1.7 % (0.0-10.0); %Lymphocytes 15.4 % (21.0-51.0); %Monocytes 8.2 % (0.0-10.0); %Neutrophils 74.1 % (42.0-75.0); Hemoglobin 7.4 g/dL (14.0-18.0); Mean Corpuscular HGB CONC 32.4 g/dL (32.0-36.0); Mean Corpuscular Hemoglobin 29.6 pg (27.0-31.0); Mean Corpuscular Volume 91.4 fL (78.0-98.0); Mean Platelet Volume 7.4 fL (7.4-10.4); Platelet Count 390 thou/uL (130-400); Red Blood Cell (RBC) Count 2.49 mill/uL (4.70-6.10); White Blood Cell (WBC) Count 10.2 thou/uL (4.8-10.8)
[2019-01-10 11:23] LABS: ALT (SGPT) 25 U/L (8-55); AST (SGOT) 22 U/L (5-34); Albumin 3.2 g/dL (3.4-4.8); Alkaline Phosphatase 98 U/L (40-150); Anion Gap 11 mmol/L (10-20); BUN (Urea Nitrogen) 17 mg/dL (8.4-25.7); Bilirubin, Total 0.4 mg/dL (0.2-1.2); Calc. Creatinine Clearance 39 mL/min (70-130); Calcium 10.1 mg/dL (7.8-10.44); Carbon Dioxide 24 mmol/L (23-31); Chloride 106 mmol/L (98-107); Estimated GFR-MDRD 38; Globulin 2.9 g/dL (2.4-3.5); Glucose 105 mg/dL (83-110); Potassium 4.6 mmol/L (3.5-5.1); Protein, Total 6.1 g/dL (5.8-8.1); Sodium 136 mmol/L (136-145)
[2019-01-10 13:43] VITALS: BMI 23.5
[2019-01-10] MEDS ORDERED: Furosemide 40 MG/4 ML VIAL SLOW IVP SCH (14:00)
--- NOTE | 2019-01-10 14:52 | NM ---
NUCLEAR MEDICINE VENTILATION/PERFUSION SCAN: (V/Q scan) DATE: 01/10/2019 HISTORY: 73-year-old male with dyspnea TECHNIQUE: Xenon-133 gas dose: 17.1 mCi Technetium 99m-MAA dose: 6.6 mCi The patient inhaled xenon-133 gas, and dynamic ventilation scintigraphy was performed. Technetium 99m -MAA was injected IV, and multiple perfusion scintigraphic images were obtained. FINDINGS: There are no moderate sized or large perfusion defects. There are no significant ventilation/perfusio n mismatches. IMPRESSION: Low probability for pulmonary thromboembolism.
[2019-01-10 19:42] VITALS: BP 121/56; TEMP 98.1
--- NOTE | 2019-01-11 14:40 | DIS ---
DATE OF ADMISSION: 01/09/2019 DATE OF DISCHARGE: 01/10/2019 RESIDENT: Marissa Howard MD ADMITTING ATTENDING: Mine Garces MD CONSULT: General Surgery, Dr. Garvin. PROCEDURES: None. PRIMARY DIAGNOSES: Symptomatic anemia and acute kidney injury. SECONDARY DIAGNOSES: Hyperkalemia, elevated BNP, normocytic anemia, hypertension, gastroesophageal reflux disease, and atrial fibrillation. DISCONTINUED MEDICATIONS: None. DISCHARGE MEDICATIONS: 1. Tylenol. 2. Aspirin. 3. Calcium. 4. B12. 5. Benadryl. 6. Lasix. 7. Insulin. 8. Novolin. 9. Lisinopril. 10. Metformin. 11. Metoprolol. 12. Ranitidine. 13. Ferrous sulfate. 14. Melatonin. HISTORY OF PRESENT ILLNESS: Mr. Linares came to the ED after being seen in Dr. Garvin's office for followup on his recent hospitalization and removal of reagan. Dr. Garvin noted he was ill-appearing and short of breath and recommended that Mr. Linares presents to the emergency room to be evaluated. He endorses shortness of breath when he gets up to walk, it does not happen every time. It has been going on for a while, recently getting worse. He denies chest pain, palpitations, focal weakness or syncope. He was recently discharged after a long hospital stay for small bowel obstruction with resection and abscess drainage. He was in home for approximately 1 week. However, during the hospital stay, his hemoglobin was 15 on admission and 7.0 on discharge after a long extended hospital stay with surgical intervention. On admission at this time, his hemoglobin is 7.8; however with his symptoms of lightheadedness and shortness of breath, the decision was made to transfuse him 2 units with followup with primary care as an outpatient. DISPOSITION: Stable. DISCHARGE INSTRUCTIONS: 1. Location; home. 2. Diet; heart healthy. 3. Activity; ad charisma. 4. Follow up with primary care within 2 weeks. Job ID: [id number]
--- NOTE | 2019-01-12 22:22 | EKG ---
Test Reason : Blood Pressure : / mmHG Vent. Rate : 077 BPM Atrial Rate : 227 BPM P-R Int : 000 ms QRS Dur : 128 ms QT Int : 404 ms P-R-T Axes : 000 -75 075 degrees QTc Int : 457 ms Atrial fibrillation with Premature ventricular complexes Left axis deviation Right bundle branch block Inferior infarct , age undetermined Anterolateral infarct , age undetermined Abnormal ECG Confirmed by JIM QUESADA, IRIS Vera ([id number]), fan mail editor ANTOLIN FLEMING ([id number]) on 01/12/2019 10:22:29 PM Referred By: Confirmed By:IRIS FERNANDEZ MD
--- NOTE | 2019-01-12 22:23 | EKG ---
Test Reason : Blood Pressure : / mmHG Vent. Rate : 084 BPM Atrial Rate : 093 BPM P-R Int : 000 ms QRS Dur : 130 ms QT Int : 404 ms P-R-T Axes : 000 -76 077 degrees QTc Int : 477 ms Atrial fibrillation with Premature ventricular complexes Left axis deviation Right bundle branch block Inferior infarct , age undetermined Anterolateral infarct , age undetermined Abnormal ECG Confirmed by JIM QUESADA, IRIS Vera ([id number]), managing editor ANTOLIN FLEMING ([id number]) on 01/12/2019 10:23:10 PM Referred By: Confirmed By:IRIS FERNANDEZ MD
== END 2019-01-10 19:52 | disposition home or self-care (01) ==
LOC: ERS 11:57 → INTOOBSV 13:48 → ERHOLD 13:48 → 2SW 18:31
PROVIDERS: ADMIT Surgery; ATTEND Surgery
DX: N17.9 Acute kidney failure, unspecified (principal); E87.5 Hyperkalemia; I11.0 Hypertensive heart disease with heart failure; I50.9 Heart failure, unspecified; E11.9 Type 2 diabetes mellitus without complications; I48.91 Unspecified atrial fibrillation; M10.9 Gout, unspecified; D64.9 Anemia, unspecified; K21.9 Gastro-esophageal reflux disease without esophagitis; Z79.82 Long term (current) use of aspirin; Z79.899 Other long term (current) drug therapy; Z79.4 Long term (current) use of insulin; Z88.1 Allergy status to other antibiotic agents; Z88.5 Allergy status to narcotic agent; Z95.2 Presence of prosthetic heart valve
CPT/HCPCS: 36430; 71045; 78582; 80048; 80053; 82274; 82550; 82607; 82728; 82746; 82962 ×2; 83540; 83550; 83605; 83880; 84145; 84484; 85014; 85018; 85025; 85379; 86850; 86900; 86901; 86920; 93005; 96360; 96361 ×2; 96372; 97139 ×3; 99285; A9540; A9558; G0378 ×3; P9016; 36415; 36416; 84443; J1650; J1815; J1940; J7512; Q0163

== ENCOUNTER 2020-03-21 19:23 | Inpatient (IN) | payer MEDICARE ==
[~2020-03-21 19:23] MED LIST changes: -Heparin 1,000 UNITS/ML VIAL ONE; +Iopamidol 370 76% 100 ML VIAL ONE
[2020-03-21] MEDS ORDERED: Ondansetron PF 4 MG/2 ML Vial ONE (19:50)
[2020-03-21] MEDS ORDERED: Morphine 4 MG/ML VIAL ONE (19:59)
[2020-03-21 20:49] LABS: Band 7 % (5-11); Hemoglobin 16.4 g/dL (14.0-18.0); Lymphocytes 7 % (21-51); MDiff Complete? YES; Mean Corpuscular HGB CONC 32.8 g/dL (32.0-36.0); Mean Corpuscular Hemoglobin 29.9 pg (27.0-31.0); Mean Corpuscular Volume 91.2 fL (78.0-98.0); Mean Platelet Volume 8.4 fL (7.4-10.4); Monocytes 6 % (0-10); Neutrophil 80 % (42-75); Platelet Count 238 thou/uL (130-400); Platelet Morphology Comment Appears Adequate; RBC Distribution Width 12.5 % (11.5-14.5); Red Blood Cell (RBC) Count 5.49 mill/uL (4.70-6.10); White Blood Cell (WBC) Count 21.9 thou/uL (4.8-10.8)
[2020-03-21 21:43] LABS: Chloride 99 mmol/L (98-107); Potassium 3.7 mmol/L (3.5-5.1); Sodium 137 mmol/L (136-145)
[2020-03-21 21:44] LABS: Calcium 9.8 mg/dL (7.8-10.44); Glucose 163 mg/dL (83-110)
[2020-03-21 21:45] LABS: Globulin 3.7 g/dL (2.4-3.5); Protein, Total 7.7 g/dL (5.8-8.1)
[2020-03-21 21:46] LABS: Anion Gap 18 mmol/L (10-20); Bilirubin, Total 1.1 mg/dL (0.2-1.2); Carbon Dioxide 24 mmol/L (23-31)
[2020-03-21 21:47] LABS: Alkaline Phosphatase 87 U/L (40-110)
[2020-03-21 21:48] LABS: Calc. Creatinine Clearance 0 mL/min (70-130); Estimated GFR-MDRD 55
[2020-03-21 21:49] LABS: AST (SGOT) 25 U/L (5-34); BUN (Urea Nitrogen) 12 mg/dL (8.4-25.7)
[2020-03-21 21:50] LABS: ALT (SGPT) 20 U/L (8-55); Lipase 9 U/L (8-78)
--- NOTE | 2020-03-21 22:25 | CT ---
CT Abdomen Pelvis W Con: 03/21/2020 10:00 PM CLINICAL INFORMATION: Epigastric abdominal pain and nausea. History of multiple small bowel obstructi ons COMPARISON: 12/28/2018 TECHNIQUE: Multiple contiguous axial images were obtained and a CT of the abdomen and pelvis with IV contrast. C oronal and sagittal reformats were performed. FINDINGS: Lower Chest: within normal limits. Small hiatal hernia. Abdomen: Liver: within normal limits. Bile Ducts: Normal caliber. Gallbladder: Removed Pancreas: Diffuse calcifications may be secondary to chronic pancreatitis. Spleen: Scattered calcified granulomas. Adrenals: within normal limits. Kidneys: Bilateral cysts measuring up to 4.0 cm in size. Pelvis: Reproductive Organs: No pelvic masses. Ureters: within normal limits. Bladder: within normal limits. Peritoneum: No ascites or free air, no fluid collection. There is a stable nonspecific area of strand ing change in the root of the small bowel mesentery measuring approximately 3.2 cm in size. Bowel: Multiple anastomotic staple lines are seen within the bowel. Minimal residual: Is seen. There is mild enlargement of a few of the mid small bowel loops. These measure up to 4.4 cm in size. The largest area is patent an anastomosis. No small bowel feces sign is seen. No obvious transition point is seen. Mesentery and Retroperitoneum: No enlarged mesenteric or retroperitoneal lymph nodes. Vessels: Atherosclerotic calcifications. Abdominal Wall: within normal limits. Bones: Degenerative changes in the spine. There is fusion of the sacroiliac joints. There are wedge c ompression fractures of T12 and L3. There is sclerosis of the T12 compression deformity. IMPRESSION: 1. Mildly enlarged loops of small bowel may be secondary to partial bowel obstruction or ileus. 2. Chronic pancreatitis 3. Bilateral renal cysts
--- NOTE | 2020-03-21 23:21 | RAD ---
EXAM: Single view of the chest HISTORY: NG tube placement COMPARISON: 01/09/2019 FINDINGS: Single view of the low chest shows an enlarged cardiomediastinal silhouette. The patient i s status post sternotomy. An NG tube is seen in the stomach. There is no evidence of consolidation, mass, or pleural effusion in the lower chest. Degenerative changes are seen in the spine. IMPRESSION: NG tube located in the stomach.
[2020-03-21] MEDS ORDERED: Ondansetron PF 4 MG/2 ML Vial IVP PRN (23:36)
[2020-03-21] MEDS ORDERED: Morphine 4 MG/ML VIAL SLOW IVP PRN (23:36)
[2020-03-22 00:45] LABS: Lactic Acid 1.9 mmol/L (0.5-2.2)
[2020-03-22 01:40] VITALS: BMI 25.9
--- NOTE | 2020-03-22 01:44 | PDOC.FPRHP ---
- History of Present Illness Chief Complaint: Epigastric Pain History of Present Illness: Pt is a 75 y/o M who presents to ED today after feeling unwell today. He started having epigastric pain after eating lunch today and tried to manipulate his bowels/abdomen with his hands like he has done in the past with abdominal pain, and this did not help. He was having some nausea and vomited in the ED since he arrived. He has had SBO in the past and he stated that his pain and discomfort was very similar to his past episodes. He stated that his last BM was yesterday and had been passing gas this morning. He denied fever/chills. ED Course: s/p 1L fluid, 4mg zofran, 4mg morphine - Allergies/Adverse Reactions Allergies Allergy/AdvReac Type Severity Reaction Status Date / Time ciprofloxacin [From Cipro] Allergy Hives Verified 11/03/17 08:38 hydrocodone AdvReac Verified 12/17/18 22:38 - Home Medications Medication Instructions Recorded Confirmed Type Insulin NPH Human Isophane 5 unit SC QPM 08/04/15 03/22/20 History [NovoLIN N] Insulin NPH Human Isophane 15 unit SC QAM 08/04/15 03/22/20 History [NovoLIN N] diphenhydrAMINE [Benadryl] 2 tab PO HS 08/04/15 03/22/20 History Acetaminophen [Tylenol Regular 325 mg PO HS PRN 08/09/17 03/22/20 History Strength] Aspirin [Adult Low Dose Aspirin EC] 81 mg PO QAM 11/03/17 03/22/20 History Metoprolol Tartrate [Lopressor] 50 mg PO BID 11/03/17 03/22/20 History metFORMIN [Glucophage] 500 mg PO BID-WM 11/03/17 03/21/20 History Melatonin 3 mg PO HS PRN tab 01/04/19 03/22/20 Rx Amlodipine [Norvasc] 5 mg PO DAILY 03/21/20 03/22/20 History Famotidine [Pepcid] 20 mg PO QAM 03/21/20 03/22/20 History Folic Acid 1 mg PO QAM 03/21/20 03/22/20 History Losartan Potassium [Cozaar] 50 mg PO DAILY 03/22/20 03/22/20 History - History PMHx: HTN, DMII, afib, gout PSHx: hx of SBO with sg intervention, Aortic valve replacement, R knee replacement, hemicoloectomy due to angiodysplasia FHx: NC Social: no TAD - Review of Systems General: denies: fever/chills ENT: denies: nasal congestion, rhinorrhea Respiratory: denies: cough, congestion, shortness of breath Cardiovascular: denies: chest pain, palpitation, edema Gastrointestinal: reports: nausea, vomiting, abdominal pain. denies: diarrhea, constipation Genitourinary: denies: incontinence, dysuria, polyuria Skin: reports: rashes Musculoskeletal: denies: pain, tenderness - Vital signs BP: 144/79, Pulse: 70, Resp: 18, Pain: 3, O2 sat: 98 on (Room Air), Time: 03/21/2020 23:10. - Physical Exam Constitutional: NAD, awake, alert and oriented HEENT: normocephalic and atraumatic, PERRLA Neck: supple Heart: RRR, normal S1/S2, no murmurs/rubs/gallops Lungs: CTAB, no respiratory distress, good air movement, no rales/rhonchi, no wheezing, no retractions Abdomen: other (TTP, BS noted) Musculoskeletal: normal tone Neurological: no focal deficit Skin: no rash/lesions Psychiatric: normal mood and affect, good judgment and insight, intact recent and remote memory FMR H&P: Results - Labs Result Diagrams: 03/21/20 20:00 03/21/20 21:12 Lab results: WBC 21.9 thou/uL (4.8-10.8) H 03/21/20 20:00 Hgb 16.4 g/dL (14.0-18.0) 03/21/20 20:00 Hct 50.1 % (42.0-52.0) 03/21/20 20:00 MCV 91.2 fL (78.0-98.0) 03/21/20 20:00 Plt Count 238 thou/uL (130-400) 03/21/20 20:00 Band Neuts % (Manual) 7 % (5-11) 03/21/20 20:00 Sodium 137 mmol/L (136-145) 03/21/20 21:12 Potassium 3.7 mmol/L (3.5-5.1) 03/21/20 21:12 Chloride 99 mmol/L (98-107) 03/21/20 21:12 Carbon Dioxide 24 mmol/L (23-31) 03/21/20 21:12 BUN 12 mg/dL (8.4-25.7) 03/21/20 21:12 Creatinine 1.28 mg/dL (0.7-1.3) 03/21/20 21:12 Glucose 163 mg/dL (83-110) H 03/21/20 21:12 Lactic Acid 1.9 mmol/L (0.5-2.2) 03/22/20 00:13 Calcium 9.8 mg/dL (7.8-10.44) 03/21/20 21:12 Total Bilirubin 1.1 mg/dL (0.2-1.2) 03/21/20 21:12 AST 25 U/L (5-34) 03/21/20 21:12 ALT 20 U/L (8-55) 03/21/20 21:12 Alkaline Phosphatase 87 U/L (40-110) 03/21/20 21:12 Serum Total Protein 7.7 g/dL (5.8-8.1) 03/21/20 21:12 Albumin 4.0 g/dL (3.4-4.8) 03/21/20 21:12 Lipase 9 U/L (8-78) 03/21/20 21:12 - Radiology Interpretation Chest x-ray Status: image reviewed by me, report reviewed by me (s/p NG tube in stomach) CT scan - abdomen Status: image reviewed by me, report reviewed by me (mildly enlarged loops of small bowel may be secondary to partial bowel obstruction or ileus, chronic pancreatitis, bilateral renal cysts) FMR H&P: A/P - Plan ##SBO -pt presenting with SBO, noted on CT -WBC 21.9 -LA 2.1 -NG tube placed -morphine prn for pain, zofran prn for nausea -mIVF -Dr. Ramos consulted and will see in AM Chronic Medical Conditions: ##IDDMII -restart home meds when not NPO ##Afib -aware, same as above ##HTN -aware, same as above CODE: FULL DIET: NPO VTE: holding lovenox for now PCP: Gino Dispo: admitted to surgical unit for further intervention. FMR H&P: Upper Level - Plan Date/Time: 03/22/20 0142 Mr Linares is a 73yo male with pmh of DMII, afib, and multiple abdominal sx for SBO after his initial hemicolectomy for angiodysplasia presents for concern for SBO. This afternoon after eating lunch he started having cramping pain and vomited. Last BM was yesterday but passing gas until this afternoon. Denies fever, chills. Recently admitted on 01/05/[address] Garvin was called from the ED. PE: General: NAD. CV: Irregularly irregular rhythm Pulm: CTA b/l Abdomen: Nontender Extremities: No edema. Pedal pulses 2+ b/l A/P: SBO -Leukocytosis. Afebrile. Gen Surg (Dr Garvin) consulted from ED, admit to surgical floor. NPO. Morphine PRN for pain. NG tube placed. Afib -s/p left atrial appendage ligation. Not on AC. Rate controlled I, Candida Marrero, have evaluated this patient and agree with findings/plan as outlined by lab intern resident. Pertinent changes/additions are listed here. Addendum - Attending - Attending Attestation Date/Time: 03/22/20 2879 I personally evaluated the patient and discussed the management with Dr. Vaz I agree with the History, Examination, Assessment and Plan documented above with any addition or exceptions noted below.
[2020-03-22] MEDS: Lactated Ringer's 1,000 ML IV SCH ×4 (02:02→21:38)
[2020-03-22 05:45] LABS: #Lymphocytes 0.6 thou/uL (1.20-3.40); #Monocytes 1.4 thou/uL (0.11-0.59); #Neutrophils 15.9 thou/uL (1.40-6.50); %Basophils 0.1 % (0.0-1.0); %Eosinophils 0.1 % (0.0-10.0); %Lymphocytes 3.2 % (21.0-51.0); %Monocytes 7.5 % (0.0-10.0); Hemoglobin 14.7 g/dL (14.0-18.0); Mean Corpuscular HGB CONC 32.4 g/dL (32.0-36.0); Mean Corpuscular Hemoglobin 29.8 pg (27.0-31.0); Mean Platelet Volume 8.2 fL (7.4-10.4); Platelet Count 191 thou/uL (130-400); RBC Distribution Width 12.6 % (11.5-14.5); Red Blood Cell (RBC) Count 4.93 mill/uL (4.70-6.10); White Blood Cell (WBC) Count 17.9 thou/uL (4.8-10.8)
[2020-03-22 06:09] LABS: ALT (SGPT) 17 U/L (8-55); AST (SGOT) 20 U/L (5-34); Albumin 3.6 g/dL (3.4-4.8); Alkaline Phosphatase 73 U/L (40-110); Anion Gap 14 mmol/L (10-20); BUN (Urea Nitrogen) 16 mg/dL (8.4-25.7); Bilirubin, Total 1.3 mg/dL (0.2-1.2); Calc. Creatinine Clearance 60 mL/min (70-130); Carbon Dioxide 26 mmol/L (23-31); Chloride 99 mmol/L (98-107); Estimated GFR-MDRD 58; Globulin 3.1 g/dL (2.4-3.5); Glucose 189 mg/dL (83-110); Potassium 4.4 mmol/L (3.5-5.1); Protein, Total 6.7 g/dL (5.8-8.1); Sodium 135 mmol/L (136-145)
--- NOTE | 2020-03-22 06:25 | PDOC.FM ---
- Subjective Subjective: Patient states he is doing much better this morning after NG tube placement. Had 3 episodes of vomiting overnight. He feels like he could have a bowel movement. Has not passed gas. Abdominal pain resolved. He is NPO pending surgery consult. - Objective MAR Reviewed: Yes Vital Signs & Weight: Vital Signs (12 hours) Temp Pulse Resp BP Pulse Ox 03/22/20 04:00 98.5 F 81 17 111/67 96 03/22/20 01:00 98.1 F 86 18 134/64 99 Weight Weight 79.515 kg I&O: 03/20/20 03/21/20 03/22/20 06:59 06:59 06:59 Intake Total 600 Output Total 1300 Balance -700 Result Diagrams: 03/22/20 05:05 03/22/20 05:05 Phys Exam - Physical Examination Constitutional: NAD Neck: full ROM Respiratory: no wheezing, clear to auscultation bilateral Cardiovascular: RRR Gastrointestinal: soft, non-tender, no distention, positive bowel sounds (hyperactive bowel sounds) Musculoskeletal: no edema, pulses present Neurological: moves all 4 limbs Psychiatric: A&O x 3 Skin: normal turgor Dx/Plan - Plan Plan: ##SBO -pt presenting with SBO, noted on CT -WBC 21.9 -LA 2.1 -NG tube placed -morphine prn for pain, zofran prn for nausea -mIVF -Surgery consulted, follow up recs Chronic Medical Conditions: ##IDDMII -restart home meds when not NPO ##Afib -aware, same as above ##HTN -aware, same as above CODE: FULL DIET: NPO pending surgery consult VTE: holding lovenox for now PCP: Gino Dispo: admitted to surgical unit for further intervention. Dispo pending surgery recs Addendum - Attending - Attending Attestation Date/Time: 03/22/20 8510 I personally evaluated the patient and discussed the management with Dr. Ghosh I agree with the History, Examination, Assessment and Plan documented above with any addition or exceptions noted below. Patient improved with NGT however continues with singultus consider rx management if persistent. Dr Shrestha to be notified for surgery consult.
[2020-03-22] MEDS ORDERED: Melatonin 3 MG TAB PO PRN (07:58)
[2020-03-22] MEDS ORDERED: Acetaminophen 325 MG TAB PO PRN (07:59)
[2020-03-22] MEDS: Losartan 25 MG TAB PO SCH (08:47)
[2020-03-22] MEDS: Aspirin 81 mg Enteric Coated Tablet PO SCH (08:47)
[2020-03-22] MEDS: Amlodipine 5 MG TAB PO SCH (08:47)
[2020-03-22] MEDS: Metoprolol Tartrate 50 MG TAB PO SCH ×2 (08:47→21:35)
[2020-03-22] MEDS: Folic Acid 1 MG TAB PO SCH (08:47)
[2020-03-22] MEDS: Famotidine 20 MG TAB PO SCH (08:47)
[2020-03-22] MEDS: metFORMIN 500 MG TAB PO SCH ×2 (08:48→18:21)
[2020-03-22] MEDS ORDERED: chlorproMAZINE HCl 25 MG in Sodium Chloride 0.9% 50 ML IVPB PRN (10:41)
[2020-03-22 15:45] LABS: SARS-CoV-2 MS2 Positive; SARS-CoV-2 N Gene Negative; SARS-CoV-2 S Gene Negative; SARS-CoV-2 by NAA Not Detected (NotDetected); SARS-CoV-2 orf1ab Negative
[2020-03-22] MEDS: NPH, Human Insulin Isophane 300 UNIT/3 ML VIAL SC SCH (18:21)
[2020-03-23] MEDS: NPH, Human Insulin Isophane 300 UNIT/3 ML VIAL SC SCH ×3 (01:37→21:41)
--- NOTE | 2020-03-23 05:50 | PDOC.FM ---
- Subjective Subjective: Patient was resting comfortably in bed this morning. He reports that he is feeling much better and denies N/V, abdominal pain, chest pain, SOB. He reports that he is now passing gas. NG tube still in place and NPO - Objective MAR Reviewed: Yes Vital Signs & Weight: Vital Signs (12 hours) Temp Pulse Resp BP Pulse Ox 03/23/20 04:04 97.9 F 75 16 125/68 96 03/23/20 00:01 97.8 F 77 16 125/62 93 L 03/22/20 20:00 93 L 03/22/20 19:27 97.8 F 77 16 111/56 L 93 L Weight Weight 79.515 kg I&O: 03/21/20 03/22/20 03/23/20 06:59 06:59 06:59 Intake Total 600 1440 Output Total 1300 650 Balance -700 790 Result Diagrams: 03/23/20 05:23 03/23/20 05:23 Phys Exam - Physical Examination Constitutional: NAD HEENT: moist MMs Neck: supple, full ROM Respiratory: no wheezing, no rales, no rhonchi, clear to auscultation bilateral Cardiovascular: no significant murmur Irregularly irregular Gastrointestinal: soft, no distention, positive bowel sounds tender to deep palpation Musculoskeletal: no edema Neurological: non-focal Psychiatric: normal affect, A&O x 3 Skin: no rash Dx/Plan - Plan Plan: SBO -pt presenting with SBO, noted on CT -WBC 21.9 > 17.9 > 21.9 -LA 2.1 > 1.9 -NG tube placed -now passing gas -morphine prn for pain, zofran prn for nausea -mIVF -Will contact surgery today regarding recommendations IDDMII -restart home meds when not NPO Afib -rate controlled, not on anticoagulation at home -aware, same as above HTN -aware, same as above Dispo: Dispo pending surgery recs Addendum - Attending - Attending Attestation Date/Time: 03/23/20 [id number] I personally evaluated the patient and discussed the management with Dr. Ridley. I agree with the History, Examination, Assessment and Plan documented above with any addition or exceptions noted below. SBO resolved on gastrografin. Awaiting gen surg recs.
[2020-03-23 06:09] LABS: #Eosinphils 0.1 thou/uL (0.0-0.7); #Lymphocytes 1.3 thou/uL (1.20-3.40); #Monocytes 1.3 thou/uL (0.11-0.59); #Neutrophils 7.6 thou/uL (1.40-6.50); %Basophils 0.1 % (0.0-1.0); %Eosinophils 0.8 % (0.0-10.0); %Lymphocytes 12.5 % (21.0-51.0); %Neutrophils 73.7 % (42.0-75.0); Hemoglobin 13.4 g/dL (14.0-18.0); Mean Corpuscular HGB CONC 32.9 g/dL (32.0-36.0); Mean Corpuscular Hemoglobin 30.3 pg (27.0-31.0); Mean Corpuscular Volume 92.3 fL (78.0-98.0); Mean Platelet Volume 8.6 fL (7.4-10.4); Platelet Count 154 thou/uL (130-400); RBC Distribution Width 12.6 % (11.5-14.5); Red Blood Cell (RBC) Count 4.41 mill/uL (4.70-6.10); White Blood Cell (WBC) Count 10.4 thou/uL (4.8-10.8)
[2020-03-23 06:33] LABS: ALT (SGPT) 12 U/L (8-55); AST (SGOT) 20 U/L (5-34); Albumin 3.3 g/dL (3.4-4.8); Alkaline Phosphatase 55 U/L (40-110); Anion Gap 13 mmol/L (10-20); BUN (Urea Nitrogen) 19 mg/dL (8.4-25.7); Bilirubin, Total 1.8 mg/dL (0.2-1.2); Calc. Creatinine Clearance 66 mL/min (70-130); Calcium 8.4 mg/dL (7.8-10.44); Carbon Dioxide 27 mmol/L (23-31); Chloride 100 mmol/L (98-107); Estimated GFR-MDRD 64; Globulin 3.1 g/dL (2.4-3.5); Glucose 128 mg/dL (83-110); Protein, Total 6.4 g/dL (5.8-8.1); Sodium 136 mmol/L (136-145)
[2020-03-23] MEDS: Losartan 25 MG TAB PO SCH (07:40)
[2020-03-23] MEDS: Aspirin 81 mg Enteric Coated Tablet PO SCH (07:40)
[2020-03-23] MEDS: Amlodipine 5 MG TAB PO SCH (07:40)
[2020-03-23] MEDS: Folic Acid 1 MG TAB PO SCH (07:45)
[2020-03-23] MEDS: Metoprolol Tartrate 50 MG TAB PO SCH ×2 (07:45→21:36)
[2020-03-23] MEDS: Famotidine 20 MG TAB PO SCH (07:45)
[2020-03-23] MEDS ORDERED: MD-Gastroview 120 ML BOT ONE (09:19)
--- NOTE | 2020-03-23 09:27 | RAD ---
EXAM: 2 views of the abdomen HISTORY: Abdominal obstruction COMPARISON: CT abdomen/pelvis 03/21/2020 FINDINGS: 2 views of the abdomen shows a nonspecific, nonobstructive bowel gas pattern. An NG tube is seen in the stomach. No free air or air-fluid levels are seen on upright examination. Stool is seen in the rectum. No suspicious calcifications are seen. Cholecystectomy clips are seen. Vascular C alcic lesions are seen. Degenerative changes are seen in the spine. IMPRESSION: Nonobstructive bowel gas pattern
--- NOTE | 2020-03-23 10:42 | RAD ---
EXAM: Small bowel follow-through HISTORY: Small bowel obstruction COMPARISON: CT abdomen/pelvis 03/21/2020 FINDINGS: A Gastrografin small bowel follow-through was performed. The small bowel loops are normal i n caliber without distention. Minimal residual colon is seen distally. Contrast passes through the small bowel loops to the colon by 30 minutes. IMPRESSION: No evidence of bowel obstruction
--- NOTE | 2020-03-23 12:02 | CON ---
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 He presents with acute onset Monday of lower abdominal pain, bloating, and nausea. His last bowel movement was two days ago, Monday morning, today is Monday. He has been passing flatus over the weekend; however. NG tube was placed on arrival and yesterday put out 900 and today 1200 mL. The patient had a CAT scan on 03/21/2020 revealing some dilated loops of small bowel without definite transition point and there was no fecalization. The patient has a past history of operations resulting in a subtotal colectomy with ileocolonic anastomosis. He has not had a colonoscopy in more than 15 years. On August 09, 2017, Dr. Maravilla did an upper endoscopy for bleeding, some clot was noted, no active bleeding noted. On August 10, 2017, he had a repeat endoscopy noting some AVMs proximal stomach, which were cauterized. The patient on 12/19/2018 had a laparotomy by Dr. Garvin for a bowel obstruction with a small bowel resection and anastomosis, small bowel resected due to an area of ischemia secondary to internal hernia. At that time, ileosigmoid colon anastomosis noted from subtotal colectomy. ALLERGIES: CIPRO AND HYDROCODONE. SOCIAL HISTORY: Tobacco, none. Alcohol, none. MEDICATIONS: 1. Losartan. 2. Metoprolol. 3. Insulin. 4. Pepcid. 5. Norvasc. 6. Aspirin. 7. Metformin. PAST SURGICAL HISTORY: In December 2018, laparotomy for bowel obstruction. On 04/02/2008, right knee arthroscopy and lateral meniscectomy. In August 1998; laparotomy, extensive adhesiolysis, small bowel resection x2 with prior anastomosis, closure of enterocutaneous fistula and debridement of fascial edges. In January 1993, cholecystectomy, appendectomy, subtotal distal colectomy with primary anastomosis. In October 1994; laparotomy, extensive adhesiolysis, double Marlex mesh, preperitoneal type repair of multiple incisional hernias when he presented with a small bowel obstruction and incisional hernia. In May 1996, GI bleeding, laparotomy with right colectomy to complete his subtotal abdominal colectomy with ileo distal sigmoid upper rectum anastomosis. In May 1996, he returned to the operating room for adhesiolysis and gastrostomy for recurrent bowel obstruction that he did not recover from after the initial operation two weeks prior. In February 1998, abdominal wall hematoma that began draining and then he had intermittent bedside debridement of sutures. He developed a fistula, for which the above operation described requiring laparotomy, small bowel resection, resection of the fistula and repair. PAST MEDICAL HISTORY: Polymyalgia rheumatica, diabetes mellitus, history of atrial fibrillation, and history of hypercholesterolemia. He is followed by Dr. Ann, saw him a month ago. The patient has had an AVR in the past. In August 2015, Dr. Mccray did a right total knee replacement. In February 2017, aortic valve replacement. REVIEW OF SYSTEMS: Ten-point noncontributory otherwise. PHYSICAL EXAMINATION: VITAL SIGNS: A 5 feet 9 inches, 175 pounds, and 25 BMI. HEAD, EARS, EYES, NOSE, AND THROAT: Unremarkable. LUNGS: Clear to auscultation. CARDIAC: Regular rate and rhythm. No murmur or gallop. ABDOMEN: Soft and nontender. Well-healed midline wound. No hernias. EXTREMITIES: Unremarkable. No ankle edema. LABORATORY DATA: White count 21 on admission and 10 now and hemoglobin dropped from 16 to 13 after hydration. Basic metabolic profile normal. BUN and creatinine 19 and 1.12, glucose 128 to 189, and bilirubin up to 1.8. Transaminases normal. ASSESSMENT AND PLAN: Small bowel obstruction since his laparotomy adhesiolysis, small bowel resection last year that Dr. Garvin performed. The patient states that about once a month he has upper abdominal discomfort after eating, will massage his abdomen, relieving some of his symptoms and pain and having a bowel movement make him feel better. I am concerned about the patient's NG tube volume output; however, he is passing flatus daily. I have ordered repeat abdominal x-rays and a small bowel followthrough this morning. We will await these results. Continue IV fluid hydration, NG tube, and n.p.o. Awaiting small bowel followthrough. Job ID: [id number]
[2020-03-23] MEDS: metFORMIN 500 MG TAB PO SCH ×3 (13:27→17:41)
[2020-03-23] MEDS: Lactated Ringer's 1,000 ML IV SCH (13:27)
[2020-03-23] MEDS ORDERED: diphenhydrAMINE 25 MG CAP PO SCH (21:00)
[2020-03-24 05:30] LABS: #Eosinphils 0.2 thou/uL (0.0-0.7); #Lymphocytes 1.3 thou/uL (1.20-3.40); #Monocytes 1.5 thou/uL (0.11-0.59); #Neutrophils 8.7 thou/uL (1.40-6.50); %Basophils 0.3 % (0.0-1.0); %Eosinophils 1.6 % (0.0-10.0); %Lymphocytes 10.9 % (21.0-51.0); %Monocytes 12.4 % (0.0-10.0); %Neutrophils 74.8 % (42.0-75.0); Hemoglobin 13.5 g/dL (14.0-18.0); Mean Corpuscular HGB CONC 32.7 g/dL (32.0-36.0); Mean Corpuscular Hemoglobin 30.2 pg (27.0-31.0); Mean Corpuscular Volume 92.5 fL (78.0-98.0); Mean Platelet Volume 7.9 fL (7.4-10.4); Platelet Count 170 thou/uL (130-400); RBC Distribution Width 12.5 % (11.5-14.5); Red Blood Cell (RBC) Count 4.48 mill/uL (4.70-6.10); White Blood Cell (WBC) Count 11.6 thou/uL (4.8-10.8)
[2020-03-24 05:49] LABS: ALT (SGPT) 11 U/L (8-55); AST (SGOT) 20 U/L (5-34); Albumin 3.5 g/dL (3.4-4.8); Alkaline Phosphatase 59 U/L (40-110); Anion Gap 14 mmol/L (10-20); BUN (Urea Nitrogen) 15 mg/dL (8.4-25.7); Bilirubin, Total 1.3 mg/dL (0.2-1.2); Calc. Creatinine Clearance 76 mL/min (70-130); Calcium 8.6 mg/dL (7.8-10.44); Carbon Dioxide 27 mmol/L (23-31); Chloride 102 mmol/L (98-107); Estimated GFR-MDRD 75; Globulin 3.2 g/dL (2.4-3.5); Glucose 120 mg/dL (83-110); Potassium 3.8 mmol/L (3.5-5.1); Protein, Total 6.7 g/dL (5.8-8.1); Sodium 139 mmol/L (136-145)
--- NOTE | 2020-03-24 06:13 | PDOC.FM ---
- Subjective Subjective: Reports tolerating PO intake without N/V. Continues to have BM. Denies CP, SOB, Abdominal pain. - Objective MAR Reviewed: Yes Vital Signs & Weight: Vital Signs (12 hours) Temp Pulse Resp BP Pulse Ox 03/24/20 03:36 98.0 F 62 16 127/72 96 03/23/20 23:20 98.0 F 61 16 136/72 95 03/23/20 19:00 98.4 F 78 16 129/71 97 Weight Weight 79.515 kg I&O: 03/22/20 03/23/20 03/24/20 06:59 06:59 06:59 Intake Total 600 3120 810 Output Total 1300 1200 Balance -700 1920 810 Result Diagrams: 03/24/20 05:05 03/24/20 05:05 Phys Exam - Physical Examination Constitutional: NAD HEENT: moist MMs Neck: supple, full ROM Respiratory: no wheezing, no rales, no rhonchi Cardiovascular: RRR Gastrointestinal: soft, non-tender, no distention, positive bowel sounds Musculoskeletal: no edema Neurological: non-focal, moves all 4 limbs Psychiatric: normal affect, A&O x 3 Skin: no rash Dx/Plan - Plan Plan: SBO, resolved -pt presenting with SBO, noted on CT -WBC 21.9 > 17.9 > 10.4 > 11.6 -LA 2.1 > 1.9 -s/p NG tube -during SBO studies with gastrogafin, obstruction resolved with large BM -patient was given liquid diet to advance as tolerated, tolerating PO intake -will likely DC home today pending general surgery recs IDDMII -restart home meds Afib -rate controlled, not on anticoagulation at home -aware, same as above HTN -aware, same as above Dispo: Dispo pending surgery recs Addendum - Attending - Attending Attestation Date/Time: 03/24/20 [id number] I personally evaluated the patient and discussed the management with Dr. Ridley. I agree with the History, Examination, Assessment and Plan documented above with any addition or exceptions noted below. D/C home today.
[2020-03-24] MEDS: NPH, Human Insulin Isophane 300 UNIT/3 ML VIAL SC SCH (07:48)
[2020-03-24] MEDS: Aspirin 81 mg Enteric Coated Tablet PO SCH (07:49)
[2020-03-24] MEDS: metFORMIN 500 MG TAB PO SCH (07:49)
[2020-03-24] MEDS: Losartan 25 MG TAB PO SCH (07:49)
[2020-03-24] MEDS: Folic Acid 1 MG TAB PO SCH (07:49)
[2020-03-24] MEDS: Amlodipine 5 MG TAB PO SCH (07:49)
[2020-03-24] MEDS: Famotidine 20 MG TAB PO SCH (07:49)
[2020-03-24] MEDS: Metoprolol Tartrate 50 MG TAB PO SCH (07:49)
[2020-03-24 08:53] VITALS: BP 132/79; TEMP 97.7
--- NOTE | 2020-03-25 13:38 | PDOC.DS.DS ---
Provider - Provider Date of Admission: 03/21/20 23:01 Admitting Provider: Artur Odom MD Consultations: General Surgery Primary Care Physician: Dr. Christian Course - Hospital Course Resuscitation Status: 03/21/20 23:36 Resuscitation Status Routine Co-Sign Provider: Resuscitation Status: FULL: Full Resuscitation Discussed with: patient - Labs Lab Results: 03/24/20 05:05 03/24/20 05:05 Abnormal Lab Results - Last 48 hrs 03/24/20 05:05: WBC 11.6 H, RBC 4.48 L, Hgb 13.5 L, Hct 41.4 L, Lymphocytes % 10.9 L, Monocytes % 12.4 H, Neutrophils # 8.7 H, Monocytes # 1.5 H 03/24/20 05:05: Total Bilirubin 1.3 H, Albumin/Globulin Ratio 1.1 L - Physical Exam Vitals: Weight Weight 79.515 kg Physical Exam: The patient was seen and examined on the day of discharge. Plan - Discharge Medications Home Medications: Medication Instructions Recorded Confirmed Type Insulin NPH Human Isophane 5 unit SC QPM 08/04/15 03/22/20 History [NovoLIN N] Insulin NPH Human Isophane 15 unit SC QAM 08/04/15 03/22/20 History [NovoLIN N] diphenhydrAMINE [Benadryl] 2 tab PO HS 08/04/15 03/22/20 History Acetaminophen [Tylenol Regular 325 mg PO HS PRN 08/09/17 03/22/20 History Strength] Aspirin [Adult Low Dose Aspirin EC] 81 mg PO QAM 11/03/17 03/22/20 History Metoprolol Tartrate [Lopressor] 50 mg PO BID 11/03/17 03/22/20 History Melatonin 3 mg PO HS PRN tab 01/04/19 03/22/20 Rx Amlodipine [Norvasc] 5 mg PO DAILY 03/21/20 03/22/20 History Famotidine [Pepcid] 20 mg PO QAM 03/21/20 03/22/20 History Folic Acid 1 mg PO QAM 03/21/20 03/22/20 History Losartan Potassium [Cozaar] 50 mg PO DAILY 03/22/20 03/22/20 History Allergies: ciprofloxacin [From Cipro] Allergy (Verified 11/03/17 08:38) Hives hydrocodone Adverse Reaction (Verified 12/17/18 22:38) "Acted loopy" per family - Discharge Instructions Activity:: Activity as Tolerated Nourishment:: Diabetic Diet Therapies:: Not Applicable Equipment/Supplies:: Not Applicable IV Therapy:: Not Applicable - Follow up Plan Referrals: Omkar Shrestha MD [Active] - (as needed.) Robby Christian MD [Active] - 7 Days Disposition: HOME
--- NOTE | 2020-03-25 14:58 | DIS ---
DATE OF ADMISSION: 03/21/2020 DATE OF DISCHARGE: 03/24/2020 ADMITTING ATTENDING: Artur Odom M.D. DISCHARGE ATTENDING: Juan Braxton M.D. CONSULT: General Surgery, Omkar Shrestha MD PROCEDURES AND IMAGES: 1. CT of the abdomen and pelvis shows mildly enlarged loops of small bowel may be secondary to partial bowel obstruction or ileus, chronic pancreatitis, bilateral renal cysts. 2. Chest x-ray, NG tube located in the stomach. 3. Abdominal x-ray, no obstructive bowel gas pattern. 4. Small bowel x-ray, no evidence of bowel obstruction. PRIMARY DIAGNOSIS: Partial small bowel obstruction. SECONDARY DIAGNOSES: 1. Type 2 diabetes mellitus. 2. Atrial fibrillation. 3. Hypertension. DISCHARGE MEDICATIONS: 1. Benadryl 2 tabs p.o. at bedtime. 2. Novolin 15 units subcutaneous q.a.m. 3. Tylenol 325 mg p.o. at bedtime p.r.n. 4. Metoprolol tartrate 50 mg p.o. b.i.d. 5. Aspirin 81 mg p.o. q.a.m. 6. Melatonin 3 mg p.o. at bedtime p.r.n. 7. Amlodipine 5 mg p.o. daily. 8. Folic acid 1 mg p.o. q.a.m. 9. Famotidine 20 mg p.o. q.a.m. 10. Losartan 50 mg p.o. daily. Discontinued medications: None. HISTORY OF PRESENT ILLNESS AND HOSPITAL COURSE: The patient is a 75-year-old male who presents to the ED for not feeling well. He reported that he began having epigastric pain after eating lunch and tried to manipulate his bowels with his hands as he has done in the past to relieve the abdominal pain. He also endorsed some nausea and vomiting. The patient has a history of multiple small bowel obstructions in the past and stated that the pain and discomfort was similar to previous episodes. The patient was admitted for small bowel obstruction noted on CT and NG tube was placed. The patient was made n.p.o., NG tube was inserted, was given as needed morphine for pain and as needed Zofran for nausea. He was also started on maintenance IV fluids. On 03/23/2020, the patient began passing gas and was evaluated by Dr. [place] with General Surgery and repeat abdominal x-ray and small-bowel follow-through. After receiving the Gastrografin for small-bowel follow-through, the patient produced large bowel movement and his pain is relieved. He was then started on clear liquid diet which was advanced as tolerated. On 03/24, the patient was tolerating p.o. intake and denied nausea and vomiting. He was stable for discharge at that time. DISPOSITION: Stable. DISCHARGE INSTRUCTIONS: 1. Location: Home. 2. Diet: Diabetic diet. 3. Activity: As tolerated. 4. Followup: Follow up with Dr. Christian in [address] Omkar Shrestha as needed. Job ID: [id number] [facility]
--- NOTE | 2020-03-28 15:27 | EKG ---
Test Reason : Blood Pressure : / mmHG Vent. Rate : 071 BPM Atrial Rate : 084 BPM P-R Int : 000 ms QRS Dur : 154 ms QT Int : 464 ms P-R-T Axes : 000 -89 034 degrees QTc Int : 504 ms Atrial fibrillation Left axis deviation Right bundle branch block Inferior infarct , age undetermined Anterolateral infarct , age undetermined Abnormal ECG Confirmed by JIM QUESADA, IRIS Vera ([id number]), video effects editor CHUY SOLIS ([id number]) on 03/28/2020 3:27:08 PM Referred By: Confirmed By:IRIS FERNANDEZ MD
== END 2020-03-24 11:40 | disposition home or self-care (01) | DRG 390 ==
LOC: ERS 19:23 → SURG A 23:01
PROVIDERS: ADMIT Family Medicine; ATTEND Family Medicine
DX: K56.609 Unspecified intestinal obstruction, unspecified as to partial versus complete obstruction (principal); E11.9 Type 2 diabetes mellitus without complications; I48.91 Unspecified atrial fibrillation; I10 Essential (primary) hypertension; Z20.828 Contact with and (suspected) exposure to other viral communicable diseases; M10.9 Gout, unspecified; Z96.651 Presence of right artificial knee joint; D72.829 Elevated white blood cell count, unspecified; Z90.49 Acquired absence of other specified parts of digestive tract; Z95.2 Presence of prosthetic heart valve; Z88.1 Allergy status to other antibiotic agents; Z88.8 Allergy status to other drugs, medicaments and biological substances; Z79.4 Long term (current) use of insulin; Z79.899 Other long term (current) drug therapy; Z79.82 Long term (current) use of aspirin
CPT/HCPCS: 36415; 36416; 71045; 74019; 74177; 74250; 80053; 83605; 83690; 85025; 87635; 93005; 96374; 96375; J1815; J2270; J2405; J3230; Q0163; Q9963; Q9967; U0003

== ENCOUNTER 2020-07-06 12:43 | Outpatient (CLI) | payer MEDICARE ==
--- NOTE | 2020-07-06 13:39 | ULT ---
EXAM: US Soft Tissue Abd Wall PROVIDED CLINICAL HISTORY: Enterocutaneous fistula evaluation COMPARISON: None FINDINGS/IMPRESSION: Limited sonographic evaluation of the mid abdominal wall subcutaneous soft tissues demonstrates an ar ea of irregular heterogeneity which measures 3.1 cm x 1.8 cm x 2.9 cm. This does appear to extend to the dermis. This could represent an area of scarring. However, focal area of infection would be di fficult to exclude. Examination is performed for evaluation of an enterocutaneous fistula, but fistula formation would be difficult to exclude based on sonographic evaluation.
== END 2020-07-06 12:44 | disposition home or self-care (01) ==
LOC: BICULT 12:43
PROVIDERS: ATTEND Family Medicine
DX: K63.2 Fistula of intestine (principal)
CPT/HCPCS: 76705

== ENCOUNTER 2020-07-23 08:24 | Outpatient (CLI) | payer MEDICARE ==
[2020-07-23] MEDS ORDERED: Iopamidol-370 76% 500 ML 1 ML ONE (14:43)
== END 2020-07-23 08:25 | disposition home or self-care (01) ==
LOC: BICCT 08:24
PROVIDERS: ATTEND Specialist
DX: Z48.815 Encounter for surgical aftercare following surgery on the digestive system (principal); Z90.49 Acquired absence of other specified parts of digestive tract; N40.0 Benign prostatic hyperplasia without lower urinary tract symptoms; N28.1 Cyst of kidney, acquired; N28.9 Disorder of kidney and ureter, unspecified; Z98.890 Other specified postprocedural states
CPT/HCPCS: 74177; 82565; Q9967

== ENCOUNTER 2021-02-16 00:52 | Observation (INO) | payer MEDICARE ==
[2021-02-16 01:56] LABS: #Eosinphils 0.1 thou/uL (0.0-0.7); #Lymphocytes 1.4 thou/uL (1.20-3.40); #Monocytes 1.1 thou/uL (0.11-0.59); #Neutrophils 13.6 thou/uL (1.40-6.50); %Basophils 0.3 % (0.0-1.0); %Eosinophils 0.5 % (0.0-10.0); %Lymphocytes 8.7 % (21.0-51.0); %Monocytes 6.7 % (0.0-10.0); %Neutrophils 83.9 % (42.0-75.0); Hemoglobin 17.2 g/dL (14.0-18.0); Mean Corpuscular Hemoglobin 30.1 pg (27.0-31.0); Mean Corpuscular Volume 91.4 fL (78.0-98.0); Mean Platelet Volume 8.1 fL (7.4-10.4); Platelet Count 206 thou/uL (130-400); RBC Distribution Width 13.2 % (11.5-14.5); White Blood Cell (WBC) Count 16.2 thou/uL (4.8-10.8)
[2021-02-16] MEDS ORDERED: Morphine 4 MG/ML VIAL ONE (02:38)
[2021-02-16] MEDS ORDERED: Ondansetron PF 4 MG/2 ML Vial ONE (02:38)
[2021-02-16 03:05] LABS: ALT (SGPT) 17 U/L (8-55); AST (SGOT) 19 U/L (5-34); Albumin 4.1 g/dL (3.4-4.8); Alkaline Phosphatase 84 U/L (40-110); Anion Gap 18 mmol/L (10-20); BUN (Urea Nitrogen) 15 mg/dL (8.4-25.7); Bilirubin, Total 1.2 mg/dL (0.2-1.2); Calc. Creatinine Clearance 0 mL/min (70-130); Calcium 10.3 mg/dL (7.8-10.44); Carbon Dioxide 23 mmol/L (23-31); Chloride 99 mmol/L (98-107); Globulin 3.9 g/dL (2.4-3.5); Glucose 199 mg/dL (83-110); Lipase 16 U/L (8-78); Potassium 4.2 mmol/L (3.5-5.1); Sodium 136 mmol/L (136-145)
[2021-02-16 08:05] LABS: Bilirubin Negative (Negative); Blood, Urine Negative (Negative); Clarity Clear (Clear); Glucose, Urine (Dipstick) Greater than 1000 mg/dL (Negative); Ketone, Urine 20 mg/dL (Negative); Leukocyte Negative Leu/uL (Negative); Nitrite Negative (Negative); Protein, Urine (Dipstick) 20 mg/dL (Neg-Trace); Specific Gravity, Urine 1.039 (1.002-1.036); Urobilinogen Normal mg/dL (Less than 2)
[2021-02-16] MEDS ORDERED: Ondansetron ODT 4 MG TAB PO PRN ×2 (09:17→09:26)
[2021-02-16] MEDS ORDERED: Ondansetron PF 4 MG/2 ML Vial IVP PRN ×2 (09:17→09:26)
[2021-02-16] MEDS ORDERED: Morphine 4 MG/ML VIAL SLOW IVP PRN ×3 (09:17→09:37)
[2021-02-16] MEDS ORDERED: hydrALAZINE 20 MG/ML VIAL SLOW IVP PRN (09:26)
[2021-02-16] MEDS ORDERED: Morphine 2 MG/ML VIAL SLOW IVP PRN (09:26)
[2021-02-16] MEDS ORDERED: Dextrose 50% Abboject 50 ML SYRINGE SLOW IVP PRN (09:28)
[2021-02-16] MEDS ORDERED: Dextrose 5% in Water 1,000 ML IV PRN (09:28)
[2021-02-16] MEDS ORDERED: Sodium Chloride 0.9% 1,000 ML IV SCH (09:30)
[2021-02-16] MEDS ORDERED: Dextrose 5 % And 0.9 % NaCl 1,000 ML IV SCH (09:30)
[2021-02-16 10:19] VITALS: BMI 27.5
[2021-02-16] MEDS: HumaLOG 300 UNITS/3 ML VIAL SC PRN ×2 (13:19→16:26)
[2021-02-16 14:07] LABS: SARS-CoV-2 NAA Rapid Test Not Detected (NotDetected)
[2021-02-16 15:57] VITALS: BP 158/74; TEMP 98
[2021-02-16] MEDS ORDERED: Iopamidol 370 76% 100 ML VIAL ONE (16:03)
[2021-02-16] MEDS ORDERED: MD-Gastroview 120 ML BOT ONE (16:19)
[2021-02-16] MEDS ORDERED: Metoprolol Tartrate 50 MG TAB PO SCH (21:00)
[2021-02-16] MEDS ORDERED: Enoxaparin Sodium 40 MG/0.4 ML SYRINGE SC SCH (21:00)
[2021-02-16] MEDS ORDERED: diphenhydrAMINE 25 MG CAP PO SCH (21:00)
[2021-02-16] MEDS ORDERED: Famotidine 20 MG TAB PO SCH (21:00)
[2021-02-16] MEDS ORDERED: NPH, Human Insulin Isophane 300 UNIT/3 ML VIAL SC SCH (21:00)
[2021-02-16] MEDS ORDERED: Acetaminophen 325 MG TAB PO SCH (21:00)
[2021-02-17] MEDS ORDERED: Aspirin 81 mg Enteric Coated Tablet PO SCH (09:00)
[2021-02-17] MEDS ORDERED: Losartan 25 MG TAB PO SCH (09:00)
[2021-02-17] MEDS ORDERED: NPH, Human Insulin Isophane 300 UNIT/3 ML VIAL SC SCH (09:00)
[2021-02-17] MEDS ORDERED: Non-Formulary Item 1 EACH (Losartan Potassium [Cozaar] 50 MG Tab) PO SCH (09:00)
[2021-02-17] MEDS ORDERED: Amlodipine 5 MG TAB PO SCH (09:00)
== END 2021-02-16 18:52 | disposition home or self-care (01) ==
LOC: ERS 00:52 → T4-B 04:08 → INTOOBSV 04:08 → T4-B 08:30
PROVIDERS: ADMIT Specialist; ATTEND Specialist
DX: K56.600 Partial intestinal obstruction, unspecified as to cause (principal); I25.10 Atherosclerotic heart disease of native coronary artery without angina pectoris; E11.9 Type 2 diabetes mellitus without complications; K59.00 Constipation, unspecified; M35.3 Polymyalgia rheumatica; I48.91 Unspecified atrial fibrillation; E78.00 Pure hypercholesterolemia, unspecified; K40.20 Bilateral inguinal hernia, without obstruction or gangrene, not specified as recurrent; I10 Essential (primary) hypertension; M10.9 Gout, unspecified; S31.109A Unspecified open wound of abdominal wall, unspecified quadrant without penetration into peritoneal cavity, initial encounter; Z79.4 Long term (current) use of insulin; Z79.82 Long term (current) use of aspirin; Z79.899 Other long term (current) drug therapy; Z88.1 Allergy status to other antibiotic agents; Z88.5 Allergy status to narcotic agent; Z95.1 Presence of aortocoronary bypass graft; Z95.2 Presence of prosthetic heart valve; Z90.49 Acquired absence of other specified parts of digestive tract; Z98.890 Other specified postprocedural states; Z20.822 Contact with and (suspected) exposure to COVID-19
CPT/HCPCS: 74177; 74250; 80053; 81003; 82962; 83690; 85025; 93005; 96374; 96375; 97139; 99285; U0002; 36415; 36416; J1815; J2270; J2405; J7050; Q9963; Q9967

== ENCOUNTER 2022-12-08 08:51 | Outpatient (CLI) | payer MEDICARE | END 2022-12-08 08:52 | disposition home or self-care (01) | LOC: MRI 08:51 | PROVIDERS: ATTEND Family Medicine | DX: I63.9 Cerebral infarction, unspecified (principal) | CPT/HCPCS: 70551 ==

== ENCOUNTER 2024-06-14 23:21 | Inpatient (IN) | payer MEDICARE, OTHER ==
[2024-06-15 00:57] LABS: #Basophils 0.07 10x3/uL (0.0-0.2); %Basophils 0.7 % (0.0-1.0); %Lymphocytes 11.5 % (21.0-51.0); %Monocytes 7.9 % (0.0-10.0); %Neutrophils 78.4 % (42.0-75.0); Hematocrit 47.9 % (42.0-52.0); Mean Corpuscular HGB CONC 33.4 g/dL (32.0-36.0); Mean Corpuscular Hemoglobin 29.3 pg (27.0-31.0); Mean Corpuscular Volume 87.6 fL (78.0-98.0); Mean Platelet Volume 9.8 fL (7.4-10.4); Platelet Count 222 10x3/uL (130-400); RBC Distribution Width 12.9 % (11.5-14.5); Red Blood Cell (RBC) Count 5.47 mill/uL (4.70-6.10)
[2024-06-15 01:35] LABS: ALT (SGPT) 21 U/L (Less than 45); AST (SGOT) 28 U/L (11-34); Alkaline Phosphatase 91 U/L (40-110); Anion Gap 18 mmol/L (10-20); BUN (Urea Nitrogen) 12 mg/dL (8.4-25.7); Bilirubin, Total 0.9 mg/dL (0.3-1.2); Calc. Creatinine Clearance 0 mL/min (70-130); Calcium 10.4 mg/dL (7.8-10.44); Carbon Dioxide 22 mmol/L (23-31); Chloride 99 mmol/L (98-107); Estimated GFR 64; Globulin 4.4 g/dL (2.4-3.5); Glucose 212 mg/dL (83-110); Lipase 13 U/L (8-78); Potassium 4.2 mmol/L (3.5-5.1); Protein, Total 8.4 g/dL (5.8-8.1); Sodium 135 mmol/L (136-145)
[2024-06-15] MEDS ORDERED: Morphine 4 MG/ML VIAL ONE (02:27)
[2024-06-15] MEDS ORDERED: Ondansetron PF 4 MG/2 ML Vial ONE (02:27)
[2024-06-15] MEDS ORDERED: Ondansetron PF 4 MG/2 ML Vial IVP PRN (03:50)
[2024-06-15] MEDS ORDERED: Glucagon 1 MG/ML KIT IM PRN (03:50)
[2024-06-15] MEDS ORDERED: TETANUS, DIPHTHERIA TOX,ADULT (TDVAX) 0.5 ML VIAL IM ONE (03:50)
[2024-06-15] MEDS ORDERED: Morphine 4 MG/ML VIAL SLOW IVP PRN (03:50)
[2024-06-15] MEDS ORDERED: Dextrose 5% in Water 1,000 ML IV PRN (03:50)
[2024-06-15] MEDS ORDERED: Dextrose 50% Abboject 50 ML SYRINGE SLOW IVP PRN (03:50)
[2024-06-15] MEDS: Lactated Ringer's 1,000 ML IV SCH ×2 (06:05→06:12)
[2024-06-15 06:21] VITALS: BMI 26.9
[2024-06-15] MEDS: Ketorolac Tromethamine 30 MG (1 mL) VIAL IVP SCH (06:52)
[2024-06-15] MEDS: Pantoprazole 40 MG VIAL IVP SCH (08:56)
[2024-06-15] MEDS ORDERED: Ketorolac Tromethamine 30 MG (1 mL) VIAL IVP PRN (09:00)
[2024-06-15] MEDS ORDERED: TETANUS AND DIPHTHERIA TOX/PF 0.5 ML DISP.SYRIN IM SCH (09:00)
[2024-06-15] MEDS: Insulin Lispro 100 UNIT/ML 10 ML VIAL SC PRN (13:09)
[2024-06-15] MEDS ORDERED: Iopamidol 370 76% 100 ML VIAL ONE (15:09)
[2024-06-15] MEDS: Enoxaparin 40 MG (0.4 mL) SYRINGE SC SCH (21:30)
[2024-06-16 06:02] LABS: #Basophils 0.04 10x3/uL (0.0-0.2); %Basophils 0.3 % (0.0-1.0); %Lymphocytes 13.2 % (21.0-51.0); %Monocytes 10.2 % (0.0-10.0); %Neutrophils 74.8 % (42.0-75.0); Hematocrit 44.4 % (42.0-52.0); Hemoglobin 14.5 g/dL (14.0-18.0); Mean Corpuscular HGB CONC 32.7 g/dL (32.0-36.0); Mean Corpuscular Hemoglobin 29.2 pg (27.0-31.0); Mean Corpuscular Volume 89.3 fL (78.0-98.0); Mean Platelet Volume 10.1 fL (7.4-10.4); Platelet Count 194 10x3/uL (130-400); RBC Distribution Width 13.1 % (11.5-14.5); Red Blood Cell (RBC) Count 4.97 mill/uL (4.70-6.10)
[2024-06-16 06:35] LABS: ALT (SGPT) 15 U/L (Less than 45); AST (SGOT) 27 U/L (11-34); Albumin 3.2 g/dL (3.1-4.5); Alkaline Phosphatase 60 U/L (40-110); Anion Gap 15 mmol/L (10-20); BUN (Urea Nitrogen) 13 mg/dL (8.4-25.7); Bilirubin, Total 1.7 mg/dL (0.3-1.2); Calc. Creatinine Clearance 72 mL/min (70-130); Calcium 8.9 mg/dL (7.8-10.44); Carbon Dioxide 25 mmol/L (23-31); Chloride 101 mmol/L (98-107); Estimated GFR 78; Globulin 3.6 g/dL (2.4-3.5); Glucose 170 mg/dL (83-110); Magnesium 1.6 mg/dL (1.6-2.6); Potassium 4.2 mmol/L (3.5-5.1); Protein, Total 6.8 g/dL (5.8-8.1); Sodium 137 mmol/L (136-145)
[2024-06-16] MEDS ORDERED: MD-Gastroview 120 ML BOT ONE (11:19)
[2024-06-16] MEDS ORDERED: Famotidine 20 MG TAB PO PRN (12:39)
[2024-06-16] MEDS ORDERED: diphenhydrAMINE 25 MG CAP PO PRN (12:39)
[2024-06-16] MEDS ORDERED: Fluticasone Propionate Nasal Spray 16 gm Bottle NASAL PRN (12:39)
[2024-06-16 16:34] VITALS: BP 169/91; TEMP 97.7
[2024-06-16] MEDS ORDERED: Acetaminophen 325 MG TAB PO SCH (21:00)
[2024-06-16] MEDS ORDERED: Fish Oil 1,000 MG CAP PO SCH (21:00)
[2024-06-16] MEDS ORDERED: Insulin NPH Human Isophane 100 UNITS/ML (10 ML VIAL) SC SCH (21:00)
[2024-06-17] MEDS ORDERED: Insulin NPH Human Isophane 100 UNITS/ML (10 ML VIAL) SC SCH (09:00)
[2024-06-17] MEDS ORDERED: Cyanocobalamin (Vitamin B-12) 1,000 MCG TAB PO SCH (09:00)
[2024-06-17] MEDS ORDERED: Aspirin 81 mg Enteric Coated Tablet PO SCH (09:00)
[2024-06-17] MEDS ORDERED: Amlodipine 5 MG TAB PO SCH (09:00)
[2024-06-17] MEDS ORDERED: Losartan 25 MG TAB PO SCH (09:00)
== END 2024-06-16 16:50 | disposition home or self-care (01) | DRG 390 ==
LOC: ERS 23:21 → MSONC 06-15 03:50
PROVIDERS: ADMIT Specialist; ATTEND Specialist
PROC: 0D9670Z Drainage of Stomach with Drainage Device, Via Natural or Artificial Opening (ICD-10-PCS; principal; 2024-06-15)
DX: K56.609 Unspecified intestinal obstruction, unspecified as to partial versus complete obstruction (principal); E86.0 Dehydration; I10 Essential (primary) hypertension; E11.9 Type 2 diabetes mellitus without complications; I25.10 Atherosclerotic heart disease of native coronary artery without angina pectoris; S31.109D Unspecified open wound of abdominal wall, unspecified quadrant without penetration into peritoneal cavity, subsequent encounter; K86.89 Other specified diseases of pancreas; K43.2 Incisional hernia without obstruction or gangrene; Z96.651 Presence of right artificial knee joint; Z88.5 Allergy status to narcotic agent; Z88.8 Allergy status to other drugs, medicaments and biological substances; Z98.890 Other specified postprocedural states
CPT/HCPCS: 36415; 36416; 74018; 74019; 74177; 74250; 80053; 82378; 83690; 83735; 85025; 96361; 96374; 96375; J1650; J1815; J1885; J2270; J2405; J2470; J7120; Q9963; Q9967

== ENCOUNTER 2024-06-22 18:08 | Inpatient (IN) | payer OTHER ==
[~2024-06-22 18:08] MED LIST changes: -Iopamidol 370 76% 100 ML VIAL ONE; +Iopamidol-370 76% 500 ML MDV (1 ML CHARGE) ONE
[2024-06-22] MEDS ORDERED: Ondansetron PF 4 MG/2 ML Vial ONE (20:48)
[2024-06-22 21:03] LABS: #Basophils 0.09 10x3/uL (0.0-0.2); %Basophils 0.5 % (0.0-1.0); %Eosinophils 0.4 % (0.0-10.0); %Lymphocytes 7.7 % (21.0-51.0); %Monocytes 6.6 % (0.0-10.0); Hematocrit 50.7 % (42.0-52.0); Hemoglobin 16.5 g/dL (14.0-18.0); Mean Corpuscular HGB CONC 32.5 g/dL (32.0-36.0); Mean Corpuscular Volume 89.3 fL (78.0-98.0); Mean Platelet Volume 9.5 fL (7.4-10.4); Platelet Count 309 10x3/uL (130-400); RBC Distribution Width 13.1 % (11.5-14.5); Red Blood Cell (RBC) Count 5.68 mill/uL (4.70-6.10)
[2024-06-22 21:21] LABS: ALT (SGPT) 31 U/L (Less than 45); AST (SGOT) 34 U/L (11-34); Alkaline Phosphatase 83 U/L (40-110); Anion Gap 18 mmol/L (10-20); BUN (Urea Nitrogen) 16 mg/dL (8.4-25.7); Calc. Creatinine Clearance 0 mL/min (70-130); Calcium 10.3 mg/dL (7.8-10.44); Carbon Dioxide 21 mmol/L (23-31); Chloride 100 mmol/L (98-107); Estimated GFR 55; Globulin 4.3 g/dL (2.4-3.5); Glucose 149 mg/dL (83-110); Potassium 3.7 mmol/L (3.5-5.1); Protein, Total 8.3 g/dL (5.8-8.1); Sodium 135 mmol/L (136-145)
[2024-06-22] MEDS ORDERED: Morphine 2 MG/ML VIAL ONE (21:31)
[2024-06-22] MEDS ORDERED: Sodium Chloride 0.9% 100 ML ONE (23:01)
[2024-06-22] MEDS ORDERED: Piperacillin/Tazobactam 4.5 GM VIAL ONE (23:01)
[2024-06-22] MEDS ORDERED: Dextrose 5% in Water 1,000 ML IV PRN ×2 (23:33→23:56)
[2024-06-22] MEDS ORDERED: Glucagon 1 MG/ML KIT IM PRN ×2 (23:33→23:56)
[2024-06-22] MEDS ORDERED: Ondansetron PF 4 MG/2 ML Vial IVP PRN (23:33)
[2024-06-22] MEDS ORDERED: Dextrose 50% Abboject 50 ML SYRINGE SLOW IVP PRN ×2 (23:33→23:56)
[2024-06-22] MEDS ORDERED: Promethazine HCl 25 MG/ML VIAL IM PRN (23:33)
[2024-06-22 23:49] LABS: Lactic Acid 1.47 mmol/L (0.50-2.20)
[2024-06-22] MEDS ORDERED: Insulin Lispro 100 UNIT/ML 10 ML VIAL SC PRN (23:56)
[2024-06-22] MEDS ORDERED: TETANUS, DIPHTHERIA TOX,ADULT (TDVAX) 0.5 ML VIAL IM ONE (23:56)
[2024-06-23] MEDS: Sodium Chloride 0.9% 1,000 ML IV SCH ×2 (01:00→09:24)
[2024-06-23 02:22] VITALS: BMI 25.9
[2024-06-23] MEDS ORDERED: Morphine 2 MG/ML VIAL SLOW IVP PRN ×2 (02:31→07:17)
[2024-06-23] MEDS ORDERED: hydrALAZINE 20 MG/ML VIAL SLOW IVP PRN (03:04)
[2024-06-23] MEDS ORDERED: Chloroprocaine 3% PF 20 ML VIAL IM SCH (03:15)
[2024-06-23] MEDS: Piperacillin/Tazobactam 3.375 GM in Sodium Chloride 0.9% 100 ML IVPB SCH (03:17)
[2024-06-23] MEDS: chlorproMAZINE HCl 25 MG in Sodium Chloride 0.9% 50 ML IVPB PRN (04:06)
[2024-06-23 07:26] LABS: #Basophils 0.05 10x3/uL (0.0-0.2); #Eosinophils Less than 0.03 10x3/uL (0.0-0.7); %Basophils 0.3 % (0.0-1.0); %Eosinophils 0.1 % (0.0-10.0); %Lymphocytes 4.9 % (21.0-51.0); %Monocytes 6.5 % (0.0-10.0); %Neutrophils 87.6 % (42.0-75.0); Hematocrit 43.2 % (42.0-52.0); Mean Corpuscular HGB CONC 32.4 g/dL (32.0-36.0); Mean Corpuscular Volume 89.6 fL (78.0-98.0); Platelet Count 218 10x3/uL (130-400); RBC Distribution Width 13.2 % (11.5-14.5); Red Blood Cell (RBC) Count 4.82 mill/uL (4.70-6.10)
[2024-06-23] MEDS ORDERED: Morphine 4 MG/ML VIAL SLOW IVP PRN (07:33)
[2024-06-23 07:46] LABS: Anion Gap 18 mmol/L (10-20); BUN (Urea Nitrogen) 18 mg/dL (8.4-25.7); Calc. Creatinine Clearance 59 mL/min (70-130); Calcium 8.5 mg/dL (7.8-10.44); Carbon Dioxide 17 mmol/L (23-31); Chloride 105 mmol/L (98-107); Estimated GFR 63; Glucose 166 mg/dL (83-110); Potassium 4.4 mmol/L (3.5-5.1); Sodium 136 mmol/L (136-145)
[2024-06-23] MEDS: Lactated Ringer's 1,000 ML IV SCH (09:23)
[2024-06-23] MEDS: Mineral Oil ENEMA PR SCH (12:07)
[2024-06-23] MEDS: Enoxaparin 40 MG (0.4 mL) SYRINGE SC SCH (20:55)
[2024-06-24 05:58] LABS: #Basophils 0.06 10x3/uL (0.0-0.2); %Basophils 0.6 % (0.0-1.0); %Eosinophils 1.1 % (0.0-10.0); %Lymphocytes 14.9 % (21.0-51.0); %Monocytes 11.2 % (0.0-10.0); %Neutrophils 71.4 % (42.0-75.0); Hematocrit 41.4 % (42.0-52.0); Hemoglobin 13.3 g/dL (14.0-18.0); Mean Corpuscular HGB CONC 32.1 g/dL (32.0-36.0); Mean Corpuscular Hemoglobin 29.2 pg (27.0-31.0); Mean Platelet Volume 9.8 fL (7.4-10.4); Platelet Count 216 10x3/uL (130-400); RBC Distribution Width 13.4 % (11.5-14.5); Red Blood Cell (RBC) Count 4.55 mill/uL (4.70-6.10)
[2024-06-24 06:11] LABS: Anion Gap 14 mmol/L (10-20); BUN (Urea Nitrogen) 18 mg/dL (8.4-25.7); Calc. Creatinine Clearance 70 mL/min (70-130); Calcium 8.5 mg/dL (7.8-10.44); Carbon Dioxide 23 mmol/L (23-31); Chloride 107 mmol/L (98-107); Estimated GFR 78; Glucose 151 mg/dL (83-110); Potassium 3.7 mmol/L (3.5-5.1); Sodium 140 mmol/L (136-145)
[2024-06-24 08:16] VITALS: BP 147/72; TEMP 98.3
== END 2024-06-24 11:53 | disposition home or self-care (01) | DRG 390 ==
LOC: ERS 18:08 → SURG B 23:37
PROVIDERS: ADMIT Specialist; ATTEND Specialist
DX: K56.609 Unspecified intestinal obstruction, unspecified as to partial versus complete obstruction (principal); E11.9 Type 2 diabetes mellitus without complications; I10 Essential (primary) hypertension; I48.91 Unspecified atrial fibrillation; Z95.1 Presence of aortocoronary bypass graft
CPT/HCPCS: 36415; 36416; 43752; 71045; 74177; 74250; 80048; 80053; 82105; 82378; 83605; 83690; 85025; 86301; 87040; 96361; 96374; 96375; J1650; J2272; J2405; J2543; J3230; J7030; J7120; Q9967